=== PATIENT | male | born 1980 | race American Indian/Alaskan Native ===

== ENCOUNTER 2016-10-11 12:15 | Outpatient (CLI) | payer MEDICARE ==
--- NOTE | 2016-10-11 13:49 | XRay Report ---
LEFT WRIST, 4 VIEWS: HISTORY: Left wrist pain. FINDINGS: No comparison. There is mild nonspecific soft tissue swelling. On 2 of the 4 images, there is a questionable cortical defect involving the distal tip of the scaphoid bone. I cannot entirely exclude a nondisplaced fracture. There is no evidence for calcified callus. Please correlate for snuffbox tenderness. The remaining carpal bones and visualized metacarpals are intact. The distal radius and ulna are intact. No evidence for ligamentous injury or dislocation. No significant degenerative changes. IMPRESSION: Questionable nondisplaced fracture of the distal tip of the scaphoid bone. Please see above and correlate with the patient.
== END 2016-10-11 12:16 | disposition home or self-care (01) ==
LOC: XRAY 12:15
PROVIDERS: ATTEND Internal Medicine Hematology & Oncology
DX: S62.102A Fracture of unspecified carpal bone, left wrist, initial encounter for closed fracture (principal); M25.532 Pain in left wrist

== ENCOUNTER 2016-10-11 12:25 | Day surgery (SDC) | payer MEDICARE ==
[2016-10-11] MEDS ORDERED: NACL 0.9% 500 ML 500 ML IV SCH (13:00)
[2016-10-11 13:02] VITALS: BP 125/82
[2016-10-11 13:40] LABS: BUN/Creatinine Ratio 16.66; Blood Urea Nitrogen 10 mg/dL (9-20); Calcium 9.2 mg/dL (8.4-10.2); Carbon Dioxide 22 mmol/L (22-30); Chloride 102.4 mmol/L (98-107); Glucose 86 mg/dL (75-100); Potassium 3.6 mmol/L (3.6-5.0); Sodium 141 mmol/L (137-145)
[2016-10-11 13:45] LABS: Anion Gap 20 mmol/L
[2016-10-11] MEDS ORDERED: HEPARIN/NS 5000 UNIT/500ML(CATH LAB) 500 ML IR ONE (14:42)
[2016-10-11] MEDS ORDERED: SUBLIMAZE ONE (14:42)
[2016-10-11] MEDS ORDERED: VERSED ONE (14:42)
[2016-10-11] MEDS ORDERED: CEFAZOLIN IV ONE (14:43)
[2016-10-11] MEDS ORDERED: XYLOCAINE 1%/ EPI 1:100,000 INFILTRATI ONE (14:43)
[2016-10-11] MEDS ORDERED: [UNRECOGNIZED DRUG - OTHER] IV ONE (14:43)
[2016-10-11] MEDS ORDERED: BENADRYL ONE (14:43)
[2016-10-11 14:47] LABS: INR 1.21 (0.87-1.13)
--- NOTE | 2016-10-11 15:32 | XRay Report ---
AP chest x-ray. Findings: The heart and lungs reveal no acute findings or interval changes since October 02, 2016. Impression: No acute findings.
--- NOTE | 2016-10-11 15:35 | Event Note ---
Date: 10/11/16 The patient is a 36-year-old male with a history of sickle cell disease and HIV Zentz for a port placement. Patient has had multiple ports on both sides of his chest. His most recent port was removed in September. He still has surgical neida at the incision site. A tract extending from the distal incision site to the neck is palpable and a chest x-ray was ordered which demonstrates no retained catheter. I discussed the patient with his surgeon who recommended that the patient follow-up for surgical removal of the neida as soon as possible. He can then have a port placed at that time.
[2016-10-12 04:55] LABS: Mean Corpuscular HGB Conc 30 % (32-34); Mean Corpuscular Volume 72 fl (84-94); Platelet Count 220 K/mm3 (140-440); Red Cell Distribution Width 15.3 % (13.2-15.2); White Blood Count 3.1 K/mm3 (4.5-11.0)
[2016-10-12 05:01] LABS: Hematocrit 39.1 % (35.5-45.6); Hemoglobin 11.9 gm/dl (11.8-15.2); Mean Corpuscular Hemoglobin 22 pg (28-32)
[2016-10-12 06:01] LABS: Anisocytosis 1+; Basophils % (Manual) 0 % (0.0-1.8); Blastocytes % (Manual) 0 %
[2016-10-12 06:02] LABS: Burr Cells Few; Elliptocytes 1+; Hypochromasia 1+; Ovalocytes Few; Poikilocytosis 1+
[2016-10-12 06:03] LABS: Diff Status Complete
== END 2016-10-11 15:38 | disposition home or self-care (01) ==
LOC: OPU 12:25
PROVIDERS: ATTEND Internal Medicine Hematology & Oncology
DX: Z45.2 Encounter for adjustment and management of vascular access device (principal); Z53.8 Procedure and treatment not carried out for other reasons
CPT/HCPCS: 36415; 71010; 80048; 85007; 85025; 85610; 85730; J1200; J1644; J2930; J7040; J0690; J2250; J3010

== ENCOUNTER 2016-11-07 13:57 | Inpatient (IN) | payer MEDICARE ==
[2016-11-07 16:21] LABS: Anion Gap 17 mmol/L; BUN/Creatinine Ratio 21.66; Blood Urea Nitrogen 13 mg/dL (9-20); Calcium 8.9 mg/dL (8.4-10.2); Carbon Dioxide 23 mmol/L (22-30); Chloride 102.9 mmol/L (98-107); Glucose 92 mg/dL (75-100); Potassium 3.4 mmol/L (3.6-5.0); Sodium 139 mmol/L (137-145)
[2016-11-07 16:35] LABS: Mean Corpuscular HGB Conc 31 % (32-34); Mean Corpuscular Volume 71 fl (84-94); Platelet Count 176 K/mm3 (140-440); Red Blood Count 5.13 M/mm3 (3.65-5.03); Red Cell Distribution Width 16.1 % (13.2-15.2)
[2016-11-07 17:01] LABS: Hematocrit 36.4 % (35.5-45.6); Hemoglobin 11.1 gm/dl (11.8-15.2); Mean Corpuscular Hemoglobin 22 pg (28-32); White Blood Count 1.9 K/mm3 (4.5-11.0)
[2016-11-07] MEDS ORDERED: BENADRYL PO ONE (18:08)
[2016-11-07] MEDS ORDERED: ZOFRAN IV ONE (18:08)
[2016-11-07] MEDS ORDERED: DILAUDID IV ONE (18:08)
--- NOTE | 2016-11-07 18:09 | Emergency Department Report ---
ED General Adult HPI - General Chief complaint: Sickle Cell Crisis Stated complaint: SICKLE CELL Time Seen by Provider: 11/07/16 17:45 Source: patient, RN notes reviewed, old records reviewed Mode of arrival: Ambulatory Limitations: No Limitations - History of Present Illness Initial comments: Hematology/physician: Dr. Steward Past medical history: Sickle cell disease, pulmonary embolus, DVT, HIV. On Coumadin therapy. This is a 36-year-old male. He is previously unknown to me. He presents to the ER at right-sided chest wall pain, right shoulder pain, pain in the arms and back, subjectively feels like he is having a sickle cell crisis. trigger include cold weather, change of seasons and physical stress. He does not have shortness of breath, vomiting or diaphoresis. His symptoms are constant, they decrease with pain medication. He reports he is able to tolerate hydromorphone. Patient also reports feeling like he is off balance. He reports that it feels similar in the past when he had transient ischemic attack. He woke up with the symptoms. They're constant. Apparently, CD4 count was 226 in July, he's been HIV positive for 4 years. -: Gradual Location: chest, back, right, upper extremity Quality: aching Consistency: constant Improves with: medication, rest Worsens with: movement Associated Symptoms: chest pain, loss of appetite, weakness - Related Data Home Medications Medication Instructions Recorded Confirmed Last Taken Hydroxyurea [Hydrea] 500 mg PO BID 12/25/15 11/07/16 10/10/16 500mg Folic Acid 0.4 mg PO QDAY 09/16/16 11/07/16 10/10/16 0.4mg HYDROmorphone [Dilaudid] 4 mg PO Q6HR PRN 09/16/16 11/07/16 10/10/16 4mg Warfarin [Coumadin] 7.5 mg PO QDAY 11/07/16 11/07/16 Unknown Allergies Allergy/AdvReac Type Severity Reaction Status Date / Time morphine Allergy Anaphylaxis Verified 10/02/16 11:19 Iodinated Contrast Media - AdvReac Unknown Verified 10/02/16 11:19 IV Dye sulfamethoxazole AdvReac Unknown Verified 10/02/16 11:19 [From Bactrim] trimethoprim [From Bactrim] AdvReac Unknown Verified 10/02/16 11:19 PLASTIC TAPE Allergy Rash Uncoded 10/02/16 11:19 ED Review of Systems ROS: Stated complaint: SICKLE CELL Other details as noted in HPI Constitutional: denies: fever Eyes: denies: vision change ENT: denies: epistaxis Respiratory: denies: cough Cardiovascular: as per HPI Gastrointestinal: denies: vomiting Genitourinary: as per HPI Musculoskeletal: back pain, arthralgia Skin: denies: lesions Neurological: as per HPI, abnormal gait ED Past Medical Hx - Past Medical History Hx CVA: Yes (-2014) Hx Heart Attack/AMI: No Hx Congestive Heart Failure: No Hx Diabetes: No Hx Deep Vein Thrombosis: Yes (RIGHT ARM, RIGHT LEG, PE 2015) Hx Pulmonary Embolism: Yes (08/2016) Hx Liver Disease: No Hx Renal Disease: No Hx Sickle Cell Disease: Yes Hx Arthritis: No Hx Seizures: No Hx Kidney Stones: No Hx Asthma: No Hx COPD: No Hx Tuberculosis: No Hx Dementia: No Hx HIV: Yes (last CD4 count July 2016, POSITIVE X4 YEARS) - Surgical History Hx Cholecystectomy: Yes (2015) Hx Appendectomy: Yes (11/11) Additional Surgical History: I AND D ON LEG. PORT RIGHT CHEST. Spleenectomy - Social History Smoking Status: Current Every Day Smoker Substance Use Type: Alcohol - Medications Home Medications: Home Medications Medication Instructions Recorded Confirmed Last Taken Type Hydroxyurea [Hydrea] 500 mg PO BID 12/25/15 11/07/16 10/10/16 History 500mg Folic Acid 0.4 mg PO QDAY 09/16/16 11/07/16 10/10/16 History 0.4mg HYDROmorphone [Dilaudid] 4 mg PO Q6HR PRN 09/16/16 11/07/16 10/10/16 History 4mg Warfarin [Coumadin] 7.5 mg PO QDAY 11/07/16 11/07/16 Unknown History ED Physical Exam - General Limitations: No Limitations General appearance: alert, in no apparent distress - Head Head exam: Present: atraumatic, normocephalic - Eye Eye exam: Present: normal appearance, EOMI. Absent: nystagmus - ENT ENT exam: Present: normal exam, normal orophraynx, mucous membranes moist, normal external ear exam - Neck Neck exam: Present: normal inspection, full ROM. Absent: tenderness, meningismus - Respiratory Respiratory exam: Present: normal lung sounds bilaterally, other (there is an anterior thoracic wall port. There is no redness, pus, streaking or tenderness. ). Absent: respiratory distress, wheezes, rales, rhonchi, stridor, chest wall tenderness - Cardiovascular Cardiovascular Exam: Present: regular rate, normal rhythm, normal heart sounds. Absent: bradycardia, tachycardia, irregular rhythm, systolic murmur, diastolic murmur, rubs, gallop - GI/Abdominal GI/Abdominal exam: Present: soft, normal bowel sounds. Absent: distended, tenderness, guarding, rebound, rigid, pulsatile mass - Rectal Rectal exam: Present: deferred - Extremities Exam Extremities exam: Present: normal inspection, full ROM, normal capillary refill. Absent: tenderness, pedal edema, joint swelling, calf tenderness - Back Exam Back exam: Present: normal inspection, full ROM. Absent: tenderness, CVA tenderness (R), CVA tenderness (L), muscle spasm, paraspinal tenderness, vertebral tenderness - Neurological Exam Neurological exam: Present: alert, oriented X3, normal gait (normal gait. No past pointing. Negative pronator drift. Normal [id number].), other ( Extraocular movements intact. Tongue midline. No facial droop. Facial sensation intact to light touch in the V1, V2, V3 distribution bilaterally. 5 and 5 strength in 4 extremities.. Sensation is intact to light touch in 4 extremities.). Absent: motor sensory deficit - Psychiatric Psychiatric exam: Present: normal affect, normal mood - Skin Skin exam: Present: warm, dry, intact, normal color. Absent: rash ED Course Vital Signs 11/07/16 11/07/16 11/07/16 14:03 18:33 19:00 Temperature 98.9 F 98.2 F Pulse Rate 79 64 Respiratory 18 16 20 Rate Blood Pressure 148/85 Blood Pressure 116/65 [Left] O2 Sat by Pulse 100 100 99 Oximetry 11/07/16 19:05 Temperature 98.2 F Pulse Rate 73 Respiratory 16 Rate Blood Pressure Blood Pressure 131/87 [Left] O2 Sat by Pulse 100 Oximetry - Reevaluation(s) Reevaluation #1: 11/07/16 18:52 Differential diagnosis: Sickle cell crisis, subtherapeutic INR, medication noncompliance, transient ischemic attack, pneumonia, acute coronary syndrome, sickle cell crisis Assessment and plan: 36-year-old male with multiple complaints and sickle cell crisis. He reports that his shoulder and right chest wall pain are the same as on prior episodes of sickle cell crisis. Patient has a known history of pulmonary embolus and DVT, he has had recent episodes of subtherapeutic INR. A repeat INR is pending. A noncontrast CAT scan of the head demonstrated no acute disease. The patient has a GCS of 15, with an NIH score of 0, walks with a steady gait, has no past-pointing or cerebellar signs. Woke up with symptoms, and NIH score of 0, therefore not a TPA candidate. His INR is pending. A noncontrast CAT scan of the head demonstrated old ischemic changes. Patient will be admitted for sickle cell crisis and possible transient ischemic attack. I have discussed the case with his english tutor, , who is going to follow as a consult. I have discussed the case with Dr. Bruce, the hospital physician, who graciously accepts the patient to his service. Of note, the laboratory misplaced the patient's INR, and a redraw is pending. I will defer to the inpatient team to follow up on this. 11/07/16 18:55 11/08/16 02:02 ED Medical Decision Making - Lab Data Result diagrams: 11/07/16 15:50 11/07/16 15:50 Vital Signs 11/07/16 11/07/16 14:03 18:33 Temperature 98.9 F Pulse Rate 79 Respiratory 18 16 Rate Blood Pressure 148/85 O2 Sat by Pulse 100 100 Oximetry Lab Results 11/07/16 11/07/16 Range/Units 15:50 15:50 WBC 1.9 L* (4.5-11.0) K/mm3 RBC 5.13 H (3.65-5.03) M/mm3 Hgb 11.1 L (11.8-15.2) gm/dl Hct 36.4 (35.5-45.6) % MCV 71 L (84-94) fl MCH 22 L (28-32) pg MCHC 31 L (32-34) % RDW 16.1 H (13.2-15.2) % Plt Count 176 (140-440) K/mm3 Percent Retic 0.50 L (0.78-2.58) % Sodium 139 (137-145) mmol/L Potassium 3.4 L (3.6-5.0) mmol/L Chloride 102.9 (98-107) mmol/L Carbon Dioxide 23 (22-30) mmol/L Anion Gap 17 mmol/L BUN 13 (9-20) mg/dL Creatinine 0.6 L (0.8-1.5) mg/dL Estimated GFR > 60 ml/min BUN/Creatinine Ratio 21.66 % Glucose 92 (75-100) mg/dL Calcium 8.9 (8.4-10.2) mg/dL - EKG Data 11/07/16 19:06 Normal sinus, 62 bpm, normal axis, normal intervals, incomplete right bundle branch block, not consistent with STEMI, appears unchanged from prior EKG from 10/02/2016. - Radiology Data Radiology results: report reviewed, image reviewed interpreted by me: X-ray chest negative. Right-sided thoracic wall port is noted. Noncontrast CAT scan of the head is negative. Old right MCA infarct is noted. Prominent chronic small vessel ischemic changes are noted. Critical care attestation.: If time is entered above; I have spent that time in minutes in the direct care of this critically ill patient, excluding procedure time. ED Disposition Clinical Impression: Sickle cell pain crisis, Leukopenia, History of unsteady gait Disposition: OP ADMITTED IP TO THIS HOSP Is pt being admited?: Yes Condition: Stable
--- NOTE | 2016-11-07 18:47 | Cat Scan Report ---
FINAL REPORT EXAM: CT HEAD/BRAIN WO CON HISTORY: ataxia hx of tia TECHNIQUE: Standard unenhanced CT of the head at 5.0 millimeter axial increments. PRIORS: None. FINDINGS: The ventricular system is normal in size and configuration. There is no evidence for parenchymal volume loss. There is no evidence for mass lesion, mass effect, midline shift, acute intracranial hemorrhage, or acute ischemia/ infarction. No evidence for acute skull fracture is seen. Visualized paranasal sinuses are clear. No abnormality in the overlying scalp soft tissues is seen. IMPRESSION: Negative CT of the head. No acute intracranial process noted.
[2016-11-07] MEDS ORDERED: BABY ASPIRIN PO ONE (18:57)
[2016-11-07] MEDS ORDERED: D5/0.45NS 1,000 ML IV SCH (19:00)
[2016-11-07 19:05] LABS: Blastocytes % (Manual) 0 %; Hypochromasia 1+; Microcytosis 2+; Ovalocytes 1+; Poikilocytosis Few
[2016-11-07 19:06] LABS: Platelet Estimate Consistent w Auto
[2016-11-07 19:12] LABS: Diff Status Complete
[2016-11-07] MEDS ORDERED: K-DUR PO ONE ×2 (19:21→20:10)
--- NOTE | 2016-11-07 19:35 | History and Physical Report ---
History of Present Illness Date of examination: 11/07/16 Chief complaint: Back pain History of present illness: Patient is a 36-year-old man history of sickle cell disease, P E/DVT, TIA and HIV who comes emergency room with sickle cell pain back pains that started today. He has sharp pain located in the legs external lower back constant since of severe nonradiating without any aggravating or relieving factors. Patient denies any cough, severe headaches. Past History Past Medical History: other (as HPI) Past Surgical History: total hip replacement, Other (right chest wall port) Social history: smoking, full code. denies: alcohol abuse, prescription drug abuse, IV drug use Family history: other (sickle cell) Medications and Allergies Allergies Allergy/AdvReac Type Severity Reaction Status Date / Time morphine Allergy Anaphylaxis Verified 10/02/16 11:19 Iodinated Contrast Media - AdvReac Unknown Verified 10/02/16 11:19 IV Dye sulfamethoxazole AdvReac Unknown Verified 10/02/16 11:19 [From Bactrim] trimethoprim [From Bactrim] AdvReac Unknown Verified 10/02/16 11:19 PLASTIC TAPE Allergy Rash Uncoded 10/02/16 11:19 Home Medications Medication Instructions Recorded Confirmed Last Taken Type Hydroxyurea [Hydrea] 500 mg PO BID 12/25/15 11/07/16 10/10/16 History 500mg Folic Acid 0.4 mg PO QDAY 09/16/16 11/07/16 10/10/16 History 0.4mg HYDROmorphone [Dilaudid] 4 mg PO Q6HR PRN 09/16/16 11/07/16 10/10/16 History 4mg Warfarin [Coumadin] 7.5 mg PO QDAY 11/07/16 11/07/16 Unknown History Active Meds: Active Medications Dextrose/Sodium Chloride (D5/0.45ns) 1,000 mls @ 0 mls/hr IV NOW RONY PRN Reason: As Directed Last Admin: 11/07/16 18:28 Dose: 250 mls/hr Review of Systems All systems: negative (as HPI and all other ROS reviewed and negative.) Exam - Physical Exam Narrative exam: GEN: WDWN, NAD, AWAKE, ALERT, ORIENTATED 3 HEENT: NCAT, PERRL, EOMI, OP CLEAR NECK: SUPPLE, NO THYROMEGALY, NO JVD, NO LAD CVS: RRR, NORMAL S1S2 LUNGS/CHEST: CTA B, NORMAL CHEST EXPANSION B, GOOD AIR ENTRY B ABD: SOFT NTND, GBS, NO REBOUND OR GUARDING EXT/SKIN: NO SIGNIFICANT EDEMA OR RASH MSK: FROM X 4 EXTREMITIES NEURO: CN 2-12 GROSSLY INTACT, NO FOCAL DEFICITS PSY: CALM - Constitutional Vitals: Temp Pulse Resp BP Pulse Ox 98.2 F 73 16 131/87 100 11/07/16 19:05 11/07/16 19:05 11/07/16 19:05 11/07/16 19:05 11/07/16 19:05 Results - Labs CBC & Chem 7: 11/07/16 15:50 11/07/16 15:50 Labs: Abnormal lab results 11/07/16 11/07/16 Range/Units 15:50 15:50 WBC 1.9 L* (4.5-11.0) K/mm3 RBC 5.13 H (3.65-5.03) M/mm3 Hgb 11.1 L (11.8-15.2) gm/dl MCV 71 L (84-94) fl MCH 22 L (28-32) pg MCHC 31 L (32-34) % RDW 16.1 H (13.2-15.2) % Seg Neuts % (Manual) 39.0 L (40.0-70.0) % Lymphocytes % (Manual) 44.0 H (13.4-35.0) % Monocytes % (Manual) 11.0 H (0.0-7.3) % Seg Neutrophils # Man 0.7 L (1.8-7.7) K/mm3 Lymphocytes # (Manual) 0.8 L (1.2-5.4) K/mm3 Percent Retic 0.50 L (0.78-2.58) % Potassium 3.4 L (3.6-5.0) mmol/L Creatinine 0.6 L (0.8-1.5) mg/dL Assessment and Plan Patient is a 36-year-old man history of sickle cell disease, P E/DVT, TIA and HIV who comes emergency room with sickle cell pain back pains that started today. He has sharp pain located in the legs external lower back constant since of severe nonradiating without any aggravating or relieving factors. Patient denies any cough, severe headaches. 1. Sickle cell pain crisis: IV narcotics, IV fluids and consult hematology 2. Hypokalemia: Replace 3. Leukopenia, chronic 4. Anemia related to #1
[2016-11-07] MEDS ORDERED: ZOFRAN IV PRN (19:36)
[2016-11-07] MEDS ORDERED: TYLENOL PO PRN (19:36)
[2016-11-07] MEDS ORDERED: DILAUDID ONE (20:02)
[2016-11-07] MEDS ORDERED: BABY ASPIRIN ONE (20:13)
[2016-11-07 21:24] LABS: INR 1.03 (0.87-1.13); Partial Thromboplastin Time 21.7 Sec. (24.2-36.6)
[2016-11-07] MEDS: D5NS 0.2% 1,000 ML IV SCH (22:56)
[2016-11-07] MEDS: DILAUDID IV PRN (22:59)
[2016-11-07] MEDS: BENADRYL IV PRN (22:59)
--- NOTE | 2016-11-07 23:37 | Consultation ---
History of Present Illness - Reason for Consult Consult date: 11/07/16 Anemia, SCD, Leukopenia. Requesting physician: ABDON GRADY - History of Present Illness Thank you for this consult, patient seen/examined, labs reviewed, case d/w patient in the ER where he was seen. I have also spoken to the ER DoC in the ER. Patient apparently, presented to the ER with CC of diffuse CP/Joint pain. He also was said to have experienced some TIA like sxs, but not really convencing to me on exam.His labs showed very low WBC, probably due to his HIV meds. He sees DR Bhatia.Will rec to probably hold off on his HIV meds, and also get ID consult.If he dose not improve, will give him some growth factor. Past History Past Medical History: HIV/AIDS, other (as HPI) Past Surgical History: total hip replacement, Other (right chest wall port) Social history: , full code. denies: alcohol abuse, prescription drug abuse, IV drug use Family history: no significant family history, other (sickle cell) Medications and Allergies Allergies Allergy/AdvReac Type Severity Reaction Status Date / Time morphine Allergy Anaphylaxis Verified 10/02/16 11:19 Iodinated Contrast Media - AdvReac Unknown Verified 10/02/16 11:19 IV Dye sulfamethoxazole AdvReac Unknown Verified 10/02/16 11:19 [From Bactrim] trimethoprim [From Bactrim] AdvReac Unknown Verified 10/02/16 11:19 PLASTIC TAPE Allergy Rash Uncoded 10/02/16 11:19 Home Medications Medication Instructions Recorded Confirmed Last Taken Type Hydroxyurea [Hydrea] 500 mg PO BID 12/25/15 11/07/16 10/10/16 History 500mg Folic Acid 0.4 mg PO QDAY 09/16/16 11/07/16 10/10/16 History 0.4mg HYDROmorphone [Dilaudid] 4 mg PO Q6HR PRN 09/16/16 11/07/16 10/10/16 History 4mg Warfarin [Coumadin] 7.5 mg PO QDAY 11/07/16 11/07/16 Unknown History Active Meds: Active Medications Acetaminophen (Tylenol) 650 mg PO Q6H PRN PRN Reason: Non Cardiac Pain or Temp>100.5 Diphenhydramine HCl (Benadryl) 25 mg IV Q6H PRN PRN Reason: Itching Last Admin: 11/07/16 22:59 Dose: 25 mg Hydromorphone HCl (Dilaudid) 2 mg IV Q3H PRN PRN Reason: Pain , Severe (7-10) Last Admin: 11/07/16 22:59 Dose: 2 mg Dextrose/Sodium Chloride (D5ns 0.2%) 1,000 mls @ 100 mls/hr IV DIRECT RONY Last Admin: 11/07/16 22:56 Dose: 100 mls/hr Ondansetron HCl (Zofran) 4 mg IV Q4H PRN PRN Reason: Nausea And Vomiting Pantoprazole Sodium (Protonix) 40 mg PO QDAY RONY Review of Systems Constitutional: chronic pain Cardiovascular: chest pain Musculoskeletal: low back pain Neurological: tingling Exam - Constitutional Vitals: Temp Pulse Resp BP Pulse Ox 98.2 F 66 18 123/76 99 11/07/16 22:00 11/07/16 22:00 11/07/16 22:00 11/07/16 22:00 11/07/16 22:00 General appearance: Present: mild distress, well-nourished - EENT Eyes: Present: PERRL ENT: hearing intact, clear oral mucosa - Neck Neck: Present: supple, normal ROM - Respiratory Respiratory effort: normal Respiratory: bilateral: CTA - Cardiovascular Heart Sounds: Present: S1 & S2. Absent: rub, click - Extremities Extremities: pulses symmetrical, No edema Peripheral Pulses: within normal limits - Abdominal General gastrointestinal: Present: soft, non-tender, non-distended, normal bowel sounds Male genitourinary: Present: deferred - Rectal Rectal Exam: deferred - Integumentary Integumentary: Present: clear, warm, dry - Musculoskeletal Musculoskeletal: gait normal, strength equal bilaterally - Psychiatric Psychiatric: appropriate mood/affect, intact judgment & insight - Neurologic Neurologic: CNII-XII intact, moves all extremities Results - Labs CBC & Chem 7: 11/07/16 15:50 11/07/16 15:50 Labs: Abnormal lab results 11/07/16 Range/Units 20:45 APTT 21.7 L (24.2-36.6) Sec. Assessment and Plan - Patient Problems (1) Leukopenia Current Visit: Yes Status: Acute Qualifiers: Leukopenia type: L Neutropenia type: N Plan to address problem: This is probably due to his meds ,including his hydrea. will hold his meds. (2) Sickle cell pain crisis Current Visit: Yes Status: Acute Plan to address problem: pain control. (3) Anemia Current Visit: No Status: Acute Qualifiers: Anemia type: A Iron deficiency anemia type: I Vitamin B12 deficiency anemia type: V Folate deficiency anemia type: F Bone marrow failure anemia type: B Hemolytic anemia type: H Other causes of anemia: O Plan to address problem: Stable so far. (4) Hx of pulmonary embolus Current Visit: No Status: Acute Plan to address problem: Monitor coags.
[2016-11-08] MEDS: DILAUDID IV PRN ×5 (02:03→21:29)
[2016-11-08 02:22] LABS: Hematocrit 32.1 % (35.5-45.6); Hemoglobin 10.1 gm/dl (11.8-15.2); Mean Corpuscular HGB Conc 31 % (32-34); Platelet Count 173 K/mm3 (140-440); Red Blood Count 4.69 M/mm3 (3.65-5.03); Red Cell Distribution Width 15.9 % (13.2-15.2); Reticulocyte % 0.57 % (0.78-2.58)
[2016-11-08 02:31] LABS: Mean Corpuscular Hemoglobin 22 pg (28-32); Mean Corpuscular Volume 68 fl (84-94)
[2016-11-08 02:34] LABS: BUN/Creatinine Ratio 18.33; Blood Urea Nitrogen 11 mg/dL (9-20); Calcium 8.5 mg/dL (8.4-10.2); Carbon Dioxide 26 mmol/L (22-30); Chloride 98.9 mmol/L (98-107); Glucose 123 mg/dL (75-100); Potassium 3.2 mmol/L (3.6-5.0); Sodium 137 mmol/L (137-145)
[2016-11-08 02:35] LABS: Eosinophils % (Auto) 1.4 % (0.0-4.3); White Blood Count 1.9 K/mm3 (4.5-11.0)
[2016-11-08 02:54] LABS: Anion Gap 15 mmol/L
[2016-11-08 03:33] LABS: Anisocytosis 2+; Basophils % (Manual) 0 % (0.0-1.8); Blastocytes % (Manual) 0 %; Elliptocytes 1+; Eosinophils % (Manual) 0 % (0.0-4.3); Hypochromasia 1+; Microcytosis 2+; Ovalocytes 1+; Target Cells 1+
[2016-11-08 03:34] LABS: Diff Status Complete; Helmet Cells Few
[2016-11-08] MEDS: BENADRYL IV PRN ×4 (05:17→21:30)
--- NOTE | 2016-11-08 08:34 | Admit Criteria Form ---
Admission Criteria Documentation: SICKLE CELL DISEASE Clinical Indications for Admission to Inpatient Care (Place 'X' for any and all applicable criteria): Admission is indicated for ANY ONE of the following(1)(2)(3)(4)(5): [X]I. Inpatient admission required rather than observation care because of ANY ONE of the following: [ ]a) Altered mental status [ ]b) High fever or infection requiring inpatient admission as indicated by ANY ONE of the following: [ ]A. Appropriate outpatient observation care antimicrobial treatment unavailable, not effective, or not appropriate for infection [ ]B. Documented bacteremia [ ]C. Temp >104.9F (40.5C) (oral) [ ]D. Temp >103.1F (oral) or <96.8F(rectal) that does not respond to all emergency treatment measures [ ]c) Supplemental O2 or respiratory therapy for over 24 h that are performable only in acute inpatient setting [X]d) Continuous parenteral narcoticsother major pain intervention for >24 h performable only in acute inpatient setting. [ ]e) Exchange transfusion [X]f) Other condition, treatment or monitoring requiring inpatient admission [ ]II. Acute chest syndrome indicated by ALL of the following (10): [ ]a) New alveolar infiltrate involving at least one lung segment [ ]b) Associated pulmonary symptoms or findings as indicated by ANY ONE of the following: [ ]i) Chest pain [ ]ii) Hypoxemia [ ]iii) Tachypnea/dyspnea [ ]iv) Wheezing [ ]v) Cough [ ]vi) Sputum production [ ]III. Significant hypoxemia or acidosis (more severe than baseline) [ ]IV. Emergent surgery needed (eg, acute cholecystitis) [ ]V. -related complication(11) [ ]. Splenic or hepatic sequestration(12) [ ]VII. Aplastic crisis [ ]VIII. Priapism or other vascular complication(13) [ ]IX. Traumatic hyphema [A](14) [ ]X. Underlying condition requiring hospitalization (eg, osteomyelitis) [ ]XI. Signs or symptoms of central nervous system injury indicated by ANY ONE of the following: [ ]a) Stroke(9) [ ]b) Seizure [ ]c) Other significant central nervous system symptom or event [ ]XII. Acute renal failure Extended stay beyond goal length of stay may be needed for: [ ]a) Inadequate pain control [ ]b) Acute chest syndrome [ ]c) Sequestration or aplastic crisis (12) [ ]d) Pneumonia and asthma exacerbation [ ]e) Neurologic or vascular complications (25) [ ]f) Infection (eg, osteomyelitis) that requires ongoing treatment) The original [facility] [employer] content created by [facility] has been revised. The portions of the content which have been revised are identified through the use of italic text or in bold, and [facility] has neither reviewed nor approved the modified material. All other unmodified content is copyright [facility]. Please see references footnoted in the original [facility] [employer] edition 2016 Admission Criteria Met: Yes
--- NOTE | 2016-11-08 08:49 | XRay Report ---
CHEST 2 VIEWS INDICATION: Chest pain, sickle cell crisis. COMPARISON: 10/11/2016 FINDINGS: PA and lateral chest radiographs, 3 images, demonstrate normal cardiomediastinal silhouette. Clear lungs without pleural effusions or CHF. New right sided chest port tip near the cavoatrial junction. Interval right upper chest skin neida removal. Cholecystectomy clips. Slight lower thoracic levocurvature. CONCLUSION: No significant acute chest process with few incidental findings, including interval right-sided chest port placement, as described. Thank you for the opportunity to participate in this patient's care.
[2016-11-08] MEDS: K-DUR PO SCH ×2 (08:54→19:36)
[2016-11-08] MEDS: PROTONIX PO SCH (09:03)
[2016-11-08 10:48] LABS: Bilirubin,Urine NEG (Negative); Blood,Urine NEG (Negative); Ketones,Urine NEG (Negative); Leukocyte Esterase,Urine NEG (Negative); Mucus,Urine 3+ /HPF; Nitrite,Urine NEG (Negative); Protein,Urine <15 mg/dL mg/dL (Negative)
--- NOTE | 2016-11-08 12:36 | Progress Note ---
Assessment and Plan Assessment and plan: Sickle cell vaso-occlusive crisis. Continue Dilaudid iv Q3hr. benadryl iv prn. iv fluids History of pulmonary embolism and deep vein thrombosis. Resume Coumadin. INR saubtherapeutic HIV infection. Full code status. History Interval history: Still having gen body pains,, leg pain, back pain Hospitalist Physical - Constitutional Vitals: Temp Pulse Resp BP Pulse Ox 98.4 F 72 16 129/84 100 11/08/16 08:17 11/08/16 08:17 11/08/16 08:17 11/08/16 08:17 11/08/16 08:17 General appearance: Present: mild distress (pain), well-nourished - EENT Eyes: Present: PERRL ENT: hearing intact, clear oral mucosa - Neck Neck: Present: supple, normal ROM - Respiratory Respiratory effort: normal Respiratory: bilateral: CTA, negative: diminished, rales, rhonchi, wheezing - Cardiovascular Rhythm: regular Heart Sounds: Present: S1 & S2 (S1 and S2 reg, no murmurs) - Extremities Extremities: no ischemia, No edema, normal temperature, normal color - Abdominal General gastrointestinal: soft, non-tender, non-distended, normal bowel sounds - Integumentary Integumentary: Present: clear, warm, dry - Psychiatric Psychiatric: appropriate mood/affect, intact judgment & insight - Neurologic Neurologic: moves all extremities, other (AAO x 3) Results - Labs CBC & Chem 7: 11/09/16 09:25 11/09/16 07:35 Labs: Laboratory Last Values WBC 1.9 K/mm3 (4.5-11.0) L* 11/08/16 02:00 RBC 4.69 M/mm3 (3.65-5.03) 11/08/16 02:00 Hgb 10.1 gm/dl (11.8-15.2) L 11/08/16 02:00 Hct 32.1 % (35.5-45.6) L 11/08/16 02:00 MCV 68 fl (84-94) L D 11/08/16 02:00 MCH 22 pg (28-32) L 11/08/16 02:00 MCHC 31 % (32-34) L 11/08/16 02:00 RDW 15.9 % (13.2-15.2) H 11/08/16 02:00 Plt Count 173 K/mm3 (140-440) 11/08/16 02:00 [place] % (Auto) 13.1 % (0.0-7.3) H 11/08/16 02:00 Eos % (Auto) 1.4 % (0.0-4.3) 11/08/16 02:00 [place] # 0.3 K/mm3 (0.0-0.8) 11/08/16 02:00 Eos # 0.0 K/mm3 (0.0-0.4) 11/08/16 02:00 Baso # 0.0 K/mm3 (0.0-0.1) 11/08/16 02:00 Add Manual Diff Complete 11/08/16 02:00 Total Counted 100 11/08/16 02:00 Seg Neutrophils % 37.0 % (40.0-70.0) L 11/08/16 02:00 Seg Neuts % (Manual) 38.0 % (40.0-70.0) L 11/08/16 02:00 Band Neutrophils % 2.0 % 11/08/16 02:00 Lymphocytes % (Manual) 42.0 % (13.4-35.0) H 11/08/16 02:00 Reactive Lymphs % (Man) 8.0 % 11/08/16 02:00 Monocytes % (Manual) 10.0 % (0.0-7.3) H 11/08/16 02:00 Eosinophils % (Manual) 0 % (0.0-4.3) 11/08/16 02:00 Basophils % (Manual) 0 % (0.0-1.8) 11/08/16 02:00 Metamyelocytes % 0 % 11/08/16 02:00 Myelocytes % 0 % 11/08/16 02:00 Promyelocytes % 0 % 11/08/16 02:00 Blast Cells % 0 % 11/08/16 02:00 Nucleated RBC % Not Reportable 11/08/16 02:00 Seg Neutrophils # 0.7 K/mm3 (1.8-7.7) L 11/08/16 02:00 Seg Neutrophils # Man 0.7 K/mm3 (1.8-7.7) L 11/08/16 02:00 Band Neutrophils # 0.0 K/mm3 11/08/16 02:00 Lymphocytes # (Manual) 0.8 K/mm3 (1.2-5.4) L 11/08/16 02:00 Abs React Lymphs (Man) 0.2 K/mm3 11/08/16 02:00 Monocytes # (Manual) 0.2 K/mm3 (0.0-0.8) 11/08/16 02:00 Eosinophils # (Manual) 0.0 K/mm3 (0.0-0.4) 11/08/16 02:00 Basophils # (Manual) 0.0 K/mm3 (0.0-0.1) 11/08/16 02:00 Metamyelocytes # 0.0 K/mm3 11/08/16 02:00 Myelocytes # 0.0 K/mm3 11/08/16 02:00 Promyelocytes # 0.0 K/mm3 11/08/16 02:00 Blast Cells # 0.0 K/mm3 11/08/16 02:00 WBC Morphology Not Reportable 11/08/16 02:00 Hypersegmented Neuts Not Reportable 11/08/16 02:00 Hyposegmented Neuts Not Reportable 11/08/16 02:00 Hypogranular Neuts Not Reportable 11/08/16 02:00 Smudge Cells Not Reportable 11/08/16 02:00 Toxic Granulation Not Reportable 11/08/16 02:00 Toxic Vacuolation Not Reportable 11/08/16 02:00 Dohle Bodies Not Reportable 11/08/16 02:00 Pelger-Huet Anomaly Not Reportable 11/08/16 02:00 Raheem Rods Not Reportable 11/08/16 02:00 Platelet Estimate Appears normal 11/08/16 02:00 Clumped Platelets Not Reportable 11/08/16 02:00 Plt Clumps, EDTA Not Reportable 11/08/16 02:00 Large Platelets Not Reportable 11/08/16 02:00 Giant Platelets Not Reportable 11/08/16 02:00 Platelet Satelliting Not Reportable 11/08/16 02:00 Plt Morphology Comment Not Reportable 11/08/16 02:00 RBC Morphology Not Reportable 11/08/16 02:00 Dimorphic RBCs Not Reportable 11/08/16 02:00 Polychromasia Not Reportable 11/08/16 02:00 Hypochromasia 1+ 11/08/16 02:00 Poikilocytosis Not Reportable 11/08/16 02:00 Anisocytosis 2+ 11/08/16 02:00 Microcytosis 2+ 11/08/16 02:00 Macrocytosis Not Reportable 11/08/16 02:00 Spherocytes Not Reportable 11/08/16 02:00 Pappenheimer Bodies Not Reportable 11/08/16 02:00 Sickle Cells Not Reportable 11/08/16 02:00 Target Cells 1+ 11/08/16 02:00 Tear Drop Cells Not Reportable 11/08/16 02:00 Ovalocytes 1+ 11/08/16 02:00 Helmet Cells Few 11/08/16 02:00 [place] Bodies Not Reportable 11/08/16 02:00 [place] Rings Not Reportable 11/08/16 02:00 [place] Cells Not Reportable 11/08/16 02:00 Bite Cells Not Reportable 11/08/16 02:00 Crenated Cell Not Reportable 11/08/16 02:00 Elliptocytes 1+ 11/08/16 02:00 Acanthocytes (Spur) Not Reportable 11/08/16 02:00 Rouleaux Not Reportable 11/08/16 02:00 Hemoglobin C Crystals Not Reportable 11/08/16 02:00 Schistocytes Not Reportable 11/08/16 02:00 Malaria parasites Not Reportable 11/08/16 02:00 Percent Retic 0.57 % (0.78-2.58) L 11/08/16 02:00 [place]ando Bodies Not Reportable 11/08/16 02:00 Hem Pathologist Commnt No 11/08/16 02:00 PT 13.4 Sec. (12.2-14.9) 11/07/16 20:45 INR 1.03 (0.87-1.13) 11/07/16 20:45 APTT 21.7 Sec. (24.2-36.6) L 11/07/16 20:45 Sodium 137 mmol/L (137-145) 11/08/16 02:00 Potassium 3.2 mmol/L (3.6-5.0) L 11/08/16 02:00 Chloride 98.9 mmol/L (98-107) 11/08/16 02:00 Carbon Dioxide 26 mmol/L (22-30) 11/08/16 02:00 Anion Gap 15 mmol/L 11/08/16 02:00 BUN 11 mg/dL (9-20) 11/08/16 02:00 Creatinine 0.6 mg/dL (0.8-1.5) L 11/08/16 02:00 Estimated GFR > 60 ml/min 11/08/16 02:00 BUN/Creatinine Ratio 18.33 % 11/08/16 02:00 Glucose 123 mg/dL (75-100) H 11/08/16 02:00 Calcium 8.5 mg/dL (8.4-10.2) 11/08/16 02:00 Urine Color Yellow (Yellow) 11/07/16 Unknown Urine Turbidity Clear (Clear) 11/07/16 Unknown Urine pH 6.0 (5.0-7.0) 11/07/16 Unknown Ur Specific [place] 1.024 (1.003-1.030) 11/07/16 Unknown Urine Protein <15 mg/dl mg/dL (Negative) 11/07/16 Unknown Urine Glucose (UA) 50 mg/dL (Negative) 11/07/16 Unknown Urine Ketones Neg mg/dL (Negative) 11/07/16 Unknown Urine Blood Neg (Negative) 11/07/16 Unknown Urine Nitrite Neg (Negative) 11/07/16 Unknown Urine Bilirubin Neg (Negative) 11/07/16 Unknown Urine Urobilinogen 2.0 mg/dL (<2.0) 11/07/16 Unknown Ur Leukocyte Esterase Neg (Negative) 11/07/16 Unknown Urine WBC (Auto) 1.0 /HPF (0.0-6.0) 11/07/16 Unknown Urine RBC (Auto) 4.0 /HPF (0.0-6.0) 11/07/16 Unknown Urine Mucus 3+ /HPF 11/07/16 Unknown
[2016-11-08] MEDS ORDERED: K-DUR PO ONE (21:13)
--- NOTE | 2016-11-08 21:20 | Consultation ---
History of Present Illness - Reason for Consult Consult date: 11/08/16 - History of Present Illness Patient seen/examined, labs /meds reviewed, and adjustments made., case d/w patient. patient c/o have not been able to take his pain meds, due to skin itching.Cultures still pending results.WBC still low at 1.9. will still await, and intervene if any drop in the in the WBC.or symptomatic. Past History Past Medical History: HIV/AIDS, other (as HPI) Past Surgical History: total hip replacement, Other (right chest wall port) Social history: , full code. denies: alcohol abuse, prescription drug abuse, IV drug use Family history: no significant family history, other (sickle cell) Medications and Allergies Allergies Allergy/AdvReac Type Severity Reaction Status Date / Time morphine Allergy Anaphylaxis Verified 10/02/16 11:19 Iodinated Contrast Media - AdvReac Unknown Verified 10/02/16 11:19 IV Dye sulfamethoxazole AdvReac Unknown Verified 10/02/16 11:19 [From Bactrim] trimethoprim [From Bactrim] AdvReac Unknown Verified 10/02/16 11:19 PLASTIC TAPE Allergy Rash Uncoded 10/02/16 11:19 Home Medications Medication Instructions Recorded Confirmed Last Taken Type Hydroxyurea [Hydrea] 500 mg PO BID 12/25/15 11/07/16 10/10/16 History 500mg Folic Acid 0.4 mg PO QDAY 09/16/16 11/07/16 10/10/16 History 0.4mg HYDROmorphone [Dilaudid] 4 mg PO Q6HR PRN 09/16/16 11/07/16 10/10/16 History 4mg Warfarin [Coumadin] 7.5 mg PO QDAY 11/07/16 11/07/16 Unknown History Active Meds: Active Medications Acetaminophen (Tylenol) 650 mg PO Q6H PRN PRN Reason: Non Cardiac Pain or Temp>100.5 Diphenhydramine HCl (Benadryl) 12.5 mg IV Q3H PRN PRN Reason: Itching Hydromorphone HCl (Dilaudid) 2 mg IV Q3H PRN PRN Reason: Pain , Severe (7-10) Last Admin: 11/08/16 15:15 Dose: 2 mg Dextrose/Sodium Chloride (D5ns 0.2%) 1,000 mls @ 100 mls/hr IV DIRECT [facility] Last Admin: 11/07/16 22:56 Dose: 100 mls/hr Ondansetron HCl (Zofran) 4 mg IV Q4H PRN PRN Reason: Nausea And Vomiting Pantoprazole Sodium (Protonix) [address] [facility] Last Admin: 11/08/16 09:03 Dose: 40 mg Potassium Chloride (K-Dur) 40 meq PO ONCE ONE Stop: 11/08/16 21:14 Review of Systems Constitutional: chronic pain Musculoskeletal: low back pain Exam - Constitutional Vitals: Temp Pulse Resp BP Pulse Ox 98.3 F 94 H 20 125/84 100 11/08/16 16:25 11/08/16 16:25 11/08/16 16:25 11/08/16 16:25 11/08/16 16:25 General appearance: Present: mild distress, well-nourished - EENT Eyes: Present: PERRL ENT: hearing intact, clear oral mucosa - Neck Neck: Present: supple, normal ROM - Respiratory Respiratory effort: normal Respiratory: bilateral: CTA - Cardiovascular Heart Sounds: Present: S1 & S2. Absent: rub, click - Extremities Extremities: pulses symmetrical, No edema Peripheral Pulses: within normal limits - Abdominal General gastrointestinal: Present: soft, non-tender, non-distended, normal bowel sounds Male genitourinary: Present: deferred - Rectal Rectal Exam: deferred - Integumentary Integumentary: Present: clear, warm, dry - Musculoskeletal Musculoskeletal: gait normal, strength equal bilaterally - Psychiatric Psychiatric: appropriate mood/affect, intact judgment & insight - Neurologic Neurologic: CNII-XII intact, moves all extremities Results - Labs CBC & Chem 7: 11/08/16 02:00 11/08/16 02:00 Labs: Abnormal lab results 11/07/16 11/08/16 11/08/16 Range/Units 20:45 02:00 02:00 WBC 1.9 L* (4.5-11.0) K/mm3 Hgb 10.1 L (11.8-15.2) gm/dl Hct 32.1 L (35.5-45.6) % MCV 68 L D (84-94) fl MCH 22 L (28-32) pg MCHC 31 L (32-34) % RDW 15.9 H (13.2-15.2) % [place] % (Auto) 13.1 H (0.0-7.3) % Seg Neutrophils % 37.0 L (40.0-70.0) % Seg Neuts % (Manual) 38.0 L (40.0-70.0) % Lymphocytes % (Manual) 42.0 H (13.4-35.0) % Monocytes % (Manual) 10.0 H (0.0-7.3) % Seg Neutrophils # 0.7 L (1.8-7.7) K/mm3 Seg Neutrophils # Man 0.7 L (1.8-7.7) K/mm3 Lymphocytes # (Manual) 0.8 L (1.2-5.4) K/mm3 Percent Retic 0.57 L (0.78-2.58) % APTT 21.7 L (24.2-36.6) Sec. Potassium 3.2 L (3.6-5.0) mmol/L Creatinine 0.6 L (0.8-1.5) mg/dL Glucose 123 H (75-100) mg/dL Assessment and Plan - Patient Problems (1) Leukopenia Current Visit: Yes Status: Acute Qualifiers: Leukopenia type: L Neutropenia type: N Plan to address problem: This is probably due to his meds ,including his hydrea. will hold his meds. SEE notes above. (2) Sickle cell pain crisis Current Visit: Yes Status: Acute Plan to address problem: pain control. (3) Anemia Current Visit: No Status: Acute Qualifiers: Anemia type: A Iron deficiency anemia type: I Vitamin B12 deficiency anemia type: V Folate deficiency anemia type: F Bone marrow failure anemia type: B Hemolytic anemia type: H Other causes of anemia: O Plan to address problem: Stable so far. (4) Hx of pulmonary embolus Current Visit: No Status: Acute Plan to address problem: Monitor coags. (5) Hypokalemia Current Visit: Yes Status: Acute Plan to address problem: Replace potassium.
[2016-11-09] MEDS: BENADRYL IV PRN ×8 (00:53→23:21)
[2016-11-09] MEDS: DILAUDID IV PRN ×8 (00:53→23:21)
[2016-11-09] MEDS: D5NS 0.2% 1,000 ML IV SCH ×2 (03:01→18:47)
[2016-11-09 08:47] LABS: Anion Gap 14 mmol/L; Blood Urea Nitrogen 6 mg/dL (9-20); Calcium 8.6 mg/dL (8.4-10.2); Carbon Dioxide 27 mmol/L (22-30); Chloride 101.8 mmol/L (98-107); Glucose 112 mg/dL (75-100); Sodium 139 mmol/L (137-145)
[2016-11-09 08:48] LABS: INR 1.05 (0.87-1.13)
[2016-11-09 09:44] LABS: Basophils % (Auto) 0.7 % (0.0-1.8); Eosinophils % (Auto) 3.4 % (0.0-4.3); Hematocrit 33.7 % (35.5-45.6); Hemoglobin 10.5 gm/dl (11.8-15.2); Mean Corpuscular HGB Conc 31 % (32-34); Platelet Count 194 K/mm3 (140-440); Red Blood Count 4.87 M/mm3 (3.65-5.03); Red Cell Distribution Width 15.9 % (13.2-15.2); Reticulocyte % 0.56 % (0.78-2.58); White Blood Count 2.4 K/mm3 (4.5-11.0)
[2016-11-09 09:49] LABS: Mean Corpuscular Hemoglobin 22 pg (28-32); Mean Corpuscular Volume 69 fl (84-94)
[2016-11-09] MEDS ORDERED: HYDREA PO SCH (10:00)
[2016-11-09] MEDS ORDERED: NON-FORMULARY (Folic Acid [Folic Acid] 0.4 MG) PO SCH (10:00)
[2016-11-09] MEDS ORDERED: LOVENOX SUB-Q SCH (10:00)
[2016-11-09] MEDS: FOLVITE PO SCH (10:03)
[2016-11-09] MEDS: PROTONIX PO SCH (10:05)
[2016-11-09] MEDS: LOVENOX SUB-Q SCH ×2 (10:05→22:42)
--- NOTE | 2016-11-09 16:01 | Progress Note ---
Assessment and Plan Assessment and plan: Sickle cell vaso-occlusive crisis. Continue Dilaudid iv Q3hr. benadryl iv prn. iv fluids. 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 I discussed case with him. Patient's pain is improved. Possible discharge home tomorrow History of pulmonary embolism and deep vein thrombosis. Resumed Coumadin. Lovenox until INR therapeutic. HIV infection. Full code status. History Interval history: Less of generalized body pain, no fever. Hospitalist Physical - Constitutional Vitals: Temp Pulse Resp BP Pulse Ox 98.5 F 94 H 18 138/85 99 11/09/16 08:00 11/09/16 08:00 11/09/16 08:00 11/09/16 08:00 11/09/16 08:00 General appearance: Present: no acute distress, well-nourished - EENT Eyes: Present: PERRL ENT: hearing intact, clear oral mucosa - Neck Neck: Present: supple, normal ROM - Respiratory Respiratory effort: normal Respiratory: bilateral: CTA, negative: diminished, rales, rhonchi, wheezing - Cardiovascular Rhythm: regular Heart Sounds: Present: S1 & S2 (S1 and S2 regular) - Extremities Extremities: no ischemia, No edema, normal temperature, normal color - Abdominal General gastrointestinal: soft, non-tender, non-distended, normal bowel sounds - Integumentary Integumentary: Present: clear, warm, dry - Psychiatric Psychiatric: appropriate mood/affect, intact judgment & insight - Neurologic Neurologic: moves all extremities, other (AAO x 3) Results - Labs CBC & Chem 7: 11/09/16 09:25 11/09/16 07:35 Labs: Laboratory Last Values WBC 2.4 K/mm3 (4.5-11.0) L 11/09/16 09:25 RBC 4.87 M/mm3 (3.65-5.03) 11/09/16 09:25 Hgb 10.5 gm/dl (11.8-15.2) L 11/09/16 09:25 Hct 33.7 % (35.5-45.6) L 11/09/16 09:25 MCV 69 fl (84-94) L 11/09/16 09:25 MCH 22 pg (28-32) L 11/09/16 09:25 MCHC 31 % (32-34) L 11/09/16 09:25 RDW 15.9 % (13.2-15.2) H 11/09/16 09:25 Plt Count 194 K/mm3 (140-440) 11/09/16 09:25 Lymph % (Auto) 43.2 % (13.4-35.0) H 11/09/16 09:25 [place] % (Auto) 12.0 % (0.0-7.3) H 11/09/16 09:25 Eos % (Auto) 3.4 % (0.0-4.3) 11/09/16 09:25 Baso % (Auto) 0.7 % (0.0-1.8) 11/09/16 09:25 Lymph # 1.0 K/mm3 (1.2-5.4) L 11/09/16 09:25 [place] # 0.3 K/mm3 (0.0-0.8) 11/09/16 09:25 Eos # 0.1 K/mm3 (0.0-0.4) 11/09/16 09:25 Baso # 0.0 K/mm3 (0.0-0.1) 11/09/16 09:25 Add Manual Diff Complete 11/08/16 02:00 Total Counted 100 11/08/16 02:00 Seg Neutrophils % 40.7 % (40.0-70.0) 11/09/16 09:25 Seg Neuts % (Manual) 38.0 % (40.0-70.0) L 11/08/16 02:00 Band Neutrophils % 2.0 % 11/08/16 02:00 Lymphocytes % (Manual) 42.0 % (13.4-35.0) H 11/08/16 02:00 Reactive Lymphs % (Man) 8.0 % 11/08/16 02:00 Monocytes % (Manual) 10.0 % (0.0-7.3) H 11/08/16 02:00 Eosinophils % (Manual) 0 % (0.0-4.3) 11/08/16 02:00 Basophils % (Manual) 0 % (0.0-1.8) 11/08/16 02:00 Metamyelocytes % 0 % 11/08/16 02:00 Myelocytes % 0 % 11/08/16 02:00 Promyelocytes % 0 % 11/08/16 02:00 Blast Cells % 0 % 11/08/16 02:00 Nucleated RBC % Not Reportable 11/08/16 02:00 Seg Neutrophils # 1.0 K/mm3 (1.8-7.7) L 11/09/16 09:25 Seg Neutrophils # Man 0.7 K/mm3 (1.8-7.7) L 11/08/16 02:00 Band Neutrophils # 0.0 K/mm3 11/08/16 02:00 Lymphocytes # (Manual) 0.8 K/mm3 (1.2-5.4) L 11/08/16 02:00 Abs React Lymphs (Man) 0.2 K/mm3 11/08/16 02:00 Monocytes # (Manual) 0.2 K/mm3 (0.0-0.8) 11/08/16 02:00 Eosinophils # (Manual) 0.0 K/mm3 (0.0-0.4) 11/08/16 02:00 Basophils # (Manual) 0.0 K/mm3 (0.0-0.1) 11/08/16 02:00 Metamyelocytes # 0.0 K/mm3 11/08/16 02:00 Myelocytes # 0.0 K/mm3 11/08/16 02:00 Promyelocytes # 0.0 K/mm3 11/08/16 02:00 Blast Cells # 0.0 K/mm3 11/08/16 02:00 WBC Morphology Not Reportable 11/08/16 02:00 Hypersegmented Neuts Not Reportable 11/08/16 02:00 Hyposegmented Neuts Not Reportable 11/08/16 02:00 Hypogranular Neuts Not Reportable 11/08/16 02:00 Smudge Cells Not Reportable 11/08/16 02:00 Toxic Granulation Not Reportable 11/08/16 02:00 Toxic Vacuolation Not Reportable 11/08/16 02:00 Dohle Bodies Not Reportable 11/08/16 02:00 Pelger-Huet Anomaly Not Reportable 11/08/16 02:00 Raheem Rods Not Reportable 11/08/16 02:00 Platelet Estimate Appears normal 11/08/16 02:00 Clumped Platelets Not Reportable 11/08/16 02:00 Plt Clumps, EDTA Not Reportable 11/08/16 02:00 Large Platelets Not Reportable 11/08/16 02:00 Giant Platelets Not Reportable 11/08/16 02:00 Platelet Satelliting Not Reportable 11/08/16 02:00 Plt Morphology Comment Not Reportable 11/08/16 02:00 RBC Morphology Not Reportable 11/08/16 02:00 Dimorphic RBCs Not Reportable 11/08/16 02:00 Polychromasia Not Reportable 11/08/16 02:00 Hypochromasia 1+ 11/08/16 02:00 Poikilocytosis Not Reportable 11/08/16 02:00 Anisocytosis 2+ 11/08/16 02:00 Microcytosis 2+ 11/08/16 02:00 Macrocytosis Not Reportable 11/08/16 02:00 Spherocytes Not Reportable 11/08/16 02:00 Pappenheimer Bodies Not Reportable 11/08/16 02:00 Sickle Cells Not Reportable 11/08/16 02:00 Target Cells 1+ 11/08/16 02:00 Tear Drop Cells Not Reportable 11/08/16 02:00 Ovalocytes 1+ 11/08/16 02:00 Helmet Cells Few 11/08/16 02:00 [place] Bodies Not Reportable 11/08/16 02:00 [place] Rings Not Reportable 11/08/16 02:00 [place] Cells Not Reportable 11/08/16 02:00 Bite Cells Not Reportable 11/08/16 02:00 Crenated Cell Not Reportable 11/08/16 02:00 Elliptocytes 1+ 11/08/16 02:00 Acanthocytes (Spur) Not Reportable 11/08/16 02:00 Rouleaux Not Reportable 11/08/16 02:00 Hemoglobin C Crystals Not Reportable 11/08/16 02:00 Schistocytes Not Reportable 11/08/16 02:00 Malaria parasites Not Reportable 11/08/16 02:00 Percent Retic 0.56 % (0.78-2.58) L 11/09/16 09:25 [place] Bodies Not Reportable 11/08/16 02:00 Hem Pathologist Commnt No 11/08/16 02:00 PT 13.6 Sec. (12.2-14.9) 11/09/16 07:35 INR 1.05 (0.87-1.13) 11/09/16 07:35 APTT 21.7 Sec. (24.2-36.6) L 11/07/16 20:45 Sodium 139 mmol/L (137-145) 11/09/16 07:35 Potassium 4.0 mmol/L (3.6-5.0) D 11/09/16 07:35 Chloride 101.8 mmol/L (98-107) 11/09/16 07:35 Carbon Dioxide 27 mmol/L (22-30) 11/09/16 07:35 Anion Gap 14 mmol/L 11/09/16 07:35 BUN 6 mg/dL (9-20) L 11/09/16 07:35 Creatinine 0.8 mg/dL (0.8-1.5) 11/09/16 07:35 Estimated GFR > 60 ml/min 11/09/16 07:35 BUN/Creatinine Ratio 7.50 % 11/09/16 07:35 Glucose 112 mg/dL (75-100) H 11/09/16 07:35 Calcium 8.6 mg/dL (8.4-10.2) 11/09/16 07:35 Urine Color Yellow (Yellow) 11/07/16 Unknown Urine Turbidity Clear (Clear) 11/07/16 Unknown Urine pH 6.0 (5.0-7.0) 11/07/16 Unknown Ur Specific [place] 1.024 (1.003-1.030) 11/07/16 Unknown Urine Protein <15 mg/dl mg/dL (Negative) 11/07/16 Unknown Urine Glucose (UA) 50 mg/dL (Negative) 11/07/16 Unknown Urine Ketones Neg mg/dL (Negative) 11/07/16 Unknown Urine Blood Neg (Negative) 11/07/16 Unknown Urine Nitrite Neg (Negative) 11/07/16 Unknown Urine Bilirubin Neg (Negative) 11/07/16 Unknown Urine Urobilinogen 2.0 mg/dL (<2.0) 11/07/16 Unknown Ur Leukocyte Esterase Neg (Negative) 11/07/16 Unknown Urine WBC (Auto) 1.0 /HPF (0.0-6.0) 11/07/16 Unknown Urine RBC (Auto) 4.0 /HPF (0.0-6.0) 11/07/16 Unknown Urine Mucus 3+ /HPF 11/07/16 Unknown
[2016-11-09] MEDS ORDERED: COUMADIN PO SCH (17:00)
--- NOTE | 2016-11-09 18:20 | Consultation ---
History of Present Illness - Reason for Consult Consult date: 11/09/16 - History of Present Illness Patient seen/examined, labs reviewed, case d/w him. WBC is coming up on its own , and will continue to hold hydrea, and his HIV meds. Past History Past Medical History: HIV/AIDS, other (as HPI) Past Surgical History: total hip replacement, Other (right chest wall port) Social history: , full code. denies: alcohol abuse, prescription drug abuse, IV drug use Family history: no significant family history, other (sickle cell) Medications and Allergies Allergies Allergy/AdvReac Type Severity Reaction Status Date / Time morphine Allergy Anaphylaxis Verified 10/02/16 11:19 Iodinated Contrast Media - AdvReac Unknown Verified 10/02/16 11:19 IV Dye sulfamethoxazole AdvReac Unknown Verified 10/02/16 11:19 [From Bactrim] trimethoprim [From Bactrim] AdvReac Unknown Verified 10/02/16 11:19 PLASTIC TAPE Allergy Rash Uncoded 10/02/16 11:19 Home Medications Medication Instructions Recorded Confirmed Last Taken Type Hydroxyurea [Hydrea] 500 mg PO BID 12/25/15 11/07/16 10/10/16 History 500mg Folic Acid 0.4 mg PO QDAY 09/16/16 11/07/16 10/10/16 History 0.4mg HYDROmorphone [Dilaudid] 4 mg PO Q6HR PRN 09/16/16 11/07/16 10/10/16 History 4mg Warfarin [Coumadin] 7.5 mg PO QDAY 11/07/16 11/07/16 Unknown History Active Meds: Active Medications Acetaminophen (Tylenol) 650 mg PO Q6H PRN PRN Reason: Non Cardiac Pain or Temp>100.5 Diphenhydramine HCl (Benadryl) 12.5 mg IV Q3H PRN PRN Reason: Itching Last Admin: 11/09/16 17:35 Dose: 12.5 mg Enoxaparin Sodium (Lovenox) 80 mg SUB-Q Q12HR [facility] Last Admin: 11/09/16 10:05 Dose: 80 mg Folic Acid (Folvite) 0.5 mg PO DAILY [facility] Last Admin: 11/09/16 10:03 Dose: 0.5 mg Hydromorphone HCl (Dilaudid) 2 mg IV Q3H PRN PRN Reason: Pain , Severe (7-10) Last Admin: 11/09/16 17:35 Dose: 2 mg Dextrose/Sodium Chloride (D5ns 0.2%) 1,000 mls @ 100 mls/hr IV DIRECT [facility] Last Admin: 11/09/16 03:01 Dose: 100 mls/hr Ondansetron HCl (Zofran) 4 mg IV Q4H PRN PRN Reason: Nausea And Vomiting Pantoprazole Sodium (Protonix) 40 mg PO QDAY [facility] Last Admin: 11/09/16 10:05 Dose: 40 mg Warfarin Sodium (Coumadin) 10 mg PO DAILY@1700 [facility] PRN Reason: Protocol Last Admin: 11/09/16 17:34 Dose: 10 mg Warfarin Sodium (Coumadin Pharmacy To Dose) 1 each PO PKCONSULT [facility] PRN Reason: Protocol Review of Systems Constitutional: chronic pain Ears, nose, mouth and throat: nasal congestion Musculoskeletal: low back pain Exam - Constitutional Vitals: Temp Pulse Resp BP Pulse Ox 98.2 F 72 18 135/81 99 11/09/16 16:00 11/09/16 16:00 11/09/16 16:00 11/09/16 16:00 11/09/16 08:00 General appearance: Present: mild distress, well-nourished - EENT Eyes: Present: PERRL ENT: hearing intact, clear oral mucosa - Neck Neck: Present: supple, normal ROM - Respiratory Respiratory effort: normal Respiratory: bilateral: CTA - Cardiovascular Heart Sounds: Present: S1 & S2. Absent: rub, click - Extremities Extremities: pulses symmetrical, No edema Peripheral Pulses: within normal limits - Abdominal General gastrointestinal: Present: soft, non-tender, non-distended, normal bowel sounds Male genitourinary: Present: deferred - Rectal Rectal Exam: deferred - Integumentary Integumentary: Present: clear, warm, dry - Musculoskeletal Musculoskeletal: gait normal, strength equal bilaterally - Psychiatric Psychiatric: appropriate mood/affect, intact judgment & insight - Neurologic Neurologic: CNII-XII intact, moves all extremities Results - Labs CBC & Chem 7: 11/09/16 09:25 11/09/16 07:35 Labs: Abnormal lab results 11/09/16 11/09/16 Range/Units 07:35 09:25 WBC 2.4 L (4.5-11.0) K/mm3 Hgb 10.5 L (11.8-15.2) gm/dl Hct 33.7 L (35.5-45.6) % MCV 69 L (84-94) fl MCH 22 L (28-32) pg MCHC 31 L (32-34) % RDW 15.9 H (13.2-15.2) % Lymph % (Auto) 43.2 H (13.4-35.0) % [place] % (Auto) 12.0 H (0.0-7.3) % Lymph # 1.0 L (1.2-5.4) K/mm3 Seg Neutrophils # 1.0 L (1.8-7.7) K/mm3 Percent Retic 0.56 L (0.78-2.58) % BUN 6 L (9-20) mg/dL Glucose 112 H (75-100) mg/dL Assessment and Plan - Patient Problems (1) Leukopenia Current Visit: Yes Status: Acute Qualifiers: Leukopenia type: L Neutropenia type: N Plan to address problem: This is probably due to his meds ,including his hydrea. will hold his meds. SEE notes above. Improving. (2) Sickle cell pain crisis Current Visit: Yes Status: Acute Plan to address problem: pain control. Continue same (3) Anemia Current Visit: No Status: Acute Qualifiers: Anemia type: A Iron deficiency anemia type: I Vitamin B12 deficiency anemia type: V Folate deficiency anemia type: F Bone marrow failure anemia type: B Hemolytic anemia type: H Other causes of anemia: O Plan to address problem: Stable so far. (4) Hx of pulmonary embolus Current Visit: No Status: Acute Plan to address problem: Monitor coags. Resume anticoags if not already. (5) Hypokalemia Current Visit: Yes Status: Acute Plan to address problem: Replace potassium. corrected.
[2016-11-10 02:59] LABS: Anion Gap 15 mmol/L; BUN/Creatinine Ratio 6.25; Blood Urea Nitrogen 5 mg/dL (9-20); Calcium 8.6 mg/dL (8.4-10.2); Carbon Dioxide 27 mmol/L (22-30); Chloride 97.9 mmol/L (98-107); Glucose 104 mg/dL (75-100); Potassium 3.5 mmol/L (3.6-5.0); Sodium 136 mmol/L (137-145)
[2016-11-10] MEDS: BENADRYL IV PRN ×3 (05:39→12:19)
[2016-11-10] MEDS: D5NS 0.2% 1,000 ML IV SCH (05:39)
[2016-11-10] MEDS: DILAUDID IV PRN ×3 (05:40→12:18)
[2016-11-10 06:04] LABS: INR 1.08 (0.87-1.13)
[2016-11-10] MEDS: FOLVITE PO SCH (09:04)
[2016-11-10] MEDS: PROTONIX PO SCH (09:04)
[2016-11-10] MEDS: LOVENOX SUB-Q SCH (09:05)
[2016-11-10 10:21] VITALS: BP 145/99
--- NOTE | 2016-11-10 10:33 | Discharge Summary ---
Providers - Providers Date of Admission: 11/07/16 19:19 Date of discharge: 11/10/16 Attending physician: LYUDMILA DANIELSON 11/07/16 19:21 Consult to Physician [CONS] Routine Consulting Provider: ÁNGEL CHINCHILLA Reason For Exam: ss crisis Place consult to:: Jessica GROVER Notified:: DR. JOSE Primary care physician: ÁNGEL CHINCHILLA Hospitalization Condition: Good Hospital course: Patient is 36 yo with sickle cell disease, HIV infection, history of DVT/ pulmonary embolism. He presented with generalized body pain, low back pain, leg pains. He was diagnosed with sickle cell vaso-occlusive crisis. He wasstarted on Iv fluids, Dilaudid iv prn and admitted as per sickle cell admit protocol. Dr. Chinchilla , his account director was consulted and evaluated him. His pain subsided over next few days and he was discharged home on 11/10/16. Total time spent on discharge, 32 mins. Disposition: DISCHARGED TO HOME OR SELFCARE - Discharge Diagnoses (1) Sickle cell pain crisis Status: Acute (2) Hx of pulmonary embolus Status: Chronic (3) HIV (human immunodeficiency virus infection) Status: Chronic Comment: cont present meds Core Measure Documentation - Palliative Care Palliative Care/ Comfort Measures: Not Applicable - Core Measures Any of the following diagnoses?: history only Exam - Constitutional Vitals: Temp Pulse Resp BP Pulse Ox 98.7 F 86 15 145/99 100 11/10/16 08:10 11/10/16 08:10 11/10/16 08:10 11/10/16 08:10 11/10/16 08:10 General appearance: Present: no acute distress - Neck Neck: Present: supple - Respiratory Respiratory: bilateral: CTA - Cardiovascular Rhythm: regular Heart Sounds: Present: S1 & S2 - Extremities Extremities: No edema - Abdominal General gastrointestinal: Present: soft, normal bowel sounds - Neurologic Neurologic: other (AAO x 3) Plan Activity: no restrictions Diet: regular Additional Instructions: 1.Follow up with Dr. Chinchilla in 3-5 days. 2.Check INR in 1 week to be followed by Dr. Chinchilla. Follow up with: ÁNGEL CHINCHILLA, DO [Primary Care Provider] - 3-5 Days Forms: Warfarin Discharge Instruction Prescriptions: Warfarin [Coumadin] 10 mg PO DAILY@1700 #30 tablet
[2016-11-10] MEDS ORDERED: TRIPLE ANTIBIOTIC TP ONE (14:00)
[2016-11-10] MEDS ORDERED: FLUSH HEPARIN IV ONE (14:52)
--- NOTE | 2016-11-10 18:05 | Consultation ---
History of Present Illness - Reason for Consult Consult date: 11/10/16 - History of Present Illness patient was seen earlier , with late entry. I had discussed with the primary, and d/c was in progress. His labs had improved, and will see him in the office for further care. Past History Past Medical History: HIV/AIDS, other (as HPI) Past Surgical History: total hip replacement, Other (right chest wall port) Social history: , full code. denies: alcohol abuse, prescription drug abuse, IV drug use Family history: no significant family history, other (sickle cell) Medications and Allergies Allergies Allergy/AdvReac Type Severity Reaction Status Date / Time morphine Allergy Anaphylaxis Verified 10/02/16 11:19 Iodinated Contrast Media - AdvReac Unknown Verified 10/02/16 11:19 IV Dye sulfamethoxazole AdvReac Unknown Verified 10/02/16 11:19 [From Bactrim] trimethoprim [From Bactrim] AdvReac Unknown Verified 10/02/16 11:19 PLASTIC TAPE Allergy Rash Uncoded 10/02/16 11:19 Home Medications Medication Instructions Recorded Confirmed Last Taken Type Folic Acid 0.4 mg PO QDAY 09/16/16 11/07/16 10/10/16 History 0.4mg HYDROmorphone [Dilaudid] 4 mg PO Q6HR PRN 09/16/16 11/07/16 10/10/16 History 4mg Enoxaparin [Lovenox] 80 mg SUB-Q Q12HR #10 syringe 11/10/16 Unknown Rx Warfarin [Coumadin] 10 mg PO DAILY@1700 #30 tablet 11/10/16 Unknown Rx Exam - Constitutional Vitals: Temp Pulse Resp BP Pulse Ox 98.7 F 86 15 145/99 100 11/10/16 08:10 11/10/16 08:10 11/10/16 08:10 11/10/16 08:10 11/10/16 08:10 General appearance: Present: no acute distress, well-nourished - EENT Eyes: Present: PERRL ENT: hearing intact, clear oral mucosa - Neck Neck: Present: supple, normal ROM - Respiratory Respiratory effort: normal Respiratory: bilateral: CTA - Cardiovascular Heart Sounds: Present: S1 & S2. Absent: rub, click - Extremities Extremities: pulses symmetrical, No edema Peripheral Pulses: within normal limits - Abdominal General gastrointestinal: Present: soft, non-tender, non-distended, normal bowel sounds Male genitourinary: Present: deferred - Rectal Rectal Exam: deferred - Integumentary Integumentary: Present: clear, warm, dry - Musculoskeletal Musculoskeletal: gait normal, strength equal bilaterally - Psychiatric Psychiatric: appropriate mood/affect, intact judgment & insight - Neurologic Neurologic: CNII-XII intact, moves all extremities Results - Labs CBC & Chem 7: 11/09/16 09:25 11/10/16 02:00 Labs: Abnormal lab results 11/10/16 Range/Units 02:00 Sodium 136 L (137-145) mmol/L Potassium 3.5 L (3.6-5.0) mmol/L Chloride 97.9 L (98-107) mmol/L BUN 5 L (9-20) mg/dL Glucose 104 H (75-100) mg/dL Assessment and Plan - Patient Problems (1) Leukopenia Status: Acute Qualifiers: Leukopenia type: L Neutropenia type: N Plan to address problem: This is probably due to his meds ,including his hydrea. will hold his meds. SEE notes above. Improving. (2) Sickle cell pain crisis Status: Acute Plan to address problem: pain control. Continue same d/c was in progress. (3) Anemia Status: Acute Qualifiers: Anemia type: A Iron deficiency anemia type: I Vitamin B12 deficiency anemia type: V Folate deficiency anemia type: F Bone marrow failure anemia type: B Hemolytic anemia type: H Other causes of anemia: O (4) Hx of pulmonary embolus Status: Chronic (5) Hypokalemia Status: Acute
== END 2016-11-10 14:47 | disposition home or self-care (01) | DRG 811 ==
LOC: ED 13:57 → 3A 19:19
PROVIDERS: ADMIT Internal Medicine; ATTEND Internal Medicine
DX: D57.00 Hb-SS disease with crisis, unspecified (principal); B20 Human immunodeficiency virus [HIV] disease; D50.9 Iron deficiency anemia, unspecified; E87.6 Hypokalemia; Z96.649 Presence of unspecified artificial hip joint; D72.819 Decreased white blood cell count, unspecified; Z86.711 Personal history of pulmonary embolism; Z86.718 Personal history of other venous thrombosis and embolism; Z88.6 Allergy status to analgesic agent; Z88.8 Allergy status to other drugs, medicaments and biological substances; Z91.041 Radiographic dye allergy status; Z91.048 Other nonmedicinal substance allergy status; Z86.73 Personal history of transient ischemic attack (TIA), and cerebral infarction without residual deficits
CPT/HCPCS: 36415; 70450; 71020; 80048; 81001; 85007; 85025; 85045; 85610; 85730; 87040; 87086; 93005; 93010; 96374; 96375; A6250; J1170; J1200; J1642; J1650; J2405

== ENCOUNTER 2016-11-18 08:10 | Inpatient (IN) | payer MEDICARE ==
[2016-11-18 09:44] LABS: Bilirubin,Urine NEG (Negative); Blood,Urine NEG (Negative); Ketones,Urine TR mg/dL (Negative); Leukocyte Esterase,Urine NEG (Negative); Mucus,Urine 3+ /HPF; Nitrite,Urine NEG (Negative)
--- NOTE | 2016-11-18 09:55 | XRay Report ---
PORTABLE CHEST INDICATION: Hypertension. COMPARISON: 11/07/2016 FINDINGS: Portable, frontal chest radiograph again demonstrates normal cardiomediastinal silhouette with slightly prominent left pulmonary artery contour/possible pulmonary arterial hypertension. No pleural effusions or CHF. Stable right chest port tip near the cavoatrial junction. CONCLUSION: No acute chest process, as described. Please correlate. Thank you for the opportunity to participate in this patient's care.
[2016-11-18] MEDS ORDERED: NACL 0.9% 1000 ML 1,000 ML IV ONE ×2 (10:17→10:18)
[2016-11-18] MEDS ORDERED: TORADOL IV ONE (10:18)
[2016-11-18] MEDS ORDERED: BENADRYL IV ONE (10:18)
[2016-11-18] MEDS ORDERED: DILAUDID IV ONE (10:18)
[2016-11-18] MEDS ORDERED: ZOFRAN IV ONE (10:18)
[2016-11-18 10:21] LABS: Basophils % (Auto) 0.4 % (0.0-1.8); Eosinophils % (Auto) 1.5 % (0.0-4.3); Hematocrit 37.4 % (35.5-45.6); Hemoglobin 11.6 gm/dl (11.8-15.2); Mean Corpuscular HGB Conc 31 % (32-34); Platelet Count 169 K/mm3 (140-440); Red Blood Count 5.43 M/mm3 (3.65-5.03); Red Cell Distribution Width 16.1 % (13.2-15.2); White Blood Count 4.6 K/mm3 (4.5-11.0)
[2016-11-18 10:30] LABS: INR 1.19 (0.87-1.13)
[2016-11-18 10:31] LABS: Partial Thromboplastin Time 36.4 Sec. (24.2-36.6)
[2016-11-18 10:35] LABS: Mean Corpuscular Hemoglobin 21 pg (28-32); Mean Corpuscular Volume 69 fl (84-94)
[2016-11-18 10:48] LABS: Anion Gap 21 mmol/L; BUN/Creatinine Ratio 13.75; Blood Urea Nitrogen 11 mg/dL (9-20); Calcium 8.6 mg/dL (8.4-10.2); Carbon Dioxide 22 mmol/L (22-30); Chloride 100.9 mmol/L (98-107); Glucose 93 mg/dL (75-100); Potassium 3.3 mmol/L (3.6-5.0); Sodium 141 mmol/L (137-145)
[2016-11-18 10:51] LABS: Alanine Aminotransferase 23 units/L (7-56); Albumin 4.2 g/dL (3.9-5); Alkaline Phosphatase 53 units/L (35-129); Bilirubin,Direct < 0.2 mg/dL (0-0.2); Bilirubin,Total 0.6 mg/dL (0.1-1.2); Lipase 16 units/L (13-60); Total Protein 8.5 g/dL (6.3-8.2)
--- NOTE | 2016-11-18 10:57 | Emergency Department Report ---
ED Fever HPI - General Chief Complaint: Fever Stated Complaint: SICKLE CELL PAIN Time Seen by Provider: 11/18/16 10:10 Source: patient Exam Limitations: no limitations - History of Present Illness Initial Comments: 36-year-old male with a past medical history of sickle cell, history of DVT/PE on Coumadin, and HIV presents to the hospital with complaints of fever, nausea vomiting, and body aches for the past 4 days. Patient states he has been able to eat or drink anything due to continued vomiting. He complains of pain to his abdomen, legs, and back. Pain is rated 7/10 intensity. Worse with palpation. No alleviating factors. Patient took Tylenol prior to arrival this morning. Patient compliant with his HIV medication. Previous cholecystectomy, splenectomy, and appendectomy. Patient states he did receive his flu shot this year. Last CD4 count July 2016 was 226 as per medical record patient states he has not had a more recent CD4 count. ID: Dr. 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 PORT RIGHT CHEST. Spleenectomy - Social History Smoking Status: Former Smoker Substance Use Type: Prescribed - Medications Home Medications: Home Medications Medication Instructions Recorded Confirmed Last Taken Type Folic Acid 0.4 mg PO QDAY 09/16/16 11/18/16 11/16/16 08:00 History HYDROmorphone [Dilaudid] 4 mg PO Q6HR PRN 09/16/16 11/18/16 11/15/16 21:00 History Warfarin [Coumadin] 10 mg PO DAILY@1700 #30 tablet 11/10/16 11/18/16 11/16/16 17 :00 Rx Elviteg/Celia/Emtric/Tenofo Ala 1 each PO QDAY 11/18/16 11/18/16 11/16/16 08:00 History [Genvoya Tablet] Hydroxyurea [Hydrea] 500 mg PO BID 11/18/16 11/18/16 11/16/16 18:00 History ED Physical Exam - General Limitations: No Limitations - Other Other exam information: General: No limitations, patient is alert in no acute distress Head exam: Atraumatic, normocephalic Eyes exam: Normal appearance, pupils equal reactive to light, extraocular movements intact ENT: Positive thrush Neck exam: Normal inspection, full range of motion, no meningismus nontender Respiratory exam: Clear to auscultation bilateral, no wheezes, rales, crackles Cardiovascular: Normal rate and rhythm, normal heart sounds Abdomen: Soft, nondistended, epigastric and left lower quadrant tenderness, with normal bowel sounds, no rebound, or guarding Extremity: Full range of motion normal inspection no deformity Back: Normal Inspection, full range of motion Neurologic: Alert, oriented x3, cranial nerves intact, no motor or sensory deficit Psychiatric: normal affect, normal mood Skin: Warm, dry, intact ED Course Vital Signs 11/18/16 11/18/16 11/18/16 08:18 09:40 09:50 Temperature 100.4 F H Pulse Rate 110 H 102 H 98 H Respiratory 17 11 L 18 Rate Blood Pressure 132/84 108/74 O2 Sat by Pulse 100 100 100 Oximetry 11/18/16 11/18/16 11/18/16 10:00 10:09 10:30 Temperature Pulse Rate 98 H 100 H 96 H Respiratory 14 20 Rate Blood Pressure 105/72 105/72 O2 Sat by Pulse 99 Oximetry 11/18/16 11:02 Temperature Pulse Rate 97 H Respiratory 18 Rate Blood Pressure 115/72 O2 Sat by Pulse 100 Oximetry ED Medical Decision Making - Lab Data Result diagrams: 11/18/16 08:29 11/18/16 08:29 Lab Results 11/18/16 11/18/16 11/18/16 Range/Units 08:29 08:29 08:29 WBC 4.6 (4.5-11.0) K/mm3 RBC 5.43 H (3.65-5.03) M/mm3 Hgb 11.6 L (11.8-15.2) gm/dl Hct 37.4 (35.5-45.6) % MCV 69 L (84-94) fl MCH 21 L (28-32) pg MCHC 31 L (32-34) % RDW 16.1 H (13.2-15.2) % Plt Count 169 (140-440) K/mm3 Lymph % (Auto) 12.4 L (13.4-35.0) % [place] % (Auto) 9.0 H (0.0-7.3) % Eos % (Auto) 1.5 (0.0-4.3) % Baso % (Auto) 0.4 (0.0-1.8) % Lymph # 0.6 L (1.2-5.4) K/mm3 [place] # 0.4 (0.0-0.8) K/mm3 Eos # 0.1 (0.0-0.4) K/mm3 Baso # 0.0 (0.0-0.1) K/mm3 Seg Neutrophils % 76.7 H (40.0-70.0) % Seg Neutrophils # 3.5 (1.8-7.7) K/mm3 PT 15.0 H (12.2-14.9) Sec. INR 1.19 H (0.87-1.13) APTT 36.4 (24.2-36.6) Sec. Sodium 141 (137-145) mmol/L Potassium 3.3 L (3.6-5.0) mmol/L Chloride 100.9 (98-107) mmol/L Carbon Dioxide 22 (22-30) mmol/L Anion Gap 21 mmol/L BUN 11 (9-20) mg/dL Creatinine 0.8 (0.8-1.5) mg/dL Estimated GFR > 60 ml/min BUN/Creatinine Ratio 13.75 % Glucose 93 (75-100) mg/dL Lactic Acid (0.7-2.0) mmol/L Calcium 8.6 (8.4-10.2) mg/dL Magnesium (1.7-2.3) mg/dL Total Bilirubin (0.1-1.2) mg/dL Direct Bilirubin (0-0.2) mg/dL AST (5-40) units/L ALT (7-56) units/L Alkaline Phosphatase (35-129) units/L Troponin T < 0.010 (0.00-0.029) ng/mL NT-Pro-B Natriuret Pep (0-450) pg/mL Total Protein (6.3-8.2) g/dL Albumin (3.9-5) g/dL Albumin/Globulin Ratio % Lipase (13-60) units/L Urine Color (Yellow) Urine Turbidity (Clear) Urine pH (5.0-7.0) Ur Specific [place] (1.003-1.030) Urine Protein (Negative) mg/dL Urine Glucose (UA) (Negative) mg/dL Urine Ketones (Negative) mg/dL Urine Blood (Negative) Urine Nitrite (Negative) Urine Bilirubin (Negative) Urine Urobilinogen (<2.0) mg/dL Ur Leukocyte Esterase (Negative) Urine WBC (Auto) (0.0-6.0) /HPF Urine RBC (Auto) (0.0-6.0) /HPF U Epithel Cells (Auto) (0-13.0) /HPF Urine Mucus /HPF 11/18/16 11/18/16 11/18/16 Range/Units 08:30 10:15 Unknown WBC (4.5-11.0) K/mm3 RBC (3.65-5.03) M/mm3 Hgb (11.8-15.2) gm/dl Hct (35.5-45.6) % MCV (84-94) fl MCH (28-32) pg MCHC (32-34) % RDW (13.2-15.2) % Plt Count (140-440) K/mm3 Lymph % (Auto) (13.4-35.0) % [place] % (Auto) (0.0-7.3) % Eos % (Auto) (0.0-4.3) % Baso % (Auto) (0.0-1.8) % Lymph # (1.2-5.4) K/mm3 [place] # (0.0-0.8) K/mm3 Eos # (0.0-0.4) K/mm3 Baso # (0.0-0.1) K/mm3 Seg Neutrophils % (40.0-70.0) % Seg Neutrophils # (1.8-7.7) K/mm3 PT (12.2-14.9) Sec. INR (0.87-1.13) APTT (24.2-36.6) Sec. Sodium (137-145) mmol/L Potassium (3.6-5.0) mmol/L Chloride (98-107) mmol/L Carbon Dioxide (22-30) mmol/L Anion Gap mmol/L BUN (9-20) mg/dL Creatinine (0.8-1.5) mg/dL Estimated GFR ml/min BUN/Creatinine Ratio % Glucose (75-100) mg/dL Lactic Acid 0.9 (0.7-2.0) mmol/L Calcium (8.4-10.2) mg/dL Magnesium 2.0 (1.7-2.3) mg/dL Total Bilirubin 0.6 (0.1-1.2) mg/dL Direct Bilirubin < 0.2 (0-0.2) mg/dL AST 25 (5-40) units/L ALT 23 (7-56) units/L Alkaline Phosphatase 53 (35-129) units/L Troponin T (0.00-0.029) ng/mL NT-Pro-B Natriuret Pep 30.32 (0-450) pg/mL Total Protein 8.5 H (6.3-8.2) g/dL Albumin 4.2 (3.9-5) g/dL Albumin/Globulin Ratio 1.0 % Lipase 16 (13-60) units/L Urine Color [place] (Yellow) Urine Turbidity Clear (Clear) Urine pH 5.0 (5.0-7.0) Ur Specific [place] 1.039 H (1.003-1.030) Urine Protein 100 mg/dl (Negative) mg/dL Urine Glucose (UA) Neg (Negative) mg/dL Urine Ketones Tr (Negative) mg/dL Urine Blood Neg (Negative) Urine Nitrite Neg (Negative) Urine Bilirubin Neg (Negative) Urine Urobilinogen 4.0 (<2.0) mg/dL Ur Leukocyte Esterase Neg (Negative) Urine WBC (Auto) 4.0 (0.0-6.0) /HPF Urine RBC (Auto) 9.0 (0.0-6.0) /HPF U Epithel Cells (Auto) 1.0 (0-13.0) /HPF Urine Mucus 3+ /HPF influenza neg - Radiology Data Radiology results: report reviewed cxr: naf Ct abd pelvis noncontrast: Possibility of gastroenteritis cannot be excluded. No appendicitis or diverticulitis. - Medical Decision Making Source of infection identified at this time. Symptoms could be due to viral syndrome, patient does have a port. Blood cultures also pending. Patient has a history of previous line infection. Vancomycin ordered empirically - Differential Diagnosis diverticulitis, gastritis, sepsis, sickle cell cri, pancreatitis, gastritis Critical Care Time: No Critical care attestation.: If time is entered above; I have spent that time in minutes in the direct care of this critically ill patient, excluding procedure time. ED Disposition Clinical Impression: Subtherapeutic international normalized ratio (INR), Hx of pulmonary embolus, HIV (human immunodeficiency virus infection), Fever, Sickle cell pain crisis, Vomiting, Hypokalemia, Thrush Disposition: OP ADMITTED IP TO THIS HOSP Is pt being admited?: Yes Condition: Stable Time of Disposition: 12:21 (Dr Urban/hospitalist)
--- NOTE | 2016-11-18 11:32 | Cat Scan Report ---
CT scan of abdomen and pelvis without IV contrast: History: Fever, nausea vomiting and abdominal pain. Findings: Normal liver spleen pancreas. Patient status post cholecystectomy. Normal adrenals. No definite calculi the kidney parenchyma. Partially decompressed bladder. No free intraperitoneal fluid or air. No evidence of adenopathy. Grossly normal abdominal aorta. No bowel distention. Moderate amount of fluid in small bowel and fluid levels in colon and rectum. No wall thickening. No evidence of a spindle cell diverticulitis. Impression: Possibility of gastroenteritis/diarrhea cannot be excluded. No evidence of appendicitis or diverticulitis.
[2016-11-18] MEDS ORDERED: K-DUR PO ONE ×2 (12:14→17:55)
[2016-11-18] MEDS ORDERED: VANCOMYCIN/NS 1 GM/250 ML 1 GM/250 ML BAG IV ONE (12:19)
[2016-11-18 12:34] LABS: Reticulocyte % 0.91 % (0.78-2.58)
--- NOTE | 2016-11-18 12:36 | Admit Criteria Form ---
Admission Criteria Documentation: SICKLE CELL DISEASE Clinical Indications for Admission to Inpatient Care (Place 'X' for any and all applicable criteria): Admission is indicated for ANY ONE of the following(1)(2)(3)(4)(5): [X ]I. Inpatient admission required rather than observation care because of ANY ONE of the following: [ ]a) Altered mental status [ ]b) High fever or infection requiring inpatient admission as indicated by ANY ONE of the following: [ ]A. Appropriate outpatient observation care antimicrobial treatment unavailable, not effective, or not appropriate for infection [ ]B. Documented bacteremia [ ]C. Temp >104.9F (40.5C) (oral) [ ]D. Temp >103.1F (oral) or <96.8F(rectal) that does not respond to all emergency treatment measures [ ]c) Supplemental O2 or respiratory therapy for over 24 h that are performable only in acute inpatient setting [ ]d) Continuous parenteral narcoticsother major pain intervention for >24 h performable only in acute inpatient setting. [ ]e) Exchange transfusion [X ]f) Other condition, treatment or monitoring requiring inpatient admission [ ]II. Acute chest syndrome indicated by ALL of the following (10): [ ]a) New alveolar infiltrate involving at least one lung segment [ ]b) Associated pulmonary symptoms or findings as indicated by ANY ONE of the following: [ ]i) Chest pain [ ]ii) Hypoxemia [ ]iii) Tachypnea/dyspnea [ ]iv) Wheezing [ ]v) Cough [ ]vi) Sputum production [ ]III. Significant hypoxemia or acidosis (more severe than baseline) [ ]IV. Emergent surgery needed (eg, acute cholecystitis) [ ]V. -related complication(11) [ ]. Splenic or hepatic sequestration(12) [ ]VII. Aplastic crisis [ ]VIII. Priapism or other vascular complication(13) [ ]IX. Traumatic hyphema [A](14) [ ]X. Underlying condition requiring hospitalization (eg, osteomyelitis) [ ]XI. Signs or symptoms of central nervous system injury indicated by ANY ONE of the following: [ ]a) Stroke(9) [ ]b) Seizure [ ]c) Other significant central nervous system symptom or event [ ]XII. Acute renal failure Extended stay beyond goal length of stay may be needed for: [ ]a) Inadequate pain control [ ]b) Acute chest syndrome [ ]c) Sequestration or aplastic crisis (12) [ ]d) Pneumonia and asthma exacerbation [ ]e) Neurologic or vascular complications (25) [ ]f) Infection (eg, osteomyelitis) that requires ongoing treatment) The original [facility] [employer] content created by [facility] has been revised. The portions of the content which have been revised are identified through the use of italic text or in bold, and [facility] has neither reviewed nor approved the modified material. All other unmodified content is copyright [facility]. Please see references footnoted in the original [facility] edition 2016 Admission Criteria Met: Yes
--- NOTE | 2016-11-18 18:20 | Event Note ---
Date: 11/18/16 See H/p in reports Sickle cell crisis
[2016-11-18] MEDS: BENADRYL IV PRN (18:24)
[2016-11-18] MEDS: D5NS 1,000 ML IV SCH (18:24)
[2016-11-18] MEDS: DILAUDID IV PRN (18:25)
[2016-11-18] MEDS: ZOFRAN IV PRN (18:25)
[2016-11-18] MEDS: ZOSYN/NS 4.5GM/100ML 4.5 GM/100 ML VIAL IV SCH (21:37)
[2016-11-19] MEDS: DILAUDID IV PRN ×4 (01:10→21:25)
[2016-11-19] MEDS: BENADRYL IV PRN ×4 (01:10→21:26)
[2016-11-19] MEDS: D5NS 1,000 ML IV SCH ×2 (04:56→16:06)
[2016-11-19] MEDS: ZOSYN/NS 4.5GM/100ML 4.5 GM/100 ML VIAL IV SCH ×2 (06:34→16:07)
--- NOTE | 2016-11-19 09:03 | Progress Note ---
Assessment and Plan Assessment and plan: Sickle cell vaso occlusive crisis. He is on IV fluids, Dilaudid IV when necessary History of pulmonary embolism and DVT. His INR is subtherapeutic. Coumadin resumed. Add Lovenox 1 mg/kg subcutaneous twice a day Fever. Urinalysis is normal. Obtain urine cultures. Blood cultures drawn. No obvious source of infection. This may be a reaction to sickle cell crisis. HIV infection. Continue HAART Full code status. History Interval history: Generalized body pain, Fever Hospitalist Physical - Physical exam Narrative exam: Gen. appearance: not in acute distress, HEENT: Normocephalic atraumatic, Neck: supple , no JVD Lungs: clear to auscultation, bilaterally . no rales, no wheezes, port right upper chest wall Heart: S1-S2 regular, no murmurs, rubs or gallop Abdomen:soft, non-tender, non-distended, normal bowel sounds Ext: No edema, no clubbing or cyanosis,tender ext Neuro : Awake alert oriented 3, no focal neurologic signs Psychiatry: normal mood Skin: no rashes - Constitutional Vitals: Temp Pulse Resp BP Pulse Ox 99.0 F 80 20 113/54 99 11/19/16 00:00 11/19/16 00:00 11/19/16 00:00 11/19/16 00:00 11/19/16 00:00 Results - Labs CBC & Chem 7: 11/18/16 08:29 11/18/16 08:29 Labs: Laboratory Last Values WBC 4.6 K/mm3 (4.5-11.0) 11/18/16 08:29 RBC 5.43 M/mm3 (3.65-5.03) H 11/18/16 08:29 Hgb 11.6 gm/dl (11.8-15.2) L 11/18/16 08:29 Hct 37.4 % (35.5-45.6) 11/18/16 08:29 MCV 69 fl (84-94) L 11/18/16 08:29 MCH 21 pg (28-32) L 11/18/16 08:29 MCHC 31 % (32-34) L 11/18/16 08:29 RDW 16.1 % (13.2-15.2) H 11/18/16 08:29 Plt Count 169 K/mm3 (140-440) 11/18/16 08:29 Lymph % (Auto) 12.4 % (13.4-35.0) L 11/18/16 08:29 [place] % (Auto) 9.0 % (0.0-7.3) H 11/18/16 08:29 Eos % (Auto) 1.5 % (0.0-4.3) 11/18/16 08:29 Baso % (Auto) 0.4 % (0.0-1.8) 11/18/16 08:29 Lymph # 0.6 K/mm3 (1.2-5.4) L 11/18/16 08:29 [place] # 0.4 K/mm3 (0.0-0.8) 11/18/16 08:29 Eos # 0.1 K/mm3 (0.0-0.4) 11/18/16 08:29 Baso # 0.0 K/mm3 (0.0-0.1) 11/18/16 08:29 Seg Neutrophils % 76.7 % (40.0-70.0) H 11/18/16 08:29 Seg Neutrophils # 3.5 K/mm3 (1.8-7.7) 11/18/16 08:29 Percent Retic 0.91 % (0.78-2.58) 11/18/16 08:29 PT 15.0 Sec. (12.2-14.9) H 11/18/16 08:29 INR 1.19 (0.87-1.13) H 11/18/16 08:29 APTT 36.4 Sec. (24.2-36.6) 11/18/16 08:29 Sodium 141 mmol/L (137-145) 11/18/16 08:29 Potassium 3.3 mmol/L (3.6-5.0) L 11/18/16 08:29 Chloride 100.9 mmol/L (98-107) 11/18/16 08:29 Carbon Dioxide 22 mmol/L (22-30) 11/18/16 08:29 Anion Gap 21 mmol/L 11/18/16 08:29 BUN 11 mg/dL (9-20) 11/18/16 08:29 Creatinine 0.8 mg/dL (0.8-1.5) 11/18/16 08:29 Estimated GFR > 60 ml/min 11/18/16 08:29 BUN/Creatinine Ratio 13.75 % 11/18/16 08:29 Glucose 93 mg/dL (75-100) 11/18/16 08:29 Lactic Acid 0.9 mmol/L (0.7-2.0) 11/18/16 10:15 Calcium 8.6 mg/dL (8.4-10.2) 11/18/16 08:29 Magnesium 2.0 mg/dL (1.7-2.3) 11/18/16 08:30 Total Bilirubin 0.6 mg/dL (0.1-1.2) 11/18/16 08:30 Direct Bilirubin < 0.2 mg/dL (0-0.2) 11/18/16 08:30 AST 25 units/L (5-40) 11/18/16 08:30 ALT 23 units/L (7-56) 11/18/16 08:30 Alkaline Phosphatase 53 units/L (35-129) 11/18/16 08:30 Troponin T < 0.010 ng/mL (0.00-0.029) 11/18/16 08:29 NT-Pro-B Natriuret Pep 30.32 pg/mL (0-450) 11/18/16 08:30 Total Protein 8.5 g/dL (6.3-8.2) H 11/18/16 08:30 Albumin 4.2 g/dL (3.9-5) 11/18/16 08:30 Albumin/Globulin Ratio 1.0 % 11/18/16 08:30 Lipase 16 units/L (13-60) 11/18/16 08:30 Urine Color [place] (Yellow) 11/18/16 Unknown Urine Turbidity Clear (Clear) 11/18/16 Unknown Urine pH 5.0 (5.0-7.0) 11/18/16 Unknown Ur Specific [place] 1.039 (1.003-1.030) H 11/18/16 Unknown Urine Protein 100 mg/dl mg/dL (Negative) 11/18/16 Unknown Urine Glucose (UA) Neg mg/dL (Negative) 11/18/16 Unknown Urine Ketones Tr mg/dL (Negative) 11/18/16 Unknown Urine Blood Neg (Negative) 11/18/16 Unknown Urine Nitrite Neg (Negative) 11/18/16 Unknown Urine Bilirubin Neg (Negative) 11/18/16 Unknown Urine Urobilinogen 4.0 mg/dL (<2.0) 11/18/16 Unknown Ur Leukocyte Esterase Neg (Negative) 11/18/16 Unknown Urine WBC (Auto) 4.0 /HPF (0.0-6.0) 11/18/16 Unknown Urine RBC (Auto) 9.0 /HPF (0.0-6.0) 11/18/16 Unknown U Epithel Cells (Auto) 1.0 /HPF (0-13.0) 11/18/16 Unknown Urine Mucus 3+ /HPF 11/18/16 Unknown
[2016-11-19] MEDS ORDERED: [UNRECOGNIZED DRUG - OTHER] PO SCH (10:00)
[2016-11-19] MEDS ORDERED: NON-FORMULARY (Folic Acid [Folic Acid] 0.4 MG) PO SCH (10:00)
[2016-11-19] MEDS: COUMADIN PO SCH (16:07)
[2016-11-19] MEDS ORDERED: LOVENOX SUB-Q SCH (19:00)
[2016-11-19] MEDS: LOVENOX SUB-Q SCH (22:00)
--- NOTE | 2016-11-20 01:42 | History and Physical Report ---
CHIEF COMPLAINT: 1. Severe pain all over. 2. Fever. HISTORY OF PRESENT ILLNESS: A 36-year-old male with history of sickle cell anemia and sickle cell crisis in the past, comes in for severe pain all over. Also fever and vomiting. Body aches for 4 days. The patient has not been able to eat or drink due to recurrent vomiting. Pain in his chest and both hips and back with 7/10 in intensity, worse with palpation. No alleviating factors. The patient took Tylenol prior to arrival this morning. The patient also has HIV and has had previous cholecystectomy, splenectomy, and appendectomy. PAST MEDICAL HISTORY: Significant for HIV, sickle cell crisis, sickle cell disease, DVT and pulmonary embolism in the past. DVT of the right arm and right leg and PE in 2016. SOCIAL HISTORY: Former smoker. Does not smoke anymore. PAST SURGICAL HISTORY: Cholecystectomy, appendectomy, I and D on the leg and port on the right chest, splenectomy in the past. FAMILY HISTORY: Significant for hypertension. CURRENT MEDICATIONS: Coumadin 10 mg p.o. daily, Dilaudid 4 mg p.o. q.6h., folic acid 0.4 daily, Genvoya tablet 1 tablet daily, hydroxyurea 500 mg twice a day. REVIEW OF SYSTEMS: CONSTITUTIONAL: Fever present. No chills. HEENT: No sore throat. No postnasal drip. CARDIOVASCULAR AND RESPIRATORY: No shortness of breath. No cough. Chest pain present. No diaphoresis. GASTROINTESTINAL: Nausea, vomiting present. GENITOURINARY SYSTEM: No dysuria, no flank pain. MUSCULOSKELETAL: Joint pains and muscle pains present all over, especially lower back, both hips, and thighs. SKIN: No rashes. A 14-point review of systems done, otherwise negative. PHYSICAL EXAMINATION: GENERAL: Young male, cooperative during examination. VITAL SIGNS: Temperature 100.4, pulse is 110, respiratory rate is 17, blood pressure is 132/84, sats are 100%. HEENT: Unremarkable. Pupils equal and reactive. NECK: Supple. No lymphadenopathy, no thyromegaly. LUNGS: Clear to auscultation and percussion. Good air entry. CARDIOVASCULAR: S1, S2 heard. No gallop, no murmur, no rub. Apical impulse in left fifth intercostal space and midclavicular line. ABDOMEN: Soft and benign. No hepatosplenomegaly. No guarding, no rigidity. Hernial orifice are normal. EXTREMITIES: Good pedal pulses. No pedal edema. CENTRAL NERVOUS SYSTEM: Alert and oriented x 4, nonfocal exam. LABORATORY DATA: Significant for potassium of 3.3. Hemoglobin is 11.6 and hematocrit is 37.4. Retic count is slightly high. Lactic acid is normal. Retic count is 0.91. Urine specific gravity is 1.039. BUN and creatinine is 11 and 0.8. ASSESSMENT AND PLAN: 1. Sickle cell crisis. IV Dilaudid, and IV fluids. Continue hydroxyurea. 2. Fever, source of infection not clear. The patient started on Zosyn 4.5 q. 8. The patient had a chest x-ray shows no acute chest process. Empiric Zosyn. Abdominal CAT scan also, possibility of gastroenteritis. 3. Deep venous thrombosis prophylaxis. The patient already on Coumadin. Protime is 1.19. 4. Hypokalemia, supplemented. In summary, the patient has fever for which broad spectrum antibiotics started. Even though no source identified except for acute gastroenteritis. Sickle cell crisis. IV fluids and IV Dilaudid. HIV status, continue his antiretrovirals. JOB# [id number] VSJustin/TONIA APONTE
[2016-11-20] MEDS: ZOSYN/NS 4.5GM/100ML 4.5 GM/100 ML VIAL IV SCH ×3 (01:51→14:03)
[2016-11-20] MEDS: DILAUDID IV PRN ×5 (03:06→22:35)
[2016-11-20] MEDS: BENADRYL IV PRN ×4 (03:07→18:55)
[2016-11-20] MEDS: ZOFRAN IV PRN ×3 (03:07→18:55)
[2016-11-20 08:59] LABS: INR 1.2 (0.87-1.13)
[2016-11-20 09:00] LABS: Anion Gap 14 mmol/L; BUN/Creatinine Ratio 2.85; Blood Urea Nitrogen 2 mg/dL (9-20); Calcium 7.2 mg/dL (8.4-10.2); Carbon Dioxide 24 mmol/L (22-30); Chloride 108.4 mmol/L (98-107); Glucose 413 mg/dL (75-100); Potassium 3.1 mmol/L (3.6-5.0); Sodium 143 mmol/L (137-145)
[2016-11-20] MEDS: LOVENOX SUB-Q SCH ×2 (09:51→22:37)
[2016-11-20] MEDS: FOLVITE PO SCH (09:51)
[2016-11-20] MEDS: D5NS 1,000 ML IV SCH ×2 (09:51→18:56)
--- NOTE | 2016-11-20 10:50 | Progress Note ---
Assessment and Plan Assessment and plan: Sickle cell vaso occlusive crisis.Continue D5/NS at 100ml/hr. Cont , Dilaudid 2mg iv Q3hr when necessary History of pulmonary embolism and DVT. His INR is subtherapeutic. Coumadin resumed. Add Lovenox 1 mg/kg subcutaneous twice a day Fever. may be secondary to bacteremia. Bacteremia. Blood Cultures growing gram-positive cocci in clusters. Start Vancomycin HIV infection. Continue HAART Full code status. History Interval history: Generalized body pain, no more Fever, no shortness of breath Hospitalist Physical - Physical exam Narrative exam: Gen. appearance: not in acute distress, HEENT: Normocephalic atraumatic, Neck: supple , no JVD Lungs: clear to auscultation, bilaterally . no rales, no wheezes, port right upper chest wall Heart: S1-S2 regular, no murmurs, rubs or gallop Abdomen:soft, non-tender, non-distended, normal bowel sounds Ext: No edema, no clubbing or cyanosis,tender ext Neuro : Awake alert oriented 3, no focal neurologic signs Psychiatry: normal mood Skin: no rashes - Constitutional Vitals: Temp Pulse Resp BP Pulse Ox 99.0 F 75 20 107/63 98 11/19/16 23:13 11/19/16 23:13 11/20/16 07:48 11/19/16 23:13 11/19/16 23:13 Results - Labs CBC & Chem 7: 11/18/16 08:29 11/20/16 08:35 Labs: Laboratory Last Values WBC 4.6 K/mm3 (4.5-11.0) 11/18/16 08:29 RBC 5.43 M/mm3 (3.65-5.03) H 11/18/16 08:29 Hgb 11.6 gm/dl (11.8-15.2) L 11/18/16 08:29 Hct 37.4 % (35.5-45.6) 11/18/16 08:29 MCV 69 fl (84-94) L 11/18/16 08:29 MCH 21 pg (28-32) L 11/18/16 08:29 MCHC 31 % (32-34) L 11/18/16 08:29 RDW 16.1 % (13.2-15.2) H 11/18/16 08:29 Plt Count 169 K/mm3 (140-440) 11/18/16 08:29 Lymph % (Auto) 12.4 % (13.4-35.0) L 11/18/16 08:29 [place] % (Auto) 9.0 % (0.0-7.3) H 11/18/16 08:29 Eos % (Auto) 1.5 % (0.0-4.3) 11/18/16 08:29 Baso % (Auto) 0.4 % (0.0-1.8) 11/18/16 08:29 Lymph # 0.6 K/mm3 (1.2-5.4) L 11/18/16 08:29 [place] # 0.4 K/mm3 (0.0-0.8) 11/18/16 08:29 Eos # 0.1 K/mm3 (0.0-0.4) 11/18/16 08:29 Baso # 0.0 K/mm3 (0.0-0.1) 11/18/16 08:29 Seg Neutrophils % 76.7 % (40.0-70.0) H 11/18/16 08:29 Seg Neutrophils # 3.5 K/mm3 (1.8-7.7) 11/18/16 08:29 Percent Retic 0.91 % (0.78-2.58) 11/18/16 08:29 PT 15.1 Sec. (12.2-14.9) H 11/20/16 08:35 INR 1.20 (0.87-1.13) H 11/20/16 08:35 APTT 36.4 Sec. (24.2-36.6) 11/18/16 08:29 Sodium 143 mmol/L (137-145) 11/20/16 08:35 Potassium 3.1 mmol/L (3.6-5.0) L 11/20/16 08:35 Chloride 108.4 mmol/L (98-107) H 11/20/16 08:35 Carbon Dioxide 24 mmol/L (22-30) 11/20/16 08:35 Anion Gap 14 mmol/L 11/20/16 08:35 BUN 2 mg/dL (9-20) L 11/20/16 08:35 Creatinine 0.7 mg/dL (0.8-1.5) L 11/20/16 08:35 Estimated GFR > 60 ml/min 11/20/16 08:35 BUN/Creatinine Ratio 2.85 % 11/20/16 08:35 Glucose 413 mg/dL (75-100) H 11/20/16 08:35 Lactic Acid 0.9 mmol/L (0.7-2.0) 11/18/16 10:15 Calcium 7.2 mg/dL (8.4-10.2) L D 11/20/16 08:35 Magnesium 2.0 mg/dL (1.7-2.3) 11/18/16 08:30 Total Bilirubin 0.6 mg/dL (0.1-1.2) 11/18/16 08:30 Direct Bilirubin < 0.2 mg/dL (0-0.2) 11/18/16 08:30 AST 25 units/L (5-40) 11/18/16 08:30 ALT 23 units/L (7-56) 11/18/16 08:30 Alkaline Phosphatase 53 units/L (35-129) 11/18/16 08:30 Troponin T < 0.010 ng/mL (0.00-0.029) 11/18/16 08:29 NT-Pro-B Natriuret Pep 30.32 pg/mL (0-450) 11/18/16 08:30 Total Protein 8.5 g/dL (6.3-8.2) H 11/18/16 08:30 Albumin 4.2 g/dL (3.9-5) 11/18/16 08:30 Albumin/Globulin Ratio 1.0 % 11/18/16 08:30 Lipase 16 units/L (13-60) 11/18/16 08:30 Urine Color [place] (Yellow) 11/18/16 Unknown Urine Turbidity Clear (Clear) 11/18/16 Unknown Urine pH 5.0 (5.0-7.0) 11/18/16 Unknown Ur Specific [place] 1.039 (1.003-1.030) H 11/18/16 Unknown Urine Protein 100 mg/dl mg/dL (Negative) 11/18/16 Unknown Urine Glucose (UA) Neg mg/dL (Negative) 11/18/16 Unknown Urine Ketones Tr mg/dL (Negative) 11/18/16 Unknown Urine Blood Neg (Negative) 11/18/16 Unknown Urine Nitrite Neg (Negative) 11/18/16 Unknown Urine Bilirubin Neg (Negative) 11/18/16 Unknown Urine Urobilinogen 4.0 mg/dL (<2.0) 11/18/16 Unknown Ur Leukocyte Esterase Neg (Negative) 11/18/16 Unknown Urine WBC (Auto) 4.0 /HPF (0.0-6.0) 11/18/16 Unknown Urine RBC (Auto) 9.0 /HPF (0.0-6.0) 11/18/16 Unknown U Epithel Cells (Auto) 1.0 /HPF (0-13.0) 11/18/16 Unknown Urine Mucus 3+ /HPF 11/18/16 Unknown
--- NOTE | 2016-11-20 15:56 | Progress Note ---
Hospitalist Physical - Constitutional Vitals: Temp Pulse Resp BP Pulse Ox 98.2 F 76 20 142/78 100 11/20/16 08:00 11/20/16 08:00 11/20/16 08:00 11/20/16 08:00 11/20/16 08:00 Results - Labs CBC & Chem 7: 11/18/16 08:29 11/20/16 08:35 Labs: Laboratory Last Values WBC 4.6 K/mm3 (4.5-11.0) 11/18/16 08:29 RBC 5.43 M/mm3 (3.65-5.03) H 11/18/16 08:29 Hgb 11.6 gm/dl (11.8-15.2) L 11/18/16 08:29 Hct 37.4 % (35.5-45.6) 11/18/16 08:29 MCV 69 fl (84-94) L 11/18/16 08:29 MCH 21 pg (28-32) L 11/18/16 08:29 MCHC 31 % (32-34) L 11/18/16 08:29 RDW 16.1 % (13.2-15.2) H 11/18/16 08:29 Plt Count 169 K/mm3 (140-440) 11/18/16 08:29 Lymph % (Auto) 12.4 % (13.4-35.0) L 11/18/16 08:29 [place] % (Auto) 9.0 % (0.0-7.3) H 11/18/16 08:29 Eos % (Auto) 1.5 % (0.0-4.3) 11/18/16 08:29 Baso % (Auto) 0.4 % (0.0-1.8) 11/18/16 08:29 Lymph # 0.6 K/mm3 (1.2-5.4) L 11/18/16 08:29 [place] # 0.4 K/mm3 (0.0-0.8) 11/18/16 08:29 Eos # 0.1 K/mm3 (0.0-0.4) 11/18/16 08:29 Baso # 0.0 K/mm3 (0.0-0.1) 11/18/16 08:29 Seg Neutrophils % 76.7 % (40.0-70.0) H 11/18/16 08:29 Seg Neutrophils # 3.5 K/mm3 (1.8-7.7) 11/18/16 08:29 Percent Retic 0.91 % (0.78-2.58) 11/18/16 08:29 PT 15.1 Sec. (12.2-14.9) H 11/20/16 08:35 INR 1.20 (0.87-1.13) H 11/20/16 08:35 APTT 36.4 Sec. (24.2-36.6) 11/18/16 08:29 Sodium 143 mmol/L (137-145) 11/20/16 08:35 Potassium 3.1 mmol/L (3.6-5.0) L 11/20/16 08:35 Chloride 108.4 mmol/L (98-107) H 11/20/16 08:35 Carbon Dioxide 24 mmol/L (22-30) 11/20/16 08:35 Anion Gap 14 mmol/L 11/20/16 08:35 BUN 2 mg/dL (9-20) L 11/20/16 08:35 Creatinine 0.7 mg/dL (0.8-1.5) L 11/20/16 08:35 Estimated GFR > 60 ml/min 11/20/16 08:35 BUN/Creatinine Ratio 2.85 % 11/20/16 08:35 Glucose 413 mg/dL (75-100) H 11/20/16 08:35 Lactic Acid 0.9 mmol/L (0.7-2.0) 11/18/16 10:15 Calcium 7.2 mg/dL (8.4-10.2) L D 11/20/16 08:35 Magnesium 2.0 mg/dL (1.7-2.3) 11/18/16 08:30 Total Bilirubin 0.6 mg/dL (0.1-1.2) 11/18/16 08:30 Direct Bilirubin < 0.2 mg/dL (0-0.2) 11/18/16 08:30 AST 25 units/L (5-40) 11/18/16 08:30 ALT 23 units/L (7-56) 11/18/16 08:30 Alkaline Phosphatase 53 units/L (35-129) 11/18/16 08:30 Troponin T < 0.010 ng/mL (0.00-0.029) 11/18/16 08:29 NT-Pro-B Natriuret Pep 30.32 pg/mL (0-450) 11/18/16 08:30 Total Protein 8.5 g/dL (6.3-8.2) H 11/18/16 08:30 Albumin 4.2 g/dL (3.9-5) 11/18/16 08:30 Albumin/Globulin Ratio 1.0 % 11/18/16 08:30 Lipase 16 units/L (13-60) 11/18/16 08:30 Urine Color [place] (Yellow) 11/18/16 Unknown Urine Turbidity Clear (Clear) 11/18/16 Unknown Urine pH 5.0 (5.0-7.0) 11/18/16 Unknown Ur Specific [place] 1.039 (1.003-1.030) H 11/18/16 Unknown Urine Protein 100 mg/dl mg/dL (Negative) 11/18/16 Unknown Urine Glucose (UA) Neg mg/dL (Negative) 11/18/16 Unknown Urine Ketones Tr mg/dL (Negative) 11/18/16 Unknown Urine Blood Neg (Negative) 11/18/16 Unknown Urine Nitrite Neg (Negative) 11/18/16 Unknown Urine Bilirubin Neg (Negative) 11/18/16 Unknown Urine Urobilinogen 4.0 mg/dL (<2.0) 11/18/16 Unknown Ur Leukocyte Esterase Neg (Negative) 11/18/16 Unknown Urine WBC (Auto) 4.0 /HPF (0.0-6.0) 11/18/16 Unknown Urine RBC (Auto) 9.0 /HPF (0.0-6.0) 11/18/16 Unknown U Epithel Cells (Auto) 1.0 /HPF (0-13.0) 11/18/16 Unknown Urine Mucus 3+ /HPF 11/18/16 Unknown
[2016-11-20] MEDS ORDERED: VANCOMYCIN PHARMACY TO DOSE IV SCH (17:00)
[2016-11-20] MEDS: COUMADIN PO SCH (17:09)
[2016-11-20] MEDS: K-DUR PO SCH ×2 (17:09→22:33)
--- NOTE | 2016-11-20 21:34 | Event Note ---
Date: 11/20/16 Patients records reviewed, including admission profile. labe /cultures reviewed also, Kindly asked to see this patient this patient, who was sent from the office to get out patient hydration, at [facility], where he spiked fever 101+, He was sent to the ER, evaluated , and admitted for sxs control. He is currently on IVF, IV ABX, and narcotics.CXR negative, ABD xry consistent with gastroenteritis, Nasl swabs for H-flu A/B both negative.I have d/w patient about all his findings. He souds quite nasal, due to sinus congestions.IMP_ SCD/ Crisis, Anemia, dehydration, HAs/sinus pain, Hypercoagulable., HIV/AIDS.REC- hydration, sxs management, nutrition, sinus xry, continue with ABX as you are doing.
[2016-11-20] MEDS ORDERED: BENADRYL IV ONE (22:00)
[2016-11-20] MEDS: VANCOMYCIN VIAL 1,250 MG in NACL 0.9% 250ML 250 ML IV SCH (22:37)
[2016-11-21] MEDS: BENADRYL IV PRN ×7 (01:54→22:09)
[2016-11-21] MEDS: ZOSYN/NS 4.5GM/100ML 4.5 GM/100 ML VIAL IV SCH ×4 (01:54→22:08)
[2016-11-21] MEDS: DILAUDID IV PRN ×7 (01:55→22:10)
[2016-11-21 07:38] LABS: Hematocrit 28.8 % (35.5-45.6); Hemoglobin 9.1 gm/dl (11.8-15.2); Mean Corpuscular HGB Conc 32 % (32-34); Platelet Count 206 K/mm3 (140-440); Red Blood Count 4.18 M/mm3 (3.65-5.03); Red Cell Distribution Width 16.4 % (13.2-15.2); White Blood Count 2.6 K/mm3 (4.5-11.0)
[2016-11-21] MEDS: VANCOMYCIN VIAL 1,250 MG in NACL 0.9% 250ML 250 ML IV SCH ×3 (07:41→17:58)
[2016-11-21 07:45] LABS: Anion Gap 15 mmol/L; Calcium 7.9 mg/dL (8.4-10.2); Carbon Dioxide 27 mmol/L (22-30); Chloride 103.8 mmol/L (98-107); Glucose 99 mg/dL (75-100); Potassium 3.3 mmol/L (3.6-5.0); Sodium 142 mmol/L (137-145)
[2016-11-21 07:47] LABS: INR 1.61 (0.87-1.13)
[2016-11-21 07:52] LABS: BUN/Creatinine Ratio 1.25; Blood Urea Nitrogen < 1 mg/dL (9-20)
[2016-11-21] MEDS: D5NS 1,000 ML IV SCH (08:40)
[2016-11-21 08:58] LABS: Mean Corpuscular Hemoglobin 22 pg (28-32); Mean Corpuscular Volume 69 fl (84-94)
--- NOTE | 2016-11-21 09:20 | XRay Report ---
Sinuses 3 views: History: Facial/sinus congestion. Findings: The frontal, maxillary, ethmoid and sphenoid sinuses are well pneumatized. Wall appears intact. No mucosal thickening or fluid level. Impression: Essentially negative sinuses.
[2016-11-21] MEDS: ZOFRAN IV PRN ×4 (09:38→22:10)
--- NOTE | 2016-11-21 09:44 | Progress Note ---
Assessment and Plan Assessment and plan: Sickle cell vaso-occlusive crisis. Continue D5/NS at 100ml/hr. Cont , Dilaudid 2mg iv Q3hr when necessary History of pulmonary embolism and DVT. His INR is subtherapeutic. On Coumadin and Lovenox bridge. Fever secondary to bacteremia. Bacteremia with MRSA. he is on Vancomycin. Will consult ID Physician. he has port at upper chest wall but no signs of redness or pain. HIV infection. Continue HAART Full code status. History Interval history: Generalized body pain, no more Fever He had a temperature of 100.4F on 3 days ago on 11/18/2016 no shortness of breath Hospitalist Physical - Physical exam Narrative exam: Gen. appearance: not in acute distress, HEENT: Normocephalic atraumatic, Neck: supple , no JVD Lungs: clear to auscultation, bilaterally . no rales, no wheezes, port right upper chest wall, no obvious signs of infection Heart: S1-S2 regular, no murmurs, rubs or gallop Abdomen:soft, non-tender, non-distended, normal bowel sounds Ext: No edema, no clubbing or cyanosis,tender ext Neuro : Awake alert oriented 3, no focal neurologic signs Psychiatry: normal mood Skin: no rashes - Constitutional Vitals: Temp Pulse Resp BP Pulse Ox 98.8 F 76 20 138/86 97 11/21/16 00:00 11/21/16 00:00 11/21/16 05:18 11/21/16 00:00 11/21/16 00:00 Results - Labs CBC & Chem 7: 11/21/16 07:23 11/21/16 07:23 Labs: Laboratory Last Values WBC 2.6 K/mm3 (4.5-11.0) L 11/21/16 07:23 RBC 4.18 M/mm3 (3.65-5.03) 11/21/16 07:23 Hgb 9.1 gm/dl (11.8-15.2) L 11/21/16 07:23 Hct 28.8 % (35.5-45.6) L D 11/21/16 07:23 MCV 69 fl (84-94) L 11/21/16 07:23 MCH 22 pg (28-32) L 11/21/16 07:23 MCHC 32 % (32-34) 11/21/16 07:23 RDW 16.4 % (13.2-15.2) H 11/21/16 07:23 Plt Count 206 K/mm3 (140-440) 11/21/16 07:23 Lymph % (Auto) 12.4 % (13.4-35.0) L 11/18/16 08:29 [place] % (Auto) 9.0 % (0.0-7.3) H 11/18/16 08:29 Eos % (Auto) 1.5 % (0.0-4.3) 11/18/16 08:29 Baso % (Auto) 0.4 % (0.0-1.8) 11/18/16 08:29 Lymph # 0.6 K/mm3 (1.2-5.4) L 11/18/16 08:29 [place] # 0.4 K/mm3 (0.0-0.8) 11/18/16 08:29 Eos # 0.1 K/mm3 (0.0-0.4) 11/18/16 08:29 Baso # 0.0 K/mm3 (0.0-0.1) 11/18/16 08:29 Seg Neutrophils % 76.7 % (40.0-70.0) H 11/18/16 08:29 Seg Neutrophils # 3.5 K/mm3 (1.8-7.7) 11/18/16 08:29 Percent Retic 0.91 % (0.78-2.58) 11/18/16 08:29 PT 19.1 Sec. (12.2-14.9) H 11/21/16 07:23 INR 1.61 (0.87-1.13) H 11/21/16 07:23 APTT 36.4 Sec. (24.2-36.6) 11/18/16 08:29 Sodium 142 mmol/L (137-145) 11/21/16 07:23 Potassium 3.3 mmol/L (3.6-5.0) L 11/21/16 07:23 Chloride 103.8 mmol/L (98-107) 11/21/16 07:23 Carbon Dioxide 27 mmol/L (22-30) 11/21/16 07:23 Anion Gap 15 mmol/L 11/21/16 07:23 BUN < 1 mg/dL (9-20) L 11/21/16 07:23 Creatinine 0.8 mg/dL (0.8-1.5) 11/21/16 07:23 Estimated GFR > 60 ml/min 11/21/16 07:23 BUN/Creatinine Ratio 1.25 % 11/21/16 07:23 Glucose 99 mg/dL (75-100) 11/21/16 07:23 Lactic Acid 0.9 mmol/L (0.7-2.0) 11/18/16 10:15 Calcium 7.9 mg/dL (8.4-10.2) L 11/21/16 07:23 Magnesium 2.0 mg/dL (1.7-2.3) 11/18/16 08:30 Total Bilirubin 0.6 mg/dL (0.1-1.2) 11/18/16 08:30 Direct Bilirubin < 0.2 mg/dL (0-0.2) 11/18/16 08:30 AST 25 units/L (5-40) 11/18/16 08:30 ALT 23 units/L (7-56) 11/18/16 08:30 Alkaline Phosphatase 53 units/L (35-129) 11/18/16 08:30 Troponin T < 0.010 ng/mL (0.00-0.029) 11/18/16 08:29 NT-Pro-B Natriuret Pep 30.32 pg/mL (0-450) 11/18/16 08:30 Total Protein 8.5 g/dL (6.3-8.2) H 11/18/16 08:30 Albumin 4.2 g/dL (3.9-5) 11/18/16 08:30 Albumin/Globulin Ratio 1.0 % 11/18/16 08:30 Lipase 16 units/L (13-60) 11/18/16 08:30 Urine Color [place] (Yellow) 11/18/16 Unknown Urine Turbidity Clear (Clear) 11/18/16 Unknown Urine pH 5.0 (5.0-7.0) 11/18/16 Unknown Ur Specific [place] 1.039 (1.003-1.030) H 11/18/16 Unknown Urine Protein 100 mg/dl mg/dL (Negative) 11/18/16 Unknown Urine Glucose (UA) Neg mg/dL (Negative) 11/18/16 Unknown Urine Ketones Tr mg/dL (Negative) 11/18/16 Unknown Urine Blood Neg (Negative) 11/18/16 Unknown Urine Nitrite Neg (Negative) 11/18/16 Unknown Urine Bilirubin Neg (Negative) 11/18/16 Unknown Urine Urobilinogen 4.0 mg/dL (<2.0) 11/18/16 Unknown Ur Leukocyte Esterase Neg (Negative) 11/18/16 Unknown Urine WBC (Auto) 4.0 /HPF (0.0-6.0) 11/18/16 Unknown Urine RBC (Auto) 9.0 /HPF (0.0-6.0) 11/18/16 Unknown U Epithel Cells (Auto) 1.0 /HPF (0-13.0) 11/18/16 Unknown Urine Mucus 3+ /HPF 11/18/16 Unknown
[2016-11-21] MEDS: K-DUR PO SCH ×3 (11:16→17:59)
[2016-11-21] MEDS: LOVENOX SUB-Q SCH ×2 (11:17→22:09)
[2016-11-21] MEDS: FOLVITE PO SCH (11:22)
[2016-11-21] MEDS: COUMADIN PO SCH (18:01)
--- NOTE | 2016-11-21 22:14 | Consultation ---
History of Present Illness - Reason for Consult Consult date: 11/21/16 - History of Present Illness Patient seen/examined, labs reviewed, case d/w patient. As per the primary, there is no longer ID group avaliable to manage his MRSA infection.He is already on appropiate IV ABX vanco. Medications and Allergies Allergies Allergy/AdvReac Type Severity Reaction Status Date / Time morphine Allergy Anaphylaxis Verified 11/18/16 08:15 Iodinated Contrast Media - AdvReac Unknown Verified 11/18/16 08:15 IV Dye sulfamethoxazole AdvReac Unknown Verified 11/18/16 08:15 [From Bactrim] trimethoprim [From Bactrim] AdvReac Unknown Verified 11/18/16 08:15 PLASTIC TAPE Allergy Rash Uncoded 11/18/16 08:15 Home Medications Medication Instructions Recorded Confirmed Last Taken Type Folic Acid 0.4 mg PO QDAY 09/16/16 11/18/16 11/16/16 08:00 History HYDROmorphone [Dilaudid] 4 mg PO Q6HR PRN 09/16/16 11/18/16 11/15/16 21:00 History Warfarin [Coumadin] 10 mg PO DAILY@1700 #30 tablet 11/10/16 11/18/16 11/16/16 17 :00 Rx Elviteg/Celia/Emtric/Tenofo Ala 1 each PO QDAY 11/18/16 11/18/16 11/16/16 08:00 History [Genvoya Tablet] Hydroxyurea [Hydrea] 500 mg PO BID 11/18/16 11/18/16 11/16/16 18:00 History Active Meds: Active Medications Diphenhydramine HCl (Benadryl) 12.5 mg IV Q3H PRN PRN Reason: Itching Last Admin: 11/21/16 18:00 Dose: 12.5 mg Enoxaparin Sodium (Lovenox) 70 mg SUB-Q Q12HR [facility] Last Admin: 11/21/16 11:17 Dose: 70 mg Folic Acid (Folvite) 0.5 mg PO QDAY [facility] Last Admin: 11/21/16 11:22 Dose: 0.5 mg Hydromorphone HCl (Dilaudid) 2 mg IV Q3H PRN PRN Reason: Pain , Severe (7-10) Last Admin: 11/21/16 17:59 Dose: 2 mg Dextrose/Sodium Chloride (D5ns) 1,000 mls @ 100 mls/hr IV DIRECT RONY Last Admin: 11/21/16 08:40 Dose: 100 mls/hr Piperacillin Sod/Tazobactam Sod (Zosyn/Ns 4.5gm/100ml) 4.5 gm in 100 mls @ 200 mls/hr IV Q8HR RONY PRN Reason: Protocol Last Admin: 11/21/16 14:57 Dose: 200 mls/hr Vancomycin HCl 1,250 mg/ (Sodium Chloride) 250 mls @ 125 mls/hr IV Q8H RONY Last Admin: 11/21/16 17:58 Dose: 125 mls/hr Miscellaneous Medication (Elviteg/Celia/Emtric/Tenofo Ala [Genvoya Tablet]) 1 each PO QDAY RONY Ondansetron HCl (Zofran) 4 mg IV Q3H PRN PRN Reason: Nausea And Vomiting Last Admin: 11/21/16 18:00 Dose: 4 mg Vancomycin HCl (Vancomycin Pharmacy To Dose) 1 each IV PKCONSULT RONY PRN Reason: Protocol Warfarin Sodium (Coumadin) 10 mg PO DAILY@1700 RONY PRN Reason: Protocol Last Admin: 11/21/16 18:01 Dose: 10 mg Review of Systems Constitutional: fatigue, chronic pain Musculoskeletal: low back pain Exam - Constitutional Vitals: Temp Pulse Resp BP Pulse Ox 99.5 F 73 18 131/80 99 11/21/16 08:00 11/21/16 08:00 11/21/16 08:00 11/21/16 08:00 11/21/16 08:00 General appearance: Present: mild distress, well-nourished - EENT Eyes: Present: PERRL ENT: hearing intact, clear oral mucosa - Neck Neck: Present: supple, normal ROM - Respiratory Respiratory effort: normal Respiratory: bilateral: CTA - Cardiovascular Heart Sounds: Present: S1 & S2. Absent: rub, click - Extremities Extremities: pulses symmetrical, No edema Peripheral Pulses: within normal limits - Abdominal General gastrointestinal: Present: soft, non-tender, non-distended, normal bowel sounds Male genitourinary: Present: deferred - Rectal Rectal Exam: deferred - Integumentary Integumentary: Present: clear, warm, dry - Musculoskeletal Musculoskeletal: gait normal, strength equal bilaterally - Psychiatric Psychiatric: appropriate mood/affect, intact judgment & insight - Neurologic Neurologic: CNII-XII intact, moves all extremities Results - Labs CBC & Chem 7: 11/21/16 07:23 11/21/16 07:23 Labs: Abnormal lab results 11/21/16 11/21/16 11/21/16 Range/Units 07:23 07:23 07:23 WBC 2.6 L (4.5-11.0) K/mm3 Hgb 9.1 L (11.8-15.2) gm/dl Hct 28.8 L D (35.5-45.6) % MCV 69 L (84-94) fl MCH 22 L (28-32) pg RDW 16.4 H (13.2-15.2) % PT 19.1 H (12.2-14.9) Sec. INR 1.61 H (0.87-1.13) Potassium 3.3 L (3.6-5.0) mmol/L BUN < 1 L (9-20) mg/dL Calcium 7.9 L (8.4-10.2) mg/dL Assessment and Plan - Patient Problems (1) Fever Current Visit: Yes Status: Acute Qualifiers: Fever type: F Encounter type: E Plan to address problem: continue with IV ABX (2) Sickle cell pain crisis Current Visit: Yes Status: Acute (3) Thrush Current Visit: Yes Status: Acute Plan to address problem: Will put on magic mouth wash. (4) HIV (human immunodeficiency virus infection) Current Visit: Yes Status: Chronic Plan to address problem: supportive (5) Hx of pulmonary embolus Current Visit: Yes Status: Chronic Plan to address problem: continue with anticoag.
[2016-11-22] MEDS: VANCOMYCIN VIAL 1,250 MG in NACL 0.9% 250ML 250 ML IV SCH ×3 (02:02→17:37)
[2016-11-22] MEDS: BENADRYL IV PRN ×6 (02:03→22:43)
[2016-11-22] MEDS: ZOFRAN IV PRN ×5 (02:03→18:29)
[2016-11-22] MEDS: DILAUDID IV PRN ×6 (02:04→22:39)
[2016-11-22] MEDS: D5NS 1,000 ML IV SCH ×2 (02:05→17:49)
[2016-11-22] MEDS: ZOSYN/NS 4.5GM/100ML 4.5 GM/100 ML VIAL IV SCH ×2 (05:02→13:25)
--- NOTE | 2016-11-22 08:42 | Progress Note ---
Assessment and Plan Assessment and plan: Sickle cell vaso-occlusive crisis. Continue D5/NS at 100ml/hr. Cont , Dilaudid 2mg iv Q3hr when necessary Sepsis with Methicillin sensitive staph aureus. Initially lab had reported MRSA , but they called back and now say that was in error. He has MSSA. History of pulmonary embolism and DVT. His INR is still subtherapeutic. ContinueOn Coumadin and Lovenox bridge. Fever secondary to sepsis. Bacteremia with MSSA. He has port at upper chest wall but no signs of redness or pain.ID consulted. HIV infection. Continue HAART Full code status. History Interval history: Generalized body pain, Fever no shortness of breath Hospitalist Physical - Physical exam Narrative exam: Gen. appearance: not in acute distress, HEENT: Normocephalic atraumatic, Neck: supple , no JVD Lungs: clear to auscultation, bilaterally . no rales, no wheezes, port right upper chest wall, no obvious signs of infection Heart: S1-S2 regular, no murmurs, rubs or gallop Abdomen:soft, non-tender, non-distended, normal bowel sounds Ext: No edema, no clubbing or cyanosis,tender ext Neuro : Awake alert oriented 3, no focal neurologic signs Psychiatry: normal mood Skin: no rashes - Constitutional Vitals: Temp Pulse Resp BP Pulse Ox 100.2 F H 78 18 133/76 96 11/22/16 00:00 11/22/16 00:00 11/22/16 05:00 11/22/16 00:00 11/22/16 00:00 General appearance: Present: mild distress, well-nourished Results - Labs CBC & Chem 7: 11/22/16 09:16 11/22/16 09:16 Labs: Laboratory Last Values WBC 2.6 K/mm3 (4.5-11.0) L 11/21/16 07:23 RBC 4.18 M/mm3 (3.65-5.03) 11/21/16 07:23 Hgb 9.1 gm/dl (11.8-15.2) L 11/21/16 07:23 Hct 28.8 % (35.5-45.6) L D 11/21/16 07:23 MCV 69 fl (84-94) L 11/21/16 07:23 MCH 22 pg (28-32) L 11/21/16 07:23 MCHC 32 % (32-34) 11/21/16 07:23 RDW 16.4 % (13.2-15.2) H 11/21/16 07:23 Plt Count 206 K/mm3 (140-440) 11/21/16 07:23 Lymph % (Auto) 12.4 % (13.4-35.0) L 11/18/16 08:29 [place] % (Auto) 9.0 % (0.0-7.3) H 11/18/16 08:29 Eos % (Auto) 1.5 % (0.0-4.3) 11/18/16 08:29 Baso % (Auto) 0.4 % (0.0-1.8) 11/18/16 08:29 Lymph # 0.6 K/mm3 (1.2-5.4) L 11/18/16 08:29 [place] # 0.4 K/mm3 (0.0-0.8) 11/18/16 08:29 Eos # 0.1 K/mm3 (0.0-0.4) 11/18/16 08:29 Baso # 0.0 K/mm3 (0.0-0.1) 11/18/16 08:29 Seg Neutrophils % 76.7 % (40.0-70.0) H 11/18/16 08:29 Seg Neutrophils # 3.5 K/mm3 (1.8-7.7) 11/18/16 08:29 Percent Retic 0.91 % (0.78-2.58) 11/18/16 08:29 PT 19.1 Sec. (12.2-14.9) H 11/21/16 07:23 INR 1.61 (0.87-1.13) H 11/21/16 07:23 APTT 36.4 Sec. (24.2-36.6) 11/18/16 08:29 Sodium 142 mmol/L (137-145) 11/21/16 07:23 Potassium 3.3 mmol/L (3.6-5.0) L 11/21/16 07:23 Chloride 103.8 mmol/L (98-107) 11/21/16 07:23 Carbon Dioxide 27 mmol/L (22-30) 11/21/16 07:23 Anion Gap 15 mmol/L 11/21/16 07:23 BUN < 1 mg/dL (9-20) L 11/21/16 07:23 Creatinine 0.8 mg/dL (0.8-1.5) 11/21/16 07:23 Estimated GFR > 60 ml/min 11/21/16 07:23 BUN/Creatinine Ratio 1.25 % 11/21/16 07:23 Glucose 99 mg/dL (75-100) 11/21/16 07:23 Lactic Acid 0.9 mmol/L (0.7-2.0) 11/18/16 10:15 Calcium 7.9 mg/dL (8.4-10.2) L 11/21/16 07:23 Magnesium 2.0 mg/dL (1.7-2.3) 11/18/16 08:30 Total Bilirubin 0.6 mg/dL (0.1-1.2) 11/18/16 08:30 Direct Bilirubin < 0.2 mg/dL (0-0.2) 11/18/16 08:30 AST 25 units/L (5-40) 11/18/16 08:30 ALT 23 units/L (7-56) 11/18/16 08:30 Alkaline Phosphatase 53 units/L (35-129) 11/18/16 08:30 Troponin T < 0.010 ng/mL (0.00-0.029) 11/18/16 08:29 NT-Pro-B Natriuret Pep 30.32 pg/mL (0-450) 11/18/16 08:30 Total Protein 8.5 g/dL (6.3-8.2) H 11/18/16 08:30 Albumin 4.2 g/dL (3.9-5) 11/18/16 08:30 Albumin/Globulin Ratio 1.0 % 11/18/16 08:30 Lipase 16 units/L (13-60) 11/18/16 08:30 Urine Color [place] (Yellow) 11/18/16 Unknown Urine Turbidity Clear (Clear) 11/18/16 Unknown Urine pH 5.0 (5.0-7.0) 11/18/16 Unknown Ur Specific [place] 1.039 (1.003-1.030) H 11/18/16 Unknown Urine Protein 100 mg/dl mg/dL (Negative) 11/18/16 Unknown Urine Glucose (UA) Neg mg/dL (Negative) 11/18/16 Unknown Urine Ketones Tr mg/dL (Negative) 11/18/16 Unknown Urine Blood Neg (Negative) 11/18/16 Unknown Urine Nitrite Neg (Negative) 11/18/16 Unknown Urine Bilirubin Neg (Negative) 11/18/16 Unknown Urine Urobilinogen 4.0 mg/dL (<2.0) 11/18/16 Unknown Ur Leukocyte Esterase Neg (Negative) 11/18/16 Unknown Urine WBC (Auto) 4.0 /HPF (0.0-6.0) 11/18/16 Unknown Urine RBC (Auto) 9.0 /HPF (0.0-6.0) 11/18/16 Unknown U Epithel Cells (Auto) 1.0 /HPF (0-13.0) 11/18/16 Unknown Urine Mucus 3+ /HPF 11/18/16 Unknown
[2016-11-22 09:33] LABS: Hematocrit 29.4 % (35.5-45.6); Hemoglobin 9.1 gm/dl (11.8-15.2); Mean Corpuscular HGB Conc 31 % (32-34); Platelet Count 211 K/mm3 (140-440); Red Blood Count 4.34 M/mm3 (3.65-5.03); White Blood Count 3.5 K/mm3 (4.5-11.0)
[2016-11-22 09:44] LABS: Mean Corpuscular Hemoglobin 21 pg (28-32); Mean Corpuscular Volume 68 fl (84-94)
[2016-11-22 09:52] LABS: INR 2.76 (0.87-1.13)
[2016-11-22 09:55] LABS: Anion Gap 17 mmol/L; BUN/Creatinine Ratio 1.33; Blood Urea Nitrogen 2 mg/dL (9-20); Calcium 7.7 mg/dL (8.4-10.2); Carbon Dioxide 27 mmol/L (22-30); Chloride 101.5 mmol/L (98-107); Glucose 92 mg/dL (75-100); Potassium 3.4 mmol/L (3.6-5.0); Sodium 142 mmol/L (137-145)
--- NOTE | 2016-11-22 09:57 | Query-Infection ---
Dear Date:__11/22/2016 Reinforcing Bar Setter/CDS:__Edin Nagy Phone#: Exercise your independent professional judgment when responding to this query. Questions asked do not imply a particular answer is desired or expected. We greatly appreciate your clarification on this issue. Clinical Documentation States: The patient was admitted due to Diverticulitis, Sickle Cell Crisis. "Fever secondary to bacteremia"; "Bacteremia with MRSA. he is on Vancomycin" ( Dr. Sumner in [place] on 11/21/2016). Temp 100.4 WBC 2.6 Glucose 413 Blood Culture Methicillin Resist S. Aureus Vanco IV Clinical findings show: (please check applicable parameters) Infection, known /suspected, with some of the following indicators; Specify the infection: 3 General parameters [+ ] Fever (core temp >38.30C or 100.40F) [ ] Hypothermia (core temp <36C) [ ] Heart rate >90 bpm [ ] Tachypnea: >20 bpm or pCO2 < 32 mmHg [ ] Altered mental status [ ] Significant edema / +ve fluid balance (>20 ml/kg 24 h) [+ ] Hyperglycemia (Bl. glucose >110 mg/dl) w/o diabetes Inflammatory parameters [ ] Leukocytosis (white blood cell count >12,000/l) [+ ] Leukopenia (white blood cell count <4,000/l) [+ ] Bandemia (immature WBC > 10%) [+ ] Leucocyte Left Shift [ ] Plasma procalcitonin>2 SD above the normal value Hemodynamic and tissue perfusion parameters [ ] Arterial hypotension(SBP <90 mmHg, MAP <70 mmHg,or a SBP drop >40 mmHg in adults) [ ] Hyperlactatemia (>3 mmol/l) [ ] Anion Gap (> 11mEG/l) [ ] Decreased capillary refill or mottling Organ dysfunction parameters [ ] Arterial hypoxemia (PaO2/FIO2 <300) [ ] Creatinine increase =0.5 mg/dl [ ] Acute oliguria (urine output <0.5 ml | kg |h or 45 mM/l for at least 2 hrs) [ ] Coagulation abnormalities (INR >1.5 or activated partial thromboplastin time >60 s) [ ] Ileus (absent lars wel sounds) [ ] Thrombocytopenia (platelet count <100,000/l) [ ] Hyperbilirubinemia (plasma total bilirubin >4 mg/dl) According to the clinical indications above, can Bacteremia be further specified? If so, please indicate below and in your Progress Notes and/ or Discharge Summary. Indicate if the condition was present on admission. PHYSICIAN RESPONSE: [ ] Sepsis [ ] Severe Sepsis [ ] Septic Shock [ ] Septicemia [ ] Sepsis now resolved [ ] SIRS due to non-infectious cause with organ dysfunction [ ] SIRS due to non-infectious cause without organ dysfunction [ ] Other: [ ] Comment/Explanation: Present on Admission: [ ] Yes (Y) [ ] Clinically undeterminable (W) [ ] No ( N) [ ] Ruled Out Please also document response in your Progress Notes and/or Discharge Summary and indicate if the condition was present on admission Notes: SIRS/ SIRS WITH ORGAN DYSFUNCTION Systemic inflammatory response syndrome (SIRS) generally refers to the systemic response to trauma/wylie or other insult such as Acute Myocardial Infarction, Acute Pancreatitis, and Major Surgery with symptoms including fever, tachycardia , tachypnea, and leukocytosis (1). BACTEREMIA Presence of viable bacteria in the circulating blood (2). This term is reserved for patients that do not manifest above SIRS response. SEPTICEMIA Generally refers to a systemic disease associated with the presence of pathological microorganisms or toxins in the blood, which can include bacteria, viruses, fungi or other organisms (1). SEPSIS Generally refers to SIRS due infection (1). SEVERE SEPSIS Generally refers to sepsis associated with acute organ dysfunction (1). SEPTIC SHOCK Generally refers to circulatory failure associated with severe sepsis (2), and defined as hypotension or hypoperfusion despite adequate fluid resuscitation (1 hour) (3). REFERENCES: 1. [employer]/Society of Critical Care Medicine Consensus Conference. Definitions for sepsis and organ failure and guidelines for the use of innovative therapies in sepsis. Critical Care Med 1992;20:864 - 74. 2. Bob wang MM, Ronaldo MP, Amol BESSY, Cruz E, Luc D, Kian D, Amador J, Dyan FANG , Salty HENRY, Kirill G; International Sepsis Definitions Conference. 2001 SCCM/ESICM/ACCP/ATS/SIS International Sepsis Definitions Conference. Intensive Care Med. 2002;29(4):530-8. Epub 2002Dec 28. Review. PubMed PMID:[id number] 3. ICD-9-CM Official Guidelines for Coding and Reporting 4. Medscape Drugs, Diseases and Procedures references 5. [employer] Textbook of Internal Medicine. 18th Edition MTDD
[2016-11-22] MEDS: FOLVITE PO SCH (10:57)
[2016-11-22] MEDS: MAGIC MOUTHWASH PO SCH ×3 (10:57→22:48)
[2016-11-22] MEDS: LOVENOX SUB-Q SCH (10:58)
[2016-11-22] MEDS: K-DUR PO SCH ×3 (13:23→20:56)
--- NOTE | 2016-11-22 17:23 | Consultation ---
History of Present Illness - Reason for Consult Consult date: 11/22/16 BACTEREMIA Requesting physician: LYUDMILA DANIELSON - History of Present Illness Patient is 36 yo male with multiple medical problems who presented to the hospital with complaints of fever, weakness and generalized body pains. Patient thinks it is sickle cell crises, however, two periferal blood samples for culture came back positive for staphylococcus aureus. mssa. Patient currently on vancomycin and zosyn. He said he had a port replacement done about 3months ago when his old port was infected. Apart from weakness and generalized body pains, he denied any other symptoms. PMH - Sickle cell anemia HIV/AIDS. SOCIAL HX Denied alcohol abuse, illicit drup use andsays he stopped smoking long ago. Physical exam Chest - clear. No erythema or pain at port site. cvs - s1s2 abd - benign extremities - pulses b/l palpable. no edema. Diagnosis 1. Bacteremia secondary to mssa 2. Sickle cell anemia in crisis 3. HIV / AIDS Recommendation 1. Repeat blood culture x2 2. hiv viralload and cd4 count 3. d/c vancomycin and zosyn and start ceftriaxone. 4. Cardiology evaluation for echo r/o endocarditis. Medications and Allergies Allergies Allergy/AdvReac Type Severity Reaction Status Date / Time morphine Allergy Anaphylaxis Verified 11/18/16 08:15 Iodinated Contrast Media - AdvReac Unknown Verified 11/18/16 08:15 IV Dye sulfamethoxazole AdvReac Unknown Verified 11/18/16 08:15 [From Bactrim] trimethoprim [From Bactrim] AdvReac Unknown Verified 11/18/16 08:15 PLASTIC TAPE Allergy Rash Uncoded 11/18/16 08:15 Home Medications Medication Instructions Recorded Confirmed Last Taken Type Folic Acid 0.4 mg PO QDAY 09/16/16 11/18/16 11/16/16 08:00 History HYDROmorphone [Dilaudid] 4 mg PO Q6HR PRN 09/16/16 11/18/16 11/15/16 21:00 History Warfarin [Coumadin] 10 mg PO DAILY@1700 #30 tablet 11/10/16 11/18/16 11/16/16 17 :00 Rx Elviteg/Celia/Emtric/Tenofo Ala 1 each PO QDAY 11/18/16 11/18/16 11/16/16 08:00 History [Genvoya Tablet] Hydroxyurea [Hydrea] 500 mg PO BID 11/18/16 11/18/16 11/16/16 18:00 History Active Meds: Active Medications Diphenhydramine HCl (Benadryl) 12.5 mg IV Q3H PRN PRN Reason: Itching Last Admin: 11/22/16 13:26 Dose: 12.5 mg Enoxaparin Sodium (Lovenox) 70 mg SUB-Q Q12HR [facility] Last Admin: 11/22/16 10:58 Dose: 70 mg Folic Acid (Folvite) 0.5 mg PO QDAY [facility] Last Admin: 11/22/16 10:57 Dose: 0.5 mg Hydromorphone HCl (Dilaudid) 2 mg IV Q3H PRN PRN Reason: Pain , Severe (7-10) Last Admin: 11/22/16 13:24 Dose: 2 mg Dextrose/Sodium Chloride (D5ns) 1,000 mls @ 100 mls/hr IV DIRECT [facility] Last Admin: 11/22/16 02:05 Dose: 100 mls/hr Piperacillin Sod/Tazobactam Sod (Zosyn/Ns 4.5gm/100ml) 4.5 gm in 100 mls @ 200 mls/hr IV Q8HR [facility] PRN Reason: Protocol Last Admin: 11/22/16 13:25 Dose: 200 mls/hr Vancomycin HCl 1,250 mg/ (Sodium Chloride) 250 mls @ 125 mls/hr IV Q8H [facility] Last Admin: 11/22/16 10:57 Dose: 125 mls/hr Lidocaine HCl (Magic Mouthwash) 15 ml PO TID [facility] Last Admin: 11/22/16 13:27 Dose: 15 ml Miscellaneous Medication (Elviteg/Celia/Emtric/Tenofo Ala [Genvoya Tablet]) 1 each PO QDAY [facility] Ondansetron HCl (Zofran) 4 mg IV Q3H PRN PRN Reason: Nausea And Vomiting Last Admin: 11/22/16 13:26 Dose: 4 mg Potassium Chloride (K-Dur) 40 meq PO Q4H [facility] Stop: 11/22/16 20:31 Last Admin: 11/22/16 13:23 Dose: 40 meq Vancomycin HCl (Vancomycin Pharmacy To Dose) 1 each IV PKCONSULT [facility] PRN Reason: Protocol Warfarin Sodium (Coumadin) 5 mg PO DAILY@1700 [facility] Physical Examination - Constitutional Vitals: Vital Signs Temp Pulse Resp BP Pulse Ox 100.6 F H 79 20 135/87 96 11/22/16 07:00 11/22/16 07:00 11/22/16 07:00 11/22/16 07:00 11/22/16 07:00 Temperature -Last 24 Hours Temperature 100.6 F Temperature 100.2 F Results - Labs CBC & Chem 7: 11/22/16 09:16 11/22/16 09:16 Labs: Abnormal lab results 11/22/16 11/22/16 11/22/16 Range/Units 09:16 09:16 09:16 WBC 3.5 L (4.5-11.0) K/mm3 Hgb 9.1 L (11.8-15.2) gm/dl Hct 29.4 L (35.5-45.6) % MCV 68 L (84-94) fl MCH 21 L (28-32) pg MCHC 31 L (32-34) % RDW 16.0 H (13.2-15.2) % PT 29.3 H (12.2-14.9) Sec. INR 2.76 H (0.87-1.13) Potassium 3.4 L (3.6-5.0) mmol/L BUN 2 L (9-20) mg/dL Calcium 7.7 L (8.4-10.2) mg/dL
[2016-11-22] MEDS: COUMADIN PO SCH (17:40)
[2016-11-22] MEDS: ROCEPHIN/NS 1 GM/50 ML 1 GM/50 ML BAG IV SCH (20:54)
--- NOTE | 2016-11-22 21:12 | Consultation ---
History of Present Illness - Reason for Consult Consult date: 11/22/16 - History of Present Illness Patient seen/examined this am, resting in bed. I did discussed MRSA , and need for JAMAAL if he was still having cp, but he states cp has resolved. No other new issues at this time. Medications and Allergies Allergies Allergy/AdvReac Type Severity Reaction Status Date / Time morphine Allergy Anaphylaxis Verified 11/18/16 08:15 Iodinated Contrast Media - AdvReac Unknown Verified 11/18/16 08:15 IV Dye sulfamethoxazole AdvReac Unknown Verified 11/18/16 08:15 [From Bactrim] trimethoprim [From Bactrim] AdvReac Unknown Verified 11/18/16 08:15 PLASTIC TAPE Allergy Rash Uncoded 11/18/16 08:15 Home Medications Medication Instructions Recorded Confirmed Last Taken Type Folic Acid 0.4 mg PO QDAY 09/16/16 11/18/16 11/16/16 08:00 History HYDROmorphone [Dilaudid] 4 mg PO Q6HR PRN 09/16/16 11/18/16 11/15/16 21:00 History Warfarin [Coumadin] 10 mg PO DAILY@1700 #30 tablet 11/10/16 11/18/16 11/16/16 17 :00 Rx Elviteg/Celia/Emtric/Tenofo Ala 1 each PO QDAY 11/18/16 11/18/16 11/16/16 08:00 History [Genvoya Tablet] Hydroxyurea [Hydrea] 500 mg PO BID 11/18/16 11/18/16 11/16/16 18:00 History Active Meds: Active Medications Diphenhydramine HCl (Benadryl) 12.5 mg IV Q3H PRN PRN Reason: Itching Last Admin: 11/22/16 18:29 Dose: 12.5 mg Enoxaparin Sodium (Lovenox) 70 mg SUB-Q Q12HR [facility] Last Admin: 11/22/16 10:58 Dose: 70 mg Folic Acid (Folvite) 0.5 mg PO QDAY [facility] Last Admin: 11/22/16 10:57 Dose: 0.5 mg Hydromorphone HCl (Dilaudid) 2 mg IV Q3H PRN PRN Reason: Pain , Severe (7-10) Last Admin: 11/22/16 18:28 Dose: 2 mg Dextrose/Sodium Chloride (D5ns) 1,000 mls @ 100 mls/hr IV DIRECT [facility] Last Admin: 11/22/16 17:49 Dose: 100 mls/hr Ceftriaxone Sodium (Rocephin/Ns 1 Gm/50 Ml) 1 gm in 50 mls @ 100 mls/hr IV Q24H [facility] PRN Reason: Protocol Last Admin: 11/22/16 20:54 Dose: 100 mls/hr Lidocaine HCl (Magic Mouthwash) 15 ml PO TID [facility] Last Admin: 11/22/16 13:27 Dose: 15 ml Miscellaneous Medication (Elviteg/Celia/Emtric/Tenofo Ala [Genvoya Tablet]) 1 each PO QDAY [facility] Ondansetron HCl (Zofran) 4 mg IV Q3H PRN PRN Reason: Nausea And Vomiting Last Admin: 11/22/16 18:29 Dose: 4 mg Vancomycin HCl (Vancomycin Pharmacy To Dose) 1 each IV PKCONSULT [facility] PRN Reason: Protocol Warfarin Sodium (Coumadin) 5 mg PO DAILY@1700 [facility] Last Admin: 11/22/16 17:40 Dose: 5 mg Review of Systems Constitutional: fatigue, chronic pain Exam - Constitutional Vitals: Temp Pulse Resp BP Pulse Ox 99.3 F 74 20 143/87 97 11/22/16 16:00 11/22/16 16:00 11/22/16 16:00 11/22/16 16:00 11/22/16 16:00 General appearance: Present: mild distress, well-nourished - EENT Eyes: Present: PERRL ENT: hearing intact, clear oral mucosa - Neck Neck: Present: supple, normal ROM - Respiratory Respiratory effort: normal Respiratory: bilateral: CTA - Cardiovascular Heart Sounds: Present: S1 & S2. Absent: rub, click - Extremities Extremities: pulses symmetrical, No edema Peripheral Pulses: within normal limits - Abdominal General gastrointestinal: Present: soft, non-tender, non-distended, normal bowel sounds Male genitourinary: Present: deferred - Rectal Rectal Exam: deferred - Integumentary Integumentary: Present: clear, warm, dry - Musculoskeletal Musculoskeletal: gait normal, strength equal bilaterally - Psychiatric Psychiatric: appropriate mood/affect, intact judgment & insight - Neurologic Neurologic: CNII-XII intact, moves all extremities Results - Labs CBC & Chem 7: 11/22/16 09:16 11/22/16 09:16 Labs: Abnormal lab results 11/22/16 11/22/16 11/22/16 Range/Units 09:16 09:16 09:16 WBC 3.5 L (4.5-11.0) K/mm3 Hgb 9.1 L (11.8-15.2) gm/dl Hct 29.4 L (35.5-45.6) % MCV 68 L (84-94) fl MCH 21 L (28-32) pg MCHC 31 L (32-34) % RDW 16.0 H (13.2-15.2) % PT 29.3 H (12.2-14.9) Sec. INR 2.76 H (0.87-1.13) Potassium 3.4 L (3.6-5.0) mmol/L BUN 2 L (9-20) mg/dL Calcium 7.7 L (8.4-10.2) mg/dL Assessment and Plan - Patient Problems (1) Fever Current Visit: Yes Status: Acute Qualifiers: Fever type: F Encounter type: E Plan to address problem: continue with IV ABX Follow new ID group. (2) Sickle cell pain crisis Current Visit: Yes Status: Acute (3) Thrush Current Visit: Yes Status: Acute Plan to address problem: Will put on magic mouth wash. already done. (4) HIV (human immunodeficiency virus infection) Current Visit: Yes Status: Chronic Plan to address problem: supportive (5) Hx of pulmonary embolus Current Visit: Yes Status: Chronic Plan to address problem: continue with anticoag.
[2016-11-23] MEDS ORDERED: VITAMIN K (ADULT ONLY) SUB-Q ONE (01:31)
[2016-11-23] MEDS: DILAUDID IV PRN ×5 (02:00→21:56)
[2016-11-23] MEDS: BENADRYL IV PRN ×5 (02:01→21:55)
[2016-11-23 02:53] LABS: INR 2.58 (0.87-1.13)
--- NOTE | 2016-11-23 09:14 | Progress Note ---
Assessment and Plan Assessment and plan: Sickle cell disease vaso-occlusive crisis. * Continue IV fluid at 100ml/hr. Cont , * Dilaudid 2mg iv Q3hr when necessary Sepsis with Methicillin sensitive staph aureus. * ID following * repeat blood cx report pending * ordered 2d echo History of pulmonary embolism and DVT. * His INR is therapeutic. * Continue On Coumadin and d/c Lovenox bridge. Fever secondary to sepsis. * as needed tylenol Bacteremia with MSSA. * He has port at upper chest wall but no signs of redness or pain. * will follow ID recommendation. ROSARIO * cont iv flui Hypernatremia * Change IV fluid to D5 half normal saline * Monitor BMP HIV infection. Continue HAART Full code status. History Interval history: Patient seen and examined. Medical records and medication list reviewed. No acute event overnight noted by the RN. Patient denies any fever but complains of nausea Discussed plan of care at bedside with patient. Hospitalist Physical - Physical exam Narrative exam: GENERAL: well-developed and well-nourished male lying on bed appeared to be in no discomfort. HEENT: Normocephalic. Atraumatic. No conjunctival congestion or icterus. Patient has moist mucous membranes. NECK: Supple. Trachea midline. CHEST/LUNGS: Clear to auscultated bilaterally, breathing nonlabored. No wheezes crackles or rhonchi. HEART/CARDIOVASCULAR: Regular in rate and rhythm. S1 and S2 positive. ABDOMEN: Abdomen is soft, nontender. Patient has normal bowel sounds. SKIN: There is no rash. Warm and dry. NEURO: No focal motor deficit. Follows command. MUSCULOSKELETAL: No joint effusion or tenderness. EXTRIMITY: No edema, no cyanosis or clubbing. PSYCH: Cooperative. - Constitutional Vitals: Temp Pulse Resp BP Pulse Ox 99.0 F 76 20 138/78 93 11/23/16 07:25 11/23/16 07:25 11/23/16 07:25 11/23/16 07:25 11/23/16 07:25 General appearance: Present: mild distress, well-nourished Results - Labs CBC & Chem 7: 11/23/16 12:20 11/23/16 12:20 Labs: Laboratory Last Values WBC 3.5 K/mm3 (4.5-11.0) L 11/22/16 09:16 RBC 4.34 M/mm3 (3.65-5.03) 11/22/16 09:16 Hgb 9.1 gm/dl (11.8-15.2) L 11/22/16 09:16 Hct 29.4 % (35.5-45.6) L 11/22/16 09:16 MCV 68 fl (84-94) L 11/22/16 09:16 MCH 21 pg (28-32) L 11/22/16 09:16 MCHC 31 % (32-34) L 11/22/16 09:16 RDW 16.0 % (13.2-15.2) H 11/22/16 09:16 Plt Count 211 K/mm3 (140-440) 11/22/16 09:16 Lymph % (Auto) 12.4 % (13.4-35.0) L 11/18/16 08:29 [place] % (Auto) 9.0 % (0.0-7.3) H 11/18/16 08:29 Eos % (Auto) 1.5 % (0.0-4.3) 11/18/16 08:29 Baso % (Auto) 0.4 % (0.0-1.8) 11/18/16 08:29 Lymph # 0.6 K/mm3 (1.2-5.4) L 11/18/16 08:29 [place] # 0.4 K/mm3 (0.0-0.8) 11/18/16 08:29 Eos # 0.1 K/mm3 (0.0-0.4) 11/18/16 08:29 Baso # 0.0 K/mm3 (0.0-0.1) 11/18/16 08:29 Seg Neutrophils % 76.7 % (40.0-70.0) H 11/18/16 08:29 Seg Neutrophils # 3.5 K/mm3 (1.8-7.7) 11/18/16 08:29 Percent Retic 0.91 % (0.78-2.58) 11/18/16 08:29 PT 27.8 Sec. (12.2-14.9) H 11/23/16 02:10 INR 2.58 (0.87-1.13) H 11/23/16 02:10 APTT 36.4 Sec. (24.2-36.6) 11/18/16 08:29 Sodium 142 mmol/L (137-145) 11/22/16 09:16 Potassium 3.4 mmol/L (3.6-5.0) L 11/22/16 09:16 Chloride 101.5 mmol/L (98-107) 11/22/16 09:16 Carbon Dioxide 27 mmol/L (22-30) 11/22/16 09:16 Anion Gap 17 mmol/L 11/22/16 09:16 BUN 2 mg/dL (9-20) L 11/22/16 09:16 Creatinine 1.5 mg/dL (0.8-1.5) D 11/22/16 09:16 Estimated GFR > 60 ml/min 11/22/16 09:16 BUN/Creatinine Ratio 1.33 % 11/22/16 09:16 Glucose 92 mg/dL (75-100) 11/22/16 09:16 Lactic Acid 0.9 mmol/L (0.7-2.0) 11/18/16 10:15 Calcium 7.7 mg/dL (8.4-10.2) L 11/22/16 09:16 Magnesium 2.0 mg/dL (1.7-2.3) 11/18/16 08:30 Total Bilirubin 0.6 mg/dL (0.1-1.2) 11/18/16 08:30 Direct Bilirubin < 0.2 mg/dL (0-0.2) 11/18/16 08:30 AST 25 units/L (5-40) 11/18/16 08:30 ALT 23 units/L (7-56) 11/18/16 08:30 Alkaline Phosphatase 53 units/L (35-129) 11/18/16 08:30 Troponin T < 0.010 ng/mL (0.00-0.029) 11/18/16 08:29 NT-Pro-B Natriuret Pep 30.32 pg/mL (0-450) 11/18/16 08:30 Total Protein 8.5 g/dL (6.3-8.2) H 11/18/16 08:30 Albumin 4.2 g/dL (3.9-5) 11/18/16 08:30 Albumin/Globulin Ratio 1.0 % 11/18/16 08:30 Lipase 16 units/L (13-60) 11/18/16 08:30 Urine Color Benita (Yellow) 11/18/16 Unknown Urine Turbidity Clear (Clear) 11/18/16 Unknown Urine pH 5.0 (5.0-7.0) 11/18/16 Unknown Ur Specific [place] 1.039 (1.003-1.030) H 11/18/16 Unknown Urine Protein 100 mg/dl mg/dL (Negative) 11/18/16 Unknown Urine Glucose (UA) Neg mg/dL (Negative) 11/18/16 Unknown Urine Ketones Tr mg/dL (Negative) 11/18/16 Unknown Urine Blood Neg (Negative) 11/18/16 Unknown Urine Nitrite Neg (Negative) 11/18/16 Unknown Urine Bilirubin Neg (Negative) 11/18/16 Unknown Urine Urobilinogen 4.0 mg/dL (<2.0) 11/18/16 Unknown Ur Leukocyte Esterase Neg (Negative) 11/18/16 Unknown Urine WBC (Auto) 4.0 /HPF (0.0-6.0) 11/18/16 Unknown Urine RBC (Auto) 9.0 /HPF (0.0-6.0) 11/18/16 Unknown U Epithel Cells (Auto) 1.0 /HPF (0-13.0) 11/18/16 Unknown Urine Mucus 3+ /HPF 11/18/16 Unknown Vancomycin Trough 14.4 ug/mL (5.0-20.0) 11/22/16 09:16
[2016-11-23] MEDS: LOVENOX SUB-Q SCH (12:16)
[2016-11-23 13:02] LABS: Hematocrit 29.4 % (35.5-45.6); Hemoglobin 9.1 gm/dl (11.8-15.2); Mean Corpuscular HGB Conc 31 % (32-34); Mean Corpuscular Hemoglobin 21 pg (28-32); Mean Corpuscular Volume 68 fl (84-94); Red Blood Count 4.33 M/mm3 (3.65-5.03); Red Cell Distribution Width 16.4 % (13.2-15.2); White Blood Count 3.2 K/mm3 (4.5-11.0)
[2016-11-23 13:03] LABS: Basophils % (Auto) 0.7 % (0.0-1.8); Eosinophils % (Auto) 3.8 % (0.0-4.3); Platelet Count 232 K/mm3 (140-440)
[2016-11-23] MEDS: MAGIC MOUTHWASH PO SCH ×3 (13:17→21:56)
[2016-11-23 13:18] LABS: BUN/Creatinine Ratio 2.1; Calcium 7.8 mg/dL (8.4-10.2); Chloride 107.3 mmol/L (98-107); Potassium 3.9 mmol/L (3.6-5.0)
[2016-11-23] MEDS: FOLVITE PO SCH (13:18)
[2016-11-23] MEDS: D5/0.45NS 1,000 ML IV SCH (17:12)
[2016-11-23] MEDS: COUMADIN PO SCH (17:13)
[2016-11-23] MEDS: ZOFRAN IV PRN ×2 (17:19→21:55)
--- NOTE | 2016-11-23 19:49 | Progress Note ---
Subjective Date of service: 11/23/16 Principal diagnosis: bacteremia Interval history: Patient feels better. Denied fever or chills VS. Tmax 100.5 Chest - good air entry cvs - s1s2 assessment 1. bacteremia sec to mssa 2. sca 3. hiv/aids rec repeat blood culture x2 cbc/bmp in am continue iv abx Objective - Constitutional Vitals: Vital Signs Temp Pulse Resp BP Pulse Ox 100.5 F H 68 18 136/74 93 11/23/16 17:15 11/23/16 17:15 11/23/16 17:15 11/23/16 17:15 11/23/16 07:25 Temperature -Last 24 Hours Temperature 100.5 F Temperature 99.0 F Temperature 101.6 F - Labs CBC & Chem 7: 11/23/16 12:20 11/23/16 12:20 Labs: Abnormal lab results 11/23/16 11/23/16 11/23/16 Range/Units 02:10 12:20 12:20 WBC 3.2 L (4.5-11.0) K/mm3 Hgb 9.1 L (11.8-15.2) gm/dl Hct 29.4 L (35.5-45.6) % MCV 68 L (84-94) fl MCH 21 L (28-32) pg MCHC 31 L (32-34) % RDW 16.4 H (13.2-15.2) % Lymph % (Auto) 35.7 H (13.4-35.0) % [place] % (Auto) 14.3 H (0.0-7.3) % Lymph # 1.1 L (1.2-5.4) K/mm3 Seg Neutrophils # 1.4 L (1.8-7.7) K/mm3 PT 27.8 H (12.2-14.9) Sec. INR 2.58 H (0.87-1.13) Sodium 147 H (137-145) mmol/L Chloride 107.3 H (98-107) mmol/L BUN 4 L (9-20) mg/dL Creatinine 1.9 H (0.8-1.5) mg/dL Glucose 110 H (75-100) mg/dL Calcium 7.8 L (8.4-10.2) mg/dL
[2016-11-23] MEDS: ROCEPHIN/NS 1 GM/50 ML 1 GM/50 ML BAG IV SCH (21:54)
[2016-11-23] MEDS: HYDREA PO SCH (21:55)
--- NOTE | 2016-11-23 21:58 | Consultation ---
History of Present Illness - Reason for Consult Consult date: 11/23/16 - History of Present Illness Patient seen/examined, labs reviewed, case d/w patient. C/o had nose bleed all morning, I have d/w the nurse, and LMWH d/c. Repeated BC, negative for MRSA.. Medications and Allergies Allergies Allergy/AdvReac Type Severity Reaction Status Date / Time morphine Allergy Anaphylaxis Verified 11/18/16 08:15 Iodinated Contrast Media - AdvReac Unknown Verified 11/18/16 08:15 IV Dye sulfamethoxazole AdvReac Unknown Verified 11/18/16 08:15 [From Bactrim] trimethoprim [From Bactrim] AdvReac Unknown Verified 11/18/16 08:15 PLASTIC TAPE Allergy Rash Uncoded 11/18/16 08:15 Home Medications Medication Instructions Recorded Confirmed Last Taken Type Folic Acid 0.4 mg PO QDAY 09/16/16 11/18/16 11/16/16 08:00 History HYDROmorphone [Dilaudid] 4 mg PO Q6HR PRN 09/16/16 11/18/16 11/15/16 21:00 History Warfarin [Coumadin] 10 mg PO DAILY@1700 #30 tablet 11/10/16 11/18/16 11/16/16 17 :00 Rx Elviteg/Celia/Emtric/Tenofo Ala 1 each PO QDAY 11/18/16 11/18/16 11/16/16 08:00 History [Genvoya Tablet] Hydroxyurea [Hydrea] 500 mg PO BID 11/18/16 11/18/16 11/16/16 18:00 History Active Meds: Active Medications Diphenhydramine HCl (Benadryl) 12.5 mg IV Q3H PRN PRN Reason: Itching Last Admin: 11/23/16 17:19 Dose: 12.5 mg Folic Acid (Folvite) 0.5 mg PO QDAY [facility]ON[facility] Last Admin: 11/23/16 13:18 Dose: 0.5 mg Hydromorphone HCl (Dilaudid) 2 mg IV Q3H PRN PRN Reason: Pain , Severe (7-10) Last Admin: 11/23/16 17:19 Dose: 2 mg Hydroxyurea (Hydrea) 500 mg PO BID RONY Ceftriaxone Sodium (Rocephin/Ns 1 Gm/50 Ml) 1 gm in 50 mls @ 100 mls/hr IV Q24H [facility] PRN Reason: Protocol Last Admin: 11/22/16 20:54 Dose: 100 mls/hr Dextrose/Sodium Chloride (D5/0.45ns) 1,000 mls @ 100 mls/hr IV DIRECT [facility] Last Admin: 11/23/16 17:12 Dose: 100 mls/hr Lidocaine HCl (Magic Mouthwash) 15 ml PO TID [facility] Last Admin: 11/23/16 15:00 Dose: 15 ml Miscellaneous Medication (Elviteg/Celia/Emtric/Tenofo Ala [Genvoya Tablet]) 1 each PO QDAY [facility] Ondansetron HCl (Zofran) 4 mg IV Q3H PRN PRN Reason: Nausea And Vomiting Last Admin: 11/23/16 17:19 Dose: 4 mg Warfarin Sodium (Coumadin) 5 mg PO DAILY@1700 [facility] Last Admin: 11/23/16 17:13 Dose: 5 mg Review of Systems Constitutional: fatigue, chronic pain Musculoskeletal: low back pain Exam - Constitutional Vitals: Temp Pulse Resp BP Pulse Ox 100.5 F H 68 20 136/74 93 11/23/16 17:15 11/23/16 17:15 11/23/16 17:49 11/23/16 17:15 11/23/16 07:25 General appearance: Present: mild distress, well-nourished - EENT Eyes: Present: PERRL ENT: hearing intact, clear oral mucosa - Neck Neck: Present: supple, normal ROM - Respiratory Respiratory effort: normal Respiratory: bilateral: CTA - Cardiovascular Heart Sounds: Present: S1 & S2. Absent: rub, click - Extremities Extremities: pulses symmetrical, No edema Peripheral Pulses: within normal limits - Abdominal General gastrointestinal: Present: soft, non-tender, non-distended, normal bowel sounds Male genitourinary: Present: deferred - Rectal Rectal Exam: deferred - Integumentary Integumentary: Present: clear, warm, dry - Musculoskeletal Musculoskeletal: gait normal, strength equal bilaterally - Psychiatric Psychiatric: appropriate mood/affect, intact judgment & insight - Neurologic Neurologic: CNII-XII intact, moves all extremities Results - Labs CBC & Chem 7: 11/23/16 12:20 11/23/16 12:20 Labs: Abnormal lab results 11/23/16 11/23/16 11/23/16 Range/Units 02:10 12:20 12:20 WBC 3.2 L (4.5-11.0) K/mm3 Hgb 9.1 L (11.8-15.2) gm/dl Hct 29.4 L (35.5-45.6) % MCV 68 L (84-94) fl MCH 21 L (28-32) pg MCHC 31 L (32-34) % RDW 16.4 H (13.2-15.2) % Lymph % (Auto) 35.7 H (13.4-35.0) % [place] % (Auto) 14.3 H (0.0-7.3) % Lymph # 1.1 L (1.2-5.4) K/mm3 Seg Neutrophils # 1.4 L (1.8-7.7) K/mm3 PT 27.8 H (12.2-14.9) Sec. INR 2.58 H (0.87-1.13) Sodium 147 H (137-145) mmol/L Chloride 107.3 H (98-107) mmol/L BUN 4 L (9-20) mg/dL Creatinine 1.9 H (0.8-1.5) mg/dL Glucose 110 H (75-100) mg/dL Calcium 7.8 L (8.4-10.2) mg/dL Assessment and Plan - Patient Problems (1) Fever Current Visit: Yes Status: Acute Qualifiers: Fever type: F Encounter type: E Plan to address problem: continue with IV ABX Follow new ID group. (2) Sickle cell pain crisis Current Visit: Yes Status: Acute (3) Thrush Current Visit: Yes Status: Acute Plan to address problem: Will put on magic mouth wash. already done. (4) HIV (human immunodeficiency virus infection) Current Visit: Yes Status: Chronic Plan to address problem: supportive (5) Hx of pulmonary embolus Current Visit: Yes Status: Chronic Plan to address problem: continue with anticoag. as above ,except LMWH.
[2016-11-24] MEDS: DILAUDID IV PRN ×3 (03:35→21:20)
[2016-11-24] MEDS: BENADRYL IV PRN ×3 (03:36→21:20)
[2016-11-24] MEDS: D5/0.45NS 1,000 ML IV SCH ×2 (03:55→16:29)
[2016-11-24 05:52] LABS: INR 1.22 (0.87-1.13)
[2016-11-24] MEDS: FOLVITE PO SCH (09:12)
[2016-11-24] MEDS: HYDREA PO SCH ×2 (09:12→21:15)
[2016-11-24] MEDS: MAGIC MOUTHWASH PO SCH ×3 (09:13→21:16)
--- NOTE | 2016-11-24 12:04 | Progress Note ---
Assessment and Plan Assessment and plan: Sickle cell disease vaso-occlusive crisis. * Continue IV fluid at 100ml/hr. Cont , * Dilaudid 2mg iv Q3hr when necessary Sepsis with Methicillin sensitive staph aureus. 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 * His INR is subtherapeutic. * Continue On Coumadin and Lovenox bridge. Fever secondary to sepsis. * as needed tylenol Bacteremia with MSSA. * He has port at upper chest wall but no signs of redness or pain. * will follow ID recommendation. ROSARIO * cont iv fluid * repeat BMP Hypernatremia * Change IV fluid to D5 half normal saline * Monitor BMP HIV infection. Continue HAART Full code status. History Interval history: Patient seen and examined. Medical records and medication list reviewed. No acute event overnight noted by the RN. Patient denies any fever, nausea improved Discussed plan of care at bedside with patient. Hospitalist Physical - Physical exam Narrative exam: GENERAL: well-developed and well-nourished male lying on bed appeared to be in no discomfort. HEENT: Normocephalic. Atraumatic. No conjunctival congestion or icterus. Patient has moist mucous membranes. NECK: Supple. Trachea midline. CHEST/LUNGS: Clear to auscultated bilaterally, breathing nonlabored. No wheezes crackles or rhonchi. HEART/CARDIOVASCULAR: Regular in rate and rhythm. S1 and S2 positive. ABDOMEN: Abdomen is soft, nontender. Patient has normal bowel sounds. SKIN: There is no rash. Warm and dry. NEURO: No focal motor deficit. Follows command. MUSCULOSKELETAL: No joint effusion or tenderness. EXTRIMITY: No edema, no cyanosis or clubbing. PSYCH: Cooperative. - Constitutional Vitals: Temp Pulse Resp BP Pulse Ox 98.7 F 70 18 145/88 97 11/24/16 08:00 11/24/16 08:00 11/24/16 08:00 11/24/16 08:00 11/24/16 08:00 General appearance: Present: mild distress, well-nourished Results - Labs CBC & Chem 7: 11/23/16 12:20 11/23/16 12:20 Labs: Laboratory Last Values WBC 3.2 K/mm3 (4.5-11.0) L 11/23/16 12:20 RBC 4.33 M/mm3 (3.65-5.03) 11/23/16 12:20 Hgb 9.1 gm/dl (11.8-15.2) L 11/23/16 12:20 Hct 29.4 % (35.5-45.6) L 11/23/16 12:20 MCV 68 fl (84-94) L 11/23/16 12:20 MCH 21 pg (28-32) L 11/23/16 12:20 MCHC 31 % (32-34) L 11/23/16 12:20 RDW 16.4 % (13.2-15.2) H 11/23/16 12:20 Plt Count 232 K/mm3 (140-440) 11/23/16 12:20 Lymph % (Auto) 35.7 % (13.4-35.0) H 11/23/16 12:20 [place] % (Auto) 14.3 % (0.0-7.3) H 11/23/16 12:20 Eos % (Auto) 3.8 % (0.0-4.3) 11/23/16 12:20 Baso % (Auto) 0.7 % (0.0-1.8) 11/23/16 12:20 Lymph # 1.1 K/mm3 (1.2-5.4) L 11/23/16 12:20 [place] # 0.5 K/mm3 (0.0-0.8) 11/23/16 12:20 Eos # 0.1 K/mm3 (0.0-0.4) 11/23/16 12:20 Baso # 0.0 K/mm3 (0.0-0.1) 11/23/16 12:20 Seg Neutrophils % 45.5 % (40.0-70.0) 11/23/16 12:20 Seg Neutrophils # 1.4 K/mm3 (1.8-7.7) L 11/23/16 12:20 Percent Retic 0.91 % (0.78-2.58) 11/18/16 08:29 PT 15.3 Sec. (12.2-14.9) H 11/24/16 05:20 INR 1.22 (0.87-1.13) H 11/24/16 05:20 APTT 36.4 Sec. (24.2-36.6) 11/18/16 08:29 Sodium 147 mmol/L (137-145) H 11/23/16 12:20 Potassium 3.9 mmol/L (3.6-5.0) 11/23/16 12:20 Chloride 107.3 mmol/L (98-107) H 11/23/16 12:20 Carbon Dioxide 28 mmol/L (22-30) 11/23/16 12:20 Anion Gap 16 mmol/L 11/23/16 12:20 BUN 4 mg/dL (9-20) L 11/23/16 12:20 Creatinine 1.9 mg/dL (0.8-1.5) H 11/23/16 12:20 Estimated GFR 49 ml/min 11/23/16 12:20 BUN/Creatinine Ratio 2.10 % 11/23/16 12:20 Glucose 110 mg/dL (75-100) H 11/23/16 12:20 Lactic Acid 1.0 mmol/L (0.7-2.0) 11/23/16 12:20 Calcium 7.8 mg/dL (8.4-10.2) L 11/23/16 12:20 Magnesium 2.0 mg/dL (1.7-2.3) 11/18/16 08:30 Total Bilirubin 0.6 mg/dL (0.1-1.2) 11/18/16 08:30 Direct Bilirubin < 0.2 mg/dL (0-0.2) 11/18/16 08:30 AST 25 units/L (5-40) 11/18/16 08:30 ALT 23 units/L (7-56) 11/18/16 08:30 Alkaline Phosphatase 53 units/L (35-129) 11/18/16 08:30 Troponin T < 0.010 ng/mL (0.00-0.029) 11/18/16 08:29 NT-Pro-B Natriuret Pep 30.32 pg/mL (0-450) 11/18/16 08:30 Total Protein 8.5 g/dL (6.3-8.2) H 11/18/16 08:30 Albumin 4.2 g/dL (3.9-5) 11/18/16 08:30 Albumin/Globulin Ratio 1.0 % 11/18/16 08:30 Lipase 16 units/L (13-60) 11/18/16 08:30 Urine Color [place] (Yellow) 11/18/16 Unknown Urine Turbidity Clear (Clear) 11/18/16 Unknown Urine pH 5.0 (5.0-7.0) 11/18/16 Unknown Ur Specific [place] 1.039 (1.003-1.030) H 11/18/16 Unknown Urine Protein 100 mg/dl mg/dL (Negative) 11/18/16 Unknown Urine Glucose (UA) Neg mg/dL (Negative) 11/18/16 Unknown Urine Ketones Tr mg/dL (Negative) 11/18/16 Unknown Urine Blood Neg (Negative) 11/18/16 Unknown Urine Nitrite Neg (Negative) 11/18/16 Unknown Urine Bilirubin Neg (Negative) 11/18/16 Unknown Urine Urobilinogen 4.0 mg/dL (<2.0) 11/18/16 Unknown Ur Leukocyte Esterase Neg (Negative) 11/18/16 Unknown Urine WBC (Auto) 4.0 /HPF (0.0-6.0) 11/18/16 Unknown Urine RBC (Auto) 9.0 /HPF (0.0-6.0) 11/18/16 Unknown U Epithel Cells (Auto) 1.0 /HPF (0-13.0) 11/18/16 Unknown Urine Mucus 3+ /HPF 11/18/16 Unknown Vancomycin Trough 14.4 ug/mL (5.0-20.0) 11/22/16 09:16
--- NOTE | 2016-11-24 18:07 | Progress Note ---
Subjective Date of service: 11/24/16 Principal diagnosis: bacteremia Interval history: Patient feels better. Denied fever or chills VS. Tmax 100.5 Chest - good air entry cvs - s1s2 assessment 1. bacteremia sec to mssa 2. sca 3. hiv/aids rec Awaits echo report continue iv abx Objective - Constitutional Vitals: Vital Signs Temp Pulse Resp BP Pulse Ox 98.7 F 70 18 145/88 97 11/24/16 08:00 11/24/16 08:00 11/24/16 08:00 11/24/16 08:00 11/24/16 08:00 Temperature -Last 24 Hours Temperature 98.7 F Temperature 100.0 F - Labs CBC & Chem 7: 11/23/16 12:20 11/23/16 12:20 Labs: Abnormal lab results 11/24/16 Range/Units 05:20 PT 15.3 H (12.2-14.9) Sec. INR 1.22 H (0.87-1.13)
[2016-11-24] MEDS: COUMADIN PO SCH (18:16)
[2016-11-24] MEDS: ROCEPHIN/NS 1 GM/50 ML 1 GM/50 ML BAG IV SCH (21:15)
--- NOTE | 2016-11-24 22:02 | Consultation ---
History of Present Illness - Reason for Consult Consult date: 11/24/16 Medications and Allergies Allergies Allergy/AdvReac Type Severity Reaction Status Date / Time morphine Allergy Anaphylaxis Verified 11/18/16 08:15 Iodinated Contrast Media - AdvReac Unknown Verified 11/18/16 08:15 IV Dye sulfamethoxazole AdvReac Unknown Verified 11/18/16 08:15 [From Bactrim] trimethoprim [From Bactrim] AdvReac Unknown Verified 11/18/16 08:15 PLASTIC TAPE Allergy Rash Uncoded 11/18/16 08:15 Home Medications Medication Instructions Recorded Confirmed Last Taken Type Folic Acid 0.4 mg PO QDAY 09/16/16 11/18/16 11/16/16 08:00 History HYDROmorphone [Dilaudid] 4 mg PO Q6HR PRN 09/16/16 11/18/16 11/15/16 21:00 History Warfarin [Coumadin] 10 mg PO DAILY@1700 #30 tablet 11/10/16 11/18/16 11/16/16 17 :00 Rx Elviteg/Celia/Emtric/Tenofo Ala 1 each PO QDAY 11/18/16 11/18/16 11/16/16 08:00 History [Genvoya Tablet] Hydroxyurea [Hydrea] 500 mg PO BID 11/18/16 11/18/16 11/16/16 18:00 History Active Meds: Active Medications Diphenhydramine HCl (Benadryl) 12.5 mg IV Q3H PRN PRN Reason: Itching Last Admin: 11/24/16 21:20 Dose: 12.5 mg Folic Acid (Folvite) 0.5 mg PO QDAY [facility] Last Admin: 11/24/16 09:12 Dose: 0.5 mg Hydromorphone HCl (Dilaudid) 2 mg IV Q3H PRN PRN Reason: Pain , Severe (7-10) Last Admin: 11/24/16 21:20 Dose: 2 mg Hydroxyurea (Hydrea) 500 mg PO BID [facility] Last Admin: 11/24/16 21:15 Dose: 500 mg Ceftriaxone Sodium (Rocephin/Ns 1 Gm/50 Ml) 1 gm in 50 mls @ 100 mls/hr IV Q24H [facility] PRN Reason: Protocol Last Admin: 11/24/16 21:15 Dose: 100 mls/hr Dextrose/Sodium Chloride (D5/0.45ns) 1,000 mls @ 100 mls/hr IV DIRECT [facility] Last Admin: 11/24/16 16:29 Dose: 100 mls/hr Lidocaine HCl (Magic Mouthwash) 15 ml PO TID [facility] Last Admin: 11/24/16 21:16 Dose: 15 ml Miscellaneous Medication (Elviteg/Celia/Emtric/Tenofo Ala [Genvoya Tablet]) 1 each PO QDAY [facility] Ondansetron HCl (Zofran) 4 mg IV Q3H PRN PRN Reason: Nausea And Vomiting Last Admin: 11/23/16 21:55 Dose: 4 mg Warfarin Sodium (Coumadin) 10 mg PO DAILY@1700 [facility] Last Admin: 11/24/16 18:16 Dose: 10 mg Review of Systems Constitutional: chronic pain Musculoskeletal: low back pain Exam - Constitutional Vitals: Temp Pulse Resp BP Pulse Ox 98.5 F 63 20 136/84 98 11/24/16 17:00 11/24/16 17:00 11/24/16 21:26 11/24/16 17:00 11/24/16 17:00 General appearance: Present: mild distress, well-nourished - EENT Eyes: Present: PERRL ENT: hearing intact, clear oral mucosa - Neck Neck: Present: supple, normal ROM - Respiratory Respiratory effort: normal Respiratory: bilateral: CTA - Cardiovascular Heart Sounds: Present: S1 & S2. Absent: rub, click - Extremities Extremities: pulses symmetrical, No edema Peripheral Pulses: within normal limits - Abdominal General gastrointestinal: Present: soft, non-tender, non-distended, normal bowel sounds Male genitourinary: Present: deferred - Rectal Rectal Exam: deferred - Integumentary Integumentary: Present: clear, warm, dry - Musculoskeletal Musculoskeletal: gait normal, strength equal bilaterally - Psychiatric Psychiatric: appropriate mood/affect, intact judgment & insight - Neurologic Neurologic: CNII-XII intact, moves all extremities Results - Labs CBC & Chem 7: 11/23/16 12:20 11/23/16 12:20 Labs: Abnormal lab results 11/22/16 11/24/16 Range/Units 18:33 05:20 Abs Lymphs (Manual) 829 L (850-3900) cells/uL PT 15.3 H (12.2-14.9) Sec. INR 1.22 H (0.87-1.13) Lymph Enumerat CD4/CD8 0.28 L (0.86-5.00) Absolute CD3 Count 643 L (840-3060) cells/uL % CD4 Cells 17 L (30-61) % Absolute CD4 Count 141 L (490-1740) cells/uL % CD8 Cells 60 H (12-42) % Absolute CD19 Count 48 L (110-660) cells/uL Assessment and Plan - Patient Problems (1) Fever Current Visit: Yes Status: Acute Qualifiers: Fever type: F Encounter type: E Plan to address problem: continue with IV ABX Follow new ID group. defervesed. (2) Sickle cell pain crisis Current Visit: Yes Status: Acute (3) Thrush Current Visit: Yes Status: Acute Plan to address problem: Will put on magic mouth wash. already done. (4) HIV (human immunodeficiency virus infection) Current Visit: Yes Status: Chronic Plan to address problem: supportive (5) Hx of pulmonary embolus Current Visit: Yes Status: Chronic Plan to address problem: continue with anticoag. as above ,except LMWH.
[2016-11-25] MEDS: DILAUDID IV PRN ×4 (04:57→21:04)
[2016-11-25] MEDS: D5/0.45NS 1,000 ML IV SCH ×2 (04:58→15:24)
[2016-11-25 07:05] LABS: Basophils % (Auto) 0.4 % (0.0-1.8); Eosinophils % (Auto) 4.9 % (0.0-4.3); Hematocrit 30.8 % (35.5-45.6); Hemoglobin 9.5 gm/dl (11.8-15.2); Mean Corpuscular HGB Conc 31 % (32-34); Platelet Count 279 K/mm3 (140-440); Red Cell Distribution Width 16.6 % (13.2-15.2); White Blood Count 2.8 K/mm3 (4.5-11.0)
[2016-11-25 07:11] LABS: Mean Corpuscular Hemoglobin 21 pg (28-32); Mean Corpuscular Volume 68 fl (84-94)
[2016-11-25 07:20] LABS: INR 1.09 (0.87-1.13)
[2016-11-25 07:24] LABS: Anion Gap 14 mmol/L; BUN/Creatinine Ratio 4.66; Blood Urea Nitrogen 7 mg/dL (9-20); Calcium 8.1 mg/dL (8.4-10.2); Carbon Dioxide 29 mmol/L (22-30); Chloride 104.1 mmol/L (98-107); Glucose 102 mg/dL (75-100); Potassium 3.2 mmol/L (3.6-5.0); Sodium 144 mmol/L (137-145)
[2016-11-25 08:07] LABS: HIV-1 RNA QN PCR 5.15 Log cps/mL (<1.30)
[2016-11-25] MEDS: MAGIC MOUTHWASH PO SCH ×3 (10:16→21:10)
[2016-11-25] MEDS: HYDREA PO SCH ×2 (10:17→21:04)
[2016-11-25] MEDS: FOLVITE PO SCH (10:17)
[2016-11-25] MEDS: BENADRYL IV PRN ×3 (10:18→21:09)
--- NOTE | 2016-11-25 14:48 | Progress Note ---
Assessment and Plan Assessment and plan: Sickle cell disease vaso-occlusive crisis. * Continue IV fluid, as needed pain med Sepsis with Methicillin sensitive staph aureus. 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 * His INR is subtherapeutic. * Continue On Coumadin and Lovenox bridge. Fever secondary to sepsis. * as needed tylenol Bacteremia with MSSA. * He has port at upper chest wall but no signs of redness or pain. * JAMAAL tomorrow ROSARIO * cont iv fluid * rmonitor with BMP Hypernatremia * Change IV fluid to D5 half normal saline * resolved HIV infection. Continue HAART hypokalemia, will replace Full code status. History Interval history: Patient seen and examined. Medical records and medication list reviewed. No acute event overnight noted by the RN. Patient denies any fever, nausea improved 2d echo showed possible foreign body vs myxoma in the rt atrium Discussed plan of care at bedside with patient. Hospitalist Physical - Physical exam Narrative exam: GENERAL: well-developed and well-nourished male AAM lying on bed appeared to be in no discomfort. HEENT: Normocephalic. Atraumatic. No conjunctival congestion or icterus. Patient has moist mucous membranes. NECK: Supple. Trachea midline. CHEST/LUNGS: Clear to auscultated bilaterally, breathing nonlabored. No wheezes crackles or rhonchi. HEART/CARDIOVASCULAR: Regular in rate and rhythm. S1 and S2 positive. ABDOMEN: Abdomen is soft, nontender. Patient has normal bowel sounds. SKIN: There is no rash. Warm and dry. NEURO: No focal motor deficit. Follows command. MUSCULOSKELETAL: No joint effusion or tenderness. EXTRIMITY: No edema, no cyanosis or clubbing. PSYCH: Cooperative. - Constitutional Vitals: Temp Pulse Resp BP Pulse Ox 98.8 F 63 18 133/83 98 11/25/16 08:00 11/25/16 08:00 11/25/16 08:00 11/25/16 08:00 11/25/16 08:00 General appearance: Present: mild distress, well-nourished Results - Labs CBC & Chem 7: 11/25/16 06:28 11/25/16 06:28 Labs: Laboratory Last Values WBC 2.8 K/mm3 (4.5-11.0) L 11/25/16 06:28 RBC 4.50 M/mm3 (3.65-5.03) 11/25/16 06:28 Hgb 9.5 gm/dl (11.8-15.2) L 11/25/16 06:28 Hct 30.8 % (35.5-45.6) L 11/25/16 06:28 MCV 68 fl (84-94) L 11/25/16 06:28 MCH 21 pg (28-32) L 11/25/16 06:28 MCHC 31 % (32-34) L 11/25/16 06:28 RDW 16.6 % (13.2-15.2) H 11/25/16 06:28 Plt Count 279 K/mm3 (140-440) 11/25/16 06:28 Lymph % (Auto) 29.8 % (13.4-35.0) 11/25/16 06:28 [place] % (Auto) 10.4 % (0.0-7.3) H 11/25/16 06:28 Eos % (Auto) 4.9 % (0.0-4.3) H 11/25/16 06:28 Baso % (Auto) 0.4 % (0.0-1.8) 11/25/16 06:28 Lymph # 0.8 K/mm3 (1.2-5.4) L 11/25/16 06:28 [place] # 0.3 K/mm3 (0.0-0.8) 11/25/16 06:28 Eos # 0.1 K/mm3 (0.0-0.4) 11/25/16 06:28 Baso # 0.0 K/mm3 (0.0-0.1) 11/25/16 06:28 Seg Neutrophils % 54.5 % (40.0-70.0) 11/25/16 06:28 Seg Neutrophils # 1.6 K/mm3 (1.8-7.7) L 11/25/16 06:28 Abs Lymphs (Manual) 829 cells/uL (850-3900) L 11/22/16 18:33 Percent Retic 0.91 % (0.78-2.58) 11/18/16 08:29 PT 14.0 Sec. (12.2-14.9) 11/25/16 06:28 INR 1.09 (0.87-1.13) 11/25/16 06:28 APTT 36.4 Sec. (24.2-36.6) 11/18/16 08:29 Sodium 144 mmol/L (137-145) 11/25/16 06:28 Potassium 3.2 mmol/L (3.6-5.0) L 11/25/16 06:28 Chloride 104.1 mmol/L (98-107) 11/25/16 06:28 Carbon Dioxide 29 mmol/L (22-30) 11/25/16 06:28 Anion Gap 14 mmol/L 11/25/16 06:28 BUN 7 mg/dL (9-20) L 11/25/16 06:28 Creatinine 1.5 mg/dL (0.8-1.5) 11/25/16 06:28 Estimated GFR > 60 ml/min 11/25/16 06:28 BUN/Creatinine Ratio 4.66 % 11/25/16 06:28 Glucose 102 mg/dL (75-100) H 11/25/16 06:28 Lactic Acid 1.0 mmol/L (0.7-2.0) 11/23/16 12:20 Calcium 8.1 mg/dL (8.4-10.2) L 11/25/16 06:28 Magnesium 2.0 mg/dL (1.7-2.3) 11/18/16 08:30 Total Bilirubin 0.6 mg/dL (0.1-1.2) 11/18/16 08:30 Direct Bilirubin < 0.2 mg/dL (0-0.2) 11/18/16 08:30 AST 25 units/L (5-40) 11/18/16 08:30 ALT 23 units/L (7-56) 11/18/16 08:30 Alkaline Phosphatase 53 units/L (35-129) 11/18/16 08:30 Troponin T < 0.010 ng/mL (0.00-0.029) 11/18/16 08:29 NT-Pro-B Natriuret Pep 30.32 pg/mL (0-450) 11/18/16 08:30 Total Protein 8.5 g/dL (6.3-8.2) H 11/18/16 08:30 Albumin 4.2 g/dL (3.9-5) 11/18/16 08:30 Albumin/Globulin Ratio 1.0 % 11/18/16 08:30 Lipase 16 units/L (13-60) 11/18/16 08:30 Urine Color [place] (Yellow) 11/18/16 Unknown Urine Turbidity Clear (Clear) 11/18/16 Unknown Urine pH 5.0 (5.0-7.0) 11/18/16 Unknown Ur Specific [place] 1.039 (1.003-1.030) H 11/18/16 Unknown Urine Protein 100 mg/dl mg/dL (Negative) 11/18/16 Unknown Urine Glucose (UA) Neg mg/dL (Negative) 11/18/16 Unknown Urine Ketones Tr mg/dL (Negative) 11/18/16 Unknown Urine Blood Neg (Negative) 11/18/16 Unknown Urine Nitrite Neg (Negative) 11/18/16 Unknown Urine Bilirubin Neg (Negative) 11/18/16 Unknown Urine Urobilinogen 4.0 mg/dL (<2.0) 11/18/16 Unknown Ur Leukocyte Esterase Neg (Negative) 11/18/16 Unknown Urine WBC (Auto) 4.0 /HPF (0.0-6.0) 11/18/16 Unknown Urine RBC (Auto) 9.0 /HPF (0.0-6.0) 11/18/16 Unknown U Epithel Cells (Auto) 1.0 /HPF (0-13.0) 11/18/16 Unknown Urine Mucus 3+ /HPF 11/18/16 Unknown Vancomycin Trough 14.4 ug/mL (5.0-20.0) 11/22/16 09:16 Lymph Enumerat CD4/CD8 0.28 (0.86-5.00) L 11/22/16 18:33 % CD3 Cells 78 % (57-85) 11/22/16 18:33 Absolute CD3 Count 643 cells/uL (840-3060) L 11/22/16 18:33 % CD4 Cells 17 % (30-61) L 11/22/16 18:33 Absolute CD4 Count 141 cells/uL (490-1740) L 11/22/16 18:33 % CD8 Cells 60 % (12-42) H 11/22/16 18:33 Absolute CD8 Count 494 cells/uL (180-1170) 11/22/16 18:33 % CD19 Cells 6 % (6-29) 11/22/16 18:33 Absolute CD19 Count 48 cells/uL (110-660) L 11/22/16 18:33 HIV-1 RNA PCR copies/ml 103530 copies/mL (<20) H 11/23/16 06:45 HIV-1 RNA (PCR) log 5.15 Log cps/mL (<1.30) H 11/23/16 06:45
[2016-11-25] MEDS ORDERED: LOVENOX SUB-Q SCH (15:00)
[2016-11-25] MEDS: COUMADIN PO SCH (18:43)
--- NOTE | 2016-11-25 18:49 | Progress Note ---
Subjective Principal diagnosis: bacteremia Interval history: No new complaints. Denied fever or chills VS. afebrile Chest - good air entry cvs - s1s2 assessment 1. bacteremia sec to mssa 2. sca 3. hiv/aids rec TTE showed foregn body continue iv abx Call cardiology for JAMAAL Objective - Constitutional Vitals: Vital Signs Temp Pulse Resp BP Pulse Ox 98.7 F 80 16 125/70 99 11/25/16 16:30 11/25/16 16:30 11/25/16 16:30 11/25/16 16:30 11/25/16 16:30 Temperature -Last 24 Hours Temperature 98.7 F Temperature 98.8 F Temperature 99.7 F - Labs CBC & Chem 7: 11/25/16 06:28 11/25/16 06:28 Labs: Abnormal lab results 11/22/16 11/23/16 11/25/16 Range/Units 18:33 06:45 06:28 WBC 2.8 L (4.5-11.0) K/mm3 Hgb 9.5 L (11.8-15.2) gm/dl Hct 30.8 L (35.5-45.6) % MCV 68 L (84-94) fl MCH 21 L (28-32) pg MCHC 31 L (32-34) % RDW 16.6 H (13.2-15.2) % [place] % (Auto) 10.4 H (0.0-7.3) % Eos % (Auto) 4.9 H (0.0-4.3) % Lymph # 0.8 L (1.2-5.4) K/mm3 Seg Neutrophils # 1.6 L (1.8-7.7) K/mm3 Abs Lymphs (Manual) 829 L (850-3900) cells/uL Potassium (3.6-5.0) mmol/L BUN (9-20) mg/dL Glucose (75-100) mg/dL Calcium (8.4-10.2) mg/dL Lymph Enumerat CD4/CD8 0.28 L (0.86-5.00) Absolute CD3 Count 643 L (840-3060) cells/uL % CD4 Cells 17 L (30-61) % Absolute CD4 Count 141 L (490-1740) cells/uL % CD8 Cells 60 H (12-42) % Absolute CD19 Count 48 L (110-660) cells/uL HIV-1 RNA PCR copies/ml 081966 H (<20) copies/mL HIV-1 RNA (PCR) log 5.15 H (<1.30) Log cps/mL 11/25/16 Range/Units 06:28 WBC (4.5-11.0) K/mm3 Hgb (11.8-15.2) gm/dl Hct (35.5-45.6) % MCV (84-94) fl MCH (28-32) pg MCHC (32-34) % RDW (13.2-15.2) % [place] % (Auto) (0.0-7.3) % Eos % (Auto) (0.0-4.3) % Lymph # (1.2-5.4) K/mm3 Seg Neutrophils # (1.8-7.7) K/mm3 Abs Lymphs (Manual) (850-3900) cells/uL Potassium 3.2 L (3.6-5.0) mmol/L BUN 7 L (9-20) mg/dL Glucose 102 H (75-100) mg/dL Calcium 8.1 L (8.4-10.2) mg/dL Lymph Enumerat CD4/CD8 (0.86-5.00) Absolute CD3 Count (840-3060) cells/uL % CD4 Cells (30-61) % Absolute CD4 Count (490-1740) cells/uL % CD8 Cells (12-42) % Absolute CD19 Count (110-660) cells/uL HIV-1 RNA PCR copies/ml (<20) copies/mL HIV-1 RNA (PCR) log (<1.30) Log cps/mL
[2016-11-25] MEDS: LOVENOX SUB-Q SCH (21:33)
--- NOTE | 2016-11-25 22:52 | Consultation ---
History of Present Illness - Reason for Consult Consult date: 11/25/16 - History of Present Illness Patient seen/examined, labs reviewed, case d/w patient. I have reviewed others notes. Unsure if JAMAAL showed vegitation. IV ABX continues. Medications and Allergies Allergies Allergy/AdvReac Type Severity Reaction Status Date / Time morphine Allergy Anaphylaxis Verified 11/18/16 08:15 Iodinated Contrast Media - AdvReac Unknown Verified 11/18/16 08:15 IV Dye sulfamethoxazole AdvReac Unknown Verified 11/18/16 08:15 [From Bactrim] trimethoprim [From Bactrim] AdvReac Unknown Verified 11/18/16 08:15 PLASTIC TAPE Allergy Rash Uncoded 11/18/16 08:15 Home Medications Medication Instructions Recorded Confirmed Last Taken Type Folic Acid 0.4 mg PO QDAY 09/16/16 11/18/16 11/16/16 08:00 History HYDROmorphone [Dilaudid] 4 mg PO Q6HR PRN 09/16/16 11/18/16 11/15/16 21:00 History Warfarin [Coumadin] 10 mg PO DAILY@1700 #30 tablet 11/10/16 11/18/16 11/16/16 17 :00 Rx Elviteg/Celia/Emtric/Tenofo Ala 1 each PO QDAY 11/18/16 11/18/16 11/16/16 08:00 History [Genvoya Tablet] Hydroxyurea [Hydrea] 500 mg PO BID 11/18/16 11/18/16 11/16/16 18:00 History Active Meds: Active Medications Diphenhydramine HCl (Benadryl) 12.5 mg IV Q3H PRN PRN Reason: Itching Last Admin: 11/25/16 21:09 Dose: 12.5 mg Enoxaparin Sodium (Lovenox) 70 mg 1 mg/kg (70 mg) SUB-Q Q12HR [facility] Last Admin: 11/25/16 21:33 Dose: Not Given Folic Acid (Folvite) 0.5 mg PO QDAY [facility] Last Admin: 11/25/16 10:17 Dose: 0.5 mg Hydromorphone HCl (Dilaudid) 2 mg IV Q3H PRN PRN Reason: Pain , Severe (7-10) Last Admin: 11/25/16 21:04 Dose: 2 mg Hydroxyurea (Hydrea) 500 mg PO BID [facility] Last Admin: 11/25/16 21:04 Dose: 500 mg Ceftriaxone Sodium (Rocephin/Ns 1 Gm/50 Ml) 1 gm in 50 mls @ 100 mls/hr IV Q24H [facility] PRN Reason: Protocol Last Admin: 11/24/16 21:15 Dose: 100 mls/hr Dextrose/Sodium Chloride (D5/0.45ns) 1,000 mls @ 100 mls/hr IV DIRECT [facility] Last Admin: 11/25/16 15:24 Dose: 450 mls/hr Lidocaine HCl (Magic Mouthwash) 15 ml PO TID [facility] Last Admin: 11/25/16 21:10 Dose: Not Given Miscellaneous Medication (Elviteg/Celia/Emtric/Tenofo Ala [Genvoya Tablet]) 1 each PO QDAY [facility] Ondansetron HCl (Zofran) 4 mg IV Q3H PRN PRN Reason: Nausea And Vomiting Last Admin: 11/23/16 21:55 Dose: 4 mg Potassium Chloride (K-Dur) 40 meq PO QDAY [facility] Warfarin Sodium (Coumadin) 10 mg PO DAILY@1700 [facility] Last Admin: 11/25/16 18:43 Dose: 10 mg Exam - Constitutional Vitals: Temp Pulse Resp BP Pulse Ox 99.5 F 75 18 137/81 99 11/25/16 20:00 11/25/16 20:00 11/25/16 20:00 11/25/16 20:00 11/25/16 20:00 General appearance: Present: mild distress, well-nourished - EENT Eyes: Present: PERRL ENT: hearing intact, clear oral mucosa - Neck Neck: Present: supple, normal ROM - Respiratory Respiratory effort: normal Respiratory: bilateral: CTA - Cardiovascular Heart Sounds: Present: S1 & S2. Absent: rub, click - Extremities Extremities: pulses symmetrical, No edema Peripheral Pulses: within normal limits - Abdominal General gastrointestinal: Present: soft, non-tender, non-distended, normal bowel sounds Male genitourinary: Present: deferred - Rectal Rectal Exam: deferred - Integumentary Integumentary: Present: clear, warm, dry - Musculoskeletal Musculoskeletal: gait normal, strength equal bilaterally - Psychiatric Psychiatric: appropriate mood/affect, intact judgment & insight - Neurologic Neurologic: CNII-XII intact, moves all extremities Results - Labs CBC & Chem 7: 11/25/16 06:28 11/25/16 06:28 Labs: Abnormal lab results 11/23/16 11/25/16 11/25/16 Range/Units 06:45 06:28 06:28 WBC 2.8 L (4.5-11.0) K/mm3 Hgb 9.5 L (11.8-15.2) gm/dl Hct 30.8 L (35.5-45.6) % MCV 68 L (84-94) fl MCH 21 L (28-32) pg MCHC 31 L (32-34) % RDW 16.6 H (13.2-15.2) % [place] % (Auto) 10.4 H (0.0-7.3) % Eos % (Auto) 4.9 H (0.0-4.3) % Lymph # 0.8 L (1.2-5.4) K/mm3 Seg Neutrophils # 1.6 L (1.8-7.7) K/mm3 Potassium 3.2 L (3.6-5.0) mmol/L BUN 7 L (9-20) mg/dL Glucose 102 H (75-100) mg/dL Calcium 8.1 L (8.4-10.2) mg/dL HIV-1 RNA PCR copies/ml 319782 H (<20) copies/mL HIV-1 RNA (PCR) log 5.15 H (<1.30) Log cps/mL Assessment and Plan - Patient Problems (1) Fever Current Visit: Yes Status: Acute Qualifiers: Fever type: F Encounter type: E Plan to address problem: continue with IV ABX Follow new ID group. resolving. (2) Sickle cell pain crisis Current Visit: Yes Status: Acute (3) Thrush Current Visit: Yes Status: Acute Plan to address problem: Will put on magic mouth wash. already done. (4) HIV (human immunodeficiency virus infection) Current Visit: Yes Status: Chronic Plan to address problem: supportive (5) Hx of pulmonary embolus Current Visit: Yes Status: Chronic Plan to address problem: continue with anticoag. as above ,except LMWH.
[2016-11-26] MEDS: ROCEPHIN/NS 1 GM/50 ML 1 GM/50 ML BAG IV SCH ×2 (03:16→20:04)
[2016-11-26] MEDS: D5/0.45NS 1,000 ML IV SCH ×2 (03:17→16:58)
[2016-11-26] MEDS: BENADRYL IV PRN ×4 (03:22→19:12)
[2016-11-26] MEDS: DILAUDID IV PRN ×4 (03:22→19:13)
[2016-11-26 06:40] LABS: INR 1.2 (0.87-1.13)
[2016-11-26 06:50] LABS: Anion Gap 18 mmol/L; BUN/Creatinine Ratio 3.12; Blood Urea Nitrogen 5 mg/dL (9-20); Calcium 8.2 mg/dL (8.4-10.2); Carbon Dioxide 25 mmol/L (22-30); Chloride 107.3 mmol/L (98-107); Glucose 100 mg/dL (75-100); Potassium 3.3 mmol/L (3.6-5.0); Sodium 147 mmol/L (137-145)
[2016-11-26] MEDS ORDERED: SUBLIMAZE IV NR (07:30)
[2016-11-26] MEDS ORDERED: HURRICAINE ONE 20% TOPICAL SPRAY MM NR (07:30)
[2016-11-26] MEDS ORDERED: VERSED IV NR (07:30)
--- NOTE | 2016-11-26 08:23 | Progress Note ---
Assessment and Plan Assessment: Sickle cell disease vaso-occlusive crisis. Sepsis with Methicillin sensitive staph aureus. JAMAAL cancelled due to patient history of difficulty swallowing History of pulmonary embolism and DVT. Fever secondary to sepsis. ROSARIO Hypernatremia HIV infection Hypokalemia Recommendations: JAMAAL cancelled due to difficulty swallowing Obtain barium swallow If abnormal, please get a GI consult prior to rescheduling patient for JAMAAL Re-schedule next week with anesthesia staff Patient is very difficult to sedate with fentanyl and versed only. He will require deep sedation with propofol given history of chronic intake of narcotics and other pain killers Subjective Date of service: 11/26/16 Principal diagnosis: bacteremia Interval history: JAMAAL was cancelled due to patient history of difficulty swallowing Objective Vital Signs Temp Pulse Pulse Resp BP Pulse Ox 11/25/16 20:00 99.5 F 75 18 137/81 99 11/25/16 16:30 98.7 F 80 16 125/70 99 - Physical Examination General: Appears Well, No Apparent Distress Neck: Positive: neck supple Cardiac: Positive: Reg Rate and Rhythm, Tachycardia Lungs: Positive: Normal Exam Abdomen: Positive: Soft - Labs and Meds Coagulation 11/26/16 Range/Units 06:03 PT 15.1 H (12.2-14.9) Sec. INR 1.20 H (0.87-1.13) Comprehensive Metabolic Panel 11/26/16 Range/Units 06:03 Sodium 147 H (137-145) mmol/L Potassium 3.3 L (3.6-5.0) mmol/L Chloride 107.3 H (98-107) mmol/L Carbon Dioxide 25 (22-30) mmol/L BUN 5 L (9-20) mg/dL Creatinine 1.6 H (0.8-1.5) mg/dL Glucose 100 (75-100) mg/dL Calcium 8.2 L (8.4-10.2) mg/dL
--- NOTE | 2016-11-26 10:17 | Fluoroscopy Report ---
Barium swallow: History: Dysphagia. Findings: Transit of barium through the cervical and thoracic esophagus appears normal. No extrinsic or intrinsic filling defects or reflux. No hiatal hernia. Impression: Essentially negative barium swallow study.
[2016-11-26] MEDS: FOLVITE PO SCH (10:35)
[2016-11-26] MEDS: K-DUR PO SCH (10:35)
[2016-11-26] MEDS: HYDREA PO SCH ×2 (10:36→23:14)
[2016-11-26] MEDS: LOVENOX SUB-Q SCH ×2 (10:37→23:14)
[2016-11-26] MEDS: MAGIC MOUTHWASH PO SCH ×3 (13:44→20:05)
--- NOTE | 2016-11-26 15:14 | Progress Note ---
Assessment and Plan Assessment and plan: Sickle cell disease vaso-occlusive crisis. * Continue IV fluid, as needed pain med Sepsis with Methicillin sensitive staph aureus. 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 * His INR is subtherapeutic. * Continue On Coumadin and Lovenox bridge. Fever secondary to sepsis. * as needed tylenol Bacteremia with MSSA. * He has port at upper chest wall but no signs of redness or pain. * JAMAAL pending ROSARIO * cont iv fluid Hypernatremia * cont D5 / NS HIV infection. Continue HAART hypokalemia, will replace Full code status. History Interval history: Patient seen and examined. Medical records and medication list reviewed. No acute event overnight noted by the RN. Patient denies any fever, nausea improved 2d echo showed possible foreign body vs myxoma in the rt atrium JAMAAL could not be done as he could not be sedated with regular protocol and was unable to pass down the device Discussed plan of care at bedside with patient. Hospitalist Physical - Physical exam Narrative exam: GENERAL: well-developed and well-nourished male AAM lying on bed appeared to be in no discomfort. HEENT: Normocephalic. Atraumatic. No conjunctival congestion or icterus. Patient has moist mucous membranes. NECK: Supple. Trachea midline. CHEST/LUNGS: Clear to auscultated bilaterally, breathing nonlabored. No wheezes crackles or rhonchi. HEART/CARDIOVASCULAR: Regular in rate and rhythm. S1 and S2 positive. ABDOMEN: Abdomen is soft, nontender. Patient has normal bowel sounds. SKIN: There is no rash. Warm and dry. NEURO: No focal motor deficit. Follows command. MUSCULOSKELETAL: No joint effusion or tenderness. EXTRIMITY: No edema, no cyanosis or clubbing. PSYCH: Cooperative. - Constitutional Vitals: Temp Pulse Resp BP Pulse Ox 99.5 F 62 18 144/85 98 11/26/16 12:37 11/26/16 12:37 11/26/16 12:37 11/26/16 12:37 11/26/16 12:37 General appearance: Present: mild distress, well-nourished Results - Labs CBC & Chem 7: 11/25/16 06:28 11/26/16 06:03 Labs: Laboratory Last Values WBC 2.8 K/mm3 (4.5-11.0) L 11/25/16 06:28 RBC 4.50 M/mm3 (3.65-5.03) 11/25/16 06:28 Hgb 9.5 gm/dl (11.8-15.2) L 11/25/16 06:28 Hct 30.8 % (35.5-45.6) L 11/25/16 06:28 MCV 68 fl (84-94) L 11/25/16 06:28 MCH 21 pg (28-32) L 11/25/16 06:28 MCHC 31 % (32-34) L 11/25/16 06:28 RDW 16.6 % (13.2-15.2) H 11/25/16 06:28 Plt Count 279 K/mm3 (140-440) 11/25/16 06:28 Lymph % (Auto) 29.8 % (13.4-35.0) 11/25/16 06:28 [place] % (Auto) 10.4 % (0.0-7.3) H 11/25/16 06:28 Eos % (Auto) 4.9 % (0.0-4.3) H 11/25/16 06:28 Baso % (Auto) 0.4 % (0.0-1.8) 11/25/16 06:28 Lymph # 0.8 K/mm3 (1.2-5.4) L 11/25/16 06:28 [place] # 0.3 K/mm3 (0.0-0.8) 11/25/16 06:28 Eos # 0.1 K/mm3 (0.0-0.4) 11/25/16 06:28 Baso # 0.0 K/mm3 (0.0-0.1) 11/25/16 06:28 Seg Neutrophils % 54.5 % (40.0-70.0) 11/25/16 06:28 Seg Neutrophils # 1.6 K/mm3 (1.8-7.7) L 11/25/16 06:28 Abs Lymphs (Manual) 829 cells/uL (850-3900) L 11/22/16 18:33 Percent Retic 0.91 % (0.78-2.58) 11/18/16 08:29 PT 15.1 Sec. (12.2-14.9) H 11/26/16 06:03 INR 1.20 (0.87-1.13) H 11/26/16 06:03 APTT 36.4 Sec. (24.2-36.6) 11/18/16 08:29 Sodium 147 mmol/L (137-145) H 11/26/16 06:03 Potassium 3.3 mmol/L (3.6-5.0) L 11/26/16 06:03 Chloride 107.3 mmol/L (98-107) H 11/26/16 06:03 Carbon Dioxide 25 mmol/L (22-30) 11/26/16 06:03 Anion Gap 18 mmol/L 11/26/16 06:03 BUN 5 mg/dL (9-20) L 11/26/16 06:03 Creatinine 1.6 mg/dL (0.8-1.5) H 11/26/16 06:03 Estimated GFR > 60 ml/min 11/26/16 06:03 BUN/Creatinine Ratio 3.12 % 11/26/16 06:03 Glucose 100 mg/dL (75-100) 11/26/16 06:03 Lactic Acid 1.0 mmol/L (0.7-2.0) 11/23/16 12:20 Calcium 8.2 mg/dL (8.4-10.2) L 11/26/16 06:03 Magnesium 2.0 mg/dL (1.7-2.3) 11/18/16 08:30 Total Bilirubin 0.6 mg/dL (0.1-1.2) 11/18/16 08:30 Direct Bilirubin < 0.2 mg/dL (0-0.2) 11/18/16 08:30 AST 25 units/L (5-40) 11/18/16 08:30 ALT 23 units/L (7-56) 11/18/16 08:30 Alkaline Phosphatase 53 units/L (35-129) 11/18/16 08:30 Troponin T < 0.010 ng/mL (0.00-0.029) 11/18/16 08:29 NT-Pro-B Natriuret Pep 30.32 pg/mL (0-450) 11/18/16 08:30 Total Protein 8.5 g/dL (6.3-8.2) H 11/18/16 08:30 Albumin 4.2 g/dL (3.9-5) 11/18/16 08:30 Albumin/Globulin Ratio 1.0 % 11/18/16 08:30 Lipase 16 units/L (13-60) 11/18/16 08:30 Urine Color Benita (Yellow) 11/18/16 Unknown Urine Turbidity Clear (Clear) 11/18/16 Unknown Urine pH 5.0 (5.0-7.0) 11/18/16 Unknown Ur Specific [place] 1.039 (1.003-1.030) H 11/18/16 Unknown Urine Protein 100 mg/dl mg/dL (Negative) 11/18/16 Unknown Urine Glucose (UA) Neg mg/dL (Negative) 11/18/16 Unknown Urine Ketones Tr mg/dL (Negative) 11/18/16 Unknown Urine Blood Neg (Negative) 11/18/16 Unknown Urine Nitrite Neg (Negative) 11/18/16 Unknown Urine Bilirubin Neg (Negative) 11/18/16 Unknown Urine Urobilinogen 4.0 mg/dL (<2.0) 11/18/16 Unknown Ur Leukocyte Esterase Neg (Negative) 11/18/16 Unknown Urine WBC (Auto) 4.0 /HPF (0.0-6.0) 11/18/16 Unknown Urine RBC (Auto) 9.0 /HPF (0.0-6.0) 11/18/16 Unknown U Epithel Cells (Auto) 1.0 /HPF (0-13.0) 11/18/16 Unknown Urine Mucus 3+ /HPF 11/18/16 Unknown Vancomycin Trough 14.4 ug/mL (5.0-20.0) 11/22/16 09:16 Lymph Enumerat CD4/CD8 0.28 (0.86-5.00) L 11/22/16 18:33 % CD3 Cells 78 % (57-85) 11/22/16 18:33 Absolute CD3 Count 643 cells/uL (840-3060) L 11/22/16 18:33 % CD4 Cells 17 % (30-61) L 11/22/16 18:33 Absolute CD4 Count 141 cells/uL (490-1740) L 11/22/16 18:33 % CD8 Cells 60 % (12-42) H 11/22/16 18:33 Absolute CD8 Count 494 cells/uL (180-1170) 11/22/16 18:33 % CD19 Cells 6 % (6-29) 11/22/16 18:33 Absolute CD19 Count 48 cells/uL (110-660) L 11/22/16 18:33 HIV-1 RNA PCR copies/ml 157845 copies/mL (<20) H 11/23/16 06:45 HIV-1 RNA (PCR) log 5.15 Log cps/mL (<1.30) H 11/23/16 06:45
[2016-11-26] MEDS: COUMADIN PO SCH (16:58)
--- NOTE | 2016-11-26 20:31 | Progress Note ---
Subjective Principal diagnosis: bacteremia Interval history: No new complaints. VS. afebrile Chest - good air entry cvs - s1s2 assessment 1. bacteremia sec to mssa 2. sca 3. hiv/aids rec TTE showed foregn body continue iv abx Awaits JAMAAL Objective - Constitutional Vitals: Vital Signs Temp Pulse Resp BP Pulse Ox 99.1 F 67 18 161/88 90 11/26/16 16:49 11/26/16 16:49 11/26/16 16:49 11/26/16 16:49 11/26/16 16:49 Temperature -Last 24 Hours Temperature 99.1 F Temperature 99.5 F Temperature 99.2 F Temperature 99.2 F Temperature 99.2 F Temperature 99.2 F Temperature 99.2 F Temperature 99.0 F Temperature 99.2 F - Labs CBC & Chem 7: 11/25/16 06:28 11/26/16 06:03 Labs: Abnormal lab results 11/26/16 11/26/16 Range/Units 06:03 06:03 PT 15.1 H (12.2-14.9) Sec. INR 1.20 H (0.87-1.13) Sodium 147 H (137-145) mmol/L Potassium 3.3 L (3.6-5.0) mmol/L Chloride 107.3 H (98-107) mmol/L BUN 5 L (9-20) mg/dL Creatinine 1.6 H (0.8-1.5) mg/dL Calcium 8.2 L (8.4-10.2) mg/dL
[2016-11-26] MEDS ORDERED: DIFLUCAN PO SCH (22:00)
[2016-11-26] MEDS: DIFLUCAN PO SCH (23:13)
[2016-11-27] MEDS: BENADRYL IV PRN ×5 (02:57→21:43)
[2016-11-27] MEDS: DILAUDID IV PRN ×5 (02:58→21:44)
[2016-11-27 07:31] LABS: INR 1.59 (0.87-1.13)
[2016-11-27] MEDS: MAGIC MOUTHWASH PO SCH ×3 (09:00→21:14)
[2016-11-27] MEDS: D5/0.45NS 1,000 ML IV SCH ×3 (09:00→21:16)
[2016-11-27] MEDS: ZOFRAN IV PRN ×4 (09:08→21:43)
[2016-11-27] MEDS: LOVENOX SUB-Q SCH ×2 (11:50→21:40)
[2016-11-27] MEDS: FOLVITE PO SCH (11:50)
[2016-11-27] MEDS: DIFLUCAN PO SCH (11:51)
[2016-11-27] MEDS: HYDREA PO SCH ×2 (11:51→21:41)
--- NOTE | 2016-11-27 12:50 | Progress Note ---
Assessment and Plan Assessment and plan: Sickle cell disease vaso-occlusive crisis. * Continue IV fluid, as needed pain med Sepsis with Methicillin sensitive staph aureus. 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 * His INR is subtherapeutic. * Continue On Coumadin and Lovenox bridge. Fever secondary to sepsis. * as needed tylenol Bacteremia with MSSA. * He has port at upper chest wall but no signs of redness or pain. * JAMAAL pending ROSARIO * cont iv fluid Hypernatremia * cont D5 1/ NS HIV infection. Continue HAART hypokalemia, cont to replace as needed Seborrhotic dermatitis * Placed on ketoconazole cream Full code status. History Interval history: Patient seen and examined. Medical records and medication list reviewed. No acute event overnight noted by the RN. Patient denies any fever, nausea improved 2d echo showed possible foreign body vs myxoma in the rt atrium JAMAAL could not be done as he could not be sedated with regular protocol and was unable to pass down the device Patient complains of itchy dry scaly skin around his nasal folds and forehead Discussed plan of care at bedside with patient. Hospitalist Physical - Physical exam Narrative exam: GENERAL: well-developed and well-nourished male AAM lying on bed appeared to be in no discomfort. HEENT: Normocephalic. Atraumatic. No conjunctival congestion or icterus. Patient has moist mucous membranes. Dry scaly skin around the nasal folds and on the forehead NECK: Supple. Trachea midline. CHEST/LUNGS: Clear to auscultated bilaterally, breathing nonlabored. No wheezes crackles or rhonchi. HEART/CARDIOVASCULAR: Regular in rate and rhythm. S1 and S2 positive. ABDOMEN: Abdomen is soft, nontender. Patient has normal bowel sounds. SKIN: There is no rash. Warm and dry. NEURO: No focal motor deficit. Follows command. MUSCULOSKELETAL: No joint effusion or tenderness. EXTRIMITY: No edema, no cyanosis or clubbing. PSYCH: Cooperative. - Constitutional Vitals: Temp Pulse Resp BP Pulse Ox 99.3 F 73 15 153/97 99 11/27/16 07:25 11/27/16 07:25 11/27/16 07:25 11/27/16 07:25 11/27/16 07:25 General appearance: Present: mild distress, well-nourished Results - Labs CBC & Chem 7: 11/25/16 06:28 11/26/16 06:03 Labs: Laboratory Last Values WBC 2.8 K/mm3 (4.5-11.0) L 11/25/16 06:28 RBC 4.50 M/mm3 (3.65-5.03) 11/25/16 06:28 Hgb 9.5 gm/dl (11.8-15.2) L 11/25/16 06:28 Hct 30.8 % (35.5-45.6) L 11/25/16 06:28 MCV 68 fl (84-94) L 11/25/16 06:28 MCH 21 pg (28-32) L 11/25/16 06:28 MCHC 31 % (32-34) L 11/25/16 06:28 RDW 16.6 % (13.2-15.2) H 11/25/16 06:28 Plt Count 279 K/mm3 (140-440) 11/25/16 06:28 Lymph % (Auto) 29.8 % (13.4-35.0) 11/25/16 06:28 [place] % (Auto) 10.4 % (0.0-7.3) H 11/25/16 06:28 Eos % (Auto) 4.9 % (0.0-4.3) H 11/25/16 06:28 Baso % (Auto) 0.4 % (0.0-1.8) 11/25/16 06:28 Lymph # 0.8 K/mm3 (1.2-5.4) L 11/25/16 06:28 [place] # 0.3 K/mm3 (0.0-0.8) 11/25/16 06:28 Eos # 0.1 K/mm3 (0.0-0.4) 11/25/16 06:28 Baso # 0.0 K/mm3 (0.0-0.1) 11/25/16 06:28 Seg Neutrophils % 54.5 % (40.0-70.0) 11/25/16 06:28 Seg Neutrophils # 1.6 K/mm3 (1.8-7.7) L 11/25/16 06:28 Abs Lymphs (Manual) 829 cells/uL (850-3900) L 11/22/16 18:33 Percent Retic 0.91 % (0.78-2.58) 11/18/16 08:29 PT 18.9 Sec. (12.2-14.9) H 11/27/16 06:26 INR 1.59 (0.87-1.13) H 11/27/16 06:26 APTT 36.4 Sec. (24.2-36.6) 11/18/16 08:29 Sodium 147 mmol/L (137-145) H 11/26/16 06:03 Potassium 3.3 mmol/L (3.6-5.0) L 11/26/16 06:03 Chloride 107.3 mmol/L (98-107) H 11/26/16 06:03 Carbon Dioxide 25 mmol/L (22-30) 11/26/16 06:03 Anion Gap 18 mmol/L 11/26/16 06:03 BUN 5 mg/dL (9-20) L 11/26/16 06:03 Creatinine 1.6 mg/dL (0.8-1.5) H 11/26/16 06:03 Estimated GFR > 60 ml/min 11/26/16 06:03 BUN/Creatinine Ratio 3.12 % 11/26/16 06:03 Glucose 100 mg/dL (75-100) 11/26/16 06:03 Lactic Acid 1.0 mmol/L (0.7-2.0) 11/23/16 12:20 Calcium 8.2 mg/dL (8.4-10.2) L 11/26/16 06:03 Magnesium 2.0 mg/dL (1.7-2.3) 11/18/16 08:30 Total Bilirubin 0.6 mg/dL (0.1-1.2) 11/18/16 08:30 Direct Bilirubin < 0.2 mg/dL (0-0.2) 11/18/16 08:30 AST 25 units/L (5-40) 11/18/16 08:30 ALT 23 units/L (7-56) 11/18/16 08:30 Alkaline Phosphatase 53 units/L (35-129) 11/18/16 08:30 Troponin T < 0.010 ng/mL (0.00-0.029) 11/18/16 08:29 NT-Pro-B Natriuret Pep 30.32 pg/mL (0-450) 11/18/16 08:30 Total Protein 8.5 g/dL (6.3-8.2) H 11/18/16 08:30 Albumin 4.2 g/dL (3.9-5) 11/18/16 08:30 Albumin/Globulin Ratio 1.0 % 11/18/16 08:30 Lipase 16 units/L (13-60) 11/18/16 08:30 Urine Color [place] (Yellow) 11/18/16 Unknown Urine Turbidity Clear (Clear) 11/18/16 Unknown Urine pH 5.0 (5.0-7.0) 11/18/16 Unknown Ur Specific [place] 1.039 (1.003-1.030) H 11/18/16 Unknown Urine Protein 100 mg/dl mg/dL (Negative) 11/18/16 Unknown Urine Glucose (UA) Neg mg/dL (Negative) 11/18/16 Unknown Urine Ketones Tr mg/dL (Negative) 11/18/16 Unknown Urine Blood Neg (Negative) 11/18/16 Unknown Urine Nitrite Neg (Negative) 11/18/16 Unknown Urine Bilirubin Neg (Negative) 11/18/16 Unknown Urine Urobilinogen 4.0 mg/dL (<2.0) 11/18/16 Unknown Ur Leukocyte Esterase Neg (Negative) 11/18/16 Unknown Urine WBC (Auto) 4.0 /HPF (0.0-6.0) 11/18/16 Unknown Urine RBC (Auto) 9.0 /HPF (0.0-6.0) 11/18/16 Unknown U Epithel Cells (Auto) 1.0 /HPF (0-13.0) 11/18/16 Unknown Urine Mucus 3+ /HPF 11/18/16 Unknown Vancomycin Trough 14.4 ug/mL (5.0-20.0) 11/22/16 09:16 Lymph Enumerat CD4/CD8 0.28 (0.86-5.00) L 11/22/16 18:33 % CD3 Cells 78 % (57-85) 11/22/16 18:33 Absolute CD3 Count 643 cells/uL (840-3060) L 11/22/16 18:33 % CD4 Cells 17 % (30-61) L 11/22/16 18:33 Absolute CD4 Count 141 cells/uL (490-1740) L 11/22/16 18:33 % CD8 Cells 60 % (12-42) H 11/22/16 18:33 Absolute CD8 Count 494 cells/uL (180-1170) 11/22/16 18:33 % CD19 Cells 6 % (6-29) 11/22/16 18:33 Absolute CD19 Count 48 cells/uL (110-660) L 11/22/16 18:33 HIV-1 RNA PCR copies/ml [id number] copies/mL (<20) H 11/23/16 06:45 HIV-1 RNA (PCR) log 5.15 Log cps/mL (<1.30) H 11/23/16 06:45
[2016-11-27] MEDS ORDERED: CATHFLO IV ONE (13:19)
[2016-11-27] MEDS ORDERED: WATER FOR INJ (PF) 10 ML ONE (15:09)
[2016-11-27] MEDS: COUMADIN PO SCH (17:34)
[2016-11-27] MEDS: K-DUR PO SCH (17:49)
[2016-11-27] MEDS: NIZORAL TP SCH ×2 (17:56→21:45)
--- NOTE | 2016-11-27 18:45 | Event Note ---
Date: 11/26/16 Patient seen in the am hrs, labs reviewed, case d/w patient. Repeat of JAMAAL postponed until tuesday, oral/nose bleed stopped.
--- NOTE | 2016-11-27 18:51 | Consultation ---
History of Present Illness - Reason for Consult Consult date: 11/27/16 - History of Present Illness Patient seen today, resting in bed, labs reviewed, case d/w patient. His JAMAAL is now scheduled for tuesday.He is complaining of easy fatigue. Medications and Allergies Allergies Allergy/AdvReac Type Severity Reaction Status Date / Time morphine Allergy Anaphylaxis Verified 11/18/16 08:15 Iodinated Contrast Media - AdvReac Unknown Verified 11/18/16 08:15 IV Dye sulfamethoxazole AdvReac Unknown Verified 11/18/16 08:15 [From Bactrim] trimethoprim [From Bactrim] AdvReac Unknown Verified 11/18/16 08:15 PLASTIC TAPE Allergy Rash Uncoded 11/18/16 08:15 Home Medications Medication Instructions Recorded Confirmed Last Taken Type Folic Acid 0.4 mg PO QDAY 09/16/16 11/18/16 11/16/16 08:00 History HYDROmorphone [Dilaudid] 4 mg PO Q6HR PRN 09/16/16 11/18/16 11/15/16 21:00 History Warfarin [Coumadin] 10 mg PO DAILY@1700 #30 tablet 11/10/16 11/18/16 11/16/16 17 :00 Rx Elviteg/Celia/Emtric/Tenofo Ala 1 each PO QDAY 11/18/16 11/18/16 11/16/16 08:00 History [Genvoya Tablet] Hydroxyurea [Hydrea] 500 mg PO BID 11/18/16 11/18/16 11/16/16 18:00 History Active Meds: Active Medications Diphenhydramine HCl (Benadryl) 12.5 mg IV Q3H PRN PRN Reason: Itching Last Admin: 11/27/16 17:48 Dose: 12.5 mg Enoxaparin Sodium (Lovenox) 70 mg 1 mg/kg (70 mg) SUB-Q Q12HR [facility] Last Admin: 11/27/16 11:50 Dose: 70 mg Fluconazole (Diflucan) 100 mg PO QDAY [facility] Last Admin: 11/27/16 11:51 Dose: 100 mg Folic Acid (Folvite) 0.5 mg PO QDAY [facility] Last Admin: 11/27/16 11:50 Dose: 0.5 mg Hydromorphone HCl (Dilaudid) 2 mg IV Q3H PRN PRN Reason: Pain , Severe (7-10) Last Admin: 11/27/16 17:48 Dose: 2 mg Hydroxyurea (Hydrea) 500 mg PO BID [facility] Last Admin: 11/27/16 11:51 Dose: 500 mg Ceftriaxone Sodium (Rocephin/Ns 1 Gm/50 Ml) 1 gm in 50 mls @ 100 mls/hr IV Q24H RONY PRN Reason: Protocol Last Admin: 11/26/16 20:04 Dose: 100 mls/hr Dextrose/Sodium Chloride (D5/0.45ns) 1,000 mls @ 125 mls/hr IV DIRECT [facility] Ketoconazole (Nizoral) 1 applic TP BID [facility] Last Admin: 11/27/16 17:56 Dose: 1 applic Lidocaine HCl (Magic Mouthwash) 15 ml PO TID [facility] Last Admin: 11/27/16 14:08 Dose: 15 ml Miscellaneous Medication (Elviteg/Celia/Emtric/Tenofo Ala [Genvoya Tablet]) 1 each PO QDAY [facility] Ondansetron HCl (Zofran) 4 mg IV Q3H PRN PRN Reason: Nausea And Vomiting Last Admin: 11/27/16 17:48 Dose: 4 mg Potassium Chloride (K-Dur) 40 meq PO QDAY [facility] Last Admin: 11/27/16 17:49 Dose: 40 meq Warfarin Sodium (Coumadin) 10 mg PO DAILY@1700 [facility] Last Admin: 11/27/16 17:34 Dose: 10 mg Review of Systems Constitutional: chronic pain Musculoskeletal: low back pain Exam - Constitutional Vitals: Temp Pulse Resp BP Pulse Ox 99.6 F 67 18 151/90 99 11/27/16 15:42 11/27/16 15:42 11/27/16 15:42 11/27/16 15:42 11/27/16 07:25 General appearance: Present: no acute distress, well-nourished - EENT Eyes: Present: PERRL ENT: hearing intact, clear oral mucosa - Neck Neck: Present: supple, normal ROM - Respiratory Respiratory effort: normal Respiratory: bilateral: CTA - Cardiovascular Heart Sounds: Present: S1 & S2. Absent: rub, click - Extremities Extremities: pulses symmetrical, No edema Peripheral Pulses: within normal limits - Abdominal General gastrointestinal: Present: soft, non-tender, non-distended, normal bowel sounds Male genitourinary: Present: deferred - Rectal Rectal Exam: deferred - Integumentary Integumentary: Present: clear, warm, dry - Musculoskeletal Musculoskeletal: gait normal, strength equal bilaterally - Psychiatric Psychiatric: appropriate mood/affect, intact judgment & insight - Neurologic Neurologic: CNII-XII intact, moves all extremities Results - Labs CBC & Chem 7: 11/25/16 06:28 11/26/16 06:03 Labs: Abnormal lab results 11/27/16 Range/Units 06:26 PT 18.9 H (12.2-14.9) Sec. INR 1.59 H (0.87-1.13) Assessment and Plan - Patient Problems (1) Fever Current Visit: Yes Status: Acute Qualifiers: Fever type: F Encounter type: E Plan to address problem: continue with IV ABX Follow new ID group. resolving. resolved. (2) Sickle cell pain crisis Current Visit: Yes Status: Acute (3) Thrush Current Visit: Yes Status: Acute Plan to address problem: Will put on magic mouth wash. already done. (4) HIV (human immunodeficiency virus infection) Current Visit: Yes Status: Chronic Plan to address problem: supportive (5) Hx of pulmonary embolus Current Visit: Yes Status: Chronic Plan to address problem: continue with anticoag. as above ,except LMWH.
--- NOTE | 2016-11-27 18:53 | Progress Note ---
Subjective Principal diagnosis: bacteremia Interval history: No new complaints. VS. afebrile Chest - good air entry cvs - s1s2 assessment 1. bacteremia sec to mssa 2. sca 3. hiv/aids rec TTE showed foregn body continue iv abx Awaits JAMAAL Objective - Constitutional Vitals: Vital Signs Temp Pulse Resp BP Pulse Ox 99.6 F 67 18 151/90 99 11/27/16 15:42 11/27/16 15:42 11/27/16 15:42 11/27/16 15:42 11/27/16 07:25 Temperature -Last 24 Hours Temperature 99.6 F Temperature 99.3 F Temperature 76 F - Labs CBC & Chem 7: 11/25/16 06:28 11/26/16 06:03 Labs: Abnormal lab results 11/27/16 Range/Units 06:26 PT 18.9 H (12.2-14.9) Sec. INR 1.59 H (0.87-1.13)
[2016-11-27] MEDS: ROCEPHIN/NS 1 GM/50 ML 1 GM/50 ML BAG IV SCH (21:14)
[2016-11-27 21:37] LABS: Hematocrit 26.9 % (35.5-45.6); Hemoglobin 8.5 gm/dl (11.8-15.2); Mean Corpuscular HGB Conc 32 % (32-34); Platelet Count 304 K/mm3 (140-440); Red Blood Count 3.94 M/mm3 (3.65-5.03); Red Cell Distribution Width 16.7 % (13.2-15.2)
[2016-11-27 21:38] LABS: Mean Corpuscular Hemoglobin 22 pg (28-32); Mean Corpuscular Volume 68 fl (84-94); White Blood Count 2.3 K/mm3 (4.5-11.0)
[2016-11-27 21:54] LABS: Anion Gap 15 mmol/L; Blood Urea Nitrogen 4 mg/dL (9-20); Carbon Dioxide 26 mmol/L (22-30); Chloride 100.7 mmol/L (98-107); Glucose 105 mg/dL (75-100); Potassium 3.1 mmol/L (3.6-5.0); Sodium 139 mmol/L (137-145)
[2016-11-27 22:56] LABS: Basophils % (Manual) 0 % (0.0-1.8); Blastocytes % (Manual) 0 %; Eosinophils % (Manual) 0 % (0.0-4.3)
[2016-11-27 22:57] LABS: Anisocytosis 2+; Hypochromasia 2+; Microcytosis 2+; Ovalocytes 2+
[2016-11-27 22:58] LABS: Diff Status Complete; Platelet Estimate Consistent w Auto; Poikilocytosis Few
[2016-11-28] MEDS: BENADRYL IV PRN ×4 (04:24→20:59)
[2016-11-28] MEDS: ZOFRAN IV PRN ×3 (04:26→14:59)
[2016-11-28] MEDS: DILAUDID IV PRN ×4 (04:26→20:57)
[2016-11-28] MEDS: D5/0.45NS 1,000 ML IV SCH ×2 (04:48→14:57)
[2016-11-28 08:06] LABS: INR 2.09 (0.87-1.13)
[2016-11-28] MEDS: MAGIC MOUTHWASH PO SCH ×3 (08:42→20:54)
--- NOTE | 2016-11-28 08:54 | Progress Note ---
Assessment and Plan Assessment and plan: Sickle cell disease vaso-occlusive crisis. * Continue IV fluid, as needed pain med Sepsis with Methicillin sensitive staph aureus. 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 * His INR is therapeutic. * hold Coumadin and Lovenox bridge as he is planned ti have EGD tomorrow. Fever secondary to sepsis. * as needed tylenol Bacteremia with MSSA. * He has port at upper chest wall but no signs of redness or pain. * JAMAAL pending ROSARIO * cont iv fluid Hypernatremia * cont D5 1/ NS HIV infection. Continue HAART hypokalemia, cont to replace as needed Seborrhotic dermatitis * Placed on ketoconazole cream Full code status. History Interval history: Patient seen and examined. Medical records and medication list reviewed. No acute event overnight noted by the RN. Patient denies any fever, nausea improved 2d echo showed possible foreign body vs myxoma in the rt atrium JAMAAL could not be done as he could not be sedated with regular protocol and was unable to pass down the device Discussed plan of care at bedside with patient. Hospitalist Physical - Physical exam Narrative exam: GENERAL: well-developed and well-nourished male AAM lying on bed appeared to be in no discomfort. HEENT: Normocephalic. Atraumatic. No conjunctival congestion or icterus. Patient has moist mucous membranes. Dry scaly skin around the nasal folds and on the forehead NECK: Supple. Trachea midline. CHEST/LUNGS: Clear to auscultated bilaterally, breathing nonlabored. No wheezes crackles or rhonchi. HEART/CARDIOVASCULAR: Regular in rate and rhythm. S1 and S2 positive. ABDOMEN: Abdomen is soft, nontender. Patient has normal bowel sounds. SKIN: There is no rash. Warm and dry. NEURO: No focal motor deficit. Follows command. MUSCULOSKELETAL: No joint effusion or tenderness. EXTRIMITY: No edema, no cyanosis or clubbing. PSYCH: Cooperative. - Constitutional Vitals: Temp Pulse Resp BP Pulse Ox 97.6 F 64 16 141/80 96 11/28/16 00:25 11/28/16 00:25 11/28/16 04:26 11/28/16 00:25 11/28/16 00:25 General appearance: Present: no acute distress, well-nourished Results - Labs CBC & Chem 7: 11/28/16 20:40 11/28/16 20:40 Labs: Laboratory Last Values WBC 2.3 K/mm3 (4.5-11.0) L 11/27/16 19:00 RBC 3.94 M/mm3 (3.65-5.03) 11/27/16 19:00 Hgb 8.5 gm/dl (11.8-15.2) L 11/27/16 19:00 Hct 26.9 % (35.5-45.6) L 11/27/16 19:00 MCV 68 fl (84-94) L 11/27/16 19:00 MCH 22 pg (28-32) L 11/27/16 19:00 MCHC 32 % (32-34) 11/27/16 19:00 RDW 16.7 % (13.2-15.2) H 11/27/16 19:00 Plt Count 304 K/mm3 (140-440) 11/27/16 19:00 Lymph % (Auto) 29.8 % (13.4-35.0) 11/25/16 06:28 [place]borne % (Auto) 10.4 % (0.0-7.3) H 11/25/16 06:28 Eos % (Auto) 4.9 % (0.0-4.3) H 11/25/16 06:28 Baso % (Auto) 0.4 % (0.0-1.8) 11/25/16 06:28 Lymph # 0.8 K/mm3 (1.2-5.4) L 11/25/16 06:28 Osborne # 0.3 K/mm3 (0.0-0.8) 11/25/16 06:28 Eos # 0.1 K/mm3 (0.0-0.4) 11/25/16 06:28 Baso # 0.0 K/mm3 (0.0-0.1) 11/25/16 06:28 Add Manual Diff Complete 11/27/16 19:00 Total Counted 100 11/27/16 19:00 Seg Neutrophils % 54.5 % (40.0-70.0) 11/25/16 06:28 Seg Neuts % (Manual) 53.0 % (40.0-70.0) 11/27/16 19:00 Band Neutrophils % 6.0 % 11/27/16 19:00 Lymphocytes % (Manual) 24.0 % (13.4-35.0) 11/27/16 19:00 Reactive Lymphs % (Man) 0 % 11/27/16 19:00 Monocytes % (Manual) 17.0 % (0.0-7.3) H 11/27/16 19:00 Eosinophils % (Manual) 0 % (0.0-4.3) 11/27/16 19:00 Basophils % (Manual) 0 % (0.0-1.8) 11/27/16 19:00 Metamyelocytes % 0 % 11/27/16 19:00 Myelocytes % 0 % 11/27/16 19:00 Promyelocytes % 0 % 11/27/16 19:00 Blast Cells % 0 % 11/27/16 19:00 Nucleated RBC % Not Reportable 11/27/16 19:00 Seg Neutrophils # 1.6 K/mm3 (1.8-7.7) L 11/25/16 06:28 Seg Neutrophils # Man 1.2 K/mm3 (1.8-7.7) L 11/27/16 19:00 Band Neutrophils # 0.1 K/mm3 11/27/16 19:00 Abs Lymphs (Manual) 829 cells/uL (850-3900) L 11/22/16 18:33 Lymphocytes # (Manual) 0.6 K/mm3 (1.2-5.4) L 11/27/16 19:00 Abs React Lymphs (Man) 0.0 K/mm3 11/27/16 19:00 Monocytes # (Manual) 0.4 K/mm3 (0.0-0.8) 11/27/16 19:00 Eosinophils # (Manual) 0.0 K/mm3 (0.0-0.4) 11/27/16 19:00 Basophils # (Manual) 0.0 K/mm3 (0.0-0.1) 11/27/16 19:00 Metamyelocytes # 0.0 K/mm3 11/27/16 19:00 Myelocytes # 0.0 K/mm3 11/27/16 19:00 Promyelocytes # 0.0 K/mm3 11/27/16 19:00 Blast Cells # 0.0 K/mm3 11/27/16 19:00 WBC Morphology Not Reportable 11/27/16 19:00 Hypersegmented Neuts Not Reportable 11/27/16 19:00 Hyposegmented Neuts Not Reportable 11/27/16 19:00 Hypogranular Neuts Not Reportable 11/27/16 19:00 Smudge Cells Not Reportable 11/27/16 19:00 Toxic Granulation Not Reportable 11/27/16 19:00 Toxic Vacuolation Not Reportable 11/27/16 19:00 Dohle Bodies Not Reportable 11/27/16 19:00 Pelger-Huet Anomaly Not Reportable 11/27/16 19:00 Raheem Rods Not Reportable 11/27/16 19:00 Platelet Estimate Consistent w auto 11/27/16 19:00 Clumped Platelets Not Reportable 11/27/16 19:00 Plt Clumps, EDTA Not Reportable 11/27/16 19:00 Large Platelets Not Reportable 11/27/16 19:00 Giant Platelets Not Reportable 11/27/16 19:00 Platelet Satelliting Not Reportable 11/27/16 19:00 Plt Morphology Comment Not Reportable 11/27/16 19:00 RBC Morphology Not Reportable 11/27/16 19:00 Dimorphic RBCs Not Reportable 11/27/16 19:00 Polychromasia Not Reportable 11/27/16 19:00 Hypochromasia 2+ 11/27/16 19:00 Poikilocytosis Few 11/27/16 19:00 Anisocytosis 2+ 11/27/16 19:00 Microcytosis 2+ 11/27/16 19:00 Macrocytosis Not Reportable 11/27/16 19:00 Spherocytes Not Reportable 11/27/16 19:00 Pappenheimer Bodies Not Reportable 11/27/16 19:00 Sickle Cells Not Reportable 11/27/16 19:00 Target Cells Not Reportable 11/27/16 19:00 Tear Drop Cells Not Reportable 11/27/16 19:00 Ovalocytes 2+ 11/27/16 19:00 Helmet Cells Not Reportable 11/27/16 19:00 [place] Bodies Not Reportable 11/27/16 19:00 [place] Rings Not Reportable 11/27/16 19:00 [place] Cells Not Reportable 11/27/16 19:00 Bite Cells Not Reportable 11/27/16 19:00 Crenated Cell Not Reportable 11/27/16 19:00 Elliptocytes Not Reportable 11/27/16 19:00 Acanthocytes (Spur) Not Reportable 11/27/16 19:00 Rouleaux Not Reportable 11/27/16 19:00 Hemoglobin C Crystals Not Reportable 11/27/16 19:00 Schistocytes Not Reportable 11/27/16 19:00 Malaria parasites Not Reportable 11/27/16 19:00 Percent Retic 0.91 % (0.78-2.58) 11/18/16 08:29 [place] Bodies Not Reportable 11/27/16 19:00 Hem Pathologist Commnt No 11/27/16 19:00 PT 23.5 Sec. (12.2-14.9) H 11/28/16 07:10 INR 2.09 (0.87-1.13) H 11/28/16 07:10 APTT 36.4 Sec. (24.2-36.6) 11/18/16 08:29 Sodium 139 mmol/L (137-145) D 11/27/16 19:00 Potassium 3.1 mmol/L (3.6-5.0) L 11/27/16 19:00 Chloride 100.7 mmol/L (98-107) 11/27/16 19:00 Carbon Dioxide 26 mmol/L (22-30) 11/27/16 19:00 Anion Gap 15 mmol/L 11/27/16 19:00 BUN 4 mg/dL (9-20) L 11/27/16 19:00 Creatinine 1.6 mg/dL (0.8-1.5) H 11/27/16 19:00 Estimated GFR > 60 ml/min 11/27/16 19:00 BUN/Creatinine Ratio 2.50 % 11/27/16 19:00 Glucose 105 mg/dL (75-100) H 11/27/16 19:00 Lactic Acid 1.0 mmol/L (0.7-2.0) 11/23/16 12:20 Calcium 8.0 mg/dL (8.4-10.2) L 11/27/16 19:00 Magnesium 2.0 mg/dL (1.7-2.3) 11/18/16 08:30 Total Bilirubin 0.6 mg/dL (0.1-1.2) 11/18/16 08:30 Direct Bilirubin < 0.2 mg/dL (0-0.2) 11/18/16 08:30 AST 25 units/L (5-40) 11/18/16 08:30 ALT 23 units/L (7-56) 11/18/16 08:30 Alkaline Phosphatase 53 units/L (35-129) 11/18/16 08:30 Troponin T < 0.010 ng/mL (0.00-0.029) 11/18/16 08:29 NT-Pro-B Natriuret Pep 30.32 pg/mL (0-450) 11/18/16 08:30 Total Protein 8.5 g/dL (6.3-8.2) H 11/18/16 08:30 Albumin 4.2 g/dL (3.9-5) 11/18/16 08:30 Albumin/Globulin Ratio 1.0 % 11/18/16 08:30 Lipase 16 units/L (13-60) 11/18/16 08:30 Urine Color Benita (Yellow) 11/18/16 Unknown Urine Turbidity Clear (Clear) 11/18/16 Unknown Urine pH 5.0 (5.0-7.0) 11/18/16 Unknown Ur Specific [place] 1.039 (1.003-1.030) H 11/18/16 Unknown Urine Protein 100 mg/dl mg/dL (Negative) 11/18/16 Unknown Urine Glucose (UA) Neg mg/dL (Negative) 11/18/16 Unknown Urine Ketones Tr mg/dL (Negative) 11/18/16 Unknown Urine Blood Neg (Negative) 11/18/16 Unknown Urine Nitrite Neg (Negative) 11/18/16 Unknown Urine Bilirubin Neg (Negative) 11/18/16 Unknown Urine Urobilinogen 4.0 mg/dL (<2.0) 11/18/16 Unknown Ur Leukocyte Esterase Neg (Negative) 11/18/16 Unknown Urine WBC (Auto) 4.0 /HPF (0.0-6.0) 11/18/16 Unknown Urine RBC (Auto) 9.0 /HPF (0.0-6.0) 11/18/16 Unknown U Epithel Cells (Auto) 1.0 /HPF (0-13.0) 11/18/16 Unknown Urine Mucus 3+ /HPF 11/18/16 Unknown Vancomycin Trough 14.4 ug/mL (5.0-20.0) 11/22/16 09:16 Lymph Enumerat CD4/CD8 0.28 (0.86-5.00) L 11/22/16 18:33 % CD3 Cells 78 % (57-85) 11/22/16 18:33 Absolute CD3 Count 643 cells/uL (840-3060) L 11/22/16 18:33 % CD4 Cells 17 % (30-61) L 11/22/16 18:33 Absolute CD4 Count 141 cells/uL (490-1740) L 11/22/16 18:33 % CD8 Cells 60 % (12-42) H 11/22/16 18:33 Absolute CD8 Count 494 cells/uL (180-1170) 11/22/16 18:33 % CD19 Cells 6 % (6-29) 11/22/16 18:33 Absolute CD19 Count 48 cells/uL (110-660) L 11/22/16 18:33 HIV-1 RNA PCR copies/ml 118380 copies/mL (<20) H 11/23/16 06:45 HIV-1 RNA (PCR) log 5.15 Log cps/mL (<1.30) H 11/23/16 06:45
[2016-11-28 09:08] LABS: BUN/Creatinine Ratio 2.35; Calcium 8.3 mg/dL (8.4-10.2); Chloride 98.2 mmol/L (98-107); Potassium 3.1 mmol/L (3.6-5.0)
[2016-11-28] MEDS: DIFLUCAN PO SCH (10:15)
[2016-11-28] MEDS: LOVENOX SUB-Q SCH ×2 (10:15→22:32)
[2016-11-28] MEDS: HYDREA PO SCH ×2 (10:16→22:31)
[2016-11-28] MEDS: FOLVITE PO SCH (10:17)
[2016-11-28] MEDS: NIZORAL TP SCH ×2 (10:18→22:52)
--- NOTE | 2016-11-28 11:33 | Progress Note ---
Assessment and Plan Assessment: Sickle cell disease vaso-occlusive crisis. Sepsis with Methicillin sensitive staph aureus. JAMAAL previously could not be done due to difficulty with sedation and difficulty swallowing Normal barium swallow History of pulmonary embolism and DVT. Fever secondary to sepsis. ROSARIO HIV infection Hypokalemia Recommendations: Will reschedule JAMAAL for tomorrow with anesthesia Subjective Date of service: 11/28/16 Principal diagnosis: bacteremia Interval history: No cardiac complaints. JAMAAL extensively discussed with patient. Objective Vital Signs Temp Pulse Resp Resp BP Pulse Ox 11/28/16 04:26 16 11/28/16 00:25 97.6 F 64 20 141/80 96 11/27/16 22:00 16 11/27/16 21:44 16 11/27/16 20:41 18 11/27/16 15:42 99.6 F 67 18 151/90 - Physical Examination General: Appears Well, No Apparent Distress Neck: Positive: neck supple Cardiac: Positive: Reg Rate and Rhythm Lungs: Positive: clear to auscultation Abdomen: Positive: Soft, Active Bowel Sounds Extremities: Absent: edema - Labs and Meds Coagulation 11/28/16 Range/Units 07:10 PT 23.5 H (12.2-14.9) Sec. INR 2.09 H (0.87-1.13) CBC 11/27/16 Range/Units 19:00 WBC 2.3 L (4.5-11.0) K/mm3 RBC 3.94 (3.65-5.03) M/mm3 Hgb 8.5 L (11.8-15.2) gm/dl Hct 26.9 L (35.5-45.6) % Plt Count 304 (140-440) K/mm3 Comprehensive Metabolic Panel 11/27/16 11/28/16 Range/Units 19:00 07:10 Sodium 139 D 138 (137-145) mmol/L Potassium 3.1 L 3.1 L (3.6-5.0) mmol/L Chloride 100.7 98.2 (98-107) mmol/L Carbon Dioxide 26 27 (22-30) mmol/L BUN 4 L 4 L (9-20) mg/dL Creatinine 1.6 H 1.7 H (0.8-1.5) mg/dL Glucose 105 H 100 (75-100) mg/dL Calcium 8.0 L 8.3 L (8.4-10.2) mg/dL
[2016-11-28] MEDS ORDERED: COUMADIN PO SCH (17:00)
[2016-11-28] MEDS ORDERED: PHENERGAN PO PRN (17:11)
[2016-11-28] MEDS: K-DUR PO SCH (17:13)
--- NOTE | 2016-11-28 18:03 | Progress Note ---
Subjective Date of service: 11/28/16 Principal diagnosis: bacteremia Interval history: No new complaints except dryness of his skin VS. afebrile Chest - good air entry cvs - s1s2 assessment 1. bacteremia sec to mssa 2. sca 3. hiv/aids rec TTE showed foreign body continue iv abx Awaits JAMAAL Eucerin cream after bathing Objective - Constitutional Vitals: Vital Signs Temp Pulse Resp BP Pulse Ox 97.6 F 64 16 141/80 96 11/28/16 00:25 11/28/16 00:25 11/28/16 04:26 11/28/16 00:25 11/28/16 00:25 Temperature -Last 24 Hours Temperature 97.6 F - Labs CBC & Chem 7: 11/27/16 19:00 11/28/16 07:10 Labs: Abnormal lab results 11/27/16 11/27/16 11/28/16 Range/Units 19:00 19:00 07:10 WBC 2.3 L (4.5-11.0) K/mm3 Hgb 8.5 L (11.8-15.2) gm/dl Hct 26.9 L (35.5-45.6) % MCV 68 L (84-94) fl MCH 22 L (28-32) pg RDW 16.7 H (13.2-15.2) % Monocytes % (Manual) 17.0 H (0.0-7.3) % Seg Neutrophils # Man 1.2 L (1.8-7.7) K/mm3 Lymphocytes # (Manual) 0.6 L (1.2-5.4) K/mm3 PT 23.5 H (12.2-14.9) Sec. INR 2.09 H (0.87-1.13) Potassium 3.1 L (3.6-5.0) mmol/L BUN 4 L (9-20) mg/dL Creatinine 1.6 H (0.8-1.5) mg/dL Glucose 105 H (75-100) mg/dL Calcium 8.0 L (8.4-10.2) mg/dL 11/28/16 Range/Units 07:10 WBC (4.5-11.0) K/mm3 Hgb (11.8-15.2) gm/dl Hct (35.5-45.6) % MCV (84-94) fl MCH (28-32) pg RDW (13.2-15.2) % Monocytes % (Manual) (0.0-7.3) % Seg Neutrophils # Man (1.8-7.7) K/mm3 Lymphocytes # (Manual) (1.2-5.4) K/mm3 PT (12.2-14.9) Sec. INR (0.87-1.13) Potassium 3.1 L (3.6-5.0) mmol/L BUN 4 L (9-20) mg/dL Creatinine 1.7 H (0.8-1.5) mg/dL Glucose (75-100) mg/dL Calcium 8.3 L (8.4-10.2) mg/dL
[2016-11-28] MEDS: ROCEPHIN/NS 1 GM/50 ML 1 GM/50 ML BAG IV SCH (20:56)
--- NOTE | 2016-11-28 21:26 | Consultation ---
History of Present Illness - Reason for Consult Consult date: 11/28/16 - History of Present Illness Patient seen/labs reviewed, case d/w patient. He states still feels nausea. zofran stopped.I have ordered phenegan oral/suppository..He is scheduled for reattempt JAMAAL tomorrow. Medications and Allergies Allergies Allergy/AdvReac Type Severity Reaction Status Date / Time morphine Allergy Anaphylaxis Verified 11/18/16 08:15 Iodinated Contrast Media - AdvReac Unknown Verified 11/18/16 08:15 IV Dye sulfamethoxazole AdvReac Unknown Verified 11/18/16 08:15 [From Bactrim] trimethoprim [From Bactrim] AdvReac Unknown Verified 11/18/16 08:15 PLASTIC TAPE Allergy Rash Uncoded 11/18/16 08:15 Home Medications Medication Instructions Recorded Confirmed Last Taken Type Folic Acid 0.4 mg PO QDAY 09/16/16 11/18/16 11/16/16 08:00 History HYDROmorphone [Dilaudid] 4 mg PO Q6HR PRN 09/16/16 11/18/16 11/15/16 21:00 History Warfarin [Coumadin] 10 mg PO DAILY@1700 #30 tablet 11/10/16 11/18/16 11/16/16 17 :00 Rx Elviteg/Celia/Emtric/Tenofo Ala 1 each PO QDAY 11/18/16 11/18/16 11/16/16 08:00 History [Genvoya Tablet] Hydroxyurea [Hydrea] 500 mg PO BID 11/18/16 11/18/16 11/16/16 18:00 History Active Meds: Active Medications Diphenhydramine HCl (Benadryl) 12.5 mg IV Q3H PRN PRN Reason: Itching Last Admin: 11/28/16 20:59 Dose: 12.5 mg Enoxaparin Sodium (Lovenox) 70 mg 1 mg/kg (70 mg) SUB-Q Q12HR [facility] Last Admin: 11/28/16 10:15 Dose: 70 mg Fluconazole (Diflucan) 100 mg PO QDAY [facility] Last Admin: 11/28/16 10:15 Dose: 100 mg Folic Acid (Folvite) 0.5 mg PO QDAY [facility] Last Admin: 11/28/16 10:17 Dose: 0.5 mg Hydromorphone HCl (Dilaudid) 2 mg IV Q3H PRN PRN Reason: Pain , Severe (7-10) Last Admin: 11/28/16 20:57 Dose: 2 mg Hydroxyurea (Hydrea) 500 mg PO BID [facility] Last Admin: 11/28/16 10:16 Dose: 500 mg Ceftriaxone Sodium (Rocephin/Ns 1 Gm/50 Ml) 1 gm in 50 mls @ 100 mls/hr IV Q24H RONY PRN Reason: Protocol Last Admin: 11/28/16 20:56 Dose: 100 mls/hr Dextrose/Sodium Chloride (D5/0.45ns) 1,000 mls @ 75 mls/hr IV DIRECT [facility] Last Admin: 11/28/16 14:57 Dose: 75 mls/hr Ketoconazole (Nizoral) 1 applic TP BID [facility] Last Admin: 11/28/16 10:18 Dose: 1 applic Lidocaine HCl (Magic Mouthwash) 15 ml PO TID [facility] Last Admin: 11/28/16 20:54 Dose: 15 ml Miscellaneous Medication (Elviteg/Celia/Emtric/Tenofo Ala [Genvoya Tablet]) 1 each PO QDAY [facility] Potassium Chloride (K-Dur) 40 meq PO QDAY [facility] Last Admin: 11/28/16 17:13 Dose: 40 meq Promethazine HCl (Phenergan) 25 mg PO Q4H PRN PRN Reason: Nausea And Vomiting Warfarin Sodium (Coumadin) 8 mg PO DAILY@1700 [facility] Review of Systems Constitutional: weakness, chronic pain Musculoskeletal: low back pain Exam - Constitutional Vitals: Temp Pulse Resp BP Pulse Ox 97.3 F L 61 18 158/93 97 11/28/16 16:50 11/28/16 16:50 11/28/16 20:57 11/28/16 16:50 11/28/16 16:50 General appearance: Present: mild distress, well-nourished - EENT Eyes: Present: PERRL ENT: hearing intact, clear oral mucosa - Neck Neck: Present: supple, normal ROM - Respiratory Respiratory effort: normal Respiratory: bilateral: CTA - Cardiovascular Heart Sounds: Present: S1 & S2. Absent: rub, click - Extremities Extremities: pulses symmetrical, No edema Peripheral Pulses: within normal limits - Abdominal General gastrointestinal: Present: soft, non-tender, non-distended, normal bowel sounds Male genitourinary: Present: deferred - Rectal Rectal Exam: deferred - Integumentary Integumentary: Present: clear, warm, dry - Musculoskeletal Musculoskeletal: gait normal, strength equal bilaterally - Psychiatric Psychiatric: appropriate mood/affect, intact judgment & insight - Neurologic Neurologic: CNII-XII intact, moves all extremities Results - Labs CBC & Chem 7: 11/27/16 19:00 11/28/16 07:10 Labs: Abnormal lab results 11/27/16 11/27/16 11/28/16 Range/Units 19:00 19:00 07:10 WBC 2.3 L (4.5-11.0) K/mm3 Hgb 8.5 L (11.8-15.2) gm/dl Hct 26.9 L (35.5-45.6) % MCV 68 L (84-94) fl MCH 22 L (28-32) pg RDW 16.7 H (13.2-15.2) % Monocytes % (Manual) 17.0 H (0.0-7.3) % Seg Neutrophils # Man 1.2 L (1.8-7.7) K/mm3 Lymphocytes # (Manual) 0.6 L (1.2-5.4) K/mm3 PT 23.5 H (12.2-14.9) Sec. INR 2.09 H (0.87-1.13) Potassium 3.1 L (3.6-5.0) mmol/L BUN 4 L (9-20) mg/dL Creatinine 1.6 H (0.8-1.5) mg/dL Glucose 105 H (75-100) mg/dL Calcium 8.0 L (8.4-10.2) mg/dL 11/28/16 Range/Units 07:10 WBC (4.5-11.0) K/mm3 Hgb (11.8-15.2) gm/dl Hct (35.5-45.6) % MCV (84-94) fl MCH (28-32) pg RDW (13.2-15.2) % Monocytes % (Manual) (0.0-7.3) % Seg Neutrophils # Man (1.8-7.7) K/mm3 Lymphocytes # (Manual) (1.2-5.4) K/mm3 PT (12.2-14.9) Sec. INR (0.87-1.13) Potassium 3.1 L (3.6-5.0) mmol/L BUN 4 L (9-20) mg/dL Creatinine 1.7 H (0.8-1.5) mg/dL Glucose (75-100) mg/dL Calcium 8.3 L (8.4-10.2) mg/dL Assessment and Plan - Patient Problems (1) Fever Current Visit: Yes Status: Acute Qualifiers: Fever type: F Encounter type: E Plan to address problem: resolved. (2) Sickle cell pain crisis Current Visit: Yes Status: Acute Plan to address problem: pain control (3) Thrush Current Visit: Yes Status: Acute Plan to address problem: Will put on magic mouth wash. already done. (4) HIV (human immunodeficiency virus infection) Current Visit: Yes Status: Chronic Plan to address problem: supportive Follow ID. (5) Hx of pulmonary embolus Current Visit: Yes Status: Chronic Plan to address problem: continue with anticoag. as above ,except LMWH.
[2016-11-28 21:45] LABS: Hematocrit 28.5 % (35.5-45.6); Hemoglobin 8.8 gm/dl (11.8-15.2); Mean Corpuscular HGB Conc 31 % (32-34); Platelet Count 353 K/mm3 (140-440); Red Blood Count 4.23 M/mm3 (3.65-5.03); Red Cell Distribution Width 16.5 % (13.2-15.2)
[2016-11-28 21:48] LABS: Anion Gap 17 mmol/L; BUN/Creatinine Ratio 3.75; Blood Urea Nitrogen 6 mg/dL (9-20); Calcium 8.4 mg/dL (8.4-10.2); Carbon Dioxide 26 mmol/L (22-30); Chloride 100.7 mmol/L (98-107); Glucose 112 mg/dL (75-100); Mean Corpuscular Hemoglobin 21 pg (28-32); Mean Corpuscular Volume 67 fl (84-94); Sodium 141 mmol/L (137-145); White Blood Count 2.3 K/mm3 (4.5-11.0)
[2016-11-28 22:36] LABS: Basophils % (Manual) 0 % (0.0-1.8); Blastocytes % (Manual) 0 %
[2016-11-28 22:37] LABS: Anisocytosis 1+; Microcytosis 2+
[2016-11-28 22:38] LABS: Diff Status Complete; Elliptocytes 1+; Platelet Estimate Consistent w Auto
[2016-11-29] MEDS: BENADRYL IV PRN ×6 (02:26→22:10)
[2016-11-29] MEDS: DILAUDID IV PRN ×6 (02:27→22:09)
[2016-11-29] MEDS: D5/0.45NS 1,000 ML IV SCH ×2 (05:23→18:20)
[2016-11-29 06:07] LABS: INR 2.38 (0.87-1.13)
[2016-11-29] MEDS: MAGIC MOUTHWASH PO SCH ×3 (08:00→22:12)
[2016-11-29] MEDS: K-DUR PO SCH (10:00)
--- NOTE | 2016-11-29 12:15 | Progress Note ---
Assessment and Plan Sickle cell disease vaso-occlusive crisis. Sepsis with Methicillin sensitive staph aureus. JAMAAL previously could not be done due to difficulty with sedation and difficulty swallowing Normal barium swallow History of pulmonary embolism and DVT. Fever secondary to sepsis. ROSARIO HIV infection Hypokalemia Recommendations: Will reschedule JAMAAL for Tuesday with anesthesia. Subjective Date of service: 11/29/16 Principal diagnosis: bacteremia Interval history: JAMAAL cancelled for today due to anesthesia scheduling. Objective Vital Signs Temp Pulse Pulse Resp BP Pulse Ox 11/29/16 07:10 98.6 F 67 20 142/92 11/29/16 05:30 16 11/29/16 02:27 18 11/28/16 23:00 99.9 F H 59 L 18 181/97 98 11/28/16 22:00 18 11/28/16 20:57 18 11/28/16 16:50 97.3 F L 61 15 158/93 97 - Physical Examination General: No Apparent Distress Cardiac: Positive: Reg Rate and Rhythm Neuro: Positive: Grossly Intact Extremities: Absent: edema - Labs and Meds Coagulation 11/29/16 Range/Units 05:28 PT 26.1 H (12.2-14.9) Sec. INR 2.38 H (0.87-1.13) CBC 11/28/16 Range/Units 20:40 WBC 2.3 L (4.5-11.0) K/mm3 RBC 4.23 (3.65-5.03) M/mm3 Hgb 8.8 L (11.8-15.2) gm/dl Hct 28.5 L (35.5-45.6) % Plt Count 353 (140-440) K/mm3 Comprehensive Metabolic Panel 11/28/16 Range/Units 20:40 Sodium 141 (137-145) mmol/L Potassium 3.0 L (3.6-5.0) mmol/L Chloride 100.7 (98-107) mmol/L Carbon Dioxide 26 (22-30) mmol/L BUN 6 L (9-20) mg/dL Creatinine 1.6 H (0.8-1.5) mg/dL Glucose 112 H (75-100) mg/dL Calcium 8.4 (8.4-10.2) mg/dL
[2016-11-29] MEDS: DIFLUCAN PO SCH (13:23)
[2016-11-29] MEDS: FOLVITE PO SCH (13:23)
[2016-11-29] MEDS: HYDREA PO SCH (13:23)
[2016-11-29] MEDS: NIZORAL TP SCH ×2 (13:27→22:11)
[2016-11-29] MEDS: LOVENOX SUB-Q SCH ×2 (13:27→22:12)
--- NOTE | 2016-11-29 16:42 | Progress Note ---
Assessment and Plan Assessment and plan: Sickle cell disease vaso-occlusive crisis. * Continue IV fluid, as needed pain med * Resolved Sepsis with Methicillin sensitive staph aureus. 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 * His INR is therapeutic. * cont Coumadin, hold tomorrow dose Fever secondary to sepsis. * as needed tylenol Bacteremia with MSSA. * He has port at upper chest wall but no signs of redness or pain. * JAMAAL pending ROSARIO, likley ATN * cont iv fluid, obtain for possible CKD Hypernatremia * cont D5 1/ NS, follow BMP HIV infection. Continue HAART hypokalemia, cont to replace as needed Seborrhotic dermatitis * Placed on ketoconazole cream Full code status. History Interval history: Patient seen and examined. Medical records and medication list reviewed. No acute event overnight noted by the RN. Patient denies any fever, nausea improved 2d echo showed possible foreign body vs myxoma in the right atrium JAMAAL could not be done as he could not be sedated with regular protocol and was unable to pass down the device JAMAAL was scheduled today but got cancelled for anesthesia scheduling Discussed plan of care at bedside with patient. Hospitalist Physical - Physical exam Narrative exam: GENERAL: well-developed and well-nourished male AAM lying on bed appeared to be in no discomfort. HEENT: Normocephalic. Atraumatic. No conjunctival congestion or icterus. Patient has moist mucous membranes. Dry scaly skin around the nasal folds and on the forehead NECK: Supple. Trachea midline. CHEST/LUNGS: Clear to auscultated bilaterally, breathing nonlabored. No wheezes crackles or rhonchi. HEART/CARDIOVASCULAR: Regular in rate and rhythm. S1 and S2 positive. ABDOMEN: Abdomen is soft, nontender. Patient has normal bowel sounds. SKIN: There is no rash. Warm and dry. NEURO: No focal motor deficit. Follows command. MUSCULOSKELETAL: No joint effusion or tenderness. EXTRIMITY: No edema, no cyanosis or clubbing. PSYCH: Cooperative. - Constitutional Vitals: Temp Pulse Resp BP Pulse Ox 98.6 F 67 20 142/92 98 11/29/16 07:10 11/29/16 07:10 11/29/16 07:10 11/29/16 07:10 11/28/16 23:00 General appearance: Present: no acute distress, well-nourished Results - Labs CBC & Chem 7: 11/28/16 20:40 11/28/16 20:40 Labs: Laboratory Last Values WBC 2.3 K/mm3 (4.5-11.0) L 11/28/16 20:40 RBC 4.23 M/mm3 (3.65-5.03) 11/28/16 20:40 Hgb 8.8 gm/dl (11.8-15.2) L 11/28/16 20:40 Hct 28.5 % (35.5-45.6) L 11/28/16 20:40 MCV 67 fl (84-94) L 11/28/16 20:40 MCH 21 pg (28-32) L 11/28/16 20:40 MCHC 31 % (32-34) L 11/28/16 20:40 RDW 16.5 % (13.2-15.2) H 11/28/16 20:40 Plt Count 353 K/mm3 (140-440) 11/28/16 20:40 Lymph % (Auto) 29.8 % (13.4-35.0) 11/25/16 06:28 [place] % (Auto) 10.4 % (0.0-7.3) H 11/25/16 06:28 Eos % (Auto) 4.9 % (0.0-4.3) H 11/25/16 06:28 Baso % (Auto) 0.4 % (0.0-1.8) 11/25/16 06:28 Lymph # 0.8 K/mm3 (1.2-5.4) L 11/25/16 06:28 [place] # 0.3 K/mm3 (0.0-0.8) 11/25/16 06:28 Eos # 0.1 K/mm3 (0.0-0.4) 11/25/16 06:28 Baso # 0.0 K/mm3 (0.0-0.1) 11/25/16 06:28 Add Manual Diff Complete 11/28/16 20:40 Total Counted 100 11/28/16 20:40 Seg Neutrophils % 54.5 % (40.0-70.0) 11/25/16 06:28 Seg Neuts % (Manual) 50.0 % (40.0-70.0) 11/28/16 20:40 Band Neutrophils % 11.0 % 11/28/16 20:40 Lymphocytes % (Manual) 27.0 % (13.4-35.0) 11/28/16 20:40 Reactive Lymphs % (Man) 1.0 % 11/28/16 20:40 Monocytes % (Manual) 9.0 % (0.0-7.3) H 11/28/16 20:40 Eosinophils % (Manual) 2.0 % (0.0-4.3) 11/28/16 20:40 Basophils % (Manual) 0 % (0.0-1.8) 11/28/16 20:40 Metamyelocytes % 0 % 11/28/16 20:40 Myelocytes % 0 % 11/28/16 20:40 Promyelocytes % 0 % 11/28/16 20:40 Blast Cells % 0 % 11/28/16 20:40 Nucleated RBC % Not Reportable 11/28/16 20:40 Seg Neutrophils # 1.6 K/mm3 (1.8-7.7) L 11/25/16 06:28 Seg Neutrophils # Man 1.2 K/mm3 (1.8-7.7) L 11/28/16 20:40 Band Neutrophils # 0.3 K/mm3 11/28/16 20:40 Abs Lymphs (Manual) 829 cells/uL (850-3900) L 11/22/16 18:33 Lymphocytes # (Manual) 0.6 K/mm3 (1.2-5.4) L 11/28/16 20:40 Abs React Lymphs (Man) 0.0 K/mm3 11/28/16 20:40 Monocytes # (Manual) 0.2 K/mm3 (0.0-0.8) 11/28/16 20:40 Eosinophils # (Manual) 0.0 K/mm3 (0.0-0.4) 11/28/16 20:40 Basophils # (Manual) 0.0 K/mm3 (0.0-0.1) 11/28/16 20:40 Metamyelocytes # 0.0 K/mm3 11/28/16 20:40 Myelocytes # 0.0 K/mm3 11/28/16 20:40 Promyelocytes # 0.0 K/mm3 11/28/16 20:40 Blast Cells # 0.0 K/mm3 11/28/16 20:40 WBC Morphology Not Reportable 11/28/16 20:40 Hypersegmented Neuts Not Reportable 11/28/16 20:40 Hyposegmented Neuts Not Reportable 11/28/16 20:40 Hypogranular Neuts Not Reportable 11/28/16 20:40 Smudge Cells Not Reportable 11/28/16 20:40 Toxic Granulation Not Reportable 11/28/16 20:40 Toxic Vacuolation Not Reportable 11/28/16 20:40 Dohle Bodies Not Reportable 11/28/16 20:40 Pelger-Huet Anomaly Not Reportable 11/28/16 20:40 Raheem Rods Not Reportable 11/28/16 20:40 Platelet Estimate Consistent w auto 11/28/16 20:40 Clumped Platelets Not Reportable 11/28/16 20:40 Plt Clumps, EDTA Not Reportable 11/28/16 20:40 Large Platelets Not Reportable 11/28/16 20:40 Giant Platelets Not Reportable 11/28/16 20:40 Platelet Satelliting Not Reportable 11/28/16 20:40 Plt Morphology Comment Not Reportable 11/28/16 20:40 RBC Morphology Not Reportable 11/28/16 20:40 Dimorphic RBCs Not Reportable 11/28/16 20:40 Polychromasia Not Reportable 11/28/16 20:40 Hypochromasia Not Reportable 11/28/16 20:40 Poikilocytosis Not Reportable 11/28/16 20:40 Anisocytosis 1+ 11/28/16 20:40 Microcytosis 2+ 11/28/16 20:40 Macrocytosis Not Reportable 11/28/16 20:40 Spherocytes Not Reportable 11/28/16 20:40 Pappenheimer Bodies Not Reportable 11/28/16 20:40 Sickle Cells Not Reportable 11/28/16 20:40 Target Cells Not Reportable 11/28/16 20:40 Tear Drop Cells Not Reportable 11/28/16 20:40 Ovalocytes Not Reportable 11/28/16 20:40 Helmet Cells Not Reportable 11/28/16 20:40 [place] Bodies Not Reportable 11/28/16 20:40 [place] Rings Not Reportable 11/28/16 20:40 [place] Cells Not Reportable 11/28/16 20:40 Bite Cells Not Reportable 11/28/16 20:40 Crenated Cell Not Reportable 11/28/16 20:40 Elliptocytes 1+ 11/28/16 20:40 Acanthocytes (Spur) Not Reportable 11/28/16 20:40 Rouleaux Not Reportable 11/28/16 20:40 Hemoglobin C Crystals Not Reportable 11/28/16 20:40 Schistocytes Not Reportable 11/28/16 20:40 Malaria parasites Not Reportable 11/28/16 20:40 Percent Retic 0.91 % (0.78-2.58) 11/18/16 08:29 [place] Bodies Not Reportable 11/28/16 20:40 Hem Pathologist Commnt No 11/28/16 20:40 PT 26.1 Sec. (12.2-14.9) H 11/29/16 05:28 INR 2.38 (0.87-1.13) H 11/29/16 05:28 APTT 36.4 Sec. (24.2-36.6) 11/18/16 08:29 Sodium 141 mmol/L (137-145) 11/28/16 20:40 Potassium 3.0 mmol/L (3.6-5.0) L 11/28/16 20:40 Chloride 100.7 mmol/L (98-107) 11/28/16 20:40 Carbon Dioxide 26 mmol/L (22-30) 11/28/16 20:40 Anion Gap 17 mmol/L 11/28/16 20:40 BUN 6 mg/dL (9-20) L 11/28/16 20:40 Creatinine 1.6 mg/dL (0.8-1.5) H 11/28/16 20:40 Estimated GFR > 60 ml/min 11/28/16 20:40 BUN/Creatinine Ratio 3.75 % 11/28/16 20:40 Glucose 112 mg/dL (75-100) H 11/28/16 20:40 Lactic Acid 1.0 mmol/L (0.7-2.0) 11/23/16 12:20 Calcium 8.4 mg/dL (8.4-10.2) 11/28/16 20:40 Magnesium 2.0 mg/dL (1.7-2.3) 11/18/16 08:30 Total Bilirubin 0.6 mg/dL (0.1-1.2) 11/18/16 08:30 Direct Bilirubin < 0.2 mg/dL (0-0.2) 11/18/16 08:30 AST 25 units/L (5-40) 11/18/16 08:30 ALT 23 units/L (7-56) 11/18/16 08:30 Alkaline Phosphatase 53 units/L (35-129) 11/18/16 08:30 Troponin T < 0.010 ng/mL (0.00-0.029) 11/18/16 08:29 NT-Pro-B Natriuret Pep 30.32 pg/mL (0-450) 11/18/16 08:30 Total Protein 8.5 g/dL (6.3-8.2) H 11/18/16 08:30 Albumin 4.2 g/dL (3.9-5) 11/18/16 08:30 Albumin/Globulin Ratio 1.0 % 11/18/16 08:30 Lipase 16 units/L (13-60) 11/18/16 08:30 Urine Color [place] (Yellow) 11/18/16 Unknown Urine Turbidity Clear (Clear) 11/18/16 Unknown Urine pH 5.0 (5.0-7.0) 11/18/16 Unknown Ur Specific [place] 1.039 (1.003-1.030) H 11/18/16 Unknown Urine Protein 100 mg/dl mg/dL (Negative) 11/18/16 Unknown Urine Glucose (UA) Neg mg/dL (Negative) 11/18/16 Unknown Urine Ketones Tr mg/dL (Negative) 11/18/16 Unknown Urine Blood Neg (Negative) 11/18/16 Unknown Urine Nitrite Neg (Negative) 11/18/16 Unknown Urine Bilirubin Neg (Negative) 11/18/16 Unknown Urine Urobilinogen 4.0 mg/dL (<2.0) 11/18/16 Unknown Ur Leukocyte Esterase Neg (Negative) 11/18/16 Unknown Urine WBC (Auto) 4.0 /HPF (0.0-6.0) 11/18/16 Unknown Urine RBC (Auto) 9.0 /HPF (0.0-6.0) 11/18/16 Unknown U Epithel Cells (Auto) 1.0 /HPF (0-13.0) 11/18/16 Unknown Urine Mucus 3+ /HPF 11/18/16 Unknown Vancomycin Trough 14.4 ug/mL (5.0-20.0) 11/22/16 09:16 Lymph Enumerat CD4/CD8 0.28 (0.86-5.00) L 11/22/16 18:33 % CD3 Cells 78 % (57-85) 11/22/16 18:33 Absolute CD3 Count 643 cells/uL (840-3060) L 11/22/16 18:33 % CD4 Cells 17 % (30-61) L 11/22/16 18:33 Absolute CD4 Count 141 cells/uL (490-1740) L 11/22/16 18:33 % CD8 Cells 60 % (12-42) H 11/22/16 18:33 Absolute CD8 Count 494 cells/uL (180-1170) 11/22/16 18:33 % CD19 Cells 6 % (6-29) 11/22/16 18:33 Absolute CD19 Count 48 cells/uL (110-660) L 11/22/16 18:33 HIV-1 RNA PCR copies/ml [id number] copies/mL (<20) H 11/23/16 06:45 HIV-1 RNA (PCR) log 5.15 Log cps/mL (<1.30) H 11/23/16 06:45
--- NOTE | 2016-11-29 18:12 | Progress Note ---
Subjective Date of service: 11/29/16 Principal diagnosis: bacteremia Interval history: No new complaints. VS. afebrile Chest - good air entry cvs - s1s2 assessment 1. bacteremia sec to mssa 2. sca 3. hiv/aids rec TTE showed foreign body continue iv abx Awaits JAMAAL report. Objective - Constitutional Vitals: Vital Signs Temp Pulse Resp BP Pulse Ox 98.6 F 67 18 131/83 98 11/29/16 16:00 11/29/16 16:00 11/29/16 16:00 11/29/16 16:00 11/28/16 23:00 Temperature -Last 24 Hours Temperature 98.6 F Temperature 98.6 F Temperature 99.9 F - Labs CBC & Chem 7: 11/28/16 20:40 11/28/16 20:40 Labs: Abnormal lab results 11/28/16 11/28/16 11/29/16 Range/Units 20:40 20:40 05:28 WBC 2.3 L (4.5-11.0) K/mm3 Hgb 8.8 L (11.8-15.2) gm/dl Hct 28.5 L (35.5-45.6) % MCV 67 L (84-94) fl MCH 21 L (28-32) pg MCHC 31 L (32-34) % RDW 16.5 H (13.2-15.2) % Monocytes % (Manual) 9.0 H (0.0-7.3) % Seg Neutrophils # Man 1.2 L (1.8-7.7) K/mm3 Lymphocytes # (Manual) 0.6 L (1.2-5.4) K/mm3 PT 26.1 H (12.2-14.9) Sec. INR 2.38 H (0.87-1.13) Potassium 3.0 L (3.6-5.0) mmol/L BUN 6 L (9-20) mg/dL Creatinine 1.6 H (0.8-1.5) mg/dL Glucose 112 H (75-100) mg/dL
--- NOTE | 2016-11-29 20:37 | Consultation ---
History of Present Illness - Reason for Consult Consult date: 11/29/16 - History of Present Illness Patient seen today, resting in bed, VSS, alert. Medications and Allergies Allergies Allergy/AdvReac Type Severity Reaction Status Date / Time morphine Allergy Anaphylaxis Verified 11/18/16 08:15 Iodinated Contrast Media - AdvReac Unknown Verified 11/18/16 08:15 IV Dye sulfamethoxazole AdvReac Unknown Verified 11/18/16 08:15 [From Bactrim] trimethoprim [From Bactrim] AdvReac Unknown Verified 11/18/16 08:15 PLASTIC TAPE Allergy Rash Uncoded 11/18/16 08:15 Home Medications Medication Instructions Recorded Confirmed Last Taken Type Folic Acid 0.4 mg PO QDAY 09/16/16 11/18/16 11/16/16 08:00 History HYDROmorphone [Dilaudid] 4 mg PO Q6HR PRN 09/16/16 11/18/16 11/15/16 21:00 History Warfarin [Coumadin] 10 mg PO DAILY@1700 #30 tablet 11/10/16 11/18/16 11/16/16 17 :00 Rx Elviteg/Celia/Emtric/Tenofo Ala 1 each PO QDAY 11/18/16 11/18/16 11/16/16 08:00 History [Genvoya Tablet] Hydroxyurea [Hydrea] 500 mg PO BID 11/18/16 11/18/16 11/16/16 18:00 History Active Meds: Active Medications Diphenhydramine HCl (Benadryl) 12.5 mg IV Q3H PRN PRN Reason: Itching Last Admin: 11/29/16 18:17 Dose: 12.5 mg Enoxaparin Sodium (Lovenox) 70 mg 1 mg/kg (70 mg) SUB-Q Q12HR [facility] Last Admin: 11/29/16 13:27 Dose: Not Given Fluconazole (Diflucan) 100 mg PO QDAY [facility] Last Admin: 11/29/16 13:23 Dose: 100 mg Folic Acid (Folvite) 0.5 mg PO QDAY [facility] Last Admin: 11/29/16 13:23 Dose: 0.5 mg Hydromorphone HCl (Dilaudid) 2 mg IV Q3H PRN PRN Reason: Pain , Severe (7-10) Last Admin: 11/29/16 18:20 Dose: 2 mg Hydroxyurea (Hydrea) 500 mg PO BID [facility] Last Admin: 11/29/16 13:23 Dose: 500 mg Ceftriaxone Sodium (Rocephin/Ns 1 Gm/50 Ml) 1 gm in 50 mls @ 100 mls/hr IV Q24H RONY PRN Reason: Protocol Last Admin: 11/28/16 20:56 Dose: 100 mls/hr Dextrose/Sodium Chloride (D5/0.45ns) 1,000 mls @ 75 mls/hr IV DIRECT [facility] Last Admin: 11/29/16 18:20 Dose: 75 mls/hr Ketoconazole (Nizoral) 1 applic TP BID [facility] Last Admin: 11/29/16 13:27 Dose: 1 applic Lidocaine HCl (Magic Mouthwash) 15 ml PO TID [facility] Last Admin: 11/29/16 14:22 Dose: 15 ml Miscellaneous Medication (Elviteg/Celia/Emtric/Tenofo Ala [Genvoya Tablet]) 1 each PO QDAY [facility] Potassium Chloride (K-Dur) 40 meq PO QDAY [facility] Last Admin: 11/29/16 10:00 Dose: Not Given Promethazine HCl (Phenergan) 25 mg PO Q4H PRN PRN Reason: Nausea And Vomiting Review of Systems Constitutional: chronic pain Exam - Constitutional Vitals: Temp Pulse Resp BP Pulse Ox 98.6 F 67 18 131/83 98 11/29/16 16:00 11/29/16 16:00 11/29/16 16:00 11/29/16 16:00 11/28/16 23:00 General appearance: Present: mild distress, well-nourished - EENT Eyes: Present: PERRL ENT: hearing intact, clear oral mucosa - Neck Neck: Present: supple, normal ROM - Respiratory Respiratory effort: normal Respiratory: bilateral: CTA - Cardiovascular Heart Sounds: Present: S1 & S2. Absent: rub, click - Extremities Extremities: pulses symmetrical, No edema Peripheral Pulses: within normal limits - Abdominal General gastrointestinal: Present: soft, non-tender, non-distended, normal bowel sounds Male genitourinary: Present: deferred - Rectal Rectal Exam: deferred - Integumentary Integumentary: Present: clear, warm, dry - Musculoskeletal Musculoskeletal: gait normal, strength equal bilaterally - Psychiatric Psychiatric: appropriate mood/affect, intact judgment & insight - Neurologic Neurologic: CNII-XII intact, moves all extremities Results - Labs CBC & Chem 7: 11/28/16 20:40 11/28/16 20:40 Labs: Abnormal lab results 11/28/16 11/28/16 11/29/16 Range/Units 20:40 20:40 05:28 WBC 2.3 L (4.5-11.0) K/mm3 Hgb 8.8 L (11.8-15.2) gm/dl Hct 28.5 L (35.5-45.6) % MCV 67 L (84-94) fl MCH 21 L (28-32) pg MCHC 31 L (32-34) % RDW 16.5 H (13.2-15.2) % Monocytes % (Manual) 9.0 H (0.0-7.3) % Seg Neutrophils # Man 1.2 L (1.8-7.7) K/mm3 Lymphocytes # (Manual) 0.6 L (1.2-5.4) K/mm3 PT 26.1 H (12.2-14.9) Sec. INR 2.38 H (0.87-1.13) Potassium 3.0 L (3.6-5.0) mmol/L BUN 6 L (9-20) mg/dL Creatinine 1.6 H (0.8-1.5) mg/dL Glucose 112 H (75-100) mg/dL Assessment and Plan - Patient Problems (1) Fever Current Visit: Yes Status: Acute Qualifiers: Fever type: F Encounter type: E Plan to address problem: resolved. (2) Sickle cell pain crisis Current Visit: Yes Status: Acute Plan to address problem: pain control (3) Thrush Current Visit: Yes Status: Acute Plan to address problem: Will put on magic mouth wash. already done. better, (4) HIV (human immunodeficiency virus infection) Current Visit: Yes Status: Chronic Plan to address problem: supportive Follow ID. (5) Hx of pulmonary embolus Current Visit: Yes Status: Chronic Plan to address problem: continue with anticoag. as above ,except LMWH. INR therapeutic.
[2016-11-29 20:46] LABS: Hematocrit 28.5 % (35.5-45.6); Hemoglobin 8.8 gm/dl (11.8-15.2); Mean Corpuscular HGB Conc 31 % (32-34); Platelet Count 366 K/mm3 (140-440); Red Cell Distribution Width 16.3 % (13.2-15.2)
[2016-11-29 20:49] LABS: Mean Corpuscular Hemoglobin 21 pg (28-32); Mean Corpuscular Volume 68 fl (84-94); White Blood Count 1.8 K/mm3 (4.5-11.0)
[2016-11-29 20:54] LABS: Anion Gap 17 mmol/L; Blood Urea Nitrogen 6 mg/dL (9-20); Calcium 8.1 mg/dL (8.4-10.2); Carbon Dioxide 27 mmol/L (22-30); Chloride 97.7 mmol/L (98-107); Glucose 116 mg/dL (75-100); Potassium 3.1 mmol/L (3.6-5.0); Sodium 139 mmol/L (137-145)
[2016-11-29 21:24] LABS: Basophils % (Manual) 0 % (0.0-1.8); Blastocytes % (Manual) 0 %
[2016-11-29 21:26] LABS: Anisocytosis 1+; Diff Status Complete; Elliptocytes 1+; Hypochromasia 1+; Microcytosis 2+; Platelet Estimate Consistent w Auto; Target Cells Few
[2016-11-29] MEDS: ROCEPHIN/NS 1 GM/50 ML 1 GM/50 ML BAG IV SCH (22:04)
[2016-11-30] MEDS: BENADRYL IV PRN ×7 (01:54→22:17)
[2016-11-30] MEDS: DILAUDID IV PRN ×7 (01:54→22:17)
[2016-11-30] MEDS: D5/0.45NS 1,000 ML IV SCH ×2 (06:23→18:19)
[2016-11-30 06:32] LABS: INR 2.31 (0.87-1.13)
--- NOTE | 2016-11-30 08:26 | Ultrasound Report ---
ULTRASOUND RENAL BILATERAL HISTORY: Chronic renal disease. TECHNIQUE: transabdominal ultrasound with color Doppler interrogation. FINDINGS: The right kidney measures 12.5 x 6.8 x 7.0cm. Right renal cortex: 2.3cm. The left kidney measures 12.5 x 7.5 x 6.4cm. Left renal cortex: 2.0cm. Both kidneys are normal size, contour and position but there is increased cortical echotexture bilaterally. No evidence for cystic disease, mass, renal stones, hydronephrosis or perinephric fluid. The bladder is empty. IMPRESSION: Normal sized but echogenic kidneys suggesting medical renal disease or acute renal failure.
[2016-11-30] MEDS: K-DUR PO SCH (09:13)
[2016-11-30] MEDS: MAGIC MOUTHWASH PO SCH ×3 (09:14→22:20)
[2016-11-30] MEDS: NIZORAL TP SCH ×2 (09:14→22:21)
[2016-11-30] MEDS: DIFLUCAN PO SCH (09:14)
[2016-11-30] MEDS: FOLVITE PO SCH (09:15)
--- NOTE | 2016-11-30 10:39 | Progress Note ---
Assessment and Plan Sickle cell disease vaso-occlusive crisis. Sepsis with Methicillin sensitive staph aureus. JAMAAL previously could not be done due to difficulty with sedation and difficulty swallowing Normal barium swallow History of pulmonary embolism and DVT. Fever secondary to sepsis. ROSARIO HIV infection Hypokalemia Recommendations: For planned JAMAAL for Tuesday with anesthesia. Subjective Date of service: 11/30/16 Principal diagnosis: bacteremia Interval history: Awaits JAMAAL Objective Vital Signs Temp Pulse Pulse Resp BP Pulse Ox 11/30/16 07:33 98.8 F 71 20 127/66 11/30/16 00:59 99.3 F 66 18 130/33 97 11/29/16 16:00 98.6 F 67 18 131/83 - Physical Examination General: No Apparent Distress Neck: Positive: neck supple Cardiac: Positive: Reg Rate and Rhythm Lungs: Positive: Decreased Breath Sounds Neuro: Positive: Grossly Intact Extremities: Absent: edema - Labs and Meds Coagulation 11/30/16 Range/Units 05:35 PT 25.5 H (12.2-14.9) Sec. INR 2.31 H (0.87-1.13) CBC 11/29/16 Range/Units 20:15 WBC 1.8 L* (4.5-11.0) K/mm3 RBC 4.20 (3.65-5.03) M/mm3 Hgb 8.8 L (11.8-15.2) gm/dl Hct 28.5 L (35.5-45.6) % Plt Count 366 (140-440) K/mm3 Lymph # Associate Professor Of Archaeology [place] # Associate Professor Of Archaeology Eos # Associate Professor Of Archaeology Baso # Associate Professor Of Archaeology Comprehensive Metabolic Panel 11/29/16 Range/Units 20:15 Sodium 139 (137-145) mmol/L Potassium 3.1 L (3.6-5.0) mmol/L Chloride 97.7 L (98-107) mmol/L Carbon Dioxide 27 (22-30) mmol/L BUN 6 L (9-20) mg/dL Creatinine 1.5 (0.8-1.5) mg/dL Glucose 116 H (75-100) mg/dL Calcium 8.1 L (8.4-10.2) mg/dL
--- NOTE | 2016-11-30 12:07 | Progress Note ---
Assessment and Plan Assessment and plan: Sickle cell disease vaso-occlusive crisis. Continue IV fluid, as needed pain med Resolved Sepsis with Methicillin sensitive staph aureus. ID following, cont iv abx ceftriaxone repeat blood cx report negative 2d echo showed rt atrial myxoma vs foreign body consulted cardiology for JAMAAL but unable to complete barrium swallow was normal wait for JAMAAL to be complete on Tuesday History of pulmonary embolism and DVT. His INR is therapeutic. cont Coumadin, hold tomorrow dose Fever secondary to sepsis. as needed tylenol Bacteremia with MSSA. He has port at upper chest wall but no signs of redness or pain. JAMAAL pending ROSARIO, felipe ATN cont iv fluid, obtain ultrasound kidneys for possible CKD-Renal ultrasound bilaterally 11/29/2016 shows normal size kidneys but echogenic kidneys suggesting medical renal disease or acute renal failure. Hypernatremia cont D5 1/4 NS, follow BMP HIV infection. Continue HAART His INR is therapeutic hypokalemia, cont to replace as needed Seborrhotic dermatitis Placed on ketoconazole cream Full code status. JAMAAL tomorrow stop lovenox because INR is therapeutic. Order a.m. labs follow-up on potassium History Interval history: Patient seen and examined. Follow up on sepsis. Overnight uneventful. No cp, sob , n/v or severe headaches. Imaging, old records, testing, labs, nursing notes reviewed. Hospitalist Physical - Constitutional Vitals: Temp Pulse Resp BP Pulse Ox 98.8 F 71 20 127/66 97 11/30/16 07:33 11/30/16 07:33 11/30/16 07:33 11/30/16 07:33 11/30/16 00:59 General appearance: Present: no acute distress, well-nourished - EENT Eyes: Present: PERRL, EOM intact ENT: hearing intact, no oropharyngeal erythema, no edentulous - Neck Neck: Present: supple, normal ROM - Respiratory Respiratory effort: normal Respiratory: bilateral: CTA - Cardiovascular Rhythm: regular Heart Sounds: Present: S1 & S2 - Extremities Extremities: no ischemia, pulses intact Peripheral Pulses: within normal limits - Abdominal General gastrointestinal: soft, non-tender, non-distended, normal bowel sounds - Integumentary Integumentary: Present: dry (skin face) - Psychiatric Psychiatric: appropriate mood/affect - Neurologic Neurologic: CNII-XII intact, no focal deficits Results - Labs CBC & Chem 7: 02/27/17 20:15 11/29/16 20:15 Labs: Laboratory Last Values WBC 1.8 K/mm3 (4.5-11.0) L* 11/29/16 20:15 RBC 4.20 M/mm3 (3.65-5.03) 11/29/16 20:15 Hgb 8.8 gm/dl (11.8-15.2) L 11/29/16 20:15 Hct 28.5 % (35.5-45.6) L 11/29/16 20:15 MCV 68 fl (84-94) L 11/29/16 20:15 MCH 21 pg (28-32) L 11/29/16 20:15 MCHC 31 % (32-34) L 11/29/16 20:15 RDW 16.3 % (13.2-15.2) H 11/29/16 20:15 Plt Count 366 K/mm3 (140-440) 11/29/16 20:15 Lymph % (Auto) Loader Unloader 11/29/16 20:15 [place] % (Auto) Loader Unloader 11/29/16 20:15 Eos % (Auto) Loader Unloader 11/29/16 20:15 Baso % (Auto) Loader Unloader 11/29/16 20:15 Lymph # Loader Unloader 11/29/16 20:15 [place] # Loader Unloader 11/29/16 20:15 Eos # Loader Unloader 11/29/16 20:15 Baso # Loader Unloader 11/29/16 20:15 Add Manual Diff Complete 11/29/16 20:15 Total Counted 100 11/29/16 20:15 Seg Neutrophils % Loader Unloader 11/29/16 20:15 Seg Neuts % (Manual) 37.0 % (40.0-70.0) L 11/29/16 20:15 Band Neutrophils % 7.0 % 11/29/16 20:15 Lymphocytes % (Manual) 42.0 % (13.4-35.0) H 11/29/16 20:15 Reactive Lymphs % (Man) 5.0 % 11/29/16 20:15 Monocytes % (Manual) 8.0 % (0.0-7.3) H 11/29/16 20:15 Eosinophils % (Manual) 1.0 % (0.0-4.3) 11/29/16 20:15 Basophils % (Manual) 0 % (0.0-1.8) 11/29/16 20:15 Metamyelocytes % 0 % 11/29/16 20:15 Myelocytes % 0 % 11/29/16 20:15 Promyelocytes % 0 % 11/29/16 20:15 Blast Cells % 0 % 11/29/16 20:15 Nucleated RBC % Not Reportable 11/29/16 20:15 Seg Neutrophils # Loader Unloader 11/29/16 20:15 Seg Neutrophils # Man 0.7 K/mm3 (1.8-7.7) L 11/29/16 20:15 Band Neutrophils # 0.1 K/mm3 11/29/16 20:15 Abs Lymphs (Manual) 829 cells/uL (850-3900) L 11/22/16 18:33 Lymphocytes # (Manual) 0.8 K/mm3 (1.2-5.4) L 11/29/16 20:15 Abs React Lymphs (Man) 0.1 K/mm3 11/29/16 20:15 Monocytes # (Manual) 0.1 K/mm3 (0.0-0.8) 11/29/16 20:15 Eosinophils # (Manual) 0.0 K/mm3 (0.0-0.4) 11/29/16 20:15 Basophils # (Manual) 0.0 K/mm3 (0.0-0.1) 11/29/16 20:15 Metamyelocytes # 0.0 K/mm3 11/29/16 20:15 Myelocytes # 0.0 K/mm3 11/29/16 20:15 Promyelocytes # 0.0 K/mm3 11/29/16 20:15 Blast Cells # 0.0 K/mm3 11/29/16 20:15 WBC Morphology Not Reportable 11/29/16 20:15 Hypersegmented Neuts Not Reportable 11/29/16 20:15 Hyposegmented Neuts Not Reportable 11/29/16 20:15 Hypogranular Neuts Not Reportable 11/29/16 20:15 Smudge Cells Not Reportable 11/29/16 20:15 Toxic Granulation Not Reportable 11/29/16 20:15 Toxic Vacuolation Not Reportable 11/29/16 20:15 Dohle Bodies Not Reportable 11/29/16 20:15 Pelger-Huet Anomaly Not Reportable 11/29/16 20:15 Raheem Rods Not Reportable 11/29/16 20:15 Platelet Estimate Consistent w auto 11/29/16 20:15 Clumped Platelets Not Reportable 11/29/16 20:15 Plt Clumps, EDTA Not Reportable 11/29/16 20:15 Large Platelets Not Reportable 11/29/16 20:15 Giant Platelets Not Reportable 11/29/16 20:15 Platelet Satelliting Not Reportable 11/29/16 20:15 Plt Morphology Comment Not Reportable 11/29/16 20:15 RBC Morphology Not Reportable 11/29/16 20:15 Dimorphic RBCs Not Reportable 11/29/16 20:15 Polychromasia Not Reportable 11/29/16 20:15 Hypochromasia 1+ 11/29/16 20:15 Poikilocytosis Not Reportable 11/29/16 20:15 Anisocytosis 1+ 11/29/16 20:15 Microcytosis 2+ 11/29/16 20:15 Macrocytosis Not Reportable 11/29/16 20:15 Spherocytes Not Reportable 11/29/16 20:15 Pappenheimer Bodies Not Reportable 11/29/16 20:15 Sickle Cells Not Reportable 11/29/16 20:15 Target Cells Few 11/29/16 20:15 Tear Drop Cells Not Reportable 11/29/16 20:15 Ovalocytes Not Reportable 11/29/16 20:15 Helmet Cells Not Reportable 11/29/16 20:15 [place] Bodies Not Reportable 11/29/16 20:15 [place] Rings Not Reportable 11/29/16 20:15 [place] Cells Not Reportable 11/29/16 20:15 Bite Cells Not Reportable 11/29/16 20:15 Crenated Cell Not Reportable 11/29/16 20:15 Elliptocytes 1+ 11/29/16 20:15 Acanthocytes (Spur) Not Reportable 11/29/16 20:15 Rouleaux Not Reportable 11/29/16 20:15 Hemoglobin C Crystals Not Reportable 11/29/16 20:15 Schistocytes Not Reportable 11/29/16 20:15 Malaria parasites Not Reportable 11/29/16 20:15 Percent Retic 0.91 % (0.78-2.58) 11/18/16 08:29 [place] Bodies Not Reportable 11/29/16 20:15 Hem Pathologist Commnt No 11/29/16 20:15 PT 25.5 Sec. (12.2-14.9) H 11/30/16 05:35 INR 2.31 (0.87-1.13) H 11/30/16 05:35 APTT 36.4 Sec. (24.2-36.6) 11/18/16 08:29 Sodium 139 mmol/L (137-145) 11/29/16 20:15 Potassium 3.1 mmol/L (3.6-5.0) L 11/29/16 20:15 Chloride 97.7 mmol/L (98-107) L 11/29/16 20:15 Carbon Dioxide 27 mmol/L (22-30) 11/29/16 20:15 Anion Gap 17 mmol/L 11/29/16 20:15 BUN 6 mg/dL (9-20) L 11/29/16 20:15 Creatinine 1.5 mg/dL (0.8-1.5) 11/29/16 20:15 Estimated GFR > 60 ml/min 11/29/16 20:15 BUN/Creatinine Ratio 4.00 % 11/29/16 20:15 Glucose 116 mg/dL (75-100) H 11/29/16 20:15 Lactic Acid 1.0 mmol/L (0.7-2.0) 11/23/16 12:20 Calcium 8.1 mg/dL (8.4-10.2) L 11/29/16 20:15 Magnesium 2.0 mg/dL (1.7-2.3) 11/18/16 08:30 Total Bilirubin 0.6 mg/dL (0.1-1.2) 11/18/16 08:30 Direct Bilirubin < 0.2 mg/dL (0-0.2) 11/18/16 08:30 AST 25 units/L (5-40) 11/18/16 08:30 ALT 23 units/L (7-56) 11/18/16 08:30 Alkaline Phosphatase 53 units/L (35-129) 11/18/16 08:30 Troponin T < 0.010 ng/mL (0.00-0.029) 11/18/16 08:29 NT-Pro-B Natriuret Pep 30.32 pg/mL (0-450) 11/18/16 08:30 Total Protein 8.5 g/dL (6.3-8.2) H 11/18/16 08:30 Albumin 4.2 g/dL (3.9-5) 11/18/16 08:30 Albumin/Globulin Ratio 1.0 % 11/18/16 08:30 Lipase 16 units/L (13-60) 11/18/16 08:30 Urine Color [place] (Yellow) 11/18/16 Unknown Urine Turbidity Clear (Clear) 11/18/16 Unknown Urine pH 5.0 (5.0-7.0) 11/18/16 Unknown Ur Specific [place] 1.039 (1.003-1.030) H 11/18/16 Unknown Urine Protein 100 mg/dl mg/dL (Negative) 11/18/16 Unknown Urine Glucose (UA) Neg mg/dL (Negative) 11/18/16 Unknown Urine Ketones Tr mg/dL (Negative) 11/18/16 Unknown Urine Blood Neg (Negative) 11/18/16 Unknown Urine Nitrite Neg (Negative) 11/18/16 Unknown Urine Bilirubin Neg (Negative) 11/18/16 Unknown Urine Urobilinogen 4.0 mg/dL (<2.0) 11/18/16 Unknown Ur Leukocyte Esterase Neg (Negative) 11/18/16 Unknown Urine WBC (Auto) 4.0 /HPF (0.0-6.0) 11/18/16 Unknown Urine RBC (Auto) 9.0 /HPF (0.0-6.0) 11/18/16 Unknown U Epithel Cells (Auto) 1.0 /HPF (0-13.0) 11/18/16 Unknown Urine Mucus 3+ /HPF 11/18/16 Unknown Vancomycin Trough 14.4 ug/mL (5.0-20.0) 11/22/16 09:16 Lymph Enumerat CD4/CD8 0.28 (0.86-5.00) L 11/22/16 18:33 % CD3 Cells 78 % (57-85) 11/22/16 18:33 Absolute CD3 Count 643 cells/uL (840-3060) L 11/22/16 18:33 % CD4 Cells 17 % (30-61) L 11/22/16 18:33 Absolute CD4 Count 141 cells/uL (490-1740) L 11/22/16 18:33 % CD8 Cells 60 % (12-42) H 11/22/16 18:33 Absolute CD8 Count 494 cells/uL (180-1170) 11/22/16 18:33 % CD19 Cells 6 % (6-29) 11/22/16 18:33 Absolute CD19 Count 48 cells/uL (110-660) L 11/22/16 18:33 HIV-1 RNA PCR copies/ml 273217 copies/mL (<20) H 11/23/16 06:45 HIV-1 RNA (PCR) log 5.15 Log cps/mL (<1.30) H 11/23/16 06:45
--- NOTE | 2016-11-30 19:03 | Progress Note ---
Subjective Principal diagnosis: bacteremia Interval history: No new complaints. VS. afebrile Chest - good air entry cvs - s1s2 assessment 1. bacteremia sec to mssa 2. sca 3. hiv/aids rec continue iv abx Awaits JAMAAL report. Objective - Constitutional Vitals: Vital Signs Temp Pulse Resp BP Pulse Ox 97 F L 69 16 133/87 97 11/30/16 16:00 11/30/16 16:00 11/30/16 16:00 11/30/16 18:52 11/30/16 00:59 Temperature -Last 24 Hours Temperature 97 F Temperature 98.8 F Temperature 99.3 F - Labs CBC & Chem 7: 11/29/16 20:15 11/29/16 20:15 Labs: Abnormal lab results 11/29/16 11/29/16 11/30/16 Range/Units 20:15 20:15 05:35 WBC 1.8 L* (4.5-11.0) K/mm3 Hgb 8.8 L (11.8-15.2) gm/dl Hct 28.5 L (35.5-45.6) % MCV 68 L (84-94) fl MCH 21 L (28-32) pg MCHC 31 L (32-34) % RDW 16.3 H (13.2-15.2) % Seg Neuts % (Manual) 37.0 L (40.0-70.0) % Lymphocytes % (Manual) 42.0 H (13.4-35.0) % Monocytes % (Manual) 8.0 H (0.0-7.3) % Seg Neutrophils # Man 0.7 L (1.8-7.7) K/mm3 Lymphocytes # (Manual) 0.8 L (1.2-5.4) K/mm3 PT 25.5 H (12.2-14.9) Sec. INR 2.31 H (0.87-1.13) Potassium 3.1 L (3.6-5.0) mmol/L Chloride 97.7 L (98-107) mmol/L BUN 6 L (9-20) mg/dL Glucose 116 H (75-100) mg/dL Calcium 8.1 L (8.4-10.2) mg/dL
--- NOTE | 2016-11-30 21:44 | Consultation ---
History of Present Illness - Reason for Consult Consult date: 11/30/16 - History of Present Illness Patient seen today, labs reviewed, case d/w patient. He is scheduled for JAMAAL tomorrow. Medications and Allergies Allergies Allergy/AdvReac Type Severity Reaction Status Date / Time morphine Allergy Anaphylaxis Verified 11/18/16 08:15 Iodinated Contrast Media - AdvReac Unknown Verified 11/18/16 08:15 IV Dye sulfamethoxazole AdvReac Unknown Verified 11/18/16 08:15 [From Bactrim] trimethoprim [From Bactrim] AdvReac Unknown Verified 11/18/16 08:15 PLASTIC TAPE Allergy Rash Uncoded 11/18/16 08:15 Home Medications Medication Instructions Recorded Confirmed Last Taken Type Folic Acid 0.4 mg PO QDAY 09/16/16 11/18/16 11/16/16 08:00 History HYDROmorphone [Dilaudid] 4 mg PO Q6HR PRN 09/16/16 11/18/16 11/15/16 21:00 History Warfarin [Coumadin] 10 mg PO DAILY@1700 #30 tablet 11/10/16 11/18/16 11/16/16 17 :00 Rx Elviteg/Celia/Emtric/Tenofo Ala 1 each PO QDAY 11/18/16 11/18/16 11/16/16 08:00 History [Genvoya Tablet] Hydroxyurea [Hydrea] 500 mg PO BID 11/18/16 11/18/16 11/16/16 18:00 History Active Meds: Active Medications Diphenhydramine HCl (Benadryl) 12.5 mg IV Q3H PRN PRN Reason: Itching Last Admin: 11/30/16 18:19 Dose: 12.5 mg Fluconazole (Diflucan) 100 mg PO QDAY RONY Last Admin: 11/30/16 09:14 Dose: 100 mg Folic Acid (Folvite) 0.5 mg PO QDAY [facility] Last Admin: 11/30/16 09:15 Dose: 0.5 mg Hydromorphone HCl (Dilaudid) 2 mg IV Q3H PRN PRN Reason: Pain , Severe (7-10) Last Admin: 11/30/16 18:20 Dose: 2 mg Ceftriaxone Sodium (Rocephin/Ns 1 Gm/50 Ml) 1 gm in 50 mls @ 100 mls/hr IV Q24H [facility] PRN Reason: Protocol Last Admin: 11/29/16 22:04 Dose: 100 mls/hr Dextrose/Sodium Chloride (D5/0.45ns) 1,000 mls @ 75 mls/hr IV DIRECT [facility] Last Admin: 11/30/16 18:19 Dose: 75 mls/hr Ketoconazole (Nizoral) 1 applic TP BID [facility] Last Admin: 11/30/16 09:14 Dose: 1 applic Lidocaine HCl (Magic Mouthwash) 15 ml PO TID [facility] Last Admin: 11/30/16 14:54 Dose: 15 ml Miscellaneous Medication (Elviteg/Celia/Emtric/Tenofo Ala [Genvoya Tablet]) 1 each PO QDAY [facility] Potassium Chloride (K-Dur) 40 meq PO QDAY [facility] Last Admin: 11/30/16 09:13 Dose: Not Given Promethazine HCl (Phenergan) 25 mg PO Q4H PRN PRN Reason: Nausea And Vomiting Warfarin Sodium (Coumadin) 7.5 mg PO DAILY@1700 [facility] Review of Systems Constitutional: chronic pain Exam - Constitutional Vitals: Temp Pulse Resp BP Pulse Ox 97 F L 69 16 133/87 97 11/30/16 16:00 11/30/16 16:00 11/30/16 16:00 11/30/16 18:52 11/30/16 00:59 General appearance: Present: mild distress - Abdominal Male genitourinary: Present: deferred - Rectal Rectal Exam: deferred Results - Labs CBC & Chem 7: 11/29/16 20:15 11/29/16 20:15 Labs: Abnormal lab results 11/30/16 Range/Units 05:35 PT 25.5 H (12.2-14.9) Sec. INR 2.31 H (0.87-1.13) Assessment and Plan - Patient Problems (1) Fever Current Visit: Yes Status: Acute Qualifiers: Fever type: F Encounter type: E Plan to address problem: resolved. (2) Sickle cell pain crisis Current Visit: Yes Status: Acute Plan to address problem: pain control (3) Thrush Current Visit: Yes Status: Acute Plan to address problem: Will put on magic mouth wash. already done. better, (4) HIV (human immunodeficiency virus infection) Current Visit: Yes Status: Chronic Plan to address problem: supportive Follow ID. (5) Hx of pulmonary embolus Current Visit: Yes Status: Chronic Plan to address problem: continue with anticoag. as above ,except LMWH. INR therapeutic. (6) Neutropenia associated with acquired immune deficiency syndrome (AIDS) Current Visit: Yes Status: Acute Plan to address problem: Will start on Growth factors.
[2016-11-30] MEDS: ROCEPHIN/NS 1 GM/50 ML 1 GM/50 ML BAG IV SCH (22:15)
[2016-12-01] MEDS ORDERED: HURRICAINE ONE 20% TOPICAL SPRAY MM NR (08:00)
[2016-12-01] MEDS ORDERED: DIPRIVAN 10 MG/ML IV ONE ×4 (08:09→08:45)
[2016-12-01] MEDS: MAGIC MOUTHWASH PO SCH ×2 (08:14→14:22)
[2016-12-01] MEDS ORDERED: DILAUDID ONE (08:45)
[2016-12-01] MEDS ORDERED: XYLOCAINE MPF 2% ONE (08:45)
--- NOTE | 2016-12-01 08:54 | Progress Note ---
Assessment and Plan Assessment: Sickle cell disease vaso-occlusive crisis. Sepsis with Methicillin sensitive staph aureus - resolved JAMAAL - no evidence of endocarditis History of pulmonary embolism and DVT. Fever secondary to sepsis. ROSARIO Hypernatremia HIV infection Hypokalemia Recommendations: No JAMAAL evidence of endocarditis Will sign off Subjective Date of service: 12/01/16 Principal diagnosis: bacteremia Interval history: Patient underwent a JAMAAL this morning without complications Objective Vital Signs Temp Pulse Pulse Pulse Pulse Resp Resp 12/01/16 08:23 109 H 12/01/16 08:10 105 H 20 12/01/16 08:05 97 H 20 12/01/16 07:53 79 12/01/16 06:31 12/01/16 05:00 72 16 12/01/16 00:15 98.8 F 69 20 11/30/16 22:17 20 11/30/16 18:52 11/30/16 16:00 97 F L 69 16 Resp Resp Resp BP BP BP BP 12/01/16 08:23 30 H 154/77 12/01/16 08:10 140/90 12/01/16 08:05 150/96 12/01/16 07:53 23 149/92 12/01/16 06:31 20 12/01/16 05:00 155/89 12/01/16 00:15 176/105 11/30/16 22:17 11/30/16 18:52 133/87 11/30/16 16:00 161/103 Pulse Ox Pulse Ox Pulse Ox Pulse Ox 12/01/16 08:23 100 12/01/16 08:10 99 12/01/16 08:05 99 12/01/16 07:53 97 12/01/16 06:31 12/01/16 05:00 12/01/16 00:15 99 11/30/16 22:17 11/30/16 18:52 11/30/16 16:00 - Physical Examination General: No Apparent Distress Neck: Positive: neck supple Cardiac: Positive: Reg Rate and Rhythm Lungs: Positive: Normal Exam Neuro: Positive: Grossly Intact Abdomen: Positive: Soft, Active Bowel Sounds Extremities: Absent: edema
--- NOTE | 2016-12-01 08:56 | Anesthesia Consultation ---
Anesthesia Consult and Med Hx - Airway Anesthetic Teeth Evaluation: Good ROM Head & Neck: Adequate Mental/Hyoid Distance: Adequate Mallampati Class: Class III Intubation Access Assessment: Probably Good - Pulmonary Exam CTA: Yes - Cardiac Exam Cardiac Exam: RRR - Pre-Operative Health Status ASA Pre-Surgery Classification: ASA3 Proposed Anesthetic Plan: MAC - Pulmonary Hx Smoking: Yes (current) Hx Asthma: No Hx Respiratory Symptoms: Yes (hemoptysis) COPD: No Hx Pneumonia: No Hx Sleep Apnea: No - Cardiovascular System Hx Heart Attack/AMI: No Hx Peripheral Vascular Disease: No (endocarditis) - Central Nervous System Hx Seizures: No CVA: Yes (2015) Hx Psychiatric Problems: Yes - Gastrointestinal Hx Ulcer: No - Endocrine Hx Renal Disease: No Hx End Stage Renal Disease: No Hx Cirrhosis: No Hx Liver Disease: No Hx Hypothyroidism: No Hx Hyperthyroidism: No - Hematic Hx Anemia: Yes (HIV) Hx Sickle Cell Disease: Yes (in crisis) - Other Systems Hx Alcohol Use: No Hx Substance Use: No Hx Cancer: Yes (HODGKIN'S LYMPHOMA AT AGE 14)
--- NOTE | 2016-12-01 08:57 | Anesthesia Day of Surgery ---
Anesthesia Day of Surgery - Day of Surgery Patient Examined: Yes Patient H&P Reviewed: Yes Patient is NPO: Yes
[2016-12-01] MEDS ORDERED: GRANIX SUB-Q SCH (10:00)
--- NOTE | 2016-12-01 10:39 | Progress Note ---
Assessment and Plan Assessment and plan: Sickle cell disease vaso-occlusive crisis. Continue IV fluid, as needed pain med Resolved Sepsis with Methicillin sensitive staph aureus. ID following, cont iv abx ceftriaxone repeat blood cx report negative 2d echo showed rt atrial myxoma vs foreign body consulted cardiology for JAMAAL but unable to complete barrium swallow was normal wait for JAMAAL to be complete on Tuesday History of pulmonary embolism and DVT. His INR is therapeutic. cont Coumadin, hold tomorrow dose Fever secondary to sepsis. as needed tylenol Bacteremia with MSSA. He has port at upper chest wall but no signs of redness or pain. JAMAAL pending ROSARIO, felipe ATN cont iv fluid, obtain ultrasound kidneys for possible CKD-Renal ultrasound bilaterally 11/29/2016 shows normal size kidneys but echogenic kidneys suggesting medical renal disease or acute renal failure. Hypernatremia cont D5 1/4 NS, follow BMP HIV infection. Continue HAART His INR is therapeutic hypokalemia, cont to replace as needed Seborrhotic dermatitis Placed on ketoconazole cream Full code status. JAMAAL tomorrow==no endocarditis stop lovenox because INR is therapeutic. Order a.m. labs follow-up on potassium d/c if cleared by ID, what abx and how long? History Interval history: Patient seen and examined. Follow up on sepsis. Overnight uneventful. No cp, sob , n/v or severe headaches. Imaging, old records, testing, labs, nursing notes reviewed. Hospitalist Physical - Physical exam Narrative exam: GEN: WDWN, NAD, AWAKE, ALERT, ORIENTATED x 3 CVS: RRR, NORMAL S1S2 LUNGS/CHEST: CTA B, NORMAL CHEST EXPANSION B, GOOD AIR ENTRY B ABD: SOFT NTND, GBS, NO REBOUND OR GUARDING EXT/SKIN: NO SIGNIFICANT EDEMA OR RASH MSK: FROM X 4 EXTREMITIES NEURO: CN 2-12 GROSSLY INTACT, NO new FOCAL DEFICITS PSY: CALM - Constitutional Vitals: Temp Pulse Resp BP Pulse Ox 99.0 F 78 16 121/74 97 12/01/16 09:25 12/01/16 09:25 12/01/16 09:25 12/01/16 09:25 12/01/16 09:25 Results - Labs CBC & Chem 7: 11/29/16 20:15 11/29/16 20:15 Labs: Laboratory Last Values WBC 1.8 K/mm3 (4.5-11.0) L* 11/29/16 20:15 RBC 4.20 M/mm3 (3.65-5.03) 11/29/16 20:15 Hgb 8.8 gm/dl (11.8-15.2) L 11/29/16 20:15 Hct 28.5 % (35.5-45.6) L 11/29/16 20:15 MCV 68 fl (84-94) L 11/29/16 20:15 MCH 21 pg (28-32) L 11/29/16 20:15 MCHC 31 % (32-34) L 11/29/16 20:15 RDW 16.3 % (13.2-15.2) H 11/29/16 20:15 Plt Count 366 K/mm3 (140-440) 11/29/16 20:15 Lymph % (Auto) Student Assistant 11/29/16 20:15 [place] % (Auto) Student Assistant 11/29/16 20:15 Eos % (Auto) Student Assistant 11/29/16 20:15 Baso % (Auto) Student Assistant 11/29/16 20:15 Lymph # Student Assistant 11/29/16 20:15 [place] # Student Assistant 11/29/16 20:15 Eos # Student Assistant 11/29/16 20:15 Baso # Student Assistant 11/29/16 20:15 Add Manual Diff Complete 11/29/16 20:15 Total Counted 100 11/29/16 20:15 Seg Neutrophils % Student Assistant 11/29/16 20:15 Seg Neuts % (Manual) 37.0 % (40.0-70.0) L 11/29/16 20:15 Band Neutrophils % 7.0 % 11/29/16 20:15 Lymphocytes % (Manual) 42.0 % (13.4-35.0) H 11/29/16 20:15 Reactive Lymphs % (Man) 5.0 % 11/29/16 20:15 Monocytes % (Manual) 8.0 % (0.0-7.3) H 11/29/16 20:15 Eosinophils % (Manual) 1.0 % (0.0-4.3) 11/29/16 20:15 Basophils % (Manual) 0 % (0.0-1.8) 11/29/16 20:15 Metamyelocytes % 0 % 11/29/16 20:15 Myelocytes % 0 % 02/27/17 20:15 Promyelocytes % 0 % 11/29/16 20:15 Blast Cells % 0 % 11/29/16 20:15 Nucleated RBC % Not Reportable 11/29/16 20:15 Seg Neutrophils # Student Assistant 11/29/16 20:15 Seg Neutrophils # Man 0.7 K/mm3 (1.8-7.7) L 11/29/16 20:15 Band Neutrophils # 0.1 K/mm3 11/29/16 20:15 Abs Lymphs (Manual) 829 cells/uL (850-3900) L 11/22/16 18:33 Lymphocytes # (Manual) 0.8 K/mm3 (1.2-5.4) L 11/29/16 20:15 Abs React Lymphs (Man) 0.1 K/mm3 11/29/16 20:15 Monocytes # (Manual) 0.1 K/mm3 (0.0-0.8) 11/29/16 20:15 Eosinophils # (Manual) 0.0 K/mm3 (0.0-0.4) 11/29/16 20:15 Basophils # (Manual) 0.0 K/mm3 (0.0-0.1) 11/29/16 20:15 Metamyelocytes # 0.0 K/mm3 11/29/16 20:15 Myelocytes # 0.0 K/mm3 11/29/16 20:15 Promyelocytes # 0.0 K/mm3 11/29/16 20:15 Blast Cells # 0.0 K/mm3 11/29/16 20:15 WBC Morphology Not Reportable 11/29/16 20:15 Hypersegmented Neuts Not Reportable 11/29/16 20:15 Hyposegmented Neuts Not Reportable 11/29/16 20:15 Hypogranular Neuts Not Reportable 11/29/16 20:15 Smudge Cells Not Reportable 11/29/16 20:15 Toxic Granulation Not Reportable 11/29/16 20:15 Toxic Vacuolation Not Reportable 11/29/16 20:15 Dohle Bodies Not Reportable 11/29/16 20:15 Pelger-Huet Anomaly Not Reportable 11/29/16 20:15 Raheem Rods Not Reportable 11/29/16 20:15 Platelet Estimate Consistent w auto 11/29/16 20:15 Clumped Platelets Not Reportable 11/29/16 20:15 Plt Clumps, EDTA Not Reportable 11/29/16 20:15 Large Platelets Not Reportable 11/29/16 20:15 Giant Platelets Not Reportable 11/29/16 20:15 Platelet Satelliting Not Reportable 11/29/16 20:15 Plt Morphology Comment Not Reportable 11/29/16 20:15 RBC Morphology Not Reportable 11/29/16 20:15 Dimorphic RBCs Not Reportable 11/29/16 20:15 Polychromasia Not Reportable 11/29/16 20:15 Hypochromasia 1+ 11/29/16 20:15 Poikilocytosis Not Reportable 11/29/16 20:15 Anisocytosis 1+ 11/29/16 20:15 Microcytosis 2+ 11/29/16 20:15 Macrocytosis Not Reportable 11/29/16 20:15 Spherocytes Not Reportable 11/29/16 20:15 Pappenheimer Bodies Not Reportable 11/29/16 20:15 Sickle Cells Not Reportable 11/29/16 20:15 Target Cells Few 11/29/16 20:15 Tear Drop Cells Not Reportable 11/29/16 20:15 Ovalocytes Not Reportable 11/29/16 20:15 Helmet Cells Not Reportable 11/29/16 20:15 [place] Bodies Not Reportable 11/29/16 20:15 [place] Rings Not Reportable 11/29/16 20:15 [place] Cells Not Reportable 11/29/16 20:15 Bite Cells Not Reportable 11/29/16 20:15 Crenated Cell Not Reportable 11/29/16 20:15 Elliptocytes 1+ 11/29/16 20:15 Acanthocytes (Spur) Not Reportable 11/29/16 20:15 Rouleaux Not Reportable 11/29/16 20:15 Hemoglobin C Crystals Not Reportable 11/29/16 20:15 Schistocytes Not Reportable 11/29/16 20:15 Malaria parasites Not Reportable 11/29/16 20:15 Percent Retic 0.91 % (0.78-2.58) 11/18/16 08:29 Brando Bodies Not Reportable 11/29/16 20:15 Hem Pathologist Commnt No 11/29/16 20:15 PT 25.5 Sec. (12.2-14.9) H 11/30/16 05:35 INR 2.31 (0.87-1.13) H 11/30/16 05:35 APTT 36.4 Sec. (24.2-36.6) 11/18/16 08:29 Sodium 139 mmol/L (137-145) 11/29/16 20:15 Potassium 3.1 mmol/L (3.6-5.0) L 11/29/16 20:15 Chloride 97.7 mmol/L (98-107) L 11/29/16 20:15 Carbon Dioxide 27 mmol/L (22-30) 11/29/16 20:15 Anion Gap 17 mmol/L 11/29/16 20:15 BUN 6 mg/dL (9-20) L 11/29/16 20:15 Creatinine 1.5 mg/dL (0.8-1.5) 11/29/16 20:15 Estimated GFR > 60 ml/min 11/29/16 20:15 BUN/Creatinine Ratio 4.00 % 11/29/16 20:15 Glucose 116 mg/dL (75-100) H 11/29/16 20:15 Lactic Acid 1.0 mmol/L (0.7-2.0) 11/23/16 12:20 Calcium 8.1 mg/dL (8.4-10.2) L 11/29/16 20:15 Magnesium 2.0 mg/dL (1.7-2.3) 11/18/16 08:30 Total Bilirubin 0.6 mg/dL (0.1-1.2) 11/18/16 08:30 Direct Bilirubin < 0.2 mg/dL (0-0.2) 11/18/16 08:30 AST 25 units/L (5-40) 11/18/16 08:30 ALT 23 units/L (7-56) 11/18/16 08:30 Alkaline Phosphatase 53 units/L (35-129) 11/18/16 08:30 Troponin T < 0.010 ng/mL (0.00-0.029) 11/18/16 08:29 NT-Pro-B Natriuret Pep 30.32 pg/mL (0-450) 11/18/16 08:30 Total Protein 8.5 g/dL (6.3-8.2) H 11/18/16 08:30 Albumin 4.2 g/dL (3.9-5) 11/18/16 08:30 Albumin/Globulin Ratio 1.0 % 11/18/16 08:30 Lipase 16 units/L (13-60) 11/18/16 08:30 Urine Color [place] (Yellow) 11/18/16 Unknown Urine Turbidity Clear (Clear) 11/18/16 Unknown Urine pH 5.0 (5.0-7.0) 11/18/16 Unknown Ur Specific [place] 1.039 (1.003-1.030) H 11/18/16 Unknown Urine Protein 100 mg/dl mg/dL (Negative) 11/18/16 Unknown Urine Glucose (UA) Neg mg/dL (Negative) 11/18/16 Unknown Urine Ketones Tr mg/dL (Negative) 11/18/16 Unknown Urine Blood Neg (Negative) 11/18/16 Unknown Urine Nitrite Neg (Negative) 11/18/16 Unknown Urine Bilirubin Neg (Negative) 11/18/16 Unknown Urine Urobilinogen 4.0 mg/dL (<2.0) 11/18/16 Unknown Ur Leukocyte Esterase Neg (Negative) 11/18/16 Unknown Urine WBC (Auto) 4.0 /HPF (0.0-6.0) 11/18/16 Unknown Urine RBC (Auto) 9.0 /HPF (0.0-6.0) 11/18/16 Unknown U Epithel Cells (Auto) 1.0 /HPF (0-13.0) 11/18/16 Unknown Urine Mucus 3+ /HPF 11/18/16 Unknown Vancomycin Trough 14.4 ug/mL (5.0-20.0) 11/22/16 09:16 Lymph Enumerat CD4/CD8 0.28 (0.86-5.00) L 11/22/16 18:33 % CD3 Cells 78 % (57-85) 11/22/16 18:33 Absolute CD3 Count 643 cells/uL (840-3060) L 11/22/16 18:33 % CD4 Cells 17 % (30-61) L 11/22/16 18:33 Absolute CD4 Count 141 cells/uL (490-1740) L 11/22/16 18:33 % CD8 Cells 60 % (12-42) H 11/22/16 18:33 Absolute CD8 Count 494 cells/uL (180-1170) 11/22/16 18:33 % CD19 Cells 6 % (6-29) 11/22/16 18:33 Absolute CD19 Count 48 cells/uL (110-660) L 11/22/16 18:33 HIV-1 RNA PCR copies/ml 800392 copies/mL (<20) H 11/23/16 06:45 HIV-1 RNA (PCR) log 5.15 Log cps/mL (<1.30) H 11/23/16 06:45
--- NOTE | 2016-12-01 10:53 | Discharge Summary ---
Providers - Providers Date of Admission: 11/18/16 12:22 Date of discharge: 12/01/16 Attending physician: ABDON GRADY 11/19/16 09:01 Consult to Physician [CONS] Routine Consulting Provider: ÁNGEL CHINCHILLA Reason For Exam: sickle cell crisis Place consult to:: Dr. Chinchilla Notified:: DR. MENDEZ Time called:: 13:30 Comment:: STEVEN 11/20/16 SPOKE Marti GROVER 11/22/16 07:58 Consult to Physician [CONS] Routine Consulting Provider: THONY SCHUSTER Reason For Exam: Bacteremia, has port Place consult to:: Dr. Nunez Notified:: office Phone number called:: [phone] Was contact made?: Yes Time called:: 09:40 Primary care physician: DIRECTOR MORTGAGE Hospitalization Condition: Stable Hospital course: Sickle cell disease vaso-occlusive crisis. Continue IV fluid, as needed pain med Resolved Sepsis with Methicillin sensitive staph aureus. ID following, cont iv abx ceftriaxone repeat blood cx report negative 2d echo showed rt atrial myxoma vs foreign body consulted cardiology for JAMAAL but unable to complete barrium swallow was normal wait for JAMAAL to be complete on Tuesday History of pulmonary embolism and DVT. His INR is therapeutic. cont Coumadin, hold tomorrow dose Fever secondary to sepsis. as needed tylenol Bacteremia with MSSA. He has port at upper chest wall but no signs of redness or pain. JAMAAL pending ROSARIO, felipe ATN cont iv fluid, obtain ultrasound kidneys for possible CKD-Renal ultrasound bilaterally 11/29/2016 shows normal size kidneys but echogenic kidneys suggesting medical renal disease or acute renal failure. Hypernatremia cont D5 1/4 NS, follow BMP HIV infection. Continue HAART His INR is therapeutic hypokalemia, cont to replace as needed Seborrhotic dermatitis Placed on ketoconazole cream Full code status. JAMAAL tomorrow==no endocarditis stop lovenox because INR is therapeutic. Order a.m. labs follow-up on potassium d/c if cleared by ID, what abx and how long? d/w martina Lr for levaquin x 10 days. Disposition: DISCHARGED TO HOME OR SELFCARE Time spent for discharge: 35 minutes Core Measure Documentation - Palliative Care Palliative Care/ Comfort Measures: Not Applicable - Core Measures Any of the following diagnoses?: none - VTE Discharge Requirements Deep Vein Thrombosis/Pulmonary Embolism Present on Admission: No Has pt received <5 days of overlap therapy or INR<2.0: No Anticoagulant overlap therapy prescribed at discharge: No Contraindication No Overlap Therapy order at DC: Not Indicated Exam - Physical Exam Narrative exam: GEN: WDWN, NAD, AWAKE, ALERT, ORIENTATED x 3 CVS: RRR, NORMAL S1S2 LUNGS/CHEST: CTA B, NORMAL CHEST EXPANSION B, GOOD AIR ENTRY B ABD: SOFT NTND, GBS, NO REBOUND OR GUARDING EXT/SKIN: NO SIGNIFICANT EDEMA OR RASH MSK: FROM X 4 EXTREMITIES NEURO: CN 2-12 GROSSLY INTACT, NO new FOCAL DEFICITS PSY: CALM - Constitutional Vitals: Temp Pulse Resp BP Pulse Ox 99.0 F 78 16 121/74 97 12/01/16 09:25 12/01/16 09:25 12/01/16 09:25 12/01/16 09:25 12/01/16 09:25 Plan Activity: advance as tolerated (no strenous activites until cleared by PCP. ) Diet: regular Follow up with: PRIMARY CARE, [Primary Care Provider] - 7 Days Forms: Warfarin Discharge Instruction Prescriptions: HYDROmorphone [Dilaudid] 2 mg PO Q6HR PRN #30 tablet PRN Reason: Pain Levofloxacin [Levaquin TAB] 500 mg PO QDAY #10 tablet Warfarin [Coumadin] 5 mg PO DAILY@1700 #30 tablet
[2016-12-01] MEDS: K-DUR PO SCH (12:23)
[2016-12-01] MEDS: DIFLUCAN PO SCH (12:23)
[2016-12-01] MEDS: FOLVITE PO SCH (12:23)
[2016-12-01] MEDS: NIZORAL TP SCH (12:24)
[2016-12-01] MEDS ORDERED: FLUSH HEPARIN IV ONE (14:20)
[2016-12-01 16:15] VITALS: BP 139/85
[2016-12-01] MEDS ORDERED: COUMADIN PO SCH ×2 (17:00)
--- NOTE | 2016-12-01 18:12 | Progress Note ---
Subjective Date of service: 12/01/16 Principal diagnosis: bacteremia Interval history: No complaints. VS. afebrile Chest - good air entry cvs - s1s2 LABS JAMAAL - neg. for vegetations assessment 1. bacteremia sec to mssa 2. sca 3. hiv/aids rec d/w pmd. D/c planning on oral levaquin 750mg daily for 10days. Objective - Constitutional Vitals: Vital Signs Temp Pulse Resp BP Pulse Ox 99.4 F 74 16 139/85 97 12/01/16 16:14 12/01/16 16:14 12/01/16 16:14 12/01/16 16:14 12/01/16 09:25 Temperature -Last 24 Hours Temperature 99.4 F Temperature 99.0 F Temperature 98.8 F - Labs CBC & Chem 7: 11/29/16 20:15 11/29/16 20:15
== END 2016-12-01 17:30 | disposition home or self-care (01) | DRG 974 ==
LOC: ED 08:10 → 3A 12:22
PROVIDERS: ADMIT Internal Medicine; ATTEND Internal Medicine
DX: B20 Human immunodeficiency virus [HIV] disease (principal); A41.01 Sepsis due to Methicillin susceptible Staphylococcus aureus; D57.00 Hb-SS disease with crisis, unspecified; N17.0 Acute kidney failure with tubular necrosis; E87.0 Hyperosmolality and hypernatremia; E87.6 Hypokalemia; N18.9 Chronic kidney disease, unspecified; B37.9 Candidiasis, unspecified; L21.9 Seborrheic dermatitis, unspecified; D70.3 Neutropenia due to infection; B95.62 Methicillin resistant Staphylococcus aureus infection as the cause of diseases classified elsewhere; Z79.01 Long term (current) use of anticoagulants; Z86.73 Personal history of transient ischemic attack (TIA), and cerebral infarction without residual deficits; Z86.711 Personal history of pulmonary embolism; Z87.891 Personal history of nicotine dependence; Z90.49 Acquired absence of other specified parts of digestive tract; Z90.81 Acquired absence of spleen; Z88.2 Allergy status to sulfonamides; Z88.8 Allergy status to other drugs, medicaments and biological substances; Z91.041 Radiographic dye allergy status; Z86.718 Personal history of other venous thrombosis and embolism; Z88.6 Allergy status to analgesic agent; Z91.048 Other nonmedicinal substance allergy status; Z82.49 Family history of ischemic heart disease and other diseases of the circulatory system
CPT/HCPCS: 36415; 70210; 71010; 74176; 74220; 76770; 80048; 80074; 80202; 81001; 82024; 82140; 83690; 83735; 83880; 84484; 85007; 85025; 85027; 85045; 85610; 85730; 86403; 87040; 87076; 87086; 87186; 87400; 87536; 93306; 93312; 93320; 93325; 96361; 96365; 96366; 96375; J0696; J1170; J1200; J1447; J1642; J1650; J1885; J2250; J2405; J2543; J2704; J2997; J3010; J3370; J3430; J7030; J7042; J7050

== ENCOUNTER 2016-12-17 13:03 | Emergency (ER) | payer MEDICARE ==
[2016-12-17 14:21] VITALS: BP 141/100
--- NOTE | 2016-12-17 14:58 | XRay Report ---
ROUTINE CHEST, TWO VIEWS: HISTORY: Short of breath. The trachea, heart, mediastinal contour, lung [place] and bony thorax are unremarkable. IMPRESSION: Unremarkable chest x-ray. No significant change since 11/18/16.
[2016-12-17] MEDS ORDERED: D5NS 0.2% 1,000 ML IV SCH (15:00)
[2016-12-17 15:09] LABS: Hematocrit 33.6 % (35.5-45.6); Hemoglobin 10.4 gm/dl (11.8-15.2); Mean Corpuscular HGB Conc 31 % (32-34); Platelet Count 242 K/mm3 (140-440); Red Blood Count 4.91 M/mm3 (3.65-5.03); Red Cell Distribution Width 18.4 % (13.2-15.2); Reticulocyte % 0.95 % (0.78-2.58)
[2016-12-17 15:16] LABS: Mean Corpuscular Hemoglobin 21 pg (28-32); Mean Corpuscular Volume 68 fl (84-94); White Blood Count 2.2 K/mm3 (4.5-11.0)
[2016-12-17 15:17] LABS: INR 1.4 (0.87-1.13)
[2016-12-17 15:18] LABS: Partial Thromboplastin Time 34.9 Sec. (24.2-36.6)
[2016-12-17 15:56] LABS: Basophils % (Manual) 0 % (0.0-1.8); Blastocytes % (Manual) 0 %
[2016-12-17 15:58] LABS: Anisocytosis 1+; Elliptocytes Few; Microcytosis 1+; Platelet Estimate Consistent w Auto; Target Cells Few
[2016-12-17 15:59] LABS: Diff Status Complete
--- NOTE | 2016-12-19 19:18 | ED Elopement Review ---
ED Pt Elopement review - Results review Lab results: Laboratory Tests 12/17/16 12/17/16 12/17/16 14:56 14:56 14:56 WBC 2.2 L RBC 4.91 Hgb 10.4 L Hct 33.6 L MCV 68 L MCH 21 L MCHC 31 L RDW 18.4 H Plt Count 242 Add Manual Diff Complete Total Counted 100 Seg Neuts % (Manual) 62.0 Band Neutrophils % 0 Lymphocytes % (Manual) 27.0 Reactive Lymphs % (Man) 0 Monocytes % (Manual) 10.0 H Eosinophils % (Manual) 1.0 Basophils % (Manual) 0 Metamyelocytes % 0 Myelocytes % 0 Promyelocytes % 0 Blast Cells % 0 Nucleated RBC % Not Reportable Seg Neutrophils # Man 1.4 L Band Neutrophils # 0.0 Lymphocytes # (Manual) 0.6 L Abs React Lymphs (Man) 0.0 Monocytes # (Manual) 0.2 Eosinophils # (Manual) 0.0 Basophils # (Manual) 0.0 Metamyelocytes # 0.0 Myelocytes # 0.0 Promyelocytes # 0.0 Blast Cells # 0.0 WBC Morphology Not Reportable Hypersegmented Neuts Not Reportable Hyposegmented Neuts Not Reportable Hypogranular Neuts Not Reportable Smudge Cells Not Reportable Toxic Granulation Not Reportable Toxic Vacuolation Not Reportable Dohle Bodies Not Reportable Pelger-Huet Anomaly Not Reportable Raheem Rods Not Reportable Platelet Estimate Consistent w auto Clumped Platelets Not Reportable Plt Clumps, EDTA Not Reportable Large Platelets Not Reportable Giant Platelets Not Reportable Platelet Satelliting Not Reportable Plt Morphology Comment Not Reportable RBC Morphology Not Reportable Dimorphic RBCs Not Reportable Polychromasia Not Reportable Hypochromasia Not Reportable Poikilocytosis Not Reportable Anisocytosis 1+ Microcytosis 1+ Macrocytosis Not Reportable Spherocytes Not Reportable Pappenheimer Bodies Not Reportable Sickle Cells Not Reportable Target Cells Few Tear Drop Cells Not Reportable Ovalocytes Not Reportable Helmet Cells Not Reportable [place] Bodies Not Reportable [place] Rings Not Reportable [place] Cells Not Reportable Bite Cells Not Reportable Crenated Cell Not Reportable Elliptocytes Few Acanthocytes (Spur) Not Reportable Rouleaux Not Reportable Hemoglobin C Crystals Not Reportable Schistocytes Not Reportable Malaria parasites Not Reportable Percent Retic 0.95 Brando Bodies Not Reportable Hem Pathologist Commnt No PT 17.1 H INR 1.40 H APTT 34.9 Troponin T < 0.010 - Call Back decision Pt Call Back Decision: No action required
== END 2016-12-17 22:10 | disposition left against medical advice (07) ==
LOC: ED 13:03
DX: R07.81 Pleurodynia (principal); M25.552 Pain in left hip; Z53.21 Procedure and treatment not carried out due to patient leaving prior to being seen by health care provider
CPT/HCPCS: 36415; 71020; 84484; 85007; 85025; 85045; 85610; 85730; 93005; 93010

== ENCOUNTER 2017-01-11 11:16 | Inpatient (IN) | payer MEDICARE ==
[2017-01-11] MEDS ORDERED: MORPHINE IV PRN (11:46)
[2017-01-11] MEDS ORDERED: MILK OF MAGNESIA PO PRN (11:46)
[2017-01-11] MEDS ORDERED: ZOFRAN IV PRN (11:46)
[2017-01-11] MEDS ORDERED: TYLENOL PO PRN (11:46)
[2017-01-11] MEDS ORDERED: DULCOLAX PR PRN (11:46)
[2017-01-11] MEDS ORDERED: DILAUDID PO PRN (11:49)
--- NOTE | 2017-01-11 11:54 | History and Physical Report ---
History of Present Illness Chief complaint: Im hurting History of present illness: 36 YO Male with SSD, HIV, DVT/PE was directly admitted at the request of Dr. Steward for SSD with Pain crisis. Pt states that he has been experiencing pain all over his body for the past several days without relief of symptoms. Pt denies fever, chills, CP, Palpitations, NVD, hemoptysis, difficulty breathing, syncope, BRBPR, recent ill contacts. Past History Past Medical History: anemia, HIV/AIDS Past Surgical History: appendectomy, cholecystectomy, Other (Port placement, splenectomy) Social history: single. denies: smoking, alcohol abuse Family history: other (SSD, HTN) Medications and Allergies Allergies Allergy/AdvReac Type Severity Reaction Status Date / Time morphine Allergy Anaphylaxis Verified 11/18/16 08:15 Iodinated Contrast Media - AdvReac Unknown Verified 11/18/16 08:15 IV Dye sulfamethoxazole AdvReac Unknown Verified 11/18/16 08:15 [From Bactrim] trimethoprim [From Bactrim] AdvReac Unknown Verified 11/18/16 08:15 PLASTIC TAPE Allergy Rash Uncoded 11/18/16 08:15 Home Medications Medication Instructions Recorded Confirmed Last Taken Type Elviteg/Celia/Emtric/Tenofo Ala 1 each PO QDAY 12/01/16 Unknown Rx [Genvoya Tablet] Folic Acid [Folvite] 0.5 mg PO QDAY tablet 12/01/16 Unknown Rx HYDROmorphone [Dilaudid] 2 mg PO Q6HR PRN #30 tablet 12/01/16 Unknown Rx Ketoconazole 2% [Nizoral] 1 applic TP BID tube 12/01/16 Unknown Rx Levofloxacin [Levaquin TAB] 500 mg PO QDAY #10 tablet 12/01/16 Unknown Rx Tbo-Filgrastim [Granix] 480 mcg SUB-Q DAILY syringe 12/01/16 Unknown Rx Warfarin [Coumadin] 5 mg PO DAILY@1700 #30 tablet 12/01/16 Unknown Rx Active Meds: Active Medications Acetaminophen (Tylenol) 650 mg PO Q4H PRN PRN Reason: Pain MILD(1-3)/Fever >100.5/HODGES Bisacodyl (Dulcolax) 10 mg MI QDAY PRN PRN Reason: Constipation unrelieved by MOM Folic Acid (Folvite) 0.5 mg PO QDAY RONY Hydromorphone HCl (Dilaudid) 2 mg PO Q6HR PRN PRN Reason: Pain Sodium Chloride (Nacl 0.9% 1000 Ml) 1,000 mls @ 150 mls/hr IV DIRECT RONY Sodium Chloride (Nacl 0.9% 1000 Ml) 2,000 mls @ 0 mls/hr IV ONCE ONE PRN Reason: As Directed Stop: 01/11/17 11:52 Magnesium Hydroxide (Milk Of Magnesia) 30 ml PO Q4H PRN PRN Reason: Constipation Miscellaneous Medication (Elviteg/Celia/Emtric/Tenofo Ala [Genvoya Tablet]) 1 each PO QDAY RONY Ondansetron HCl (Zofran) 4 mg IV Q8H PRN PRN Reason: N/V unrelieved by Reglan Tbo-Filgrastim (Granix) 480 mcg SUB-Q DAILY RONY Warfarin Sodium (Coumadin) 5 mg PO DAILY@1700 RONY PRN Reason: Protocol Review of Systems Constitutional: chronic pain Exam - Constitutional General appearance: Present: no acute distress, well-nourished - EENT Eyes: Present: PERRL ENT: hearing intact, clear oral mucosa - Neck Neck: Present: supple, normal ROM - Respiratory Respiratory effort: normal Respiratory: bilateral: CTA - Cardiovascular Heart Sounds: Present: S1 & S2. Absent: rub, click - Extremities Extremities: pulses symmetrical, No edema Peripheral Pulses: within normal limits - Abdominal General gastrointestinal: Present: soft, non-tender, non-distended, normal bowel sounds Male genitourinary: Present: normal - Integumentary Integumentary: Present: clear, warm, dry - Musculoskeletal Musculoskeletal: gait normal, strength equal bilaterally - Psychiatric Psychiatric: appropriate mood/affect, intact judgment & insight - Neurologic Neurologic: CNII-XII intact, moves all extremities Results - Labs CBC & Chem 7: 01/12/17 01:15 01/12/17 01:15 Assessment and Plan - Patient Problems (1) Sickle cell pain crisis Current Visit: No Status: Acute Plan to address problem: IVF, Pain control, retic count, Hematology team consulted, supportive care. (2) Sickle cell anemia Current Visit: Yes Status: Acute Qualifiers: Sickle-cell associated disorders: S Plan to address problem: supportive care, no transfusion at this time. Hematology consulted. (3) Hx of pulmonary embolus Current Visit: No Status: Chronic Plan to address problem: resume anticoagulation, (4) DVT prophylaxis Current Visit: Yes Status: Acute
[2017-01-11] MEDS ORDERED: NACL 0.9% 1000 ML 2,000 ML IV ONE (13:00)
[2017-01-11 13:12] LABS: Hematocrit 32.7 % (35.5-45.6); Hemoglobin 10.2 gm/dl (11.8-15.2); Mean Corpuscular HGB Conc 31 % (32-34); Platelet Count 247 K/mm3 (140-440); Red Blood Count 4.78 M/mm3 (3.65-5.03); Red Cell Distribution Width 18.4 % (13.2-15.2); Reticulocyte % 0.37 % (0.78-2.58); White Blood Count 2.4 K/mm3 (4.5-11.0)
[2017-01-11 13:15] LABS: Mean Corpuscular Hemoglobin 21 pg (28-32); Mean Corpuscular Volume 69 fl (84-94)
[2017-01-11 13:19] LABS: INR 2.58 (0.87-1.13)
--- NOTE | 2017-01-11 13:23 | Admit Criteria Form ---
Admission Criteria Documentation: SICKLE CELL DISEASE Clinical Indications for Admission to Inpatient Care (Place 'X' for any and all applicable criteria): Admission is indicated for ANY ONE of the following(1)(2)(3)(4)(5): [X ]I. Inpatient admission required rather than observation care because of ANY ONE of the following: [ ]a) Altered mental status [ ]b) High fever or infection requiring inpatient admission as indicated by ANY ONE of the following: [ ]A. Appropriate outpatient observation care antimicrobial treatment unavailable, not effective, or not appropriate for infection [ ]B. Documented bacteremia [ ]C. Temp >104.9F (40.5C) (oral) [ ]D. Temp >103.1F (oral) or <96.8F(rectal) that does not respond to all emergency treatment measures [ ]c) Supplemental O2 or respiratory therapy for over 24 h that are performable only in acute inpatient setting [X ]d) Continuous parenteral narcotics other major pain intervention for >24 h performable only in acute inpatient setting. [ ]e) Exchange transfusion [ ]f) Other condition, treatment or monitoring requiring inpatient admission [ ]II. Acute chest syndrome indicated by ALL of the following (10): [ ]a) New alveolar infiltrate involving at least one lung segment [ ]b) Associated pulmonary symptoms or findings as indicated by ANY ONE of the following: [ ]i) Chest pain [ ]ii) Hypoxemia [ ]iii) Tachypnea/dyspnea [ ]iv) Wheezing [ ]v) Cough [ ]vi) Sputum production [ ]III. Significant hypoxemia or acidosis (more severe than baseline) [ ]IV. Emergent surgery needed (eg, acute cholecystitis) [ ]V. -related complication(11) [ ]. Splenic or hepatic sequestration(12) [ ]VII. Aplastic crisis [ ]VIII. Priapism or other vascular complication(13) [ ]IX. Traumatic hyphema [A](14) [ ]X. Underlying condition requiring hospitalization (eg, osteomyelitis) [ ]XI. Signs or symptoms of central nervous system injury indicated by ANY ONE of the following: [ ]a) Stroke(9) [ ]b) Seizure [ ]c) Other significant central nervous system symptom or event [ ]XII. Acute renal failure Extended stay beyond goal length of stay may be needed for: [ ]a) Inadequate pain control [ ]b) Acute chest syndrome [ ]c) Sequestration or aplastic crisis (12) [ ]d) Pneumonia and asthma exacerbation [ ]e) Neurologic or vascular complications (25) [ ]f) Infection (eg, osteomyelitis) that requires ongoing treatment) The original [facility] [employer] content created by [facility] has been revised. The portions of the content which have been revised are identified through the use of italic text or in bold, and [facility] has neither reviewed nor approved the modified material. All other unmodified content is copyright [facility]. Please see references footnoted in the original [email or web address] edition 2016 Admission Criteria Met: Yes
[2017-01-11 13:30] LABS: Alanine Aminotransferase 18 units/L (7-56); Albumin 3.9 g/dL (3.9-5); Albumin/Globulin Ratio 0.8 %; Alkaline Phosphatase 58 units/L (35-129); Anion Gap 18 mmol/L; BUN/Creatinine Ratio 18.75; Bilirubin,Total 0.4 mg/dL (0.1-1.2); Blood Urea Nitrogen 15 mg/dL (9-20); Calcium 8.8 mg/dL (8.4-10.2); Carbon Dioxide 18 mmol/L (22-30); Chloride 102.8 mmol/L (98-107); Glucose 83 mg/dL (75-100); Potassium 4.3 mmol/L (3.6-5.0); Sodium 134 mmol/L (137-145); Total Protein 8.7 g/dL (6.3-8.2)
--- NOTE | 2017-01-11 14:09 | XRay Report ---
AP CHEST: HISTORY: Difficulty breathing AP view of the chest demonstrates a normal mediastinal and cardiac contour with clear lungs and normal bony and soft tissue structures. The right [id number] is unchanged since 12/17/16. IMPRESSION: Unremarkable AP chest.
[2017-01-11] MEDS: NACL 0.9% 1000 ML 1,000 ML IV SCH ×2 (14:10→19:46)
[2017-01-11] MEDS: DILAUDID IV PRN ×3 (14:16→22:27)
[2017-01-11] MEDS: BENADRYL IV PRN ×2 (14:21→22:27)
[2017-01-11 14:43] LABS: Blastocytes % (Manual) 0 %
[2017-01-11 14:44] LABS: Basophils % (Manual) 0 % (0.0-1.8); Eosinophils % (Manual) 0 % (0.0-4.3)
[2017-01-11 14:45] LABS: Anisocytosis 1+; Microcytosis 1+
[2017-01-11 14:46] LABS: Diff Status Complete; Poikilocytosis Few
[2017-01-11] MEDS ORDERED: COUMADIN PO SCH (17:00)
[2017-01-11] MEDS: COUMADIN PO SCH (18:04)
--- NOTE | 2017-01-11 23:54 | Consultation ---
History of Present Illness - Reason for Consult Consult date: 01/11/17 SCD/anemia. Requesting physician: LUIS GIVENS - History of Present Illness Patient seen /examined, record reviewed, case d/w patient.Admitted for sxs control. Thank you for the consult. Patient well known to me . Medications and Allergies Allergies Allergy/AdvReac Type Severity Reaction Status Date / Time morphine Allergy Anaphylaxis Verified 11/18/16 08:15 Iodinated Contrast Media - AdvReac Unknown Verified 11/18/16 08:15 IV Dye sulfamethoxazole AdvReac Unknown Verified 11/18/16 08:15 [From Bactrim] trimethoprim [From Bactrim] AdvReac Unknown Verified 11/18/16 08:15 PLASTIC TAPE Allergy Rash Uncoded 11/18/16 08:15 Home Medications Medication Instructions Recorded Confirmed Last Taken Type Elviteg/Celia/Emtric/Tenofo Ala 1 each PO QDAY 12/01/16 Unknown Rx [Genvoya Tablet] Folic Acid [Folvite] 0.5 mg PO QDAY tablet 12/01/16 Unknown Rx HYDROmorphone [Dilaudid] 2 mg PO Q6HR PRN #30 tablet 12/01/16 Unknown Rx Ketoconazole 2% [Nizoral] 1 applic TP BID tube 12/01/16 Unknown Rx Levofloxacin [Levaquin TAB] 500 mg PO QDAY #10 tablet 12/01/16 Unknown Rx Tbo-Filgrastim [Granix] 480 mcg SUB-Q DAILY syringe 12/01/16 Unknown Rx Warfarin [Coumadin] 5 mg PO DAILY@1700 #30 tablet 12/01/16 Unknown Rx Active Meds: Active Medications Acetaminophen (Tylenol) 650 mg PO Q4H PRN PRN Reason: Pain MILD(1-3)/Fever >100.5/HODGES Bisacodyl (Dulcolax) 10 mg [place] QDAY PRN PRN Reason: Constipation unrelieved by MOM Diphenhydramine HCl (Benadryl) 12.5 mg IV Q4H PRN PRN Reason: Itching Last Admin: 01/11/17 22:27 Dose: 12.5 mg Folic Acid (Folvite) 0.5 mg PO QDAY [facility] Hydromorphone HCl (Dilaudid) 2 mg IV Q4H PRN PRN Reason: Pain , Severe (7-10) Last Admin: 01/11/17 22:27 Dose: 2 mg Sodium Chloride (Nacl 0.9% 1000 Ml) 1,000 mls @ 150 mls/hr IV DIRECT [facility] Last Admin: 01/11/17 19:46 Dose: 150 mls/hr Magnesium Hydroxide (Milk Of Magnesia) 30 ml PO Q4H PRN PRN Reason: Constipation Miscellaneous Medication (Elviteg/Celia/Emtric/Tenofo Ala [Genvoya Tablet]) 1 each PO QDAY [facility] Ondansetron HCl (Zofran) 4 mg IV Q8H PRN PRN Reason: N/V unrelieved by Reglan Tbo-Filgrastim (Granix) 480 mcg SUB-Q DAILY [facility] Warfarin Sodium (Coumadin) 5 mg PO DAILY@1700 [facility] Last Admin: 01/11/17 18:04 Dose: 5 mg Warfarin Sodium (Coumadin Pharmacy To Dose) 1 each PO PKCONSULT [facility] Review of Systems Constitutional: fatigue, chronic pain Exam - Constitutional Vitals: Temp Pulse Resp BP Pulse Ox 98.7 F 65 16 132/74 97 01/11/17 20:00 01/11/17 22:00 01/11/17 22:00 01/11/17 20:00 01/11/17 20:00 General appearance: Present: mild distress, well-nourished - EENT Eyes: Present: PERRL ENT: hearing intact, clear oral mucosa - Neck Neck: Present: supple, normal ROM - Respiratory Respiratory effort: normal Respiratory: bilateral: CTA - Cardiovascular Heart Sounds: Present: S1 & S2. Absent: rub, click - Extremities Extremities: pulses symmetrical, No edema Peripheral Pulses: within normal limits - Abdominal General gastrointestinal: Present: soft, non-tender, non-distended, normal bowel sounds Male genitourinary: Present: deferred - Rectal Rectal Exam: deferred - Integumentary Integumentary: Present: clear, warm, dry - Musculoskeletal Musculoskeletal: gait normal, strength equal bilaterally - Psychiatric Psychiatric: appropriate mood/affect, intact judgment & insight - Neurologic Neurologic: CNII-XII intact, moves all extremities Results - Labs CBC & Chem 7: 01/11/17 12:46 01/11/17 12:46 Labs: Abnormal lab results 01/11/17 01/11/1717 Range/Units 12:46 12:46 12:46 WBC 2.4 L (4.5-11.0) K/mm3 Hgb 10.2 L (11.8-15.2) gm/dl Hct 32.7 L (35.5-45.6) % MCV 69 L (84-94) fl MCH 21 L (28-32) pg MCHC 31 L (32-34) % RDW 18.4 H (13.2-15.2) % Lymphocytes % (Manual) 45.0 H (13.4-35.0) % Monocytes % (Manual) 11.0 H (0.0-7.3) % Seg Neutrophils # Man 1.0 L (1.8-7.7) K/mm3 Lymphocytes # (Manual) 1.1 L (1.2-5.4) K/mm3 Percent Retic 0.37 L (0.78-2.58) % PT 27.8 H (12.2-14.9) Sec. INR 2.58 H (0.87-1.13) Sodium 134 L (137-145) mmol/L Carbon Dioxide 18 L (22-30) mmol/L Total Protein 8.7 H (6.3-8.2) g/dL Assessment and Plan - Patient Problems (1) Anemia Current Visit: No Status: Acute Qualifiers: Anemia type: A Iron deficiency anemia type: I Vitamin B12 deficiency anemia type: V Folate deficiency anemia type: F Bone marrow failure anemia type: B Hemolytic anemia type: H Other causes of anemia: O Plan to address problem: Monitor and adjust labs. (2) Leukopenia Current Visit: Yes Status: Acute Qualifiers: Leukopenia type: L Neutropenia type: N Plan to address problem: monitor labs. (3) Sickle cell anemia Current Visit: Yes Status: Acute Qualifiers: Sickle-cell associated disorders: S Plan to address problem: Pain control, hydration, labs.
[2017-01-12 01:39] LABS: Eosinophils % (Auto) 1.4 % (0.0-4.3); Hematocrit 29.8 % (35.5-45.6); Hemoglobin 9.5 gm/dl (11.8-15.2); Mean Corpuscular HGB Conc 32 % (32-34); Mean Corpuscular Hemoglobin 22 pg (28-32); Mean Corpuscular Volume 69 fl (84-94); Platelet Count 218 K/mm3 (140-440); Red Blood Count 4.36 M/mm3 (3.65-5.03); Red Cell Distribution Width 18.7 % (13.2-15.2); Reticulocyte % 0.35 % (0.78-2.58); White Blood Count 2.5 K/mm3 (4.5-11.0)
[2017-01-12 02:02] LABS: Anion Gap 17 mmol/L; BUN/Creatinine Ratio 17.14; Blood Urea Nitrogen 12 mg/dL (9-20); Carbon Dioxide 19 mmol/L (22-30); Chloride 103.6 mmol/L (98-107); Glucose 107 mg/dL (75-100); Potassium 3.6 mmol/L (3.6-5.0); Sodium 136 mmol/L (137-145)
[2017-01-12] MEDS: NACL 0.9% 1000 ML 1,000 ML IV SCH ×4 (02:34→22:03)
[2017-01-12] MEDS: BENADRYL IV PRN ×5 (02:37→20:22)
[2017-01-12] MEDS: DILAUDID IV PRN ×5 (02:37→20:21)
[2017-01-12 05:51] LABS: INR 2.69 (0.87-1.13)
[2017-01-12] MEDS: FOLVITE PO SCH (09:08)
[2017-01-12] MEDS ORDERED: [UNRECOGNIZED DRUG - OTHER] PO SCH (10:00)
[2017-01-12] MEDS: GRANIX SUB-Q SCH (12:21)
--- NOTE | 2017-01-12 13:40 | Progress Note ---
Assessment and Plan Assessment and plan: 36 YO Male with SSD, HIV, DVT/PE was directly admitted at the request of Dr. Steward for SSD with Pain crisis. Pt states that he has been experiencing pain all over his body for the past several days without relief of symptoms. Pt denies fever, chills, CP, Palpitations, NVD, hemoptysis, difficulty breathing, syncope, BRBPR, recent ill contacts. 1. Sickle cell with vaso-occlusive crisis Continue pain meds, continue supportive care and hydration Obtain infectious workup to rule out infectious etiology 2. History of pulmonary embolism Continue anticoagulation 3. 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 Plan transfuse to keep hemoglobin above 7 Hospitalist Physical - Constitutional Vitals: Temp Pulse Resp BP Pulse Ox 98.7 F 67 18 114/63 98 01/12/17 07:00 01/12/17 07:00 01/12/17 07:00 01/12/17 07:00 01/12/17 08:53 General appearance: Present: no acute distress, well-nourished Results - Labs CBC & Chem 7: 01/12/17 01:15 01/12/17 01:15 Labs: Laboratory Last Values WBC 2.5 K/mm3 (4.5-11.0) L 01/12/17 01:15 RBC 4.36 M/mm3 (3.65-5.03) 01/12/17 01:15 Hgb 9.5 gm/dl (11.8-15.2) L 01/12/17 01:15 Hct 29.8 % (35.5-45.6) L 01/12/17 01:15 MCV 69 fl (84-94) L 01/12/17 01:15 MCH 22 pg (28-32) L 01/12/17 01:15 MCHC 32 % (32-34) 01/12/17 01:15 RDW 18.7 % (13.2-15.2) H 01/12/17 01:15 Plt Count 218 K/mm3 (140-440) 01/12/17 01:15 Lymph % (Auto) 43.5 % (13.4-35.0) H 01/12/17 01:15 [place] % (Auto) 13.7 % (0.0-7.3) H 01/12/17 01:15 Eos % (Auto) 1.4 % (0.0-4.3) 01/12/17 01:15 Baso % (Auto) 1.0 % (0.0-1.8) 01/12/17 01:15 Lymph # 1.1 K/mm3 (1.2-5.4) L 01/12/17 01:15 [place] # 0.3 K/mm3 (0.0-0.8) 01/12/17 01:15 Eos # 0.0 K/mm3 (0.0-0.4) 01/12/17 01:15 Baso # 0.0 K/mm3 (0.0-0.1) 01/12/17 01:15 Add Manual Diff Complete 01/11/17 12:46 Total Counted 100 01/11/17 12:46 Seg Neutrophils % 40.4 % (40.0-70.0) 01/12/17 01:15 Seg Neuts % (Manual) 41.0 % (40.0-70.0) 01/11/17 12:46 Band Neutrophils % 1.0 % 01/11/17 12:46 Lymphocytes % (Manual) 45.0 % (13.4-35.0) H 01/11/17 12:46 Reactive Lymphs % (Man) 2.0 % 01/11/17 12:46 Monocytes % (Manual) 11.0 % (0.0-7.3) H 01/11/17 12:46 Eosinophils % (Manual) 0 % (0.0-4.3) 01/11/17 12:46 Basophils % (Manual) 0 % (0.0-1.8) 01/11/17 12:46 Metamyelocytes % 0 % 01/11/17 12:46 Myelocytes % 0 % 01/11/17 12:46 Promyelocytes % 0 % 01/11/17 12:46 Blast Cells % 0 % 01/11/17 12:46 Nucleated RBC % Not Reportable 01/11/17 12:46 Seg Neutrophils # 1.0 K/mm3 (1.8-7.7) L 01/12/17 01:15 Seg Neutrophils # Man 1.0 K/mm3 (1.8-7.7) L 01/11/17 12:46 Band Neutrophils # 0.0 K/mm3 01/11/17 12:46 Lymphocytes # (Manual) 1.1 K/mm3 (1.2-5.4) L 01/11/17 12:46 Abs React Lymphs (Man) 0.0 K/mm3 01/11/17 12:46 Monocytes # (Manual) 0.3 K/mm3 (0.0-0.8) 01/11/17 12:46 Eosinophils # (Manual) 0.0 K/mm3 (0.0-0.4) 01/11/17 12:46 Basophils # (Manual) 0.0 K/mm3 (0.0-0.1) 01/11/17 12:46 Metamyelocytes # 0.0 K/mm3 01/11/17 12:46 Myelocytes # 0.0 K/mm3 01/11/17 12:46 Promyelocytes # 0.0 K/mm3 01/11/17 12:46 Blast Cells # 0.0 K/mm3 01/11/17 12:46 WBC Morphology Not Reportable 01/11/17 12:46 Hypersegmented Neuts Not Reportable 01/11/17 12:46 Hyposegmented Neuts Not Reportable 01/11/17 12:46 Hypogranular Neuts Not Reportable 01/11/17 12:46 Smudge Cells Not Reportable 01/11/17 12:46 Toxic Granulation Not Reportable 01/11/17 12:46 Toxic Vacuolation Not Reportable 01/11/17 12:46 Dohle Bodies Not Reportable 01/11/17 12:46 Pelger-Huet Anomaly Not Reportable 01/11/17 12:46 Raheem Rods Not Reportable 01/11/17 12:46 Platelet Estimate Not Reportable 01/11/17 12:46 Clumped Platelets Not Reportable 01/11/17 12:46 Plt Clumps, EDTA Not Reportable 01/11/17 12:46 Large Platelets Not Reportable 01/11/17 12:46 Giant Platelets Not Reportable 01/11/17 12:46 Platelet Satelliting Not Reportable 01/11/17 12:46 Plt Morphology Comment Not Reportable 01/11/17 12:46 RBC Morphology Not Reportable 01/11/17 12:46 Dimorphic RBCs Not Reportable 01/11/17 12:46 Polychromasia Not Reportable 01/11/17 12:46 Hypochromasia Not Reportable 01/11/17 12:46 Poikilocytosis Few 01/11/17 12:46 Anisocytosis 1+ 01/11/17 12:46 Microcytosis 1+ 01/11/17 12:46 Macrocytosis Not Reportable 01/11/17 12:46 Spherocytes Not Reportable 01/11/17 12:46 Pappenheimer Bodies Not Reportable 01/11/17 12:46 Sickle Cells Not Reportable 01/11/17 12:46 Target Cells Not Reportable 01/11/17 12:46 Tear Drop Cells Not Reportable 01/11/17 12:46 Ovalocytes Not Reportable 01/11/17 12:46 Helmet Cells Not Reportable 01/11/17 12:46 [place] Bodies Not Reportable 01/11/17 12:46 [place] Rings Not Reportable 01/11/17 12:46 [place] Cells Not Reportable 01/11/17 12:46 Bite Cells Not Reportable 01/11/17 12:46 Crenated Cell Not Reportable 01/11/17 12:46 Elliptocytes Not Reportable 01/11/17 12:46 Acanthocytes (Spur) Not Reportable 01/11/17 12:46 Rouleaux Not Reportable 01/11/17 12:46 Hemoglobin C Crystals Not Reportable 01/11/17 12:46 Schistocytes Not Reportable 01/11/17 12:46 Malaria parasites Not Reportable 01/11/17 12:46 Percent Retic 0.35 % (0.78-2.58) L 01/12/17 01:15 [place] Bodies Not Reportable 01/11/17 12:46 Hem Pathologist Commnt No 01/11/17 12:46 PT 28.7 Sec. (12.2-14.9) H 01/12/17 04:58 INR 2.69 (0.87-1.13) H 01/12/17 04:58 Sodium 136 mmol/L (137-145) L 01/12/17 01:15 Potassium 3.6 mmol/L (3.6-5.0) 01/12/17 01:15 Chloride 103.6 mmol/L (98-107) 01/12/17 01:15 Carbon Dioxide 19 mmol/L (22-30) L 01/12/17 01:15 Anion Gap 17 mmol/L 01/12/17 01:15 BUN 12 mg/dL (9-20) 01/12/17 01:15 Creatinine 0.7 mg/dL (0.8-1.5) L 01/12/17 01:15 Estimated GFR > 60 ml/min 01/12/17 01:15 BUN/Creatinine Ratio 17.14 % 01/12/17 01:15 Glucose 107 mg/dL (75-100) H 01/12/17 01:15 Calcium 8.0 mg/dL (8.4-10.2) L 01/12/17 01:15 Total Bilirubin 0.4 mg/dL (0.1-1.2) 01/11/17 12:46 AST 18 units/L (5-40) 01/11/17 12:46 ALT 18 units/L (7-56) 01/11/17 12:46 Alkaline Phosphatase 58 units/L (35-129) 01/11/17 12:46 Total Protein 8.7 g/dL (6.3-8.2) H 01/11/17 12:46 Albumin 3.9 g/dL (3.9-5) 01/11/17 12:46 Albumin/Globulin Ratio 0.8 % 01/11/17 12:46
[2017-01-12] MEDS: COUMADIN PO SCH (17:00)
--- NOTE | 2017-01-12 17:38 | Consultation ---
History of Present Illness - Reason for Consult Consult date: 01/12/17 - History of Present Illness Patient seen/examined. labs reviewed, case d/w patient, no new issues. Wbc 2.4, will monitor, and intervene at the proper time. Past History Past Medical History: anemia, HIV/AIDS Past Surgical History: appendectomy, cholecystectomy, Other (Port placement, splenectomy) Social history: single. denies: smoking, alcohol abuse Family history: other (SSD, HTN) Medications and Allergies Allergies Allergy/AdvReac Type Severity Reaction Status Date / Time morphine Allergy Anaphylaxis Verified 11/18/16 08:15 Iodinated Contrast Media - AdvReac Unknown Verified 11/18/16 08:15 IV Dye sulfamethoxazole AdvReac Unknown Verified 11/18/16 08:15 [From Bactrim] trimethoprim [From Bactrim] AdvReac Unknown Verified 11/18/16 08:15 PLASTIC TAPE Allergy Rash Uncoded 11/18/16 08:15 Home Medications Medication Instructions Recorded Confirmed Last Taken Type Elviteg/Celia/Emtric/Tenofo Ala 1 each PO QDAY 12/01/16 Unknown Rx [Genvoya Tablet] Folic Acid [Folvite] 0.5 mg PO QDAY tablet 12/01/16 Unknown Rx HYDROmorphone [Dilaudid] 2 mg PO Q6HR PRN #30 tablet 12/01/16 Unknown Rx Ketoconazole 2% [Nizoral] 1 applic TP BID tube 12/01/16 Unknown Rx Levofloxacin [Levaquin TAB] 500 mg PO QDAY #10 tablet 12/01/16 Unknown Rx Tbo-Filgrastim [Granix] 480 mcg SUB-Q DAILY syringe 12/01/16 Unknown Rx Warfarin [Coumadin] 5 mg PO DAILY@1700 #30 tablet 12/01/16 Unknown Rx Active Meds: Active Medications Acetaminophen (Tylenol) 650 mg PO Q4H PRN PRN Reason: Pain MILD(1-3)/Fever >100.5/HODGES Bisacodyl (Dulcolax) 10 mg [place] QDAY PRN PRN Reason: Constipation unrelieved by MOM Diphenhydramine HCl (Benadryl) 12.5 mg IV Q4H PRN PRN Reason: Itching Last Admin: 01/12/17 15:32 Dose: 12.5 mg Folic Acid (Folvite) 0.5 mg PO QDAY [facility] Last Admin: 01/12/17 09:08 Dose: 0.5 mg Hydromorphone HCl (Dilaudid) 2 mg IV Q4H PRN PRN Reason: Pain , Severe (7-10) Last Admin: 01/12/17 15:32 Dose: 2 mg Sodium Chloride (Nacl 0.9% 1000 Ml) 1,000 mls @ 150 mls/hr IV DIRECT [facility] Last Admin: 01/12/17 15:31 Dose: 150 mls/hr Magnesium Hydroxide (Milk Of Magnesia) 30 ml PO Q4H PRN PRN Reason: Constipation Miscellaneous Medication (Elviteg/Celia/Emtric/Tenofo Ala [Genvoya Tablet]) 1 each PO QDAY [facility] Ondansetron HCl (Zofran) 4 mg IV Q8H PRN PRN Reason: N/V unrelieved by Reglan Tbo-Filgrastim (Granix) 480 mcg SUB-Q DAILY [facility] Last Admin: 01/12/17 12:21 Dose: 480 mcg Warfarin Sodium (Coumadin) 5 mg PO DAILY@1700 [facility] Last Admin: 01/12/17 17:00 Dose: 5 mg Warfarin Sodium (Coumadin Pharmacy To Dose) 1 each PO PKCONSULT [facility] Review of Systems Constitutional: chronic pain Musculoskeletal: low back pain Exam - Constitutional Vitals: Temp Pulse Resp BP Pulse Ox 97.7 F 77 18 131/93 100 01/12/17 16:25 01/12/17 16:25 01/12/17 16:25 01/12/17 16:25 01/12/17 16:25 General appearance: Present: mild distress, well-nourished - EENT Eyes: Present: PERRL ENT: hearing intact, clear oral mucosa - Neck Neck: Present: supple, normal ROM - Respiratory Respiratory effort: normal Respiratory: bilateral: CTA - Cardiovascular Heart Sounds: Present: S1 & S2. Absent: rub, click - Extremities Extremities: pulses symmetrical, No edema Peripheral Pulses: within normal limits - Abdominal General gastrointestinal: Present: soft, non-tender, non-distended, normal bowel sounds Male genitourinary: Present: deferred - Rectal Rectal Exam: deferred - Integumentary Integumentary: Present: clear, warm, dry - Musculoskeletal Musculoskeletal: gait normal, strength equal bilaterally - Psychiatric Psychiatric: appropriate mood/affect, intact judgment & insight - Neurologic Neurologic: CNII-XII intact, moves all extremities Results - Labs CBC & Chem 7: 01/12/17 01:15 01/12/17 01:15 Labs: Abnormal lab results 01/12/17 01/12/17 01/12/17 Range/Units 01:15 01:15 04:58 WBC 2.5 L (4.5-11.0) K/mm3 Hgb 9.5 L (11.8-15.2) gm/dl Hct 29.8 L (35.5-45.6) % MCV 69 L (84-94) fl MCH 22 L (28-32) pg RDW 18.7 H (13.2-15.2) % Lymph % (Auto) 43.5 H (13.4-35.0) % [place] % (Auto) 13.7 H (0.0-7.3) % Lymph # 1.1 L (1.2-5.4) K/mm3 Seg Neutrophils # 1.0 L (1.8-7.7) K/mm3 Percent Retic 0.35 L (0.78-2.58) % PT 28.7 H (12.2-14.9) Sec. INR 2.69 H (0.87-1.13) Sodium 136 L (137-145) mmol/L Carbon Dioxide 19 L (22-30) mmol/L Creatinine 0.7 L (0.8-1.5) mg/dL Glucose 107 H (75-100) mg/dL Calcium 8.0 L (8.4-10.2) mg/dL Assessment and Plan - Patient Problems (1) Anemia Current Visit: No Status: Acute Qualifiers: Anemia type: A Iron deficiency anemia type: I Vitamin B12 deficiency anemia type: V Folate deficiency anemia type: F Bone marrow failure anemia type: B Hemolytic anemia type: H Other causes of anemia: O Plan to address problem: Monitor and adjust labs. (2) Leukopenia Current Visit: Yes Status: Acute Qualifiers: Leukopenia type: L Neutropenia type: N Plan to address problem: monitor labs. (3) Sickle cell anemia Current Visit: Yes Status: Acute Qualifiers: Sickle-cell associated disorders: S Plan to address problem: Pain control, hydration, labs.
[2017-01-12 19:10] LABS: Bilirubin,Urine NEG (Negative); Blood,Urine NEG (Negative); Ketones,Urine NEG (Negative); Leukocyte Esterase,Urine NEG (Negative); Mucus,Urine FEW /HPF; Nitrite,Urine NEG (Negative); Protein,Urine <15 mg/dL mg/dL (Negative); RBC,Urine < 1.0 /HPF (0.0-6.0); Urobilinogen,Urine < 2.0 mg/dL (<2.0); WBC,Urine < 1.0 /HPF (0.0-6.0)
[2017-01-13] MEDS: DILAUDID IV PRN ×5 (00:27→17:00)
[2017-01-13] MEDS: BENADRYL IV PRN ×5 (00:28→16:59)
[2017-01-13 04:57] LABS: Basophils % (Auto) 0.2 % (0.0-1.8); Eosinophils % (Auto) 1.5 % (0.0-4.3); Mean Corpuscular HGB Conc 30 % (32-34); Mean Corpuscular Volume 71 fl (84-94); Platelet Count 221 K/mm3 (140-440); Red Blood Count 4.53 M/mm3 (3.65-5.03); Red Cell Distribution Width 18.5 % (13.2-15.2); Reticulocyte % 0.47 % (0.78-2.58); White Blood Count 15.9 K/mm3 (4.5-11.0)
[2017-01-13] MEDS: NACL 0.9% 1000 ML 1,000 ML IV SCH ×2 (05:08→13:04)
[2017-01-13 05:14] LABS: Hemoglobin 9.5 gm/dl (11.8-15.2); Mean Corpuscular Hemoglobin 21 pg (28-32)
[2017-01-13 05:15] LABS: Anion Gap 16 mmol/L; BUN/Creatinine Ratio 8.57; Blood Urea Nitrogen 6 mg/dL (9-20); Calcium 8.7 mg/dL (8.4-10.2); Carbon Dioxide 24 mmol/L (22-30); Glucose 88 mg/dL (75-100); Potassium 4.2 mmol/L (3.6-5.0); Sodium 140 mmol/L (137-145)
[2017-01-13 05:33] LABS: INR 3.59 (0.87-1.13)
[2017-01-13] MEDS: FOLVITE PO SCH (09:07)
[2017-01-13 09:15] VITALS: BP 130/76
--- NOTE | 2017-01-13 11:01 | Consultation ---
History of Present Illness - Reason for Consult Consult date: 01/13/17 - History of Present Illness Patient seen/examined, labs reviewed, case d/w patient.Disposition as per you. Past History Past Medical History: anemia, HIV/AIDS Past Surgical History: appendectomy, cholecystectomy, Other (Port placement, splenectomy) Social history: single. denies: smoking, alcohol abuse Family history: other (SSD, HTN) Medications and Allergies Allergies Allergy/AdvReac Type Severity Reaction Status Date / Time morphine Allergy Anaphylaxis Verified 11/18/16 08:15 Iodinated Contrast Media - AdvReac Unknown Verified 11/18/16 08:15 IV Dye sulfamethoxazole AdvReac Unknown Verified 11/18/16 08:15 [From Bactrim] trimethoprim [From Bactrim] AdvReac Unknown Verified 11/18/16 08:15 PLASTIC TAPE Allergy Rash Uncoded 11/18/16 08:15 Home Medications Medication Instructions Recorded Confirmed Last Taken Type Elviteg/Celia/Emtric/Tenofo Ala 1 each PO QDAY 12/01/16 Unknown Rx [Genvoya Tablet] Folic Acid [Folvite] 0.5 mg PO QDAY tablet 12/01/16 Unknown Rx HYDROmorphone [Dilaudid] 2 mg PO Q6HR PRN #30 tablet 12/01/16 Unknown Rx Ketoconazole 2% [Nizoral] 1 applic TP BID tube 12/01/16 Unknown Rx Levofloxacin [Levaquin TAB] 500 mg PO QDAY #10 tablet 12/01/16 Unknown Rx Tbo-Filgrastim [Granix] 480 mcg SUB-Q DAILY syringe 12/01/16 Unknown Rx Warfarin [Coumadin] 5 mg PO DAILY@1700 #30 tablet 12/01/16 Unknown Rx Active Meds: Active Medications Acetaminophen (Tylenol) 650 mg PO Q4H PRN PRN Reason: Pain MILD(1-3)/Fever >100.5/HODGES Bisacodyl (Dulcolax) 10 mg [place] QDAY PRN PRN Reason: Constipation unrelieved by MOM Diphenhydramine HCl (Benadryl) 12.5 mg IV Q4H PRN PRN Reason: Itching Last Admin: 01/13/17 09:07 Dose: 12.5 mg Folic Acid (Folvite) 0.5 mg PO QDAY [facility] Last Admin: 01/13/17 09:07 Dose: 0.5 mg Hydromorphone HCl (Dilaudid) 2 mg IV Q4H PRN PRN Reason: Pain , Severe (7-10) Last Admin: 01/13/17 09:07 Dose: 2 mg Sodium Chloride (Nacl 0.9% 1000 Ml) 1,000 mls @ 150 mls/hr IV DIRECT [facility] Last Admin: 01/13/17 05:08 Dose: 150 mls/hr Magnesium Hydroxide (Milk Of Magnesia) 30 ml PO Q4H PRN PRN Reason: Constipation Miscellaneous Medication (Elviteg/Celia/Emtric/Tenofo Ala [Genvoya Tablet]) 1 each PO QDAY [facility] Ondansetron HCl (Zofran) 4 mg IV Q8H PRN PRN Reason: N/V unrelieved by Reglan Tbo-Filgrastim (Granix) 480 mcg SUB-Q DAILY [facility] Last Admin: 01/12/17 12:21 Dose: 480 mcg Warfarin Sodium (Coumadin) 5 mg PO DAILY@1700 [facility] Last Admin: 01/12/17 17:00 Dose: 5 mg Warfarin Sodium (Coumadin Pharmacy To Dose) 1 each PO PKCONSULT [facility] Review of Systems Constitutional: chronic pain Musculoskeletal: low back pain Exam - Constitutional Vitals: Temp Pulse Resp BP Pulse Ox 99.0 F 76 16 130/76 99 01/13/17 09:13 01/13/17 09:13 01/13/17 09:13 01/13/17 09:13 01/13/17 09:26 General appearance: Present: mild distress, well-nourished - EENT Eyes: Present: PERRL ENT: hearing intact, clear oral mucosa - Neck Neck: Present: supple, normal ROM - Respiratory Respiratory effort: normal Respiratory: bilateral: CTA - Cardiovascular Heart Sounds: Present: S1 & S2. Absent: rub, click - Extremities Extremities: pulses symmetrical, No edema Peripheral Pulses: within normal limits - Abdominal General gastrointestinal: Present: soft, non-tender, non-distended, normal bowel sounds Male genitourinary: Present: deferred - Rectal Rectal Exam: deferred - Integumentary Integumentary: Present: clear, warm, dry - Musculoskeletal Musculoskeletal: gait normal, strength equal bilaterally - Psychiatric Psychiatric: appropriate mood/affect, intact judgment & insight - Neurologic Neurologic: CNII-XII intact, moves all extremities Results - Labs CBC & Chem 7: 01/13/17 04:30 01/13/17 04:30 Labs: Abnormal lab results 01/13/17 01/13/17 01/13/17 Range/Units 04:30 04:30 05:10 WBC 15.9 H (4.5-11.0) K/mm3 Hgb 9.5 L (11.8-15.2) gm/dl Hct 32.0 L (35.5-45.6) % MCV 71 L (84-94) fl MCH 21 L (28-32) pg MCHC 30 L (32-34) % RDW 18.5 H (13.2-15.2) % Lymph % (Auto) 7.0 L (13.4-35.0) % Lymph # 1.1 L (1.2-5.4) K/mm3 Seg Neutrophils % 86.6 H (40.0-70.0) % Seg Neutrophils # 13.8 H (1.8-7.7) K/mm3 Percent Retic 0.47 L (0.78-2.58) % PT 36.1 H (12.2-14.9) Sec. INR 3.59 H (0.87-1.13) BUN 6 L (9-20) mg/dL Creatinine 0.7 L (0.8-1.5) mg/dL Assessment and Plan - Patient Problems (1) Anemia Current Visit: No Status: Acute Qualifiers: Anemia type: A Iron deficiency anemia type: I Vitamin B12 deficiency anemia type: V Folate deficiency anemia type: F Bone marrow failure anemia type: B Hemolytic anemia type: H Other causes of anemia: O Plan to address problem: Monitor and adjust labs. (2) Leukopenia Current Visit: Yes Status: Acute Qualifiers: Leukopenia type: L Neutropenia type: N Plan to address problem: monitor labs. WBC now 15,000, will stop growth factor. (3) Sickle cell anemia Current Visit: Yes Status: Acute Qualifiers: Sickle-cell associated disorders: S Plan to address problem: Pain control, hydration, labs.
[2017-01-13] MEDS: GRANIX SUB-Q SCH (17:00)
--- NOTE | 2017-01-13 17:09 | Discharge Summary ---
Providers - Providers Date of Admission: 01/11/17 12:12 Attending physician: NAVEED GUZMAN MD Primary care physician: ÁNGEL CHINCHILLA Hospitalization Hospital course: 36 YO Male with SSD, HIV, DVT/PE was directly admitted at the request of Dr. Chinchilla for SSD with Pain crisis. Pt states that he has been experiencing pain all over his body for the past several days without relief of symptoms. Pt denies fever, chills, CP, Palpitations, NVD, hemoptysis, difficulty breathing, syncope, BRBPR, recent ill contacts. 1. Sickle cell with vaso-occlusive crisis Continue pain meds, continue supportive care and hydration Obtain infectious workup to rule out infectious etiology 2. History of pulmonary embolism Continue anticoagulation 3. 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 Plan transfuse to keep hemoglobin above 7 Disposition: DISCHARGED TO HOME OR SELFCARE Time spent for discharge: 35 minutes Core Measure Documentation - Palliative Care Palliative Care/ Comfort Measures: Not Applicable - Core Measures Any of the following diagnoses?: none Exam - Constitutional Vitals: Temp Pulse Resp BP Pulse Ox 99.0 F 76 16 130/76 99 01/13/17 09:13 01/13/17 09:13 01/13/17 17:00 01/13/17 09:13 01/13/17 09:26 General appearance: Present: no acute distress, well-nourished - EENT Eyes: Present: PERRL ENT: hearing intact, clear oral mucosa - Neck Neck: Present: supple, normal ROM - Respiratory Respiratory effort: normal Respiratory: bilateral: CTA - Cardiovascular Heart Sounds: Present: S1 & S2. Absent: rub, click - Extremities Extremities: pulses symmetrical, No edema Peripheral Pulses: within normal limits - Abdominal General gastrointestinal: Present: soft, non-tender, non-distended, normal bowel sounds Male genitourinary: Present: normal - Integumentary Integumentary: Present: clear, warm, dry - Musculoskeletal Musculoskeletal: gait normal, strength equal bilaterally - Psychiatric Psychiatric: appropriate mood/affect, intact judgment & insight - Neurologic Neurologic: CNII-XII intact, moves all extremities Plan Follow up with: ÁNGEL CHINCHILLA DO [Primary Care Provider] - 7 Days Forms: Warfarin Discharge Instruction Prescriptions: HYDROmorphone [Dilaudid] 2 mg PO Q6HR PRN #30 tablet PRN Reason: Pain
[2017-01-13] MEDS ORDERED: FLUSH HEPARIN IV ONE (17:13)
== END 2017-01-13 18:15 | disposition home or self-care (01) | DRG 811 ==
LOC: UNDOADMIN 11:16 → 3A 11:16
PROVIDERS: ADMIT Internal Medicine; ATTEND Internal Medicine
DX: D57.00 Hb-SS disease with crisis, unspecified (principal); B20 Human immunodeficiency virus [HIV] disease; D72.819 Decreased white blood cell count, unspecified; Z90.49 Acquired absence of other specified parts of digestive tract; Z88.8 Allergy status to other drugs, medicaments and biological substances; Z86.711 Personal history of pulmonary embolism; Z88.6 Allergy status to analgesic agent; Z88.2 Allergy status to sulfonamides; Z91.048 Other nonmedicinal substance allergy status; Z82.49 Family history of ischemic heart disease and other diseases of the circulatory system
CPT/HCPCS: 36415; 71010; 80048; 80053; 81001; 85007; 85025; 85045; 85610; 94760; J1170; J1200; J1447; J1642; J7030

== ENCOUNTER 2017-03-02 12:45 | Emergency (ER) | payer MEDICARE ==
[2017-03-02 13:08] VITALS: BP 122/90
[2017-03-02] MEDS ORDERED: D5NS 0.2% 1,000 ML IV SCH (14:00)
== END 2017-03-02 16:00 | disposition left against medical advice (07) ==
LOC: ED 12:45
DX: R42 Dizziness and giddiness (principal); R00.2 Palpitations; M54.9 Dorsalgia, unspecified; Z53.21 Procedure and treatment not carried out due to patient leaving prior to being seen by health care provider
CPT/HCPCS: 93005; 93010

== ENCOUNTER 2017-03-07 12:09 | Emergency (ER) | payer MEDICARE ==
[2017-03-07] MEDS ORDERED: D5NS 0.2% 1,000 ML IV SCH (13:00)
[2017-03-07 21:21] VITALS: BP 120/80
[2017-03-07] MEDS ORDERED: ZOFRAN IV ONE (21:41)
[2017-03-07] MEDS ORDERED: BENADRYL IV ONE (21:41)
[2017-03-07] MEDS ORDERED: TORADOL IV ONE (21:41)
[2017-03-07] MEDS ORDERED: DILAUDID IV ONE ×2 (21:41→23:43)
[2017-03-07] MEDS ORDERED: NACL 0.9% 1000 ML 1,000 ML IV ONE (21:42)
--- NOTE | 2017-03-07 21:54 | Emergency Department Report ---
ED General Adult HPI - General Chief complaint: Sickle Cell Crisis Stated complaint: Sickle Cell Time Seen by Provider: 03/07/17 21:41 Source: patient Mode of arrival: Ambulatory Limitations: No Limitations - History of Present Illness Initial comments: Pt is a 36 yr old male with a history of sickle cell disease who presents to the ED with chest pain and back pain. Pt reports the pain started 2 days ago and has not improved despite dilaudid pills at home. Pt reports this is like his usual sickle cell crisis. Pt has had plasma exchanges and blood transfusions in the past, but does not receive them regularly. Otherwise no fevers, HODGES, dizziness,NVD, SOB, cough, sore throat, congestion, abd pain, diarrhea, travel, or sick contacts. - Related Data Previous Rx's Medication Instructions Recorded Last Taken Type Elviteg/Celia/Emtric/Tenofo Ala 1 each PO QDAY 12/01/16 Unknown Rx [Genvoya Tablet] Folic Acid [Folvite] 0.5 mg PO QDAY tablet 12/01/16 Unknown Rx Warfarin [Coumadin] 5 mg PO DAILY@1700 #30 tablet 12/01/16 Unknown Rx Oxycodone HCl/Acetaminophen 1 each PO Q6HR PRN #30 tablet 01/13/17 Unknown Rx [Percocet 10/325 mg] Allergies Allergy/AdvReac Type Severity Reaction Status Date / Time morphine Allergy Anaphylaxis Verified 11/18/16 08:15 Iodinated Contrast Media - AdvReac Unknown Verified 11/18/16 08:15 IV Dye sulfamethoxazole AdvReac Unknown Verified 11/18/16 08:15 [From Bactrim] trimethoprim [From Bactrim] AdvReac Unknown Verified 11/18/16 08:15 PLASTIC TAPE Allergy Rash Uncoded 11/18/16 08:15 ED Review of Systems ROS: Stated complaint: Sickle Cell Other details as noted in HPI Comment: All other systems reviewed and negative ED Past Medical Hx - Past Medical History Previous Medical History?: Yes Hx CVA: Yes (-2014) Hx Heart Attack/AMI: No Hx Congestive Heart Failure: No Hx Diabetes: No Hx Deep Vein Thrombosis: Yes (right arm and leg 2015) Hx Pulmonary Embolism: Yes (08/2016) Hx Liver Disease: No Hx Renal Disease: No Hx Sickle Cell Disease: Yes Hx Arthritis: No Hx Seizures: No Hx Kidney Stones: No Hx Asthma: No Hx COPD: No Hx Tuberculosis: No Hx Dementia: No Hx HIV: Yes - Surgical History Past Surgical History?: Yes Hx Cholecystectomy: Yes Hx Appendectomy: Yes Additional Surgical History: I AND D ON LEG. PORT RIGHT CHEST, port in right upper arm. Spleenectomy - Social History Smoking Status: Current Every Day Smoker Substance Use Type: Prescribed - Medications Home Medications: Home Medications Medication Instructions Recorded Confirmed Last Taken Type Elviteg/Celia/Emtric/Tenofo Ala 1 each PO QDAY 12/01/16 Unknown Rx [Genvoya Tablet] Folic Acid [Folvite] 0.5 mg PO QDAY tablet 12/01/16 Unknown Rx Warfarin [Coumadin] 5 mg PO DAILY@1700 #30 tablet 12/01/16 Unknown Rx Oxycodone HCl/Acetaminophen 1 each PO Q6HR PRN #30 tablet 01/13/17 Unknown Rx [Percocet 10/325 mg] ED Physical Exam - General Limitations: No Limitations General appearance: alert, in no apparent distress - Head Head exam: Present: atraumatic, normocephalic - Eye Eye exam: Present: normal appearance, PERRL, EOMI. Absent: scleral icterus Pupils: Present: normal accommodation. Absent: miosis - ENT ENT exam: Present: normal exam, mucous membranes moist - Neck Neck exam: Present: normal inspection, full ROM. Absent: tenderness, lymphadenopathy - Respiratory Respiratory exam: Present: normal lung sounds bilaterally. Absent: respiratory distress, wheezes, rales, rhonchi, stridor, chest wall tenderness, accessory muscle use - Cardiovascular Cardiovascular Exam: Present: regular rate, normal rhythm, other (R-upper chest port ). Absent: systolic murmur, diastolic murmur, rubs, gallop - GI/Abdominal GI/Abdominal exam: Present: soft, normal bowel sounds - Rectal Rectal exam: Present: deferred - Extremities Exam Extremities exam: Present: normal inspection - Back Exam Back exam: Present: normal inspection - Neurological Exam Neurological exam: Present: alert, oriented X3 - Psychiatric Psychiatric exam: Present: normal affect, normal mood - Skin Skin exam: Present: warm, dry, intact, normal color. Absent: rash ED Course Vital Signs 03/07/17 03/07/17 03/07/17 12:25 21:11 21:12 Temperature 99 F Pulse Rate 90 85 87 Respiratory 18 13 Rate Blood Pressure 124/77 O2 Sat by Pulse 100 Oximetry 03/07/17 03/07/17 03/07/17 21:13 21:21 22:51 Temperature 97.9 F Pulse Rate 79 Respiratory 12 18 18 Rate Blood Pressure 120/80 O2 Sat by Pulse 98 98 Oximetry 03/07/17 23:21 Temperature Pulse Rate Respiratory 18 Rate Blood Pressure O2 Sat by Pulse Oximetry - Reevaluation(s) Reevaluation #1: 03/07/17 23:43 Pt reports he is still in pain, Ordered second dose of dilaudid 1mg IVP Reevaluation #2: 03/08/17 00:22 Pt re-evaluated, patient reports improvement with pain and reports he feels well enough to go home and 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 Medical Decision Making - Lab Data Result diagrams: 03/07/17 22:00 03/07/17 22:00 - EKG Data -: EKG Interpreted by Me - EKG Data When compared to previous EKG there are: no significant change 03/07/172233 Normal sinus rhythm 79 bpm, QTc 460 ms, normal axis, no LVH, isolated T-wave inversion in III, no ST changes no STEMI, no acute changes compared to EKG from 03/02/2017 - Radiology Data Radiology results: image reviewed CXR: no acute cardiopulmonary findings, patient has R sided port Critical care attestation.: If time is entered above; I have spent that time in minutes in the direct care of this critically ill patient, excluding procedure time. 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
[2017-03-07 22:56] LABS: Basophils % (Auto) 1.2 % (0.0-1.8); Eosinophils % (Auto) 1.1 % (0.0-4.3); Hematocrit 33.1 % (35.5-45.6); Hemoglobin 10.5 gm/dl (11.8-15.2); Mean Corpuscular HGB Conc 32 % (32-34); Mean Corpuscular Hemoglobin 22 pg (28-32); Mean Corpuscular Volume 68 fl (84-94); Platelet Count 207 K/mm3 (140-440); Red Blood Count 4.84 M/mm3 (3.65-5.03); Red Cell Distribution Width 15.6 % (13.2-15.2); White Blood Count 2.4 K/mm3 (4.5-11.0)
[2017-03-07 22:57] LABS: Reticulocyte % 0.3 % (0.78-2.58)
[2017-03-07 23:20] LABS: Alanine Aminotransferase 52 units/L (7-56); Albumin/Globulin Ratio 0.9 %; Alkaline Phosphatase 62 units/L (35-129); Anion Gap 16 mmol/L; BUN/Creatinine Ratio 17.14; Blood Urea Nitrogen 12 mg/dL (9-20); Calcium 8.3 mg/dL (8.4-10.2); Carbon Dioxide 21 mmol/L (22-30); Chloride 100.2 mmol/L (98-107); Glucose 94 mg/dL (75-100); Potassium 3.4 mmol/L (3.6-5.0); Sodium 134 mmol/L (137-145); Total Protein 8.7 g/dL (6.3-8.2)
[2017-03-08] MEDS ORDERED: FLUSH HEPARIN IV ONE ×2 (00:53→00:55)
--- NOTE | 2017-03-08 07:26 | XRay Report ---
Chest 2 views: Compared to 01/11/17. History: Chest pain. Findings: Normal cardiomediastinal silhouette. Trachea is midline. No consolidation, pneumothorax or pleural effusion. Impression: No acute cardiopulmonary findings.
== END 2017-03-08 01:18 | disposition home or self-care (01) ==
LOC: ED 12:09
DX: D57.00 Hb-SS disease with crisis, unspecified (principal); Z86.73 Personal history of transient ischemic attack (TIA), and cerebral infarction without residual deficits; I82.401 Acute embolism and thrombosis of unspecified deep veins of right lower extremity; I82.621 Acute embolism and thrombosis of deep veins of right upper extremity; I26.99 Other pulmonary embolism without acute cor pulmonale; F17.200 Nicotine dependence, unspecified, uncomplicated; Z88.2 Allergy status to sulfonamides; Z91.048 Other nonmedicinal substance allergy status; Z88.8 Allergy status to other drugs, medicaments and biological substances
CPT/HCPCS: 36415; 71020; 80053; 85025; 85045; 93005; 93010; 96361; 96374; 96375; 96376; 99284; J1170; J1200; J1642; J1885; J2405; J7030

== ENCOUNTER 2017-04-18 14:52 | Inpatient (IN) | payer MEDICARE ==
--- NOTE | 2017-04-18 18:08 | Admit Criteria Form ---
Admission Criteria Documentation: SICKLE CELL DISEASE Clinical Indications for Admission to Inpatient Care (Place 'X' for any and all applicable criteria): Admission is indicated for ANY ONE of the following(1)(2)(3)(4)(5): [X ]I. Inpatient admission required rather than observation care because of ANY ONE of the following: [ ]a) Altered mental status [ ]b) High fever or infection requiring inpatient admission as indicated by ANY ONE of the following: [ ]A. Appropriate outpatient observation care antimicrobial treatment unavailable, not effective, or not appropriate for infection [ ]B. Documented bacteremia [ ]C. Temp >104.9F (40.5C) (oral) [ ]D. Temp >103.1F (oral) or <96.8F(rectal) that does not respond to all emergency treatment measures [ ]c) Supplemental O2 or respiratory therapy for over 24 h that are performable only in acute inpatient setting [ ]d) Continuous parenteral narcoticsother major pain intervention for >24 h performable only in acute inpatient setting. [ ]e) Exchange transfusion [ X]f) Other condition, treatment or monitoring requiring inpatient admission [ ]II. Acute chest syndrome indicated by ALL of the following (10): [ ]a) New alveolar infiltrate involving at least one lung segment [ ]b) Associated pulmonary symptoms or findings as indicated by ANY ONE of the following: [ ]i) Chest pain [ ]ii) Hypoxemia [ ]iii) Tachypnea/dyspnea [ ]iv) Wheezing [ ]v) Cough [ ]vi) Sputum production [ ]III. Significant hypoxemia or acidosis (more severe than baseline) [ ]IV. Emergent surgery needed (eg, acute cholecystitis) [ ]V. -related complication(11) [ ]. Splenic or hepatic sequestration(12) [ ]VII. Aplastic crisis [ ]VIII. Priapism or other vascular complication(13) [ ]IX. Traumatic hyphema [A](14) [ ]X. Underlying condition requiring hospitalization (eg, osteomyelitis) [ ]XI. Signs or symptoms of central nervous system injury indicated by ANY ONE of the following: [ ]a) Stroke(9) [ ]b) Seizure [ ]c) Other significant central nervous system symptom or event [ ]XII. Acute renal failure Extended stay beyond goal length of stay may be needed for: [ ]a) Inadequate pain control [ ]b) Acute chest syndrome [ ]c) Sequestration or aplastic crisis (12) [ ]d) Pneumonia and asthma exacerbation [ ]e) Neurologic or vascular complications (25) [ ]f) Infection (eg, osteomyelitis) that requires ongoing treatment) The original [facility] [employer] content created by [facility] has been revised. The portions of the content which have been revised are identified through the use of italic text or in bold, and [facility] has neither reviewed nor approved the modified material. All other unmodified content is copyright [facility]. Please see references footnoted in the original [facility] edition 2016 Admission Criteria Met: Yes
[2017-04-18] MEDS: DILAUDID IV PRN ×2 (18:21→22:47)
[2017-04-18] MEDS: BENADRYL IV PRN ×2 (18:21→22:48)
[2017-04-18 21:32] LABS: Basophils % (Auto) 0.5 % (0.0-1.8); Eosinophils % (Auto) 0.3 % (0.0-4.3); Hematocrit 33.7 % (35.5-45.6); Hemoglobin 10.6 gm/dl (11.8-15.2); Mean Corpuscular HGB Conc 32 % (32-34); Platelet Count 200 K/mm3 (140-440); Red Blood Count 4.97 M/mm3 (3.65-5.03); Red Cell Distribution Width 16.2 % (13.2-15.2); Reticulocyte % 0.37 % (0.78-2.58); White Blood Count 2.9 K/mm3 (4.5-11.0)
[2017-04-18 21:33] LABS: Mean Corpuscular Hemoglobin 21 pg (28-32); Mean Corpuscular Volume 68 fl (84-94)
[2017-04-18] MEDS ORDERED: MILK OF MAGNESIA PO PRN (21:59)
[2017-04-18] MEDS ORDERED: DULCOLAX PR PRN (21:59)
[2017-04-18] MEDS ORDERED: ZOFRAN IV PRN (21:59)
[2017-04-18] MEDS ORDERED: TYLENOL PO PRN (21:59)
[2017-04-18] MEDS ORDERED: PERCOCET 5/325 PO PRN (22:00)
--- NOTE | 2017-04-18 22:09 | History and Physical Report ---
History of Present Illness Date of examination: 04/18/17 Date of admission: 04/18/17 15:37 Chief complaint: Pain all over the body History of present illness: 36-year-old male with a past medical history of HIV and sickle cell disease previous history of DVT PE on Coumadin who presents with pain all over his body he describes the pain has been his chest is back his buttocks and sacrum his lower extremities. After the patient and his pain is consistent with sickle cell crisis pain. 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 Past History Past Medical History: other (sickle cell disease, history of PE on Coumadin, HIV disease CD4 count of 181 in November and HIV viral load of 140,000) Past Surgical History: appendectomy, total hip replacement (hip replacements), Other (port placement) Social history: smoking (3 cigarettes per day) Family history: other (sickle cell) Medications and Allergies Allergies Allergy/AdvReac Type Severity Reaction Status Date / Time morphine Allergy Anaphylaxis Verified 03/09/17 11:18 Iodinated Contrast Media - AdvReac Unknown Verified 03/09/17 11:18 IV Dye sulfamethoxazole AdvReac Unknown Verified 03/09/17 11:18 [From Bactrim] trimethoprim [From Bactrim] AdvReac Unknown Verified 03/09/17 11:18 PLASTIC TAPE Allergy Rash Uncoded 03/09/17 11:18 Home Medications Medication Instructions Recorded Confirmed Last Taken Type Elviteg/Celia/Emtric/Tenofo Ala 1 each PO QDAY 12/01/16 04/18/17 04/18/17 Rx [Genvoya Tablet] Folic Acid [Folvite] 0.5 mg PO QDAY tablet 12/01/16 04/18/17 Unknown Rx Warfarin [Coumadin] 5 mg PO DAILY@1700 #30 tablet 12/01/16 04/18/17 Unknown Rx Oxycodone HCl/Acetaminophen 1 each PO Q6HR PRN #30 tablet 03/10/17 04/18/17 Unknown Rx [Percocet 10/325 mg] Ketoconazole 2% [Nizoral] 1 applic TP BID #1 tube 03/11/17 04/18/17 04/18/17 Rx Active Meds: Active Medications Acetaminophen (Tylenol) 650 mg PO Q4H PRN PRN Reason: Pain MILD(1-3)/Fever >100.5/HODGES Bisacodyl (Dulcolax) 10 mg [place] QDAY PRN PRN Reason: Constipation unrelieved by MOM Diphenhydramine HCl (Benadryl) 12.5 mg IV Q4H PRN PRN Reason: Itching Last Admin: 04/18/17 18:21 Dose: 12.5 mg Folic Acid (Folvite) 0.5 mg PO QDAY RONY Hydromorphone HCl (Dilaudid) 2 mg IV Q4HR PRN PRN Reason: Severe Pain Last Admin: 04/18/17 18:21 Dose: 2 mg Dextrose/Sodium Chloride (D5ns 0.2%) 1,000 mls @ 125 mls/hr IV DIRECT RONY Ketoconazole (Nizoral) 1 applic TP BID RONY Magnesium Hydroxide (Milk Of Magnesia) 30 ml PO Q4H PRN PRN Reason: Constipation Miscellaneous Medication (Elviteg/Celia/Emtric/Tenofo Ala [Genvoya Tablet]) 1 each PO QDAY RONY Miscellaneous Medication (Oxycodone Hcl/Acetaminophen [Percocet 10/325 Mg]) 1 each PO Q6HR PRN PRN Reason: Pain Ondansetron HCl (Zofran) 4 mg IV Q8H PRN PRN Reason: N/V unrelieved by Reglan Warfarin Sodium (Coumadin) 5 mg PO DAILY@1700 RONY PRN Reason: Protocol Review of Systems All systems: negative (except as stated in HPI, 14 system review is otherwise negative) Exam - Constitutional Vitals: Temp Pulse Resp BP Pulse Ox 20 04/18/17 18:51 General appearance: Present: no acute distress, well-nourished - EENT Eyes: Present: PERRL ENT: hearing intact, clear oral mucosa - Neck Neck: Present: supple, normal ROM - Respiratory Respiratory effort: normal Respiratory: bilateral: CTA - Cardiovascular Heart Sounds: Present: S1 & S2. Absent: rub, click - Extremities Extremities: pulses symmetrical, No edema Peripheral Pulses: within normal limits - Abdominal General gastrointestinal: Present: soft, non-tender, non-distended, normal bowel sounds Male genitourinary: Present: normal - Integumentary Integumentary: Present: clear, warm, dry - Musculoskeletal Musculoskeletal: gait normal, strength equal bilaterally - Psychiatric Psychiatric: appropriate mood/affect, intact judgment & insight - Neurologic Neurologic: CNII-XII intact, moves all extremities Results - Labs CBC & Chem 7: 04/18/17 20:25 Labs: Laboratory Last Values WBC 2.9 K/mm3 (4.5-11.0) L 04/18/17 20:25 RBC 4.97 M/mm3 (3.65-5.03) 04/18/17 20:25 Hgb 10.6 gm/dl (11.8-15.2) L 04/18/17 20:25 Hct 33.7 % (35.5-45.6) L 04/18/17 20:25 MCV 68 fl (84-94) L 04/18/17 20:25 MCH 21 pg (28-32) L 04/18/17 20:25 MCHC 32 % (32-34) 04/18/17 20:25 RDW 16.2 % (13.2-15.2) H 04/18/17 20:25 Plt Count 200 K/mm3 (140-440) 04/18/17 20:25 Lymph % (Auto) 27.6 % (13.4-35.0) 04/18/17 20:25 [place] % (Auto) 9.0 % (0.0-7.3) H 04/18/17 20:25 Eos % (Auto) 0.3 % (0.0-4.3) 04/18/17 20:25 Baso % (Auto) 0.5 % (0.0-1.8) 04/18/17 20:25 Lymph # 0.8 K/mm3 (1.2-5.4) L 04/18/17 20:25 [place] # 0.3 K/mm3 (0.0-0.8) 04/18/17 20:25 Eos # 0.0 K/mm3 (0.0-0.4) 04/18/17 20:25 Baso # 0.0 K/mm3 (0.0-0.1) 04/18/17 20:25 Seg Neutrophils % 62.6 % (40.0-70.0) 04/18/17 20:25 Seg Neutrophils # 1.8 K/mm3 (1.8-7.7) 04/18/17 20:25 Percent Retic 0.37 % (0.78-2.58) L 04/18/17 20:25 Assessment and Plan Assessment and plan: 36-year-old male with past medical history of sickle cell disease, history of PE on Coumadin and HIV who presents with sickle cell crisis Sickle cell crisis pain Analgesics, IV fluids, hemoglobin stable, check reticulocyte counts, LDH and inflammatory markers, also obtain chest x-ray to assess for possible acute chest syndrome HIV infection/AIDS Upon reviewing his previous labs his CD4 count was 181 and his viral load is 1 42,000 in November. Patient will need prophylaxis for CD4 is below 200, we'll recheck those levels and obtain ID consult. History of PE/DVT Continue Coumadin VTE prophylaxis?: Chemical Plan of care discussed with patient/family: Yes
[2017-04-18 22:25] LABS: Alanine Aminotransferase 31 units/L (7-56); Albumin 4.2 g/dL (3.9-5); Albumin/Globulin Ratio 1.1 %; Alkaline Phosphatase 55 units/L (35-129); Anion Gap 18 mmol/L; BUN/Creatinine Ratio 15.71; Blood Urea Nitrogen 11 mg/dL (9-20); Calcium 8.6 mg/dL (8.4-10.2); Carbon Dioxide 20 mmol/L (22-30); Chloride 101.7 mmol/L (98-107); Glucose 123 mg/dL (75-100); Potassium 3.3 mmol/L (3.6-5.0); Sodium 136 mmol/L (137-145); Total Protein 8.2 g/dL (6.3-8.2)
[2017-04-18] MEDS ORDERED: ROXICODONE PO PRN (22:36)
[2017-04-18] MEDS: D5NS 0.2% 1,000 ML IV SCH (22:54)
[2017-04-18] MEDS ORDERED: K-DUR PO ONE (23:00)
--- NOTE | 2017-04-18 23:27 | Consultation ---
History of Present Illness - Reason for Consult Consult date: 04/18/17 SCD/Pain Requesting physician: NAVEED GUZMAN - History of Present Illness Thank you for this consult, patient seen, in the office, and then on the floor. Admitted for sxs management from pain crisis. Past History Past Medical History: anemia, HIV/AIDS, other (sickle cell disease, history of PE on Coumadin, HIV disease CD4 count of 181 in November and HIV viral load of 140,000) Past Surgical History: appendectomy, total hip replacement (hip replacements), Other (port placement) Social history: , smoking (3 cigarettes per day) Family history: other (sickle cell) Medications and Allergies Allergies Allergy/AdvReac Type Severity Reaction Status Date / Time morphine Allergy Anaphylaxis Verified 03/09/17 11:18 Iodinated Contrast Media - AdvReac Unknown Verified 03/09/17 11:18 IV Dye sulfamethoxazole AdvReac Unknown Verified 03/09/17 11:18 [From Bactrim] trimethoprim [From Bactrim] AdvReac Unknown Verified 03/09/17 11:18 PLASTIC TAPE Allergy Rash Uncoded 03/09/17 11:18 Home Medications Medication Instructions Recorded Confirmed Last Taken Type Elviteg/Celia/Emtric/Tenofo Ala 1 each PO QDAY 12/01/16 04/18/17 04/18/17 Rx [Genvoya Tablet] Folic Acid [Folvite] 0.5 mg PO QDAY tablet 12/01/16 04/18/17 Unknown Rx Warfarin [Coumadin] 5 mg PO DAILY@1700 #30 tablet 12/01/16 04/18/17 Unknown Rx Oxycodone HCl/Acetaminophen 1 each PO Q6HR PRN #30 tablet 03/10/17 04/18/17 Unknown Rx [Percocet 10/325 mg] Ketoconazole 2% [Nizoral] 1 applic TP BID #1 tube 03/11/17 04/18/17 04/18/17 Rx Active Meds: Active Medications Acetaminophen (Tylenol) 650 mg PO Q4H PRN PRN Reason: Pain MILD(1-3)/Fever >100.5/HODGES Bisacodyl (Dulcolax) 10 mg [place] QDAY PRN PRN Reason: Constipation unrelieved by MOM Diphenhydramine HCl (Benadryl) 12.5 mg IV Q4H PRN PRN Reason: Itching Last Admin: 04/18/17 22:48 Dose: 12.5 mg Folic Acid (Folvite) 0.5 mg PO QDAY RONY Hydromorphone HCl (Dilaudid) 2 mg IV Q4HR PRN PRN Reason: Severe Pain Last Admin: 04/18/17 22:47 Dose: 2 mg Dextrose/Sodium Chloride (D5ns 0.2%) 1,000 mls @ 125 mls/hr IV DIRECT RONY Last Admin: 04/18/17 22:54 Dose: 125 mls/hr Ketoconazole (Nizoral) 1 applic TP BID RONY Magnesium Hydroxide (Milk Of Magnesia) 30 ml PO Q4H PRN PRN Reason: Constipation Miscellaneous Medication (Elviteg/Celia/Emtric/Tenofo Ala [Genvoya Tablet]) 1 each PO QDAY RONY Ondansetron HCl (Zofran) 4 mg IV Q8H PRN PRN Reason: N/V unrelieved by Reglan Oxycodone HCl (Roxicodone) 5 mg PO Q6H PRN PRN Reason: Pain, Moderate (4-6) Oxycodone/Acetaminophen (Percocet 5/325) 1 tab PO Q6H PRN PRN Reason: Pain Warfarin Sodium (Coumadin) 5 mg PO DAILY@1700 RONY PRN Reason: Protocol Review of Systems Constitutional: weight loss, fatigue, weakness, chronic pain Musculoskeletal: low back pain Exam - Constitutional Vitals: Temp Pulse Resp BP Pulse Ox 20 04/18/17 18:51 General appearance: Present: mild distress, well-nourished - EENT Eyes: Present: PERRL ENT: hearing intact, clear oral mucosa - Neck Neck: Present: supple, normal ROM - Respiratory Respiratory effort: normal Respiratory: bilateral: CTA - Cardiovascular Heart Sounds: Present: S1 & S2. Absent: rub, click - Extremities Extremities: pulses symmetrical, No edema Peripheral Pulses: within normal limits - Abdominal General gastrointestinal: Present: soft, non-tender, non-distended, normal bowel sounds Male genitourinary: Present: deferred - Rectal Rectal Exam: deferred - Integumentary Integumentary: Present: clear, warm, dry - Musculoskeletal Musculoskeletal: gait normal, strength equal bilaterally - Psychiatric Psychiatric: appropriate mood/affect, intact judgment & insight - Neurologic Neurologic: CNII-XII intact, moves all extremities Results - Labs CBC & Chem 7: 04/18/17 20:25 04/18/17 17:50 Labs: Abnormal lab results 04/18/17 04/18/17 Range/Units 17:50 20:25 WBC 2.9 L (4.5-11.0) K/mm3 Hgb 10.6 L (11.8-15.2) gm/dl Hct 33.7 L (35.5-45.6) % MCV 68 L (84-94) fl MCH 21 L (28-32) pg RDW 16.2 H (13.2-15.2) % [place] % (Auto) 9.0 H (0.0-7.3) % Lymph # 0.8 L (1.2-5.4) K/mm3 Percent Retic 0.37 L (0.78-2.58) % Sodium 136 L (137-145) mmol/L Potassium 3.3 L (3.6-5.0) mmol/L Carbon Dioxide 20 L (22-30) mmol/L Creatinine 0.7 L (0.8-1.5) mg/dL Glucose 123 H (75-100) mg/dL Assessment and Plan - Patient Problems (1) Anemia Current Visit: No Status: Acute Qualifiers: Anemia type: A Iron deficiency anemia type: I Vitamin B12 deficiency anemia type: V Folate deficiency anemia type: F Bone marrow failure anemia type: B Hemolytic anemia type: H Other causes of anemia: O Chronic kidney disease stage: C Plan to address problem: monitor labs. (2) Dehydration Current Visit: No Status: Acute Plan to address problem: hydration (3) Leukopenia Current Visit: Yes Status: Acute Qualifiers: Leukopenia type: L Neutropenia type: N Plan to address problem: GF when indicated. (4) Sickle cell pain crisis Current Visit: Yes Status: Acute Plan to address problem: Pain control
[2017-04-19 00:39] LABS: Reticulocyte % 0.45 % (0.78-2.58)
[2017-04-19] MEDS: NIZORAL TP SCH ×3 (01:25→22:57)
[2017-04-19] MEDS: BENADRYL IV PRN ×5 (03:32→22:50)
[2017-04-19] MEDS: DILAUDID IV PRN ×5 (03:33→22:51)
[2017-04-19 06:30] LABS: Hematocrit 32.3 % (35.5-45.6); Hemoglobin 10.3 gm/dl (11.8-15.2); Mean Corpuscular HGB Conc 32 % (32-34); Platelet Count 190 K/mm3 (140-440); Red Blood Count 4.78 M/mm3 (3.65-5.03); Red Cell Distribution Width 16.1 % (13.2-15.2)
[2017-04-19 06:33] LABS: Mean Corpuscular Hemoglobin 22 pg (28-32); Mean Corpuscular Volume 68 fl (84-94)
[2017-04-19 06:34] LABS: White Blood Count 1.8 K/mm3 (4.5-11.0)
[2017-04-19 06:51] LABS: Anion Gap 16 mmol/L; BUN/Creatinine Ratio 11.66; Blood Urea Nitrogen 7 mg/dL (9-20); Calcium 8.6 mg/dL (8.4-10.2); Carbon Dioxide 23 mmol/L (22-30); Chloride 101.2 mmol/L (98-107); Glucose 99 mg/dL (75-100); Potassium 3.5 mmol/L (3.6-5.0); Sodium 137 mmol/L (137-145)
--- NOTE | 2017-04-19 07:38 | XRay Report ---
ROUTINE CHEST, TWO VIEWS: HISTORY: chest pain, sickle cell disease. The trachea, heart, mediastinal contour, lung [place] and bony thorax are unremarkable. Right [id number] is unchanged since 03/19/17. IMPRESSION: Unremarkable chest x-ray.
--- NOTE | 2017-04-19 07:57 | Progress Note ---
Assessment and Plan Assessment and plan: 36-year-old male with past medical history of sickle cell disease, history of PE on Coumadin and HIV who presents with sickle cell crisis Sickle cell crisis pain Analgesics, IV fluids, hemoglobin stable, check reticulocyte counts, LDH and inflammatory markers, also obtain chest x-ray to assess for possible acute chest syndrome HIV infection/AIDS Upon reviewing his previous labs his CD4 count was 181 and his viral load is 142 ,000 in November. Patient will need prophylaxis for CD4 is below 200, we'll recheck those levels and obtain ID consult. CRP is 0, Retic % is 0.4 Leukopenia likely 2/2 HIV, highly question compliance with his HAART History of PE/DVT Continue Coumadin, pharmacy to dose non compliant, INR is subtherapeutic Tinea versicolor continue terbinafin, Ketoconazole cream and selenium oitnment History Interval history: body pains have reduced Hospitalist Physical - Physical exam Narrative exam: General appearance: Present: no acute distress, well-nourished - EENT Eyes: Present: PERRL ENT: hearing intact, clear oral mucosa - Neck Neck: Present: supple, normal ROM - Respiratory Respiratory effort: normal Respiratory: bilateral: CTA - Cardiovascular Heart Sounds: Present: S1 & S2. Absent: rub, click - Extremities Extremities: pulses symmetrical, No edema Peripheral Pulses: within normal limits - Abdominal General gastrointestinal: Present: soft, non-tender, non-distended, normal bowel sounds Male genitourinary: Present: normal - Integumentary Integumentary: hypopigmented rash on face - Musculoskeletal Musculoskeletal: gait normal, strength equal bilaterally - Psychiatric Psychiatric: appropriate mood/affect, intact judgment & insight - Neurologic Neurologic: CNII-XII intact, moves all extremities - Constitutional Vitals: Temp Pulse Resp BP Pulse Ox 98.9 F 108 H 20 125/79 100 04/18/17 23:45 04/18/17 23:45 04/18/17 23:45 04/18/17 23:45 04/18/17 23:45 General appearance: Present: mild distress, well-nourished Results - Labs CBC & Chem 7: 04/20/17 Unknown 04/20/17 Unknown Labs: Laboratory Last Values WBC 1.8 K/mm3 (4.5-11.0) L* 04/19/17 04:00 RBC 4.78 M/mm3 (3.65-5.03) 04/19/17 04:00 Hgb 10.3 gm/dl (11.8-15.2) L 04/19/17 04:00 Hct 32.3 % (35.5-45.6) L 04/19/17 04:00 MCV 68 fl (84-94) L 04/19/17 04:00 MCH 22 pg (28-32) L 04/19/17 04:00 MCHC 32 % (32-34) 04/19/17 04:00 RDW 16.1 % (13.2-15.2) H 04/19/17 04:00 Plt Count 190 K/mm3 (140-440) 04/19/17 04:00 Lymph % (Auto) 27.6 % (13.4-35.0) 04/18/17 20:25 [place] % (Auto) 9.0 % (0.0-7.3) H 04/18/17 20:25 Eos % (Auto) 0.3 % (0.0-4.3) 04/18/17 20:25 Baso % (Auto) 0.5 % (0.0-1.8) 04/18/17 20:25 Lymph # 0.8 K/mm3 (1.2-5.4) L 04/18/17 20:25 [place] # 0.3 K/mm3 (0.0-0.8) 04/18/17 20:25 Eos # 0.0 K/mm3 (0.0-0.4) 04/18/17 20:25 Baso # 0.0 K/mm3 (0.0-0.1) 04/18/17 20:25 Seg Neutrophils % 62.6 % (40.0-70.0) 04/18/17 20:25 Seg Neutrophils # 1.8 K/mm3 (1.8-7.7) 04/18/17 20:25 Percent Retic 0.45 % (0.78-2.58) L 04/18/17 21:58 PT 14.5 Sec. (12.2-14.9) 04/18/17 00:00 INR 1.14 (0.87-1.13) H 04/18/17 00:00 Sodium 137 mmol/L (137-145) 04/19/17 04:00 Potassium 3.5 mmol/L (3.6-5.0) L 04/19/17 04:00 Chloride 101.2 mmol/L (98-107) 04/19/17 04:00 Carbon Dioxide 23 mmol/L (22-30) 04/19/17 04:00 Anion Gap 16 mmol/L 04/19/17 04:00 BUN 7 mg/dL (9-20) L 04/19/17 04:00 Creatinine 0.6 mg/dL (0.8-1.5) L 04/19/17 04:00 Estimated GFR > 60 ml/min 04/19/17 04:00 BUN/Creatinine Ratio 11.66 % 04/19/17 04:00 Glucose 99 mg/dL (75-100) 04/19/17 04:00 Calcium 8.6 mg/dL (8.4-10.2) 04/19/17 04:00 Total Bilirubin 0.40 mg/dL (0.1-1.2) 04/18/17 17:50 AST 26 units/L (5-40) 04/18/17 17:50 ALT 31 units/L (7-56) 04/18/17 17:50 Alkaline Phosphatase 55 units/L (35-129) 04/18/17 17:50 C-Reactive Protein 0.00 mg/dL (0.00-1.30) 04/18/17 00:00 Total Protein 8.2 g/dL (6.3-8.2) 04/18/17 17:50 Albumin 4.2 g/dL (3.9-5) 04/18/17 17:50 Albumin/Globulin Ratio 1.1 % 04/18/17 17:50
--- NOTE | 2017-04-19 09:06 | Consultation ---
History of Present Illness - Reason for Consult Consult date: 04/19/17 HIV Mangement Requesting physician: NAVEED GUZMAN - History of Present Illness Mr. Cordova is a 36-year-old man with AIDS. His last CD4 is 141 in November 2016. He is followed by Dr. Aj Bhatia at [facility]. He is on Genvoya. He has not been seen in the office since Jun 2016. At that time his JK5=[id number] with a viral load of 42,206 copies/mL. He says that he was previously prescribed Bactrim for PjP prophylaxis, but had an anaphylactic response. He is currently on an alternative prophylactic regimen. ID consultation is requested for HIV management and appropriate prophylaxis. Past History Past Medical History: anemia, HIV/AIDS, other (sickle cell disease, history of PE on Coumadin; AIDS (CD4 = 141 in Nov 2016 and HIV viral load of 142,801 copies /mL)) Past Surgical History: appendectomy, total hip replacement (hip replacements), Other (port placement) Social history: , smoking (3 cigarettes per day) Family history: other (sickle cell) Medications and Allergies Allergies Allergy/AdvReac Type Severity Reaction Status Date / Time morphine Allergy Anaphylaxis Verified 03/09/17 11:18 Iodinated Contrast Media - AdvReac Unknown Verified 03/09/17 11:18 IV Dye sulfamethoxazole AdvReac Unknown Verified 03/09/17 11:18 [From Bactrim] trimethoprim [From Bactrim] AdvReac Unknown Verified 03/09/17 11:18 PLASTIC TAPE Allergy Rash Uncoded 03/09/17 11:18 Home Medications Medication Instructions Recorded Confirmed Last Taken Type Elviteg/Celia/Emtric/Tenofo Ala 1 each PO QDAY 12/01/16 04/18/17 04/18/17 Rx [Genvoya Tablet] Folic Acid [Folvite] 0.5 mg PO QDAY tablet 12/01/16 04/18/17 Unknown Rx Warfarin [Coumadin] 5 mg PO DAILY@1700 #30 tablet 12/01/16 04/18/17 Unknown Rx Oxycodone HCl/Acetaminophen 1 each PO Q6HR PRN #30 tablet 03/10/17 04/18/17 Unknown Rx [Percocet 10/325 mg] Ketoconazole 2% [Nizoral] 1 applic TP BID #1 tube 03/11/17 04/18/17 04/18/17 Rx Active Meds: Active Medications Acetaminophen (Tylenol) 650 mg PO Q4H PRN PRN Reason: Pain MILD(1-3)/Fever >100.5/HODGES Bisacodyl (Dulcolax) 10 mg [place] QDAY PRN PRN Reason: Constipation unrelieved by MOM Diphenhydramine HCl (Benadryl) 12.5 mg IV Q4H PRN PRN Reason: Itching Last Admin: 04/19/17 08:44 Dose: 12.5 mg Folic Acid (Folvite) 0.5 mg PO QDAY [facility] Hydromorphone HCl (Dilaudid) 2 mg IV Q4HR PRN PRN Reason: Severe Pain Last Admin: 04/19/17 08:44 Dose: 2 mg Dextrose/Sodium Chloride (D5ns 0.2%) 1,000 mls @ 125 mls/hr IV DIRECT RONY Last Admin: 04/18/17 22:54 Dose: 125 mls/hr Ketoconazole (Nizoral) 1 applic TP BID [facility] Last Admin: 04/19/17 01:25 Dose: Not Given Magnesium Hydroxide (Milk Of Magnesia) 30 ml PO Q4H PRN PRN Reason: Constipation Miscellaneous Medication (Elviteg/Celia/Emtric/Tenofo Ala [Genvoya Tablet]) 1 each PO QDAY [facility] Ondansetron HCl (Zofran) 4 mg IV Q8H PRN PRN Reason: N/V unrelieved by Reglan Oxycodone HCl (Roxicodone) 5 mg PO Q6H PRN PRN Reason: Pain, Moderate (4-6) Oxycodone/Acetaminophen (Percocet 5/325) 1 tab PO Q6H PRN PRN Reason: Pain Warfarin Sodium (Coumadin) 7.5 mg PO DAILY@1700 [facility] Warfarin Sodium (Coumadin Pharmacy To Dose) 1 each PO PKCONSULT [facility] Review of Systems All systems: negative Constitutional: no fever, no chills, no sweats Cardiovascular: no palpitations, no lightheadedness, no shortness of breath Respiratory: no cough, no cough with sputum Gastrointestinal: no abdominal pain, no nausea, no vomiting, no diarrhea Genitourinary Male: no dysuria Integumentary: rash, pruritis (severe), no sores Physical Examination - Constitutional Vitals: Vital Signs Temp Pulse Resp BP Pulse Ox 99 F 69 16 109/60 97 04/19/17 08:00 04/19/17 08:00 04/19/17 08:00 04/19/17 08:00 04/19/17 08:00 Temperature -Last 24 Hours Temperature 99 F Temperature 98.9 F General appearance: Present: mild distress (due to pruritis), well-nourished - EENT Eyes: Absent: scleral icterus, conjunctival injection ENT: no thrush - Neck Neck: Present: supple - Respiratory Respiratory effort: normal Respiratory: bilateral: CTA, negative: rales, rhonchi - Cardiovascular Rhythm: regular Heart Sounds: Present: S1 & S2 - Extremities Extremities: No edema - Abdominal General gastrointestinal: Present: soft, non-tender, non-distended (scaly, white macules throughout face and hairline with areas of hypopigmentation on face) - Integumentary Integumentary: Present: rash - Psychiatric Psychiatric: appropriate mood/affect - Neurologic Neurologic: CNII-XII intact, no focal deficits, moves all extremities - Additional findings Additional findings: port at right chest wall Results - Labs CBC & Chem 7: 04/19/17 04:00 04/19/17 04:00 Labs: Abnormal lab results 04/18/17 04/18/17 04/18/17 Range/Units 00:00 00:00 17:50 WBC (4.5-11.0) K/mm3 Hgb (11.8-15.2) gm/dl Hct (35.5-45.6) % MCV (84-94) fl MCH (28-32) pg RDW (13.2-15.2) % [place] % (Auto) (0.0-7.3) % Lymph # (1.2-5.4) K/mm3 Percent Retic (0.78-2.58) % INR 1.14 H (0.87-1.13) Sodium 136 L (137-145) mmol/L Potassium 3.4 L 3.3 L (3.6-5.0) mmol/L Carbon Dioxide 18 L 20 L (22-30) mmol/L BUN (9-20) mg/dL Creatinine 0.6 L 0.7 L (0.8-1.5) mg/dL Glucose 117 H 123 H (75-100) mg/dL Total Protein 8.3 H (6.3-8.2) g/dL 04/18/17 04/18/17 04/19/17 Range/Units 20:25 21:58 04:00 WBC 2.9 L 1.8 L* (4.5-11.0) K/mm3 Hgb 10.6 L 10.3 L (11.8-15.2) gm/dl Hct 33.7 L 32.3 L (35.5-45.6) % MCV 68 L 68 L (84-94) fl MCH 21 L 22 L (28-32) pg RDW 16.2 H 16.1 H (13.2-15.2) % [place] % (Auto) 9.0 H (0.0-7.3) % Lymph # 0.8 L (1.2-5.4) K/mm3 Percent Retic 0.37 L 0.45 L (0.78-2.58) % INR (0.87-1.13) Sodium (137-145) mmol/L Potassium (3.6-5.0) mmol/L Carbon Dioxide (22-30) mmol/L BUN (9-20) mg/dL Creatinine (0.8-1.5) mg/dL Glucose (75-100) mg/dL Total Protein (6.3-8.2) g/dL 04/19/17 Range/Units 04:00 WBC (4.5-11.0) K/mm3 Hgb (11.8-15.2) gm/dl Hct (35.5-45.6) % MCV (84-94) fl MCH (28-32) pg RDW (13.2-15.2) % [place] % (Auto) (0.0-7.3) % Lymph # (1.2-5.4) K/mm3 Percent Retic (0.78-2.58) % INR (0.87-1.13) Sodium (137-145) mmol/L Potassium 3.5 L (3.6-5.0) mmol/L Carbon Dioxide (22-30) mmol/L BUN 7 L (9-20) mg/dL Creatinine 0.6 L (0.8-1.5) mg/dL Glucose (75-100) mg/dL Total Protein (6.3-8.2) g/dL - Imaging and Cardiology Chest x-ray: report reviewed (unremarkable chest xray) Assessment and Plan - Patient Problems (1) AIDS (acquired immunodeficiency syndrome), CD4 <=200 Current Visit: Yes Status: Acute Plan to address problem: 1. Will start Mepron daily for pneumocystis prophylaxis. 2. Check G6PD in case Dapsone is needed for PjP prophylaxis. 3. Repeat CD4/ VL numbers as last results are from 5 months ago. 4. Patient needs to follow-up with Dr. Bhatia after discharge. (2) Tinea versicolor Current Visit: Yes Status: Acute Plan to address problem: 1. Trial of oral Terbinafine and topical selenium sulfide with several weeks of therapy expected before resolution. 2. Ultimately patient needs adherence to HAART and immune reconstitution for ideal resolution of fungal infections. (3) Seborrhea corporis Current Visit: Yes Status: Acute Plan to address problem: 1. Per above.
[2017-04-19 09:24] LABS: Basophils % (Manual) 0 % (0.0-1.8); Blastocytes % (Manual) 0 %
[2017-04-19 09:26] LABS: Hypochromasia 2+; Microcytosis 1+; Platelet Clumps Few
[2017-04-19 09:27] LABS: Diff Status Complete
[2017-04-19] MEDS ORDERED: [UNRECOGNIZED DRUG - OTHER] PO SCH (10:00)
[2017-04-19] MEDS: FOLVITE PO SCH (10:25)
[2017-04-19] MEDS ORDERED: TERBINAFINE 250 MG PO SCH (11:30)
[2017-04-19] MEDS: D5NS 0.2% 1,000 ML IV SCH ×2 (12:26→21:40)
[2017-04-19] MEDS: MEPRON PO SCH (13:27)
[2017-04-19] MEDS ORDERED: SELSUN TP PRN (14:00)
[2017-04-19] MEDS ORDERED: COUMADIN PO SCH (17:00)
[2017-04-19] MEDS: COUMADIN PO SCH (17:37)
[2017-04-19] MEDS: LAMISIL PO SCH (17:47)
--- NOTE | 2017-04-19 18:12 | Consultation ---
History of Present Illness - Reason for Consult Consult date: 04/19/17 - History of Present Illness Patient seen/examined, labs reviewed, notes also reviewed, case d/w patient. Was having lots of body /skin itching, as per patient/ and his nurse, the primary team, increased his benadryl.WBC now 1.8, and may need GF, or it will continue to go down. Past History Past Medical History: anemia, HIV/AIDS, other (sickle cell disease, history of PE on Coumadin; AIDS (CD4 = 141 in Nov 2016 and HIV viral load of 142,801 copies /mL)) Past Surgical History: appendectomy, total hip replacement (hip replacements), Other (port placement) Social history: , smoking (3 cigarettes per day) Family history: other (sickle cell) Medications and Allergies Allergies Allergy/AdvReac Type Severity Reaction Status Date / Time morphine Allergy Anaphylaxis Verified 03/09/17 11:18 Iodinated Contrast Media - AdvReac Unknown Verified 03/09/17 11:18 IV Dye sulfamethoxazole AdvReac Unknown Verified 03/09/17 11:18 [From Bactrim] trimethoprim [From Bactrim] AdvReac Unknown Verified 03/09/17 11:18 PLASTIC TAPE Allergy Rash Uncoded 03/09/17 11:18 Home Medications Medication Instructions Recorded Confirmed Last Taken Type Elviteg/Celia/Emtric/Tenofo Ala 1 each PO QDAY 12/01/16 04/18/17 04/18/17 Rx [Genvoya Tablet] Folic Acid [Folvite] 0.5 mg PO QDAY tablet 12/01/16 04/18/17 Unknown Rx Warfarin [Coumadin] 5 mg PO DAILY@1700 #30 tablet 12/01/16 04/18/17 Unknown Rx Oxycodone HCl/Acetaminophen 1 each PO Q6HR PRN #30 tablet 03/10/17 04/18/17 Unknown Rx [Percocet 10/325 mg] Ketoconazole 2% [Nizoral] 1 applic TP BID #1 tube 03/11/17 04/18/17 04/18/17 Rx Active Meds: Active Medications Acetaminophen (Tylenol) 650 mg PO Q4H PRN PRN Reason: Pain MILD(1-3)/Fever >100.5/HODGES Atovaquone (Mepron) 1,500 mg PO QDAY RON[facility] Last Admin: 04/19/17 13:27 Dose: 1,500 mg Bisacodyl (Dulcolax) 10 mg [place] QDAY PRN PRN Reason: Constipation unrelieved by MOM Diphenhydramine HCl (Benadryl) 12.5 mg IV Q4H PRN PRN Reason: Itching Last Admin: 04/19/17 17:38 Dose: 12.5 mg Diphenhydramine HCl (Benadryl) 25 mg IV Q4H PRN PRN Reason: Itching Folic Acid (Folvite) 0.5 mg PO QDAY [facility] Last Admin: 04/19/17 10:25 Dose: 0.5 mg Hydromorphone HCl (Dilaudid) 2 mg IV Q4HR PRN PRN Reason: Severe Pain Last Admin: 04/19/17 17:38 Dose: 2 mg Dextrose/Sodium Chloride (D5ns 0.2%) 1,000 mls @ 125 mls/hr IV DIRECT [facility] Last Admin: 04/19/17 12:26 Dose: 125 mls/hr Ketoconazole (Nizoral) 1 applic TP BID [facility] Last Admin: 04/19/17 10:26 Dose: 1 applic Magnesium Hydroxide (Milk Of Magnesia) 30 ml PO Q4H PRN PRN Reason: Constipation Miscellaneous Medication (Elviteg/Celia/Emtric/Tenofo Ala [Genvoya Tablet]) 1 each PO QDAY [facility] Ondansetron HCl (Zofran) 4 mg IV Q8H PRN PRN Reason: N/V unrelieved by Reglan Oxycodone HCl (Roxicodone) 5 mg PO Q6H PRN PRN Reason: Pain, Moderate (4-6) Oxycodone/Acetaminophen (Percocet 5/325) 1 tab PO Q6H PRN PRN Reason: Pain Selenium Sulfide (Selsun) 1 applic TP TuSa@1000 PRN PRN Reason: Seborrhea Last Admin: 04/19/17 13:27 Dose: 1 applic Terbinafine HCl (Lamisil (Nf)) 250 mg PO QDAY [facility] Last Admin: 04/19/17 17:47 Dose: 250 mg Warfarin Sodium (Coumadin) 7.5 mg PO DAILY@1700 [facility] Last Admin: 04/19/17 17:37 Dose: 7.5 mg Warfarin Sodium (Coumadin Pharmacy To Dose) 1 each PO PKCONSULT [facility] Review of Systems Constitutional: chronic pain Musculoskeletal: low back pain Integumentary: pruritis Exam - Constitutional Vitals: Temp Pulse Resp BP Pulse Ox 98.8 F 68 18 132/84 97 04/19/17 16:00 04/19/17 16:00 04/19/17 16:00 04/19/17 16:00 04/19/17 08:00 General appearance: Present: mild distress, well-nourished - EENT Eyes: Present: PERRL ENT: hearing intact, clear oral mucosa - Neck Neck: Present: supple, normal ROM - Respiratory Respiratory effort: normal Respiratory: bilateral: CTA - Cardiovascular Heart Sounds: Present: S1 & S2. Absent: rub, click - Extremities Extremities: pulses symmetrical, No edema Peripheral Pulses: within normal limits - Abdominal General gastrointestinal: Present: soft, non-tender, non-distended, normal bowel sounds Male genitourinary: Present: deferred - Rectal Rectal Exam: deferred - Integumentary Integumentary: Present: clear, warm, dry - Musculoskeletal Musculoskeletal: gait normal, strength equal bilaterally - Psychiatric Psychiatric: appropriate mood/affect, intact judgment & insight - Neurologic Neurologic: CNII-XII intact, moves all extremities Results - Labs CBC & Chem 7: 04/19/17 04:00 04/19/17 04:00 Labs: Abnormal lab results 04/18/17 04/18/17 04/18/17 Range/Units 00:00 00:00 17:50 WBC (4.5-11.0) K/mm3 Hgb (11.8-15.2) gm/dl Hct (35.5-45.6) % MCV (84-94) fl MCH (28-32) pg RDW (13.2-15.2) % [place] % (Auto) (0.0-7.3) % Lymph # (1.2-5.4) K/mm3 Seg Neuts % (Manual) (40.0-70.0) % Lymphocytes % (Manual) (13.4-35.0) % Monocytes % (Manual) (0.0-7.3) % Seg Neutrophils # Man (1.8-7.7) K/mm3 Lymphocytes # (Manual) (1.2-5.4) K/mm3 Percent Retic (0.78-2.58) % INR 1.14 H (0.87-1.13) Sodium 136 L (137-145) mmol/L Potassium 3.4 L 3.3 L (3.6-5.0) mmol/L Carbon Dioxide 18 L 20 L (22-30) mmol/L BUN (9-20) mg/dL Creatinine 0.6 L 0.7 L (0.8-1.5) mg/dL Glucose 117 H 123 H (75-100) mg/dL Total Protein 8.3 H (6.3-8.2) g/dL 04/18/17 04/18/17 04/19/17 Range/Units 20:25 21:58 04:00 WBC 2.9 L 1.8 L* (4.5-11.0) K/mm3 Hgb 10.6 L 10.3 L (11.8-15.2) gm/dl Hct 33.7 L 32.3 L (35.5-45.6) % MCV 68 L 68 L (84-94) fl MCH 21 L 22 L (28-32) pg RDW 16.2 H 16.1 H (13.2-15.2) % [place] % (Auto) 9.0 H (0.0-7.3) % Lymph # 0.8 L (1.2-5.4) K/mm3 Seg Neuts % (Manual) 31.0 L (40.0-70.0) % Lymphocytes % (Manual) 57.0 H (13.4-35.0) % Monocytes % (Manual) 11.0 H (0.0-7.3) % Seg Neutrophils # Man 0.6 L (1.8-7.7) K/mm3 Lymphocytes # (Manual) 1.0 L (1.2-5.4) K/mm3 Percent Retic 0.37 L 0.45 L (0.78-2.58) % INR (0.87-1.13) Sodium (137-145) mmol/L Potassium (3.6-5.0) mmol/L Carbon Dioxide (22-30) mmol/L BUN (9-20) mg/dL Creatinine (0.8-1.5) mg/dL Glucose (75-100) mg/dL Total Protein (6.3-8.2) g/dL 04/19/17 Range/Units 04:00 WBC (4.5-11.0) K/mm3 Hgb (11.8-15.2) gm/dl Hct (35.5-45.6) % MCV (84-94) fl MCH (28-32) pg RDW (13.2-15.2) % [place] % (Auto) (0.0-7.3) % Lymph # (1.2-5.4) K/mm3 Seg Neuts % (Manual) (40.0-70.0) % Lymphocytes % (Manual) (13.4-35.0) % Monocytes % (Manual) (0.0-7.3) % Seg Neutrophils # Man (1.8-7.7) K/mm3 Lymphocytes # (Manual) (1.2-5.4) K/mm3 Percent Retic (0.78-2.58) % INR (0.87-1.13) Sodium (137-145) mmol/L Potassium 3.5 L (3.6-5.0) mmol/L Carbon Dioxide (22-30) mmol/L BUN 7 L (9-20) mg/dL Creatinine 0.6 L (0.8-1.5) mg/dL Glucose (75-100) mg/dL Total Protein (6.3-8.2) g/dL Assessment and Plan - Patient Problems (1) Anemia Current Visit: No Status: Acute Qualifiers: Anemia type: A Iron deficiency anemia type: I Vitamin B12 deficiency anemia type: V Folate deficiency anemia type: F Bone marrow failure anemia type: B Hemolytic anemia type: H Other causes of anemia: O Chronic kidney disease stage: C Plan to address problem: monitor labs. (2) Dehydration Current Visit: No Status: Acute Plan to address problem: hydration (3) Leukopenia Current Visit: Yes Status: Acute Qualifiers: Leukopenia type: L Neutropenia type: N Plan to address problem: GF when indicated. will need GF. (4) Sickle cell pain crisis Current Visit: Yes Status: Acute Plan to address problem: Pain control
[2017-04-19] MEDS ORDERED: GRANIX SUB-Q SCH (20:00)
[2017-04-20] MEDS: DILAUDID IV PRN ×6 (02:57→22:59)
[2017-04-20] MEDS: BENADRYL IV PRN ×6 (02:57→22:59)
[2017-04-20 05:42] LABS: INR 1.13 (0.87-1.13)
[2017-04-20] MEDS: D5NS 0.2% 1,000 ML IV SCH ×2 (05:44→20:21)
--- NOTE | 2017-04-20 08:35 | Progress Note ---
Assessment and Plan - Patient Problems (1) AIDS (acquired immunodeficiency syndrome), CD4 <=200 Current Visit: Yes Status: Acute Plan to address problem: 1. Continue Genvoya and daily Mepron for PjP prophylaxis. 2. Await result of repeat CD4/ viral load to determine if additional studies or prophylaxis are needed. (2) Tinea versicolor Current Visit: Yes Status: Acute Plan to address problem: Continue Terbinafine and topical selenium sulfide. (3) Seborrhea corporis Current Visit: Yes Status: Acute Plan to address problem: Per above. Subjective Date of service: 04/20/17 Principal diagnosis: AIDS Interval history: Remains stable. Intense pruritis is improved with Benadryl dose increased and Morphine dose decreased. Objective - Constitutional Vitals: Vital Signs Temp Pulse Resp BP Pulse Ox 99 F 71 18 134/72 98 04/19/17 20:28 04/19/17 20:28 04/19/17 20:28 04/19/17 20:28 04/19/17 20:28 Temperature -Last 24 Hours Temperature 99 F Temperature 98.8 F General appearance: Present: no acute distress - EENT Eyes: no conjunctival injection - Respiratory Respiratory effort: normal Respiratory: bilateral: CTA - Cardiovascular Rhythm: regular Heart Sounds: Present: S1 & S2 Extremities: No edema - Gastrointestinal General gastrointestinal: Present: soft, non-tender, non-distended - Integumentary Integumentary: rash (unchanged facial skin findings) - Neurologic Neurologic: no CNII-XII intact, moves all extremities - Psychiatric Psychiatric: appropriate mood/affect - Labs CBC & Chem 7: 04/20/17 Unknown 04/20/17 Unknown Labs: Abnormal lab results 04/19/17 Range/Units 04:00 Seg Neuts % (Manual) 31.0 L (40.0-70.0) % Lymphocytes % (Manual) 57.0 H (13.4-35.0) % Monocytes % (Manual) 11.0 H (0.0-7.3) % Seg Neutrophils # Man 0.6 L (1.8-7.7) K/mm3 Lymphocytes # (Manual) 1.0 L (1.2-5.4) K/mm3
[2017-04-20] MEDS: MEPRON PO SCH (10:27)
[2017-04-20] MEDS: FOLVITE PO SCH (10:27)
[2017-04-20] MEDS: LAMISIL PO SCH (10:27)
[2017-04-20] MEDS: NIZORAL TP SCH ×2 (10:28→23:07)
[2017-04-20 10:47] LABS: Hematocrit 33.7 % (35.5-45.6); Hemoglobin 10.7 gm/dl (11.8-15.2); Mean Corpuscular HGB Conc 32 % (32-34); Platelet Count 219 K/mm3 (140-440); Red Blood Count 4.89 M/mm3 (3.65-5.03); Red Cell Distribution Width 16.3 % (13.2-15.2); White Blood Count 15.1 K/mm3 (4.5-11.0)
[2017-04-20 10:48] LABS: Mean Corpuscular Hemoglobin 22 pg (28-32); Mean Corpuscular Volume 69 fl (84-94)
[2017-04-20 11:10] LABS: Anion Gap 17 mmol/L; Blood Urea Nitrogen 6 mg/dL (9-20); Carbon Dioxide 23 mmol/L (22-30); Chloride 101.8 mmol/L (98-107); Glucose 115 mg/dL (75-100); Potassium 3.9 mmol/L (3.6-5.0); Sodium 138 mmol/L (137-145)
[2017-04-20 15:37] LABS: Basophils % (Auto) 0.2 % (0.0-1.8); Eosinophils % (Auto) 0.6 % (0.0-4.3); Hematocrit 33.1 % (35.5-45.6); Hemoglobin 10.5 gm/dl (11.8-15.2); Mean Corpuscular HGB Conc 32 % (32-34); Mean Corpuscular Hemoglobin 21 pg (28-32); Mean Corpuscular Volume 67 fl (84-94); Platelet Count 195 K/mm3 (140-440); Red Blood Count 4.91 M/mm3 (3.65-5.03); Red Cell Distribution Width 16.3 % (13.2-15.2); White Blood Count 15.2 K/mm3 (4.5-11.0)
--- NOTE | 2017-04-20 15:55 | Progress Note ---
Assessment and Plan Assessment and plan: 36-year-old male with past medical history of sickle cell disease, history of PE on Coumadin and HIV who presents with sickle cell crisis Sickle cell crisis pain Analgesics, IV fluids, hemoglobin stable, check reticulocyte counts, LDH and inflammatory markers, also obtain chest x-ray to assess for possible acute chest syndrome CRP is 0, Retic % is 0.4 oncology consult appreciated HIV infection/AIDS Upon reviewing his previous labs his CD4 count was 181 and his viral load is 142 ,000 in November. Patient will need prophylaxis for CD4 is below 200, we'll recheck those levels and ID consult appreciated, started on mepron for ppx, was on Bactrim which he did not take due to allergy to it fup with Dr Bhatia upon dc Non compliance has been counseled Leukopenia now resolved was most likely due to crisis History of PE/DVT Continue Coumadin, pharmacy to dose non compliant, INR is subtherapeutic Tinea versicolor continue terbinafin, Ketoconazole cream and selenium oitnment History Interval history: body pains have reduced Hospitalist Physical - Physical exam Narrative exam: General appearance: Present: no acute distress, well-nourished - EENT Eyes: Present: PERRL ENT: hearing intact, clear oral mucosa - Neck Neck: Present: supple, normal ROM - Respiratory Respiratory effort: normal Respiratory: bilateral: CTA - Cardiovascular Heart Sounds: Present: S1 & S2. Absent: rub, click - Extremities Extremities: pulses symmetrical, No edema Peripheral Pulses: within normal limits - Abdominal General gastrointestinal: Present: soft, non-tender, non-distended, normal bowel sounds Male genitourinary: Present: normal - Integumentary Integumentary: hypopigmented rash on face - Musculoskeletal Musculoskeletal: gait normal, strength equal bilaterally - Psychiatric Psychiatric: appropriate mood/affect, intact judgment & insight - Neurologic Neurologic: CNII-XII intact, moves all extremities - Constitutional Vitals: Temp Pulse Resp BP Pulse Ox 99.3 F 84 18 146/72 98 04/20/17 08:00 04/20/17 08:00 04/20/17 08:00 04/20/17 08:00 04/19/17 20:28 General appearance: Present: mild distress, well-nourished Results - Labs CBC & Chem 7: 04/20/17 Unknown 04/20/17 Unknown Labs: Laboratory Last Values WBC 15.1 K/mm3 (4.5-11.0) H 04/20/17 Unknown RBC 4.89 M/mm3 (3.65-5.03) 04/20/17 Unknown Hgb 10.7 gm/dl (11.8-15.2) L 04/20/17 Unknown Hct 33.7 % (35.5-45.6) L 04/20/17 Unknown MCV 69 fl (84-94) L 04/20/17 Unknown MCH 22 pg (28-32) L 04/20/17 Unknown MCHC 32 % (32-34) 04/20/17 Unknown RDW 16.3 % (13.2-15.2) H 04/20/17 Unknown Plt Count 219 K/mm3 (140-440) 04/20/17 Unknown Lymph % (Auto) 6.1 % (13.4-35.0) L 04/20/17 15:15 [place] % (Auto) 4.8 % (0.0-7.3) 04/20/17 15:15 Eos % (Auto) 0.6 % (0.0-4.3) 04/20/17 15:15 Baso % (Auto) 0.2 % (0.0-1.8) 04/20/17 15:15 Lymph # 0.9 K/mm3 (1.2-5.4) L 04/20/17 15:15 [place] # 0.7 K/mm3 (0.0-0.8) 04/20/17 15:15 Eos # 0.1 K/mm3 (0.0-0.4) 04/20/17 15:15 Baso # 0.0 K/mm3 (0.0-0.1) 04/20/17 15:15 Add Manual Diff Complete 04/19/17 04:00 Total Counted 100 04/19/17 04:00 Seg Neutrophils % 88.3 % (40.0-70.0) H 04/20/17 15:15 Seg Neuts % (Manual) 31.0 % (40.0-70.0) L 04/19/17 04:00 Band Neutrophils % 0 % 04/19/17 04:00 Lymphocytes % (Manual) 57.0 % (13.4-35.0) H 04/19/17 04:00 Reactive Lymphs % (Man) 0 % 04/19/17 04:00 Monocytes % (Manual) 11.0 % (0.0-7.3) H 04/19/17 04:00 Eosinophils % (Manual) 1.0 % (0.0-4.3) 04/19/17 04:00 Basophils % (Manual) 0 % (0.0-1.8) 04/19/17 04:00 Metamyelocytes % 0 % 04/19/17 04:00 Myelocytes % 0 % 04/19/17 04:00 Promyelocytes % 0 % 04/19/17 04:00 Blast Cells % 0 % 04/19/17 04:00 Nucleated RBC % Not Reportable 04/19/17 04:00 Seg Neutrophils # 13.5 K/mm3 (1.8-7.7) H 04/20/17 15:15 Seg Neutrophils # Man 0.6 K/mm3 (1.8-7.7) L 04/19/17 04:00 Band Neutrophils # 0.0 K/mm3 04/19/17 04:00 Lymphocytes # (Manual) 1.0 K/mm3 (1.2-5.4) L 04/19/17 04:00 Abs React Lymphs (Man) 0.0 K/mm3 04/19/17 04:00 Monocytes # (Manual) 0.2 K/mm3 (0.0-0.8) 04/19/17 04:00 Eosinophils # (Manual) 0.0 K/mm3 (0.0-0.4) 04/19/17 04:00 Basophils # (Manual) 0.0 K/mm3 (0.0-0.1) 04/19/17 04:00 Metamyelocytes # 0.0 K/mm3 04/19/17 04:00 Myelocytes # 0.0 K/mm3 04/19/17 04:00 Promyelocytes # 0.0 K/mm3 04/19/17 04:00 Blast Cells # 0.0 K/mm3 04/19/17 04:00 WBC Morphology Not Reportable 04/19/17 04:00 Hypersegmented Neuts Not Reportable 04/19/17 04:00 Hyposegmented Neuts Not Reportable 04/19/17 04:00 Hypogranular Neuts Not Reportable 04/19/17 04:00 Smudge Cells Not Reportable 04/19/17 04:00 Toxic Granulation Not Reportable 04/19/17 04:00 Toxic Vacuolation Not Reportable 04/19/17 04:00 Dohle Bodies Not Reportable 04/19/17 04:00 Pelger-Huet Anomaly Not Reportable 04/19/17 04:00 Raheem Rods Not Reportable 04/19/17 04:00 Platelet Estimate Appears normal 04/19/17 04:00 Clumped Platelets Few 04/19/17 04:00 Plt Clumps, EDTA Not Reportable 04/19/17 04:00 Large Platelets Not Reportable 04/19/17 04:00 Giant Platelets Not Reportable 04/19/17 04:00 Platelet Satelliting Not Reportable 04/19/17 04:00 Plt Morphology Comment Not Reportable 04/19/17 04:00 RBC Morphology Not Reportable 04/19/17 04:00 Dimorphic RBCs Not Reportable 04/19/17 04:00 Polychromasia Not Reportable 04/19/17 04:00 Hypochromasia 2+ 04/19/17 04:00 Poikilocytosis Not Reportable 04/19/17 04:00 Anisocytosis Not Reportable 04/19/17 04:00 Microcytosis 1+ 04/19/17 04:00 Macrocytosis Not Reportable 04/19/17 04:00 Spherocytes Not Reportable 04/19/17 04:00 Pappenheimer Bodies Not Reportable 04/19/17 04:00 Sickle Cells Not Reportable 04/19/17 04:00 Target Cells Not Reportable 04/19/17 04:00 Tear Drop Cells Not Reportable 04/19/17 04:00 Ovalocytes Not Reportable 04/19/17 04:00 Helmet Cells Not Reportable 04/19/17 04:00 [place]-Schlusser Bodies Not Reportable 04/19/17 04:00 Sparks Rings Not Reportable 04/19/17 04:00 [place] Cells Not Reportable 04/19/17 04:00 Bite Cells Not Reportable 04/19/17 04:00 Crenated Cell Not Reportable 04/19/17 04:00 Elliptocytes Not Reportable 04/19/17 04:00 Acanthocytes (Spur) Not Reportable 04/19/17 04:00 Rouleaux Not Reportable 04/19/17 04:00 Hemoglobin C Crystals Not Reportable 04/19/17 04:00 Schistocytes Not Reportable 04/19/17 04:00 Malaria parasites Not Reportable 04/19/17 04:00 Percent Retic 0.45 % (0.78-2.58) L 04/18/17 21:58 [place] Bodies Not Reportable 04/19/17 04:00 Hem Pathologist Commnt No 04/19/17 04:00 PT 14.4 Sec. (12.2-14.9) 04/20/17 05:10 INR 1.13 (0.87-1.13) 04/20/17 05:10 Sodium 138 mmol/L (137-145) 04/20/17 Unknown Potassium 3.9 mmol/L (3.6-5.0) 04/20/17 Unknown Chloride 101.8 mmol/L (98-107) 04/20/17 Unknown Carbon Dioxide 23 mmol/L (22-30) 04/20/17 Unknown Anion Gap 17 mmol/L 04/20/17 Unknown BUN 6 mg/dL (9-20) L 04/20/17 Unknown Creatinine 0.8 mg/dL (0.8-1.5) 04/20/17 Unknown Estimated GFR > 60 ml/min 04/20/17 Unknown BUN/Creatinine Ratio 7.50 % 04/20/17 Unknown Glucose 115 mg/dL (75-100) H 04/20/17 Unknown Calcium 9.0 mg/dL (8.4-10.2) 04/20/17 Unknown Total Bilirubin 0.40 mg/dL (0.1-1.2) 04/18/17 17:50 AST 26 units/L (5-40) 04/18/17 17:50 ALT 31 units/L (7-56) 04/18/17 17:50 Alkaline Phosphatase 55 units/L (35-129) 04/18/17 17:50 C-Reactive Protein 0.00 mg/dL (0.00-1.30) 04/18/17 00:00 Total Protein 8.2 g/dL (6.3-8.2) 04/18/17 17:50 Albumin 4.2 g/dL (3.9-5) 04/18/17 17:50 Albumin/Globulin Ratio 1.1 % 04/18/17 17:50
[2017-04-20] MEDS: COUMADIN PO SCH (17:44)
--- NOTE | 2017-04-20 21:24 | Consultation ---
History of Present Illness - Reason for Consult Consult date: 04/20/17 - History of Present Illness Patient seen/examined, labs reviewed, case d/w patient, WBc now too high, and GF will be d/c. He states feels much better. Disposition as per you. Past History Past Medical History: anemia, HIV/AIDS, other (sickle cell disease, history of PE on Coumadin; AIDS (CD4 = 141 in Nov 2016 and HIV viral load of 142,801 copies /mL)) Past Surgical History: appendectomy, total hip replacement (hip replacements), Other (port placement) Social history: , smoking (3 cigarettes per day) Family history: other (sickle cell) Medications and Allergies Allergies Allergy/AdvReac Type Severity Reaction Status Date / Time morphine Allergy Anaphylaxis Verified 03/09/17 11:18 Iodinated Contrast Media - AdvReac Unknown Verified 03/09/17 11:18 IV Dye sulfamethoxazole AdvReac Unknown Verified 03/09/17 11:18 [From Bactrim] trimethoprim [From Bactrim] AdvReac Unknown Verified 03/09/17 11:18 PLASTIC TAPE Allergy Rash Uncoded 03/09/17 11:18 Home Medications Medication Instructions Recorded Confirmed Last Taken Type Elviteg/Celia/Emtric/Tenofo Ala 1 each PO QDAY 12/01/16 04/18/17 04/18/17 Rx [Genvoya Tablet] Folic Acid [Folvite] 0.5 mg PO QDAY tablet 12/01/16 04/18/17 Unknown Rx Warfarin [Coumadin] 5 mg PO DAILY@1700 #30 tablet 12/01/16 04/18/17 Unknown Rx Oxycodone HCl/Acetaminophen 1 each PO Q6HR PRN #30 tablet 03/10/17 04/18/17 Unknown Rx [Percocet 10/325 mg] Ketoconazole 2% [Nizoral] 1 applic TP BID #1 tube 03/11/17 04/18/17 04/18/17 Rx Active Meds: Active Medications Acetaminophen (Tylenol) 650 mg PO Q4H PRN PRN Reason: Pain MILD(1-3)/Fever >100.5/HODGES Atovaquone (Mepron) 1,500 mg PO QDAY RONY Last Admin: 04/20/17 10:27 Dose: 1,500 mg Bisacodyl (Dulcolax) 10 mg [place] QDAY PRN PRN Reason: Constipation unrelieved by MOM Diphenhydramine HCl (Benadryl) 25 mg IV Q4H PRN PRN Reason: Itching Last Admin: 04/20/17 18:55 Dose: 25 mg Folic Acid (Folvite) 0.5 mg PO QDAY [facility] Last Admin: 04/20/17 10:27 Dose: 0.5 mg Hydromorphone HCl (Dilaudid) 2 mg IV Q4HR PRN PRN Reason: Severe Pain Last Admin: 04/20/17 18:55 Dose: 2 mg Dextrose/Sodium Chloride (D5ns 0.2%) 1,000 mls @ 125 mls/hr IV DIRECT [facility] Last Admin: 04/20/17 20:21 Dose: 125 mls/hr Ketoconazole (Nizoral) 1 applic TP BID [facility] Last Admin: 04/20/17 10:28 Dose: 1 applic Magnesium Hydroxide (Milk Of Magnesia) 30 ml PO Q4H PRN PRN Reason: Constipation Miscellaneous Medication (Elviteg/Celia/Emtric/Tenofo Ala [Genvoya Tablet]) 1 each PO QDAY [facility] Ondansetron HCl (Zofran) 4 mg IV Q8H PRN PRN Reason: N/V unrelieved by Reglan Oxycodone HCl (Roxicodone) 5 mg PO Q6H PRN PRN Reason: Pain, Moderate (4-6) Oxycodone/Acetaminophen (Percocet 5/325) 1 tab PO Q6H PRN PRN Reason: Pain Selenium Sulfide (Selsun) 1 applic TP TuSa@1000 PRN PRN Reason: Seborrhea Last Admin: 04/19/17 13:27 Dose: 1 applic Tbo-Filgrastim (Granix) 480 mcg SUB-Q Q24H [facility] Last Admin: 04/19/17 20:34 Dose: 480 mcg Terbinafine HCl (Lamisil (Nf)) 250 mg PO QDAY [facility] Last Admin: 04/20/17 10:27 Dose: 250 mg Warfarin Sodium (Coumadin) 7.5 mg PO DAILY@1700 [facility] Last Admin: 04/20/17 17:44 Dose: 7.5 mg Warfarin Sodium (Coumadin Pharmacy To Dose) 1 each PO PKCONSULT [facility] Review of Systems Constitutional: chronic pain Musculoskeletal: low back pain Exam - Constitutional Vitals: Temp Pulse Resp BP Pulse Ox 99.0 F 87 20 119/82 98 04/20/17 15:00 04/20/17 15:00 04/20/17 19:25 04/20/17 15:00 04/19/17 20:28 General appearance: Present: well-nourished - EENT Eyes: Present: PERRL ENT: hearing intact, clear oral mucosa - Neck Neck: Present: supple, normal ROM - Respiratory Respiratory effort: normal Respiratory: bilateral: CTA - Cardiovascular Heart Sounds: Present: S1 & S2. Absent: rub, click - Extremities Extremities: pulses symmetrical, No edema Peripheral Pulses: within normal limits - Abdominal General gastrointestinal: Present: soft, non-tender, non-distended, normal bowel sounds Male genitourinary: Present: deferred - Rectal Rectal Exam: deferred - Integumentary Integumentary: Present: clear, warm, dry - Musculoskeletal Musculoskeletal: gait normal, strength equal bilaterally - Psychiatric Psychiatric: appropriate mood/affect, intact judgment & insight - Neurologic Neurologic: CNII-XII intact, moves all extremities Results - Labs CBC & Chem 7: 04/20/17 Unknown 04/20/17 Unknown Labs: Abnormal lab results 04/20/17 04/20/17 04/20/17 Range/Units 15:15 Unknown Unknown WBC 15.2 H 15.1 H (4.5-11.0) K/mm3 Hgb 10.5 L 10.7 L (11.8-15.2) gm/dl Hct 33.1 L 33.7 L (35.5-45.6) % MCV 67 L 69 L (84-94) fl MCH 21 L 22 L (28-32) pg RDW 16.3 H 16.3 H (13.2-15.2) % Lymph % (Auto) 6.1 L (13.4-35.0) % Lymph # 0.9 L (1.2-5.4) K/mm3 Seg Neutrophils % 88.3 H (40.0-70.0) % Seg Neutrophils # 13.5 H (1.8-7.7) K/mm3 BUN 6 L (9-20) mg/dL Glucose 115 H (75-100) mg/dL Assessment and Plan - Patient Problems (1) Anemia Current Visit: No Status: Acute Qualifiers: Anemia type: A Iron deficiency anemia type: I Vitamin B12 deficiency anemia type: V Folate deficiency anemia type: F Bone marrow failure anemia type: B Hemolytic anemia type: H Other causes of anemia: O Chronic kidney disease stage: C Plan to address problem: monitor labs. (2) Dehydration Current Visit: No Status: Acute Plan to address problem: hydration (3) Leukopenia Current Visit: Yes Status: Acute Qualifiers: Leukopenia type: L Neutropenia type: N Plan to address problem: GF when indicated. will need GF. Stop GF. (4) Sickle cell pain crisis Current Visit: Yes Status: Acute Plan to address problem: Pain control
[2017-04-21] MEDS: BENADRYL IV PRN ×4 (02:55→14:57)
[2017-04-21] MEDS: DILAUDID IV PRN ×4 (02:55→14:57)
[2017-04-21] MEDS: D5NS 0.2% 1,000 ML IV SCH (04:25)
[2017-04-21 05:34] LABS: Basophils % (Auto) 0.2 % (0.0-1.8); Eosinophils % (Auto) 0.7 % (0.0-4.3); Hematocrit 32.3 % (35.5-45.6); Hemoglobin 10.2 gm/dl (11.8-15.2); Mean Corpuscular HGB Conc 32 % (32-34); Platelet Count 170 K/mm3 (140-440); Red Blood Count 4.72 M/mm3 (3.65-5.03); Red Cell Distribution Width 16.1 % (13.2-15.2); Reticulocyte % 0.69 % (0.78-2.58); White Blood Count 11.4 K/mm3 (4.5-11.0)
[2017-04-21 05:37] LABS: Mean Corpuscular Hemoglobin 22 pg (28-32); Mean Corpuscular Volume 68 fl (84-94)
[2017-04-21 05:41] LABS: INR 1.18 (0.87-1.13)
[2017-04-21 05:49] LABS: Anion Gap 15 mmol/L; BUN/Creatinine Ratio 14.28; Blood Urea Nitrogen 10 mg/dL (9-20); Calcium 9.5 mg/dL (8.4-10.2); Carbon Dioxide 25 mmol/L (22-30); Chloride 98.3 mmol/L (98-107); Glucose 103 mg/dL (75-100); Sodium 134 mmol/L (137-145)
[2017-04-21 09:04] LABS: Lactate Dehydrogenase 250 units/L (91-180)
--- NOTE | 2017-04-21 09:35 | Discharge Summary ---
Providers - Providers Date of Admission: 04/18/17 15:37 Attending physician: NAVEED GUZMAN MD 04/18/17 15:02 Consult to Physician [CONS] Routine Consulting Provider: ÁNGEL CHINCHILLA Reason For Exam: SICKLE CELL CRISIS Place consult to:: DR. CHINCHILLA Notified:: DR. CHINCHILLA Phone number called:: [phone] Was contact made?: Yes If yes, spoke with:: DR. CHINCHILLA Time called:: 15:03 Comment:: DR. GUZMAN SPOKE WITH DR. CHINCHILLA REGARDING CONSULT. 04/18/17 22:03 Consult to Physician [CONS] Routine Consulting Provider: JOSE MIGUEL BELLE Reason For Exam: HIV, needs CD4 ppx Place consult to:: DR. BELLE Notified:: DR. BELLE Phone number called:: IN HOUSE Was contact made?: Yes If yes, spoke with:: DR. BELLE Time called:: 08:52 Comment:: STEVEN NOTIFIED Primary care physician: SOLE TRIMMER Hospitalization Hospital course: 36-year-old male with past medical history of sickle cell disease, history of PE on Coumadin and HIV who presents with sickle cell crisis. He was treated with IV fluids, pain medications, chest x-ray was negative for infiltrate. He was comanaged by Hematology, He was noted to have leukopenia for which she received growth factor after which his white blood cell count normalized. Patient has a history of HIV/AIDS with CD4 count less than 200. He was put on Bactrim by his infectious disease doctor but did not take it due to an allergy. He was seen by infectious disease while in house, started on Mepron for PCP prophylaxis. He had anfungal infection of his skin he was given appropriate antifungal creams, selenium ointments and oral antifungal which she will take for a limited time. He wasn't noncompliant with his medications, he admitted to count, differential he was counseled on increased compliance for which she verbalized understanding he was restarted on warfarin for his history of PE/DVT , and he was advised to follow up with his infectious disease doctor, Dr. melo upon discharge. Diagnosis Sickle cell crisis pain HIV infection/AIDS Non compliance Leukopenia History of PE/DVT Tinea versicolor Disposition: DC-01 TO HOME OR SELFCARE Time spent for discharge: 33 minutes Core Measure Documentation - Palliative Care Palliative Care/ Comfort Measures: Not Applicable - Core Measures Any of the following diagnoses?: none Exam - Physical Exam Narrative exam: General appearance: Present: no acute distress, well-nourished - EENT Eyes: Present: PERRL ENT: hearing intact, clear oral mucosa - Neck Neck: Present: supple, normal ROM - Respiratory Respiratory effort: normal Respiratory: bilateral: CTA - Cardiovascular Heart Sounds: Present: S1 & S2. Absent: rub, click - Extremities Extremities: pulses symmetrical, No edema Peripheral Pulses: within normal limits - Abdominal General gastrointestinal: Present: soft, non-tender, non-distended, normal bowel sounds Male genitourinary: Present: normal - Integumentary Integumentary: hypopigmented rash on face - Musculoskeletal Musculoskeletal: gait normal, strength equal bilaterally - Psychiatric Psychiatric: appropriate mood/affect, intact judgment & insight - Neurologic Neurologic: CNII-XII intact, moves all extremities - Constitutional Vitals: Temp Pulse Resp BP Pulse Ox 100.0 F H 104 H 20 148/89 99 04/20/17 23:20 04/20/17 23:20 04/21/17 07:31 04/20/17 23:20 04/20/17 23:20 Plan Additional Instructions: Please see your PCP and have your INR checked 3-4 days after discharge Follow up with: PRIMARY CAREMD [Primary Care Provider] - 7 Days AISSATOU MELO MD [Staff Physician] - 7 Days NILESH MEJIAS MD [Staff Physician] - 7 Days Forms: Warfarin Discharge Instruction Prescriptions: Atovaquone [Mepron] 1,500 mg PO QDAY #30 packet Elviteg/Celia/Emtric/Tenofo Ala [Genvoya Tablet] 1 each PO QDAY #30 Folic Acid [Folvite] 0.5 mg PO QDAY #30 tablet Ketoconazole 2% [Nizoral] 1 applic TP BID #1 tube Oxycodone HCl/Acetaminophen [Percocet 10/325 mg] 1 each PO Q6HR PRN #30 tablet PRN Reason: Pain Selenium Sulfide [Selsun] 1 applic TP TuSa@1000 PRN #1 bottle PRN Reason: Seborrhea Terbinafine (Nf) [LamiSIL] 250 mg PO QDAY #14 tablet Warfarin [Coumadin] 7.5 mg PO DAILY@1700 #7 tablet
[2017-04-21 09:46] VITALS: BP 121/69
[2017-04-21] MEDS: LAMISIL PO SCH (09:56)
[2017-04-21] MEDS: MEPRON PO SCH (09:56)
[2017-04-21] MEDS: FOLVITE PO SCH (09:57)
[2017-04-21] MEDS: NIZORAL TP SCH (11:06)
[2017-04-21] MEDS ORDERED: FLUSH HEPARIN IV ONE ×2 (12:00→15:00)
[2017-04-21] MEDS ORDERED: TRIPLE ANTIBIOTIC TP ONE ×2 (12:00→15:00)
[2017-04-21 16:34] LABS: HIV-1 RNA QN PCR 4.57 Log cps/mL (<1.30)
== END 2017-04-21 16:15 | disposition home or self-care (01) | DRG 811 ==
LOC: UNDOADMIN 14:52 → 3A 14:52
PROVIDERS: ADMIT Internal Medicine; ATTEND Internal Medicine
DX: D57.00 Hb-SS disease with crisis, unspecified (principal); B20 Human immunodeficiency virus [HIV] disease; E86.0 Dehydration; B36.0 Pityriasis versicolor; L21.9 Seborrheic dermatitis, unspecified; Z96.649 Presence of unspecified artificial hip joint; F17.210 Nicotine dependence, cigarettes, uncomplicated; Z86.718 Personal history of other venous thrombosis and embolism; Z86.711 Personal history of pulmonary embolism; Z90.49 Acquired absence of other specified parts of digestive tract; Z84.89 Family history of other specified conditions; Z88.5 Allergy status to narcotic agent; Z88.2 Allergy status to sulfonamides; Z91.041 Radiographic dye allergy status; Z79.01 Long term (current) use of anticoagulants; Z79.899 Other long term (current) drug therapy
CPT/HCPCS: 36415; 71020; 80048; 80053; 82024; 82955; 83615; 85007; 85025; 85027; 85045; 85610; 86140; 87536; A6250; J1170; J1200; J1447; J1642

== ENCOUNTER 2017-06-17 11:17 | Inpatient (IN) | payer MEDICARE ==
[2017-06-17] MEDS ORDERED: DILAUDID IV PRN ×2 (12:23→12:26)
--- NOTE | 2017-06-17 14:41 | History and Physical Report ---
History of Present Illness Date of admission: 06/17/17 12:24 Chief complaint: Im hurting real bad again History of present illness: 36 YO Male with SSD, HIV, DVT/PE directly admitted at the request of Dr. Steward for SSD with Pain crisis. Pt states that he has been experiencing pain all over his body for the past several days without relief of symptoms. Pt states that the pain is currently 10/10, and not relieved with his current medication. Pt denies fever, chills, CP, Palpitations, NVD, hemoptysis, difficulty breathing, syncope, BRBPR, recent ill contacts. Past History Past Medical History: HIV/AIDS, pulmonary embolism, other (SSD) Past Surgical History: appendectomy, cholecystectomy, Other (Port placement, splenectomy) Social history: single. denies: smoking, alcohol abuse, prescription drug abuse , IV drug use Family history: hypertension Medications and Allergies Allergies Allergy/AdvReac Type Severity Reaction Status Date / Time morphine Allergy Anaphylaxis Verified 03/09/17 11:18 Iodinated Contrast Media - AdvReac Unknown Verified 03/09/17 11:18 IV Dye sulfamethoxazole AdvReac Unknown Verified 03/09/17 11:18 [From Bactrim] trimethoprim [From Bactrim] AdvReac Unknown Verified 03/09/17 11:18 PLASTIC TAPE Allergy Rash Uncoded 03/09/17 11:18 Home Medications Medication Instructions Recorded Confirmed Last Taken Type Atovaquone [Mepron] 1,500 mg PO QDAY #30 packet 04/21/17 Unknown Rx Elviteg/Celia/Emtric/Tenofo Ala 1 each PO QDAY #30 04/21/17 Unknown Rx [Genvoya Tablet] Folic Acid [Folvite] 0.5 mg PO QDAY #30 tablet 04/21/17 Unknown Rx Ketoconazole 2% [Nizoral] 1 applic TP BID #1 tube 04/21/17 Unknown Rx Oxycodone HCl/Acetaminophen 1 each PO Q6HR PRN #30 tablet 04/21/17 Unknown Rx [Percocet 10/325 mg] Selenium Sulfide [Selsun] 1 applic TP TuSa@1000 PRN #1 bottle 04/21/17 Unknown Rx Terbinafine (Nf) [LamiSIL] 250 mg PO QDAY #14 tablet 04/21/17 Unknown Rx Warfarin [Coumadin] 7.5 mg PO DAILY@1700 #7 tablet 04/21/17 Unknown Rx Active Meds: Active Medications Diphenhydramine HCl (Benadryl) 12.5 mg IV Q3H PRN PRN Reason: Itching Stop: 06/18/17 09:29 Diphenhydramine HCl (Benadryl) 12.5 mg IV Q4H PRN PRN Reason: Itching Hydromorphone HCl (Dilaudid) 2 mg IV Q3H PRN PRN Reason: Pain Stop: 06/18/17 09:24 Hydromorphone HCl (Dilaudid) 2 mg IV Q4H PRN PRN Reason: Pain Dextrose/Sodium Chloride (D5ns 0.2%) 1,000 mls @ 150 mls/hr IV DIRECT RONY Ketoconazole (Nizoral) 1 applic TP BID RONY Review of Systems Constitutional: chronic pain, no weight loss, no weight gain, no fever, no chills Ears, nose, mouth and throat: no ear pain, no ear discharge, no tinnitis, no decreased hearing, no nose pain, no nasal congestion Cardiovascular: no chest pain, no orthopnea, no palpitations, no rapid/ irregular heart beat, no edema Respiratory: no cough, no cough with sputum, no excessive sputum, no hemoptysis , no shortness of breath, no dyspnea on exertion Gastrointestinal: no abdominal pain, no nausea, no vomiting, no diarrhea Genitourinary Male: no dysuria, no hematuria, no flank pain, no discharge Rectal: no pain, no incontinence, no bleeding Musculoskeletal: no neck stiffness, no neck pain, no shooting arm pain, no arm numbness/tingling, no low back pain Integumentary: no rash, no pruritis, no redness, no sores Neurological: no head injury, no transient paralysis, no paralysis, no weakness , no parathesias, no numbness, no tingling, no seizures Psychiatric: no anxiety, no memory loss, no change in sleep habits, no sleep disturbances, no insomnia, no hypersomnia Endocrine: no cold intolerance, no heat intolerance, no polyphagia, no excessive thirst, no polydipsia, no polyuria, no nocturia Hematologic/Lymphatic: no easy bruising, no easy bleeding Allergic/Immunologic: no urticaria, no allergic rhinitis, no wheezing Exam - Constitutional General appearance: Present: mild distress - EENT Eyes: Present: PERRL ENT: hearing intact, clear oral mucosa - Neck Neck: Present: supple, normal ROM - Respiratory Respiratory effort: normal Respiratory: bilateral: CTA - Cardiovascular Heart Sounds: Present: S1 & S2. Absent: rub, click - Extremities Extremities: pulses symmetrical, No edema Peripheral Pulses: within normal limits - Abdominal General gastrointestinal: Present: soft, non-tender, non-distended, normal bowel sounds Male genitourinary: Present: normal - Integumentary Integumentary: Present: clear, warm, dry - Musculoskeletal Musculoskeletal: gait normal, strength equal bilaterally - Psychiatric Psychiatric: appropriate mood/affect, intact judgment & insight - Neurologic Neurologic: CNII-XII intact, moves all extremities Results - Labs CBC & Chem 7: 06/17/17 14:51 06/17/17 14:51 Assessment and Plan - Patient Problems (1) Sickle-cell crisis Current Visit: No Status: Acute Plan to address problem: IVF resuscitation, Hematology consulted, pain control, supportive care (2) AIDS (acquired immunodeficiency syndrome), CD4 <=200 Current Visit: No Status: Acute Plan to address problem: Resume home medication, outpatient ID f/u care (3) Hx of pulmonary embolus Current Visit: No Status: Chronic Plan to address problem: Hematology consulted, hold anticoagulation for now due to elevated INR (4) Dehydration Current Visit: No Status: Acute (5) Hypokalemia Current Visit: No Status: Acute (6) Allergy to Coumadin Current Visit: Yes Status: Acute (7) Coumadin toxicity Current Visit: Yes Status: Acute Qualifiers: Encounter type: E Injury intent: I Plan to address problem: Hold coumadin, no active bleeding at this time, Vitamin K, repeat inr
[2017-06-17 15:20] LABS: Basophils % (Auto) 0.6 % (0.0-1.8); Eosinophils % (Auto) 0.8 % (0.0-4.3); Hemoglobin 10.2 gm/dl (11.8-15.2); Mean Corpuscular HGB Conc 32 % (32-34); Mean Corpuscular Hemoglobin 22 pg (28-32); Mean Corpuscular Volume 69 fl (84-94); Platelet Count 202 K/mm3 (140-440); Red Blood Count 4.66 M/mm3 (3.65-5.03); Red Cell Distribution Width 17.7 % (13.2-15.2); Reticulocyte % 0.39 % (0.78-2.58); White Blood Count 2.4 K/mm3 (4.5-11.0)
[2017-06-17] MEDS: DILAUDID IV PRN ×3 (15:31→22:51)
[2017-06-17 15:34] LABS: Alanine Aminotransferase 26 units/L (7-56); Albumin 4.2 g/dL (3.9-5); Alkaline Phosphatase 54 units/L (35-129); Chloride 99.9 mmol/L (98-107); Potassium 3.6 mmol/L (3.6-5.0); Sodium 137 mmol/L (137-145)
[2017-06-17 15:35] LABS: Iron 46 ug/dL (49-181); Total Iron Binding Capacity 323 mcg/dL (250-450)
[2017-06-17 16:01] LABS: INR 12.2 (0.87-1.13)
[2017-06-17 16:25] LABS: Albumin/Globulin Ratio 1.1 %
[2017-06-17 16:42] LABS: Anion Gap 17 mmol/L; BUN/Creatinine Ratio 12.85; Blood Urea Nitrogen 9 mg/dL (9-20); Calcium 8.7 mg/dL (8.4-10.2); Carbon Dioxide 24 mmol/L (22-30)
[2017-06-17 16:53] LABS: Glucose 84 mg/dL (75-100)
[2017-06-17 17:06] LABS: INR 11.95 (0.87-1.13)
[2017-06-17] MEDS: BENADRYL IV PRN ×2 (18:51→22:55)
[2017-06-17] MEDS ORDERED: VITAMIN K (ADULT ONLY) SUB-Q ONE (19:00)
[2017-06-17] MEDS: NIZORAL TP SCH (22:56)
[2017-06-17 23:56] LABS: INR 12.35 (0.87-1.13)
[2017-06-18] MEDS: D5NS 0.2% 1,000 ML IV SCH ×3 (00:58→21:30)
[2017-06-18] MEDS: BENADRYL IV PRN ×5 (02:42→22:49)
[2017-06-18] MEDS: DILAUDID IV PRN ×6 (02:43→23:45)
[2017-06-18] MEDS ORDERED: VITAMIN K (ADULT ONLY) SUB-Q ONE (03:00)
[2017-06-18 09:00] LABS: INR 4.44 (0.87-1.13)
[2017-06-18] MEDS: NIZORAL TP SCH ×2 (11:13→21:34)
[2017-06-18] MEDS: ZOFRAN IV PRN (16:01)
--- NOTE | 2017-06-18 18:40 | Progress Note ---
Assessment and Plan Assessment and plan: 1. Sickle cell pain crisis IV pain control medication and IV fluids 2. History of PE Anticoagulated with Coumadin 3. Coagulopathy Due to interaction of Coumadin with ciprofloxacin INR 12 on admission Status post vitamin K Today INR 4.4 f Continue to hold Coumadin and recheck INR in a.m. 4. HIV/AIDS 5. Leukopenia Due to #4 6. Anemia Due to #4 + iron deficiency Start supplementation 7. DVT prophylaxis On Coumadin History Interval history: c/o generalized pain Hospitalist Physical - Constitutional Vitals: Temp Pulse Resp BP Pulse Ox 98.9 F 78 18 119/86 95 06/18/17 17:51 06/18/17 17:51 06/18/17 17:51 06/18/17 17:51 06/18/17 17:51 General appearance: Present: mild distress - EENT Eyes: Present: PERRL, EOM intact - Neck Neck: Present: supple, normal ROM. Absent: enlarged thyroid, carotid bruits - Respiratory Respiratory effort: normal Respiratory: bilateral: CTA, negative: rhonchi, wheezing - Cardiovascular Rhythm: other (tachycardic) Heart Sounds: Present: S1 & S2. Absent: systolic murmur - Extremities Extremities: no ischemia - Abdominal General gastrointestinal: soft, non-tender, non-distended, normal bowel sounds - Neurologic Neurologic: no focal deficits Results - Labs CBC & Chem 7: 06/17/17 14:51 06/17/17 14:51 Labs: Laboratory Last Values WBC 2.4 K/mm3 (4.5-11.0) L 06/17/17 14:51 RBC 4.66 M/mm3 (3.65-5.03) 06/17/17 14:51 Hgb 10.2 gm/dl (11.8-15.2) L 06/17/17 14:51 Hct 32.0 % (35.5-45.6) L 06/17/17 14:51 MCV 69 fl (84-94) L 06/17/17 14:51 MCH 22 pg (28-32) L 06/17/17 14:51 MCHC 32 % (32-34) 06/17/17 14:51 RDW 17.7 % (13.2-15.2) H 06/17/17 14:51 Plt Count 202 K/mm3 (140-440) 06/17/17 14:51 Lymph % (Auto) 43.6 % (13.4-35.0) H 06/17/17 14:51 [place] % (Auto) 13.2 % (0.0-7.3) H 06/17/17 14:51 Eos % (Auto) 0.8 % (0.0-4.3) 06/17/17 14:51 Baso % (Auto) 0.6 % (0.0-1.8) 06/17/17 14:51 Lymph # 1.1 K/mm3 (1.2-5.4) L 06/17/17 14:51 [place] # 0.3 K/mm3 (0.0-0.8) 06/17/17 14:51 Eos # 0.0 K/mm3 (0.0-0.4) 06/17/17 14:51 Baso # 0.0 K/mm3 (0.0-0.1) 06/17/17 14:51 Seg Neutrophils % 41.8 % (40.0-70.0) 06/17/17 14:51 Seg Neutrophils # 1.0 K/mm3 (1.8-7.7) L 06/17/17 14:51 Percent Retic 0.39 % (0.78-2.58) L 06/17/17 14:51 PT 44.7 Sec. (12.2-14.9) H 06/18/17 08:45 INR 4.44 (0.87-1.13) H 06/18/17 08:45 Sodium 137 mmol/L (137-145) 06/17/17 14:51 Potassium 3.6 mmol/L (3.6-5.0) 06/17/17 14:51 Chloride 99.9 mmol/L (98-107) 06/17/17 14:51 Carbon Dioxide 24 mmol/L (22-30) 06/17/17 14:51 Anion Gap 17 mmol/L 06/17/17 14:51 BUN 9 mg/dL (9-20) 06/17/17 14:51 Creatinine 0.7 mg/dL (0.8-1.5) L 06/17/17 14:51 Estimated GFR > 60 ml/min 06/17/17 14:51 BUN/Creatinine Ratio 12.85 % 06/17/17 14:51 Glucose 84 mg/dL (75-100) 06/17/17 14:51 Calcium 8.7 mg/dL (8.4-10.2) 06/17/17 14:51 Iron 45 ug/dL (49-181) L 06/17/17 14:51 TIBC 320 mcg/dL (250-450) 06/17/17 14:51 % Saturation 14.06 % 06/17/17 14:51 Transferrin 267 mg/dl (180-329) 06/17/17 14:51 Total Bilirubin 0.30 mg/dL (0.1-1.2) 06/17/17 14:51 AST 20 units/L (5-40) 06/17/17 14:51 ALT 26 units/L (7-56) 06/17/17 14:51 Alkaline Phosphatase 54 units/L (35-129) 06/17/17 14:51 Total Protein 8.0 g/dL (6.3-8.2) 06/17/17 14:51 Albumin 4.2 g/dL (3.9-5) 06/17/17 14:51 Albumin/Globulin Ratio 1.1 % 06/17/17 14:51
--- NOTE | 2017-06-18 19:24 | Consultation ---
History of Present Illness - Reason for Consult Consult date: 06/18/17 ANEMIA/SCD/Coumadin toxcicity. Requesting physician: LUIS GIVENS - History of Present Illness Thank you for this consult, patient seen/examined, record reviewed, case d/w him. Admitted from the office for the above reasons. C/o felt N/V earlier, better with anti emetics. Past History Past Medical History: HIV/AIDS, pulmonary embolism, other (SSD) Past Surgical History: appendectomy, cholecystectomy, Other (Port placement, splenectomy) Social history: . denies: smoking, alcohol abuse, prescription drug abuse, IV drug use Family history: no significant family history, hypertension Medications and Allergies Allergies Allergy/AdvReac Type Severity Reaction Status Date / Time morphine Allergy Anaphylaxis Verified 03/09/17 11:18 Iodinated Contrast Media - AdvReac Unknown Verified 03/09/17 11:18 IV Dye sulfamethoxazole AdvReac Unknown Verified 03/09/17 11:18 [From Bactrim] trimethoprim [From Bactrim] AdvReac Unknown Verified 03/09/17 11:18 PLASTIC TAPE Allergy Rash Uncoded 03/09/17 11:18 Home Medications Medication Instructions Recorded Confirmed Last Taken Type Atovaquone [Mepron] 1,500 mg PO QDAY #30 packet 04/21/17 Unknown Rx Elviteg/Celia/Emtric/Tenofo Ala 1 each PO QDAY #30 04/21/17 Unknown Rx [Genvoya Tablet] Folic Acid [Folvite] 0.5 mg PO QDAY #30 tablet 04/21/17 Unknown Rx Ketoconazole 2% [Nizoral] 1 applic TP BID #1 tube 04/21/17 Unknown Rx Oxycodone HCl/Acetaminophen 1 each PO Q6HR PRN #30 tablet 04/21/17 Unknown Rx [Percocet 10/325 mg] Selenium Sulfide [Selsun] 1 applic TP TuSa@1000 PRN #1 bottle 04/21/17 Unknown Rx Terbinafine (Nf) [LamiSIL] 250 mg PO QDAY #14 tablet 04/21/17 Unknown Rx Warfarin [Coumadin] 7.5 mg PO DAILY@1700 #7 tablet 04/21/17 Unknown Rx Active Meds: Active Medications Diphenhydramine HCl (Benadryl) 12.5 mg IV Q4H PRN PRN Reason: Itching Last Admin: 06/18/17 15:10 Dose: 12.5 mg Hydromorphone HCl (Dilaudid) 2 mg IV Q4H PRN PRN Reason: Pain Last Admin: 06/18/17 19:03 Dose: 2 mg Dextrose/Sodium Chloride (D5ns 0.2%) 1,000 mls @ 150 mls/hr IV DIRECT RONY Last Admin: 06/18/17 12:11 Dose: 150 mls/hr Ketoconazole (Nizoral) 1 applic TP BID RONY Last Admin: 06/18/17 11:13 Dose: 1 applic Ondansetron HCl (Zofran) 4 mg IV Q6H PRN PRN Reason: Nausea And Vomiting Last Admin: 06/18/17 16:01 Dose: 4 mg Review of Systems Constitutional: chronic pain Gastrointestinal: nausea, vomiting Musculoskeletal: low back pain Exam - Constitutional Vitals: Temp Pulse Resp BP Pulse Ox 98.9 F 78 18 119/86 95 06/18/17 17:51 06/18/17 17:51 06/18/17 17:51 06/18/17 17:51 06/18/17 17:51 General appearance: Present: mild distress, well-nourished - EENT Eyes: Present: PERRL ENT: hearing intact, clear oral mucosa - Neck Neck: Present: supple, normal ROM - Respiratory Respiratory effort: normal Respiratory: bilateral: CTA - Cardiovascular Heart Sounds: Present: S1 & S2. Absent: rub, click - Extremities Extremities: pulses symmetrical, No edema Peripheral Pulses: within normal limits - Abdominal General gastrointestinal: Present: soft, non-tender, non-distended, normal bowel sounds Localized gastrointestinal: guarding: epigastric periumbilical Male genitourinary: Present: deferred - Rectal Rectal Exam: deferred - Integumentary Integumentary: Present: clear, warm, dry - Musculoskeletal Musculoskeletal: gait normal, strength equal bilaterally - Psychiatric Psychiatric: appropriate mood/affect, intact judgment & insight - Neurologic Neurologic: CNII-XII intact, moves all extremities Results - Labs CBC & Chem 7: 06/17/17 14:51 06/17/17 14:51 Labs: Abnormal lab results 06/17/17 06/18/17 Range/Units 23:10 08:45 PT 100.7 H 44.7 H (12.2-14.9) Sec. INR 12.35 H* 4.44 H (0.87-1.13) Assessment and Plan - Patient Problems (1) Coumadin toxicity Current Visit: Yes Status: Acute Qualifiers: Encounter type: E Injury intent: I Plan to address problem: better with Vit K., continue to hold coumadin. (2) Anemia Current Visit: No Status: Acute Qualifiers: Anemia type: A Iron deficiency anemia type: I Vitamin B12 deficiency anemia type: V Folate deficiency anemia type: F Bone marrow failure anemia type: B Hemolytic anemia type: H Other causes of anemia: O Chronic kidney disease stage: C Plan to address problem: monitor labs, and replace as needed. (3) AIDS (acquired immunodeficiency syndrome), CD4 <=200 Current Visit: No Status: Acute (4) Dehydration Current Visit: No Status: Acute Plan to address problem: hydration
[2017-06-19] MEDS: BENADRYL IV PRN ×5 (05:36→22:47)
[2017-06-19 06:10] LABS: Anion Gap 16 mmol/L; BUN/Creatinine Ratio 6.25; Blood Urea Nitrogen 5 mg/dL (9-20); Calcium 8.5 mg/dL (8.4-10.2); Carbon Dioxide 27 mmol/L (22-30); Chloride 98.3 mmol/L (98-107); Glucose 97 mg/dL (75-100); Potassium 3.8 mmol/L (3.6-5.0); Sodium 137 mmol/L (137-145)
[2017-06-19 06:19] LABS: INR 2.07 (0.87-1.13)
[2017-06-19] MEDS: DILAUDID IV PRN ×4 (06:22→22:48)
[2017-06-19 06:29] LABS: Hematocrit 30.5 % (35.5-45.6); Hemoglobin 9.7 gm/dl (11.8-15.2); Mean Corpuscular HGB Conc 32 % (32-34); Platelet Count 201 K/mm3 (140-440); Red Blood Count 4.37 M/mm3 (3.65-5.03); Reticulocyte % 0.44 % (0.78-2.58)
[2017-06-19 06:34] LABS: Mean Corpuscular Hemoglobin 22 pg (28-32); Mean Corpuscular Volume 70 fl (84-94)
[2017-06-19 07:27] LABS: Anisocytosis 1+; Basophils % (Manual) 0 % (0.0-1.8); Blastocytes % (Manual) 0 %; Elliptocytes 1+; Hypochromasia 1+
[2017-06-19 07:28] LABS: Microcytosis 1+; Schistocytes Rare; Target Cells Few
[2017-06-19 07:31] LABS: Diff Status Complete; Giant Platelets Few
[2017-06-19] MEDS: D5NS 0.2% 1,000 ML IV SCH ×2 (09:01→18:42)
[2017-06-19] MEDS: ZOFRAN IV PRN (09:27)
[2017-06-19] MEDS: NIZORAL TP SCH ×2 (11:33→21:25)
--- NOTE | 2017-06-19 18:40 | Progress Note ---
Assessment and Plan Assessment and plan: 1. Sickle cell pain crisis Continue IV pain control medication and IV fluids; trying to taper and switch to po 2. History of PE Anticoagulated with Coumadin 3. Coagulopathy Due to interaction of Coumadin with ciprofloxacin INR 12 on admission Status post vitamin K Today INR down to 2 His goal INR 2-3, so resume Coumadin 4. HIV/AIDS 5. Leukopenia Due to #4 6. Anemia Due to #4 + iron deficiency Start supplementation 7. DVT prophylaxis On Coumadin History Interval history: c/o generalized pain, slightly better than yesterday Hospitalist Physical - Constitutional Vitals: Temp Pulse Resp BP Pulse Ox 100.7 F H 91 H 18 121/77 99 06/19/17 17:04 06/19/17 17:04 06/19/17 17:04 06/19/17 17:04 06/19/17 17:04 General appearance: Present: no acute distress - EENT Eyes: Present: PERRL, EOM intact - Neck Neck: Present: supple. Absent: enlarged thyroid, masses or JVD - Respiratory Respiratory effort: normal Respiratory: bilateral: CTA, negative: rhonchi, wheezing - Cardiovascular Rhythm: regular Heart Sounds: Present: S1 & S2. Absent: systolic murmur - Extremities Extremities: no ischemia - Abdominal General gastrointestinal: soft, non-tender, non-distended, normal bowel sounds - Neurologic Neurologic: no focal deficits Results - Labs CBC & Chem 7: 06/20/17 07:15 06/20/17 07:15 Labs: Laboratory Last Values WBC 2.0 K/mm3 (4.5-11.0) L 06/19/17 05:00 RBC 4.37 M/mm3 (3.65-5.03) 06/19/17 05:00 Hgb 9.7 gm/dl (11.8-15.2) L 06/19/17 05:00 Hct 30.5 % (35.5-45.6) L 06/19/17 05:00 MCV 70 fl (84-94) L 06/19/17 05:00 MCH 22 pg (28-32) L 06/19/17 05:00 MCHC 32 % (32-34) 06/19/17 05:00 RDW 17.0 % (13.2-15.2) H 06/19/17 05:00 Plt Count 201 K/mm3 (140-440) 06/19/17 05:00 Lymph % (Auto) Telephone Answerer 06/19/17 05:00 [place] % (Auto) Telephone Answerer 06/19/17 05:00 Eos % (Auto) Telephone Answerer 06/19/17 05:00 Baso % (Auto) Telephone Answerer 06/19/17 05:00 Lymph # Telephone Answerer 06/19/17 05:00 [place] # Telephone Answerer 06/19/17 05:00 Eos # Telephone Answerer 06/19/17 05:00 Baso # Telephone Answerer 06/19/17 05:00 Add Manual Diff Complete 06/19/17 05:00 Total Counted 100 06/19/17 05:00 Seg Neutrophils % Telephone Answerer 06/19/17 05:00 Seg Neuts % (Manual) 64.0 % (40.0-70.0) 06/19/17 05:00 Band Neutrophils % 2.0 % 06/19/17 05:00 Lymphocytes % (Manual) 20.0 % (13.4-35.0) 06/19/17 05:00 Reactive Lymphs % (Man) 0 % 06/19/17 05:00 Monocytes % (Manual) 13.0 % (0.0-7.3) H 06/19/17 05:00 Eosinophils % (Manual) 1.0 % (0.0-4.3) 06/19/17 05:00 Basophils % (Manual) 0 % (0.0-1.8) 06/19/17 05:00 Metamyelocytes % 0 % 06/19/17 05:00 Myelocytes % 0 % 06/19/17 05:00 Promyelocytes % 0 % 06/19/17 05:00 Blast Cells % 0 % 06/19/17 05:00 Nucleated RBC % Not Reportable 06/19/17 05:00 Seg Neutrophils # Telephone Answerer 06/19/17 05:00 Seg Neutrophils # Man 1.3 K/mm3 (1.8-7.7) L 06/19/17 05:00 Band Neutrophils # 0.0 K/mm3 06/19/17 05:00 Lymphocytes # (Manual) 0.4 K/mm3 (1.2-5.4) L 06/19/17 05:00 Abs React Lymphs (Man) 0.0 K/mm3 06/19/17 05:00 Monocytes # (Manual) 0.3 K/mm3 (0.0-0.8) 06/19/17 05:00 Eosinophils # (Manual) 0.0 K/mm3 (0.0-0.4) 06/19/17 05:00 Basophils # (Manual) 0.0 K/mm3 (0.0-0.1) 06/19/17 05:00 Metamyelocytes # 0.0 K/mm3 06/19/17 05:00 Myelocytes # 0.0 K/mm3 06/19/17 05:00 Promyelocytes # 0.0 K/mm3 06/19/17 05:00 Blast Cells # 0.0 K/mm3 06/19/17 05:00 WBC Morphology Not Reportable 06/19/17 05:00 Hypersegmented Neuts Not Reportable 06/19/17 05:00 Hyposegmented Neuts Not Reportable 06/19/17 05:00 Hypogranular Neuts Not Reportable 06/19/17 05:00 Smudge Cells Not Reportable 06/19/17 05:00 Toxic Granulation Not Reportable 06/19/17 05:00 Toxic Vacuolation Not Reportable 06/19/17 05:00 Dohle Bodies Not Reportable 06/19/17 05:00 Pelger-Huet Anomaly Not Reportable 06/19/17 05:00 Raheem Rods Not Reportable 06/19/17 05:00 Platelet Estimate Appears normal 06/19/17 05:00 Clumped Platelets Not Reportable 06/19/17 05:00 Plt Clumps, EDTA Not Reportable 06/19/17 05:00 Large Platelets Not Reportable 06/19/17 05:00 Giant Platelets Few 06/19/17 05:00 Platelet Satelliting Not Reportable 06/19/17 05:00 Plt Morphology Comment Not Reportable 06/19/17 05:00 RBC Morphology Not Reportable 06/19/17 05:00 Dimorphic RBCs Not Reportable 06/19/17 05:00 Polychromasia Not Reportable 06/19/17 05:00 Hypochromasia 1+ 06/19/17 05:00 Poikilocytosis Not Reportable 06/19/17 05:00 Anisocytosis 1+ 06/19/17 05:00 Microcytosis 1+ 06/19/17 05:00 Macrocytosis Not Reportable 06/19/17 05:00 Spherocytes Not Reportable 06/19/17 05:00 Pappenheimer Bodies Not Reportable 06/19/17 05:00 Sickle Cells Not Reportable 06/19/17 05:00 Target Cells Few 06/19/17 05:00 Tear Drop Cells Not Reportable 06/19/17 05:00 Ovalocytes Not Reportable 06/19/17 05:00 Helmet Cells Not Reportable 06/19/17 05:[address] [place] Bodies Not Reportable 06/19/17 05:00 [place] Rings Not Reportable 06/19/17 05:00 [place] Cells Not Reportable 06/19/17 05:00 Bite Cells Not Reportable 06/19/17 05:00 Crenated Cell Not Reportable 06/19/17 05:00 Elliptocytes 1+ 06/19/17 05:00 Acanthocytes (Spur) Not Reportable 06/19/17 05:00 Rouleaux Not Reportable 06/19/17 05:00 Hemoglobin C Crystals Not Reportable 06/19/17 05:00 Schistocytes Rare 06/19/17 05:00 Malaria parasites Not Reportable 06/19/17 05:00 Percent Retic 0.44 % (0.78-2.58) L 06/19/17 05:00 [place]ando Bodies Not Reportable 06/19/17 05:00 Hem Pathologist Commnt No 06/19/17 05:00 PT 24.4 Sec. (12.2-14.9) H 06/19/17 04:00 INR 2.07 (0.87-1.13) H 06/19/17 04:00 Sodium 137 mmol/L (137-145) 06/19/17 05:00 Potassium 3.8 mmol/L (3.6-5.0) 06/19/17 05:00 Chloride 98.3 mmol/L (98-107) 06/19/17 05:00 Carbon Dioxide 27 mmol/L (22-30) 06/19/17 05:00 Anion Gap 16 mmol/L 06/19/17 05:00 BUN 5 mg/dL (9-20) L 06/19/17 05:00 Creatinine 0.8 mg/dL (0.8-1.5) 06/19/17 05:00 Estimated GFR > 60 ml/min 06/19/17 05:00 BUN/Creatinine Ratio 6.25 % 06/19/17 05:00 Glucose 97 mg/dL (75-100) 06/19/17 05:00 Calcium 8.5 mg/dL (8.4-10.2) 06/19/17 05:00 Iron 45 ug/dL (49-181) L 06/17/17 14:51 TIBC 320 mcg/dL (250-450) 06/17/17 14:51 % Saturation 14.06 % 06/17/17 14:51 Transferrin 267 mg/dl (180-329) 06/17/17 14:51 Total Bilirubin 0.30 mg/dL (0.1-1.2) 06/17/17 14:51 AST 20 units/L (5-40) 06/17/17 14:51 ALT 26 units/L (7-56) 06/17/17 14:51 Alkaline Phosphatase 54 units/L (35-129) 06/17/17 14:51 Total Protein 8.0 g/dL (6.3-8.2) 06/17/17 14:51 Albumin 4.2 g/dL (3.9-5) 06/17/17 14:51 Albumin/Globulin Ratio 1.1 % 06/17/17 14:51
[2017-06-19] MEDS: COUMADIN PO SCH (18:42)
--- NOTE | 2017-06-19 23:41 | Consultation ---
History of Present Illness - Reason for Consult Consult date: 06/19/17 - History of Present Illness Patient seen/examined, labs reviewed, case d/w patient. WBc down to 2.0, and is expected to continue to drop.Once below 2.0, will give Growth factor. Past History Past Medical History: HIV/AIDS, pulmonary embolism, other (SSD) Past Surgical History: appendectomy, cholecystectomy, Other (Port placement, splenectomy) Social history: . denies: smoking, alcohol abuse, prescription drug abuse, IV drug use Family history: no significant family history, hypertension Medications and Allergies Allergies Allergy/AdvReac Type Severity Reaction Status Date / Time morphine Allergy Anaphylaxis Verified 03/09/17 11:18 Iodinated Contrast Media - AdvReac Unknown Verified 03/09/17 11:18 IV Dye sulfamethoxazole AdvReac Unknown Verified 03/09/17 11:18 [From Bactrim] trimethoprim [From Bactrim] AdvReac Unknown Verified 03/09/17 11:18 PLASTIC TAPE Allergy Rash Uncoded 03/09/17 11:18 Home Medications Medication Instructions Recorded Confirmed Last Taken Type Atovaquone [Mepron] 1,500 mg PO QDAY #30 packet 04/21/17 Unknown Rx Elviteg/Celia/Emtric/Tenofo Ala 1 each PO QDAY #30 04/21/17 Unknown Rx [Genvoya Tablet] Folic Acid [Folvite] 0.5 mg PO QDAY #30 tablet 04/21/17 Unknown Rx Ketoconazole 2% [Nizoral] 1 applic TP BID #1 tube 04/21/17 Unknown Rx Oxycodone HCl/Acetaminophen 1 each PO Q6HR PRN #30 tablet 04/21/17 Unknown Rx [Percocet 10/325 mg] Selenium Sulfide [Selsun] 1 applic TP TuSa@1000 PRN #1 bottle 04/21/17 Unknown Rx Terbinafine (Nf) [LamiSIL] 250 mg PO QDAY #14 tablet 04/21/17 Unknown Rx Warfarin [Coumadin] 7.5 mg PO DAILY@1700 #7 tablet 04/21/17 Unknown Rx Active Meds: Active Medications Diphenhydramine HCl (Benadryl) 25 mg IV Q4H PRN PRN Reason: Itching Last Admin: 06/19/17 22:47 Dose: 25 mg Hydromorphone HCl (Dilaudid) 2 mg IV Q4H PRN PRN Reason: Pain Last Admin: 06/19/17 22:48 Dose: 2 mg Dextrose/Sodium Chloride (D5ns 0.2%) 1,000 mls @ 150 mls/hr IV DIRECT [facility] Last Admin: 06/19/17 18:42 Dose: 150 mls/hr Ketoconazole (Nizoral) 1 applic TP BID [facility] Last Admin: 06/19/17 21:25 Dose: 1 applic Ondansetron HCl (Zofran) 4 mg IV Q6H PRN PRN Reason: Nausea And Vomiting Last Admin: 06/19/17 09:27 Dose: 4 mg Warfarin Sodium (Coumadin Pharmacy To Dose) 1 each PO PKCONSULT [facility] PRN Reason: Protocol Warfarin Sodium (Coumadin) 5 mg PO DAILY@1700 [facility] Last Admin: 06/19/17 18:42 Dose: 5 mg Review of Systems Constitutional: chronic pain Exam - Constitutional Vitals: Temp Pulse Resp BP Pulse Ox 100.7 F H 91 H 18 121/77 99 06/19/17 17:04 06/19/17 17:04 06/19/17 22:48 06/19/17 17:04 06/19/17 17:04 General appearance: Present: mild distress, well-nourished - EENT Eyes: Present: PERRL ENT: hearing intact, clear oral mucosa - Neck Neck: Present: supple, normal ROM - Respiratory Respiratory effort: normal Respiratory: bilateral: CTA - Cardiovascular Heart Sounds: Present: S1 & S2. Absent: rub, click - Extremities Extremities: pulses symmetrical, No edema Peripheral Pulses: within normal limits - Abdominal General gastrointestinal: Present: soft, non-tender, non-distended, normal bowel sounds Male genitourinary: Present: deferred - Rectal Rectal Exam: deferred - Integumentary Integumentary: Present: clear, warm, dry - Musculoskeletal Musculoskeletal: gait normal, strength equal bilaterally - Psychiatric Psychiatric: appropriate mood/affect, intact judgment & insight - Neurologic Neurologic: CNII-XII intact, moves all extremities Results - Labs CBC & Chem 7: 06/19/17 05:00 06/19/17 05:00 Labs: Abnormal lab results 06/19/17 06/19/17 06/19/17 Range/Units 04:00 05:00 05:00 WBC 2.0 L (4.5-11.0) K/mm3 Hgb 9.7 L (11.8-15.2) gm/dl Hct 30.5 L (35.5-45.6) % MCV 70 L (84-94) fl MCH 22 L (28-32) pg RDW 17.0 H (13.2-15.2) % Monocytes % (Manual) 13.0 H (0.0-7.3) % Seg Neutrophils # Man 1.3 L (1.8-7.7) K/mm3 Lymphocytes # (Manual) 0.4 L (1.2-5.4) K/mm3 Percent Retic 0.44 L (0.78-2.58) % PT 24.4 H (12.2-14.9) Sec. INR 2.07 H (0.87-1.13) BUN 5 L (9-20) mg/dL Assessment and Plan - Patient Problems (1) Coumadin toxicity Current Visit: Yes Status: Acute Qualifiers: Encounter type: E Injury intent: I Plan to address problem: better with Vit K., continue to hold coumadin. normalized. (2) Anemia Current Visit: No Status: Acute Qualifiers: Anemia type: A Iron deficiency anemia type: I Vitamin B12 deficiency anemia type: V Folate deficiency anemia type: F Bone marrow failure anemia type: B Hemolytic anemia type: H Other causes of anemia: O Chronic kidney disease stage: C Plan to address problem: monitor labs, and replace as needed. (3) AIDS (acquired immunodeficiency syndrome), CD4 <=200 Current Visit: No Status: Acute (4) Dehydration Current Visit: No Status: Acute Plan to address problem: hydration
[2017-06-20] MEDS: D5NS 0.2% 1,000 ML IV SCH ×3 (01:01→13:56)
[2017-06-20] MEDS: BENADRYL IV PRN ×3 (03:15→14:50)
[2017-06-20] MEDS: DILAUDID IV PRN ×4 (03:16→14:50)
[2017-06-20 07:57] LABS: Hematocrit 29.7 % (35.5-45.6); Hemoglobin 9.5 gm/dl (11.8-15.2); Mean Corpuscular HGB Conc 32 % (32-34); Platelet Count 189 K/mm3 (140-440); Red Cell Distribution Width 17.1 % (13.2-15.2)
[2017-06-20 08:00] LABS: Mean Corpuscular Hemoglobin 22 pg (28-32); Mean Corpuscular Volume 69 fl (84-94)
--- NOTE | 2017-06-20 08:00 | Discharge Summary ---
Providers - Providers Date of Admission: 06/17/17 12:24 Date of discharge: 06/20/17 Attending physician: DENNIS PARKER 06/17/17 11:43 Consult to Physician [CONS] Routine Consulting Provider: ÁNGEL CHINCHILLA Reason For Exam: SICKLE CELL ANEMIA CRISIS Place consult to:: DR. Tiara CHINCHILLA Notified:: . Phone number called:: [phone] Was contact made?: Yes If yes, spoke with:: DR. CHINCHILLA Time called:: 11:30 Primary care physician: [employer]SULTANT Hospitalization Reason for admission: SSD Hospital course: Patient is a 36 years old male with past medical history of SSD, HIV, DVT/PE on Coumadin directly admitted at the request of Dr. Chinchilla for Coagulopathy Patient states that he has been experiencing pain all over his body for the past several days without relief of symptoms. Pt states that the pain is currently 10/10, and not relieved with his current medication. Patient was diagnosed Sickle cell pain crisis, Coagulopathy, HIV/AIDS, Leukopenia secondary to HIV/AIDS, History of PE, and anemia. Patient Coagulopathy was due to interaction of Coumadin with ciprofloxacin. We hold Coumadin until INR become normal. Currently his INR is improved. He was treated with vitamin K, IV fluids , and IV pain medications. Patient clinically improved and optimized. Patient was advised to follow up with engineer second assistant for INR monitoring. Patient was advised to follow up with Dr Chinchilla. Discharge Diagnosed Sickle cell pain crisis History of PE Coagulopathy HIV/AIDS Leukopenia Anemia Disposition: DC-30 STILL A PATIENT Time spent for discharge: 33 minutes Core Measure Documentation - Palliative Care Palliative Care/ Comfort Measures: Not Applicable - Core Measures Any of the following diagnoses?: none Exam - Constitutional Vitals: Temp Pulse Resp BP Pulse Ox 100.1 F H 85 18 133/72 97 06/20/17 00:12 06/20/17 00:12 06/20/17 07:01 06/20/17 00:12 06/20/17 00:12 General appearance: Present: no acute distress - EENT Eyes: Present: PERRL ENT: hearing intact - Neck Neck: Present: supple - Respiratory Respiratory effort: normal Respiratory: bilateral: CTA - Cardiovascular Heart rate: 80 Rhythm: regular Heart Sounds: Present: S1 & S2 - Extremities Extremities: no ischemia Peripheral Pulses: within normal limits - Abdominal General gastrointestinal: Present: soft, non-tender Male genitourinary: Present: deferred - Rectal Rectal Exam: deferred - Integumentary Integumentary: Present: clear, warm, dry - Musculoskeletal Musculoskeletal: strength equal bilaterally - Psychiatric Psychiatric: appropriate mood/affect - Neurologic Neurologic: CNII-XII intact - Allied Health Allied health notes reviewed: nursing Plan Activity: no restrictions Weight Bearing Status: Weight Bear as Tolerated Diet: low fat Follow up with: PRIMARY CAREMD [Primary Care Provider] - 7 Days Forms: Warfarin Discharge Instruction
[2017-06-20 08:01] LABS: Anion Gap 14 mmol/L; BUN/Creatinine Ratio 5.71; Blood Urea Nitrogen 4 mg/dL (9-20); Calcium 8.1 mg/dL (8.4-10.2); Carbon Dioxide 27 mmol/L (22-30); Chloride 97.4 mmol/L (98-107); Glucose 97 mg/dL (75-100); Potassium 3.2 mmol/L (3.6-5.0); Sodium 135 mmol/L (137-145)
[2017-06-20 08:02] LABS: White Blood Count 1.5 K/mm3 (4.5-11.0)
[2017-06-20 08:11] LABS: INR 1.4 (0.87-1.13)
[2017-06-20] MEDS ORDERED: K-DUR PO ONE (09:00)
[2017-06-20] MEDS: NIZORAL TP SCH (09:49)
[2017-06-20 10:23] LABS: Basophils % (Manual) 0 % (0.0-1.8); Blastocytes % (Manual) 0 %; Eosinophils % (Manual) 0 % (0.0-4.3)
[2017-06-20 10:24] LABS: Anisocytosis 1+; Diff Status Complete; Elliptocytes 1+; Hypochromasia 1+; Microcytosis 1+; Ovalocytes Few; Polychromasia Few; Tear Drop Cells Few
[2017-06-20] MEDS ORDERED: POTASSIUM CHLORIDE PO ONE (11:00)
[2017-06-20] MEDS ORDERED: TRIPLE ANTIBIOTIC TP ONE (16:21)
[2017-06-20] MEDS ORDERED: FLUSH HEPARIN IV ONE (16:53)
[2017-06-20 16:55] VITALS: BP 117/78
[2017-06-20] MEDS: COUMADIN PO SCH (16:59)
== END 2017-06-20 18:00 | disposition home or self-care (01) | DRG 811 ==
LOC: 3A 11:17 → UNDOADMIN 11:17 → 3A 12:24
PROVIDERS: ADMIT Internal Medicine; ATTEND Internal Medicine
DX: D57.00 Hb-SS disease with crisis, unspecified (principal); B20 Human immunodeficiency virus [HIV] disease; D68.9 Coagulation defect, unspecified; E86.0 Dehydration; E87.6 Hypokalemia; D72.819 Decreased white blood cell count, unspecified; T36.8X5A Adverse effect of other systemic antibiotics, initial encounter; T45.515A Adverse effect of anticoagulants, initial encounter; D50.9 Iron deficiency anemia, unspecified; Z86.718 Personal history of other venous thrombosis and embolism; Z86.711 Personal history of pulmonary embolism; Z90.49 Acquired absence of other specified parts of digestive tract; Z82.49 Family history of ischemic heart disease and other diseases of the circulatory system; Z88.5 Allergy status to narcotic agent; Z91.041 Radiographic dye allergy status; Y92.89 Other specified places as the place of occurrence of the external cause
CPT/HCPCS: 36415; 80048; 80053; 83550; 85007; 85025; 85045; 85610; 87040; A6250; J1170; J1200; J1642; J2405; J3430

== ENCOUNTER 2017-10-08 09:53 | Emergency (ER) | payer MEDICARE ==
[2017-10-08] MEDS ORDERED: D5NS 0.2% 1,000 ML IV SCH (11:00)
[2017-10-08 11:25] LABS: Basophils % (Auto) 0.6 % (0.0-1.8); Eosinophils % (Auto) 0.6 % (0.0-4.3); Hematocrit 33.3 % (35.5-45.6); Hemoglobin 10.7 gm/dl (11.8-15.2); Lymphocytes # (Auto) 0.9 K/mm3 (1.2-5.4); Lymphocytes % (Auto) 25.3 % (13.4-35.0); Mean Corpuscular HGB Conc 32 % (32-34); Mean Corpuscular Hemoglobin 24 pg (28-32); Mean Corpuscular Volume 74 fl (84-94); Monocytes # (Auto) 0.4 K/mm3 (0.0-0.8); Monocytes % (Auto) 12.7 % (0.0-7.3); Platelet Count 260 K/mm3 (140-440); Red Blood Count 4.53 M/mm3 (3.65-5.03); Red Cell Distribution Width 19.7 % (13.2-15.2)
--- NOTE | 2017-10-08 11:37 | Emergency Department Report ---
ED General Adult HPI - General Chief complaint: Sickle Cell Crisis Stated complaint: SICKLE CELL PAIN Source: patient Mode of arrival: Ambulatory Limitations: No Limitations - History of Present Illness Initial comments: Patient was sent to [place] for blood transfusion yesterday, as instructed by his PCP. He states his numbers were really low and, thus, 3 units of PRBCs were transfused. Then, late last night he started having pain in his lower back , groin and both legs. -: Sudden Location: back, genitals, lower extremity Radiation: non-radiation Quality: sharp Consistency: constant Improves with: none Worsens with: none Associated Symptoms: denies other symptoms Treatments Prior to Arrival: none - Related Data Home Medications Medication Instructions Recorded Confirmed Last Taken Hydroxyurea [Hydrea] 500 mg PO DAILY 08/06/17 08/06/17 Unknown Previous Rx's Medication Instructions Recorded Last Taken Type Folic Acid [Folvite] 0.5 mg PO QDAY #30 tablet 04/21/17 Unknown Rx Oxycodone HCl/Acetaminophen 1 each PO Q6HR PRN #30 tablet 04/21/17 Unknown Rx [Percocet 10/325 mg] Selenium Sulfide(Nf) [Selsun (Nf)] 1 applic TP TuSa@1000 PRN #1 bottle 04/21/17 Unknown Rx Terbinafine (Nf) [LamiSIL] 250 mg PO QDAY #14 tablet 04/21/17 Unknown Rx Warfarin [Coumadin] 7.5 mg PO DAILY@1700 #7 tablet 04/21/17 Unknown Rx Ketoconazole 2% [Nizoral] 1 applic TP BID tube 06/20/17 Unknown Rx Warfarin [Coumadin] 5 mg PO DAILY@1700 tablet 06/20/17 Unknown Rx Atovaquone [Mepron] 1,500 mg PO QDAY #30 packet 08/09/17 Unknown Rx Elviteg/Cob/Emtri/Tenof Alafen 1 tab PO QDAY #30 tablet 08/09/17 Unknown Rx [Genvoya Tablet] Allergies Allergy/AdvReac Type Severity Reaction Status Date / Time morphine Allergy Anaphylaxis Verified 03/09/17 11:18 Iodinated Contrast- Oral and AdvReac Unknown Verified 03/09/17 11:18 IV Dye [Iodinated Contrast Media - IV Dye] sulfamethoxazole AdvReac Unknown Verified 03/09/17 11:18 [From Bactrim] trimethoprim [From Bactrim] AdvReac Unknown Verified 03/09/17 11:18 PLASTIC TAPE Allergy Rash Uncoded 03/09/17 11:18 ED Review of Systems ROS: Stated complaint: SICKLE CELL PAIN Other details as noted in HPI Comment: All other systems reviewed and negative Constitutional: denies: chills, fever Eyes: denies: eye pain, eye discharge, vision change ENT: denies: ear pain, throat pain Respiratory: denies: cough, shortness of breath, wheezing Cardiovascular: denies: chest pain, palpitations Endocrine: no symptoms reported Gastrointestinal: denies: abdominal pain, nausea, diarrhea Genitourinary: denies: urgency, dysuria Musculoskeletal: as per HPI. denies: joint swelling, arthralgia Skin: denies: rash, lesions Neurological: denies: headache, weakness, paresthesias Psychiatric: denies: anxiety, depression Hematological/Lymphatic: denies: easy bleeding, easy bruising ED Past Medical Hx - Past Medical History Previous Medical History?: Yes Hx CVA: Yes (-2014) Hx Heart Attack/AMI: No Hx Congestive Heart Failure: No Hx Diabetes: No Hx Deep Vein Thrombosis: Yes (right arm and leg 2015) Hx Pulmonary Embolism: Yes (08/2016) Hx Liver Disease: No Hx Renal Disease: No Hx Sickle Cell Disease: Yes Hx Arthritis: No Hx Seizures: No Hx Kidney Stones: No Hx Asthma: No Hx COPD: No Hx Tuberculosis: No Hx Dementia: No Hx HIV: Yes - Surgical History Past Surgical History?: Yes Hx Cholecystectomy: Yes (2013) Hx Appendectomy: Yes (2013) Additional Surgical History: I&D ON LEG. PORT RIGHT CHEST, port in right upper arm, right arm port. Spleenectomy - Social History Smoking Status: Current Every Day Smoker Substance Use Type: Prescribed - Medications Home Medications: Home Medications Medication Instructions Recorded Confirmed Last Taken Type Folic Acid [Folvite] 0.5 mg PO QDAY #30 tablet 04/21/17 07/29/17 Unknown Rx Oxycodone HCl/Acetaminophen 1 each PO Q6HR PRN #30 tablet 04/21/17 07/29/17 Unknown Rx [Percocet 10/325 mg] Selenium Sulfide(Nf) [Selsun (Nf)] 1 applic TP TuSa@1000 PRN #1 bottle 04/21/17 07/29/17 Unknown Rx Terbinafine (Nf) [LamiSIL] 250 mg PO QDAY #14 tablet 04/21/17 07/29/17 Unknown Rx Warfarin [Coumadin] 7.5 mg PO DAILY@1700 #7 tablet 04/21/17 07/29/17 Unknown Rx Ketoconazole 2% [Nizoral] 1 applic TP BID tube 06/20/17 07/29/17 Unknown Rx Warfarin [Coumadin] 5 mg PO DAILY@1700 tablet 06/20/17 07/29/17 Unknown Rx Hydroxyurea [Hydrea] 500 mg PO DAILY 08/06/17 08/06/17 Unknown History Atovaquone [Mepron] 1,500 mg PO QDAY #30 packet 08/09/17 Unknown Rx Elviteg/Cob/Emtri/Tenof Alafen 1 tab PO QDAY #30 tablet 08/09/17 Unknown Rx [Genvoya Tablet] ED Physical Exam - General Limitations: No Limitations General appearance: alert, in no apparent distress - Head Head exam: Present: atraumatic, normocephalic - Eye Eye exam: Present: normal appearance - ENT ENT exam: Present: mucous membranes moist - Neck Neck exam: Present: normal inspection - Respiratory Respiratory exam: Present: normal lung sounds bilaterally. Absent: respiratory distress - Cardiovascular Cardiovascular Exam: Present: regular rate, normal rhythm. Absent: systolic murmur, diastolic murmur, rubs, gallop - GI/Abdominal GI/Abdominal exam: Present: soft, normal bowel sounds - Rectal Rectal exam: Present: deferred - Extremities Exam Extremities exam: Present: normal inspection - Back Exam Back exam: Present: normal inspection - Neurological Exam Neurological exam: Present: alert, oriented X3 - Psychiatric Psychiatric exam: Present: normal affect, normal mood - Skin Skin exam: Present: warm, dry, intact, normal color. Absent: rash ED Course Vital Signs 10/08/17 10/08/17 10/08/17 10:03 12:56 12:58 Temperature 98.6 F 98.7 F Pulse Rate 98 H 97 H Respiratory 20 13 13 Rate Blood Pressure 144/86 Blood Pressure 110/76 [Right] O2 Sat by Pulse 100 99 100 Oximetry - Reevaluation(s) Reevaluation #1: 10/08/17 14:54 Patient's pain is fully relieved with second dose of Dilaudid. He says he is ready to go home. ED Medical Decision Making - Lab Data Result diagrams: 10/08/17 11:20 10/08/17 11:20 - Medical Decision Making Sickle Cell Crisis. Critical Care Time: No Critical care attestation.: If time is entered above; I have spent that time in minutes in the direct care of this critically ill patient, excluding procedure time. ED Disposition Clinical Impression: Sickle cell anemia, Sickle-cell crisis Disposition: DC-01 TO HOME OR SELFCARE Is pt being admited?: No Does the pt Need Aspirin: No Condition: Stable Referrals: PRIMARY CARE, [Primary Care Provider] - 3-5 Days Time of Disposition: 14:56
[2017-10-08 11:40] LABS: BUN/Creatinine Ratio 22; Blood Urea Nitrogen 13 mg/dL (9-20); Calcium 8.7 mg/dL (8.4-10.2); Hemolysis Index 3
[2017-10-08] MEDS ORDERED: DILAUDID IV ONE ×2 (12:07→13:32)
[2017-10-08] MEDS ORDERED: BENADRYL IV ONE (12:07)
[2017-10-08] MEDS ORDERED: ZOFRAN IV ONE (12:08)
[2017-10-08] MEDS ORDERED: DILAUDID ONE ×2 (12:09→13:46)
[2017-10-08] MEDS ORDERED: BENADRYL ONE (12:09)
[2017-10-08] MEDS ORDERED: ZOFRAN ONE (12:09)
[2017-10-08 12:13] LABS: Bilirubin,Urine NEG (Negative); Blood,Urine MOD (Negative); Color,Urine Straw (Yellow); Mucus,Urine FEW /HPF; Nitrite,Urine NEG (Negative); Protein,Urine <15 mg/dL mg/dL (Negative); Urobilinogen,Urine < 2.0 mg/dL (<2.0)
[2017-10-08] MEDS ORDERED: NACL 0.9% 1000 ML 1,000 ML IV ONE (12:47)
[2017-10-08 12:58] VITALS: BP 110/76
== END 2017-10-08 14:59 | disposition home or self-care (01) ==
LOC: ED 09:53
DX: D57.00 Hb-SS disease with crisis, unspecified (principal); Z86.73 Personal history of transient ischemic attack (TIA), and cerebral infarction without residual deficits; I82.401 Acute embolism and thrombosis of unspecified deep veins of right lower extremity; Z21 Asymptomatic human immunodeficiency virus [HIV] infection status; F17.200 Nicotine dependence, unspecified, uncomplicated; Z90.49 Acquired absence of other specified parts of digestive tract; Z79.01 Long term (current) use of anticoagulants; Z88.2 Allergy status to sulfonamides; Z88.5 Allergy status to narcotic agent; Z88.8 Allergy status to other drugs, medicaments and biological substances
CPT/HCPCS: 36415; 80048; 81001; 85025; 85045; 96361; 96374; 96375; 96376; 99283; J1170; J1200; J2405; J7030

== ENCOUNTER 2017-10-12 11:52 | Inpatient (IN) | payer MEDICARE ==
[2017-10-12] MEDS ORDERED: DILAUDID IV PRN (12:54)
[2017-10-12] MEDS ORDERED: D5NS 0.2% 1,000 ML IV SCH (13:00)
[2017-10-12] MEDS: BENADRYL IV PRN ×3 (14:53→21:47)
[2017-10-12] MEDS: DILAUDID IV PRN ×3 (14:53→21:47)
[2017-10-12 15:51] LABS: Mean Corpuscular HGB Conc 31 % (32-34); Mean Corpuscular Volume 77 fl (84-94); Platelet Count 133 K/mm3 (140-440); Red Blood Count 2.57 M/mm3 (3.65-5.03)
[2017-10-12 15:58] LABS: Mean Corpuscular Hemoglobin 24 pg (28-32); Red Cell Distribution Width 20.1 % (13.2-15.2)
[2017-10-12 16:00] LABS: INR 3.09 (0.87-1.13)
[2017-10-12 16:01] LABS: Hematocrit 19.7 % (35.5-45.6)
[2017-10-12 16:25] LABS: Alanine Aminotransferase 26 units/L (7-56); Albumin 3.8 g/dL (3.9-5); BUN/Creatinine Ratio 18; Blood Urea Nitrogen 11 mg/dL (9-20); Calcium 8.5 mg/dL (8.4-10.2); Hemolysis Index 4
[2017-10-12 17:24] LABS: Basophils % (Manual) 0 % (0.0-1.8); Eosinophils % (Manual) 0 % (0.0-4.3); Total Cells Counted 100
[2017-10-12 17:25] LABS: Anisocytosis 2+; Hypochromasia 1+; Poikilocytosis 1+
[2017-10-12 17:26] LABS: Ovalocytes Few
[2017-10-12] MEDS ORDERED: MILK OF MAGNESIA PO PRN (19:33)
[2017-10-12] MEDS ORDERED: DULCOLAX PR PRN (19:33)
[2017-10-12] MEDS ORDERED: ZOFRAN IV PRN (19:33)
[2017-10-12] MEDS ORDERED: MORPHINE IV PRN (19:33)
[2017-10-12] MEDS ORDERED: TYLENOL PO PRN (19:33)
--- NOTE | 2017-10-12 19:33 | History and Physical Report ---
History of Present Illness Date of examination: 10/12/17 Date of admission: 10/12/17 12:55 Chief complaint: Chief complaint:Severe pain all over for 3 days. History of present illness: 37-year-old -[place] male with history of HIV recurrent DVTs sickle cell crisis and sickle cell anemia comes in for severe pain all over. Pain is especially in the chest both hips and lower back. Pain is very sharp 8/10. It is been going on for the last last 2-3 days. No nausea or vomiting. No fever or chills. No exacerbating or relieving factors. No shortness of breath. Patient is on Coumadin for recurrent DVTs and pulmonary embolism.patient also has a HIV and is on antiretrovirals. Past medical history: Sickle cell anemia/crisis HIV recurrent DVTs and pulmonary embolism Past surgical history: none Family history Hypertension Social history Doesn't smoke or alcohol Review of System: Constitutional: no fever, no chills, no weight loss Ears, eyes, nose, mouth and throat: no nasal congestion, no nasal discharge, no sinus pressure, no vision change, no red eye. Neck: No neck pain or rigidity. Cardiovascular: chest pain, no orthopnea, no palpitations, no leg swelling Respiratory: No shortness of breath, no cough, no congestion, no wheezing Gastrointestinal: no abdominal pain, no nausea, no vomiting Genitourinary : no dysuria, no hematuria Musculoskeletal:pain all over especially both hips and lower back Integumentary: no rash, no pruritis Neurological: no parathesias, no numbness, no tingling Endocrine: no cold or heat intolerance, no polyuria or polydipsia Hematologic/Lymphatic: no easy bruising, no easy bleeding, no gland swelling Allergic/Immunologic: no urticaria, no angioedema. Medications and Allergies Allergies Allergy/AdvReac Type Severity Reaction Status Date / Time morphine Allergy Anaphylaxis Verified 03/09/17 11:18 Iodinated Contrast- Oral and AdvReac Unknown Verified 03/09/17 11:18 IV Dye [Iodinated Contrast Media - IV Dye] sulfamethoxazole AdvReac Unknown Verified 03/09/17 11:18 [From Bactrim] trimethoprim [From Bactrim] AdvReac Unknown Verified 03/09/17 11:18 PLASTIC TAPE Allergy Rash Uncoded 03/09/17 11:18 Home Medications Medication Instructions Recorded Confirmed Last Taken Type Folic Acid [Folvite] 0.5 mg PO QDAY #30 tablet 04/21/17 07/29/17 Unknown Rx Oxycodone HCl/Acetaminophen 1 each PO Q6HR PRN #30 tablet 04/21/17 07/29/17 Unknown Rx [Percocet 10/325 mg] Selenium Sulfide(Nf) [Selsun (Nf)] 1 applic TP TuSa@1000 PRN #1 bottle 04/21/17 07/29/17 Unknown Rx Terbinafine (Nf) [LamiSIL] 250 mg PO QDAY #14 tablet 04/21/17 07/29/17 Unknown Rx Warfarin [Coumadin] 7.5 mg PO DAILY@1700 #7 tablet 04/21/17 07/29/17 Unknown Rx Ketoconazole 2% [Nizoral] 1 applic TP BID tube 06/20/17 07/29/17 Unknown Rx Warfarin [Coumadin] 5 mg PO DAILY@1700 tablet 06/20/17 07/29/17 Unknown Rx Hydroxyurea [Hydrea] 500 mg PO DAILY 08/06/17 08/06/17 Unknown History Atovaquone [Mepron] 1,500 mg PO QDAY #30 packet 08/09/17 Unknown Rx Elviteg/Cob/Emtri/Tenof Alafen 1 tab PO QDAY #30 tablet 08/09/17 Unknown Rx [Genvoya Tablet] Active Meds: Active Medications Diphenhydramine HCl (Benadryl) 12.5 mg IV Q3H PRN PRN Reason: Itching Last Admin: 10/12/17 18:21 Dose: 12.5 mg Hydromorphone HCl (Dilaudid) 2 mg IV Q3H PRN PRN Reason: Pain , Severe (7-10) Stop: 10/13/17 13:04 Last Admin: 10/12/17 18:20 Dose: 2 mg Hydromorphone HCl (Dilaudid) 2 mg IV Q4H PRN PRN Reason: Pain , Severe (7-10) Dextrose/Sodium Chloride (D5ns 0.2%) 1,000 mls @ 175 mls/hr IV DIRECT RONY Last Admin: 10/12/17 16:40 Dose: 175 mls/hr Oxycodone/Acetaminophen (Percocet 5/325) 1 tab PO Q6H PRN PRN Reason: BREAKTHRU PAIN Exam - Physical Exam Narrative exam: lying in bed in pain - Constitutional Vitals: Temp Pulse Resp BP Pulse Ox 99.2 F 107 H 20 118/79 99 10/12/17 13:53 10/12/17 13:53 10/12/17 13:53 10/12/17 13:53 10/12/17 13:53 General appearance: Present: mild distress, well-nourished - EENT Eyes: Present: PERRL ENT: hearing intact, clear oral mucosa - Neck Neck: Present: supple, normal ROM - Respiratory Respiratory effort: normal Respiratory: bilateral: CTA - Cardiovascular Heart rate: 76 Rhythm: regular Heart Sounds: Present: S1 & S2. Absent: rub, click - Extremities Extremities: no ischemia, pulses intact, pulses symmetrical, No edema Peripheral Pulses: within normal limits - Abdominal General gastrointestinal: Present: soft, non-tender, non-distended, normal bowel sounds Male genitourinary: Present: normal - Rectal Rectal Exam: deferred - Integumentary Integumentary: Present: clear, warm, dry - Musculoskeletal Musculoskeletal: gait normal, strength equal bilaterally - Psychiatric Psychiatric: appropriate mood/affect, intact judgment & insight - Neurologic Neurologic: CNII-XII intact, moves all extremities - Allied Health Allied health notes reviewed: nursing Results - Labs CBC & Chem 7: 10/12/17 15:31 10/12/17 15:31 Labs: Laboratory Last Values WBC 1.8 K/mm3 (4.5-11.0) L* 10/12/17 15:31 RBC 2.57 M/mm3 (3.65-5.03) L 10/12/17 15:31 Hgb 6.0 gm/dl (11.8-15.2) L 10/12/17 15:31 Hct 19.7 % (35.5-45.6) L* 10/12/17 15:31 MCV 77 fl (84-94) L 10/12/17 15:31 MCH 24 pg (28-32) L 10/12/17 15:31 MCHC 31 % (32-34) L 10/12/17 15:31 RDW 20.1 % (13.2-15.2) H 10/12/17 15:31 Plt Count 133 K/mm3 (140-440) L 10/12/17 15:31 Add Manual Diff Complete 10/12/17 15: Total Counted 100 10/12/17 15: Seg Neuts % (Manual) 60.0 % (40.0-70.0) 10/12/17 15:31 Band Neutrophils % 0 % 10/12/17 15:31 Lymphocytes % (Manual) 29.0 % (13.4-35.0) 10/12/17 15:31 Reactive Lymphs % (Man) 0 % 10/12/17 15:31 Monocytes % (Manual) 11.0 % (0.0-7.3) H 10/12/17 15: Eosinophils % (Manual) 0 % (0.0-4.3) 10/12/17 15:31 Basophils % (Manual) 0 % (0.0-1.8) 10/12/17 15:31 Metamyelocytes % 0 % 10/12/17 15: Myelocytes % 0 % 10/12/17 15: Promyelocytes % 0 % 10/12/17 15:31 Blast Cells % 0 % 10/12/17 15:31 Nucleated RBC % Not Reportable 10/12/17 15: Seg Neutrophils # Man 1.1 K/mm3 (1.8-7.7) L 10/12/17 15:31 Band Neutrophils # 0.0 K/mm3 10/12/17 15:31 Lymphocytes # (Manual) 0.5 K/mm3 (1.2-5.4) L 10/12/17 15: Abs React Lymphs (Man) 0.0 K/mm3 10/12/17 15:31 Monocytes # (Manual) 0.2 K/mm3 (0.0-0.8) 10/12/17 15:31 Eosinophils # (Manual) 0.0 K/mm3 (0.0-0.4) 10/12/17 15: Basophils # (Manual) 0.0 K/mm3 (0.0-0.1) 10/12/17 15:31 Metamyelocytes # 0.0 K/mm3 10/12/17 15:31 Myelocytes # 0.0 K/mm3 10/12/17 15: Promyelocytes # 0.0 K/mm3 10/12/17 15:31 Blast Cells # 0.0 K/mm3 10/12/17 15:31 WBC Morphology Not Reportable 10/12/17 15:31 Hypersegmented Neuts Not Reportable 10/12/17 15:31 Hyposegmented Neuts Not Reportable 10/12/17 15:31 Hypogranular Neuts Not Reportable 10/12/17 15:31 Smudge Cells Not Reportable 10/12/17 15:31 Toxic Granulation Not Reportable 10/12/17 15:31 Toxic Vacuolation Not Reportable 10/12/17 15:31 Dohle Bodies Not Reportable 10/12/17 15:31 Pelger-Huet Anomaly Not Reportable 10/12/17 15:31 Raheem Rods Not Reportable 10/12/17 15:31 Platelet Estimate Not Reportable 10/12/17 15:31 Clumped Platelets Not Reportable 10/12/17 15:31 Plt Clumps, EDTA Not Reportable 10/12/17 15:31 Large Platelets Not Reportable 10/12/17 15:31 Giant Platelets Not Reportable 10/12/17 15:31 Platelet Satelliting Not Reportable 10/12/17 15:31 Plt Morphology Comment Not Reportable 10/12/17 15:31 RBC Morphology Not Reportable 10/12/17 15:31 Dimorphic RBCs Not Reportable 10/12/17 15:31 Polychromasia Not Reportable 10/12/17 15:31 Hypochromasia 1+ 10/12/17 15:31 Poikilocytosis 1+ 10/12/17 15:31 Anisocytosis 2+ 10/12/17 15:31 Microcytosis 1+ 10/12/17 15:31 Macrocytosis Not Reportable 10/12/17 15:31 Spherocytes Not Reportable 10/12/17 15:31 Pappenheimer Bodies Not Reportable 10/12/17 15:31 Sickle Cells Not Reportable 10/12/17 15:31 Target Cells Not Reportable 10/12/17 15:31 Tear Drop Cells Not Reportable 10/12/17 15:31 Ovalocytes Few 10/12/17 15:31 Helmet Cells Not Reportable 10/12/17 15:31 [place] Bodies Not Reportable 10/12/17 15:31 [place] Rings Not Reportable 10/12/17 15:31 [place] Cells Not Reportable 10/12/17 15:31 Bite Cells Not Reportable 10/12/17 15:31 Crenated Cell Not Reportable 10/12/17 15:31 Elliptocytes Not Reportable 10/12/17 15:31 Acanthocytes (Spur) Not Reportable 10/12/17 15:31 Rouleaux Not Reportable 10/12/17 15:31 Hemoglobin C Crystals Not Reportable 10/12/17 15:31 Schistocytes Not Reportable 10/12/17 15:31 Malaria parasites Not Reportable 10/12/17 15:31 Percent Retic 0.49 % (0.78-2.58) L 10/12/17 15: [place] Bodies Not Reportable 10/12/17 15: Hem Pathologist Commnt No 10/12/17 15: PT 33.8 Sec. (12.2-14.9) H 10/12/17 15: INR 3.09 (0.87-1.13) H 10/12/17 15: Sodium 138 mmol/L (137-145) 10/12/17 15: Potassium 4.0 mmol/L (3.6-5.0) 10/12/17 15: Chloride 101.8 mmol/L (98-107) 10/12/17 15: Carbon Dioxide 21 mmol/L (22-30) L 10/12/17 15: Anion Gap 19 mmol/L 10/12/17 15: BUN 11 mg/dL (9-20) 10/12/17 15: Creatinine 0.6 mg/dL (0.8-1.5) L 10/12/17 15: Estimated GFR > 60 ml/min 10/12/17 15: BUN/Creatinine Ratio 18 % 10/12/17 15: Glucose 91 mg/dL (75-100) 10/12/17 15: Calcium 8.5 mg/dL (8.4-10.2) 10/12/17 15: Total Bilirubin 0.50 mg/dL (0.1-1.2) 10/12/17 15:31 AST 17 units/L (5-40) 10/12/17 15: ALT 26 units/L (7-56) 10/12/17 15:31 Alkaline Phosphatase 67 units/L (35-129) 10/12/17 15:31 Lactate Dehydrogenase 191 units/L (91-180) H 10/12/17 15:31 Total Protein 8.5 g/dL (6.3-8.2) H 10/12/17 15:31 Albumin 3.8 g/dL (3.9-5) L 10/12/17 15:31 Albumin/Globulin Ratio 0.8 % 10/12/17 15:31 Assessment and Plan Advance Directives: Yes (Full code) VTE prophylaxis?: Chemical Plan of care discussed with patient/family: Yes - Patient Problems (1) Anemia, sickle cell with crisis Current Visit: No Status: Acute Plan to address problem: we will transfuse 2 units of packed . Also IV fluids. Pain management. 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 Will involve ID as consultation for their recommendations. (3) Anticoagulation goal of INR 2 to 3 Current Visit: Yes Status: Chronic Plan to address problem: patient needs to be on Coumadin.patient has recurrent DVT and pulmonary embolism. His dosage alternates between 5 mg and 7.5 mg alternate days. Which is confusing. We'll change his Coumadin dosage 6 mg every day and adjust from there on. (4) HIV (human immunodeficiency virus infection) Current Visit: Yes Status: Chronic Plan to address problem: patient on antiretrovirals. Continue same (5) Pain management Current Visit: Yes Status: Acute Plan to address problem: IV morphine 4 mg every 3 when necessary and IV fluids. Will defer to hem onc reg further pain management. (6) DVT prophylaxis Current Visit: No Status: Acute Plan to address problem: patient on Coumadin. Will check INR
[2017-10-12] MEDS ORDERED: NACL 0.9% 500 ML 500 ML IV SCH (19:57)
[2017-10-12] MEDS ORDERED: NON-FORMULARY (Oxycodone Hcl/Acetaminophen [Percocet 10/325 Mg] 1 EACH) PO PRN (20:03)
[2017-10-12] MEDS ORDERED: [UNRECOGNIZED DRUG - OTHER] PO SCH (20:15)
[2017-10-12] MEDS ORDERED: LOVENOX SUB-Q SCH (21:00)
[2017-10-12] MEDS: PEPCID PO SCH (21:47)
[2017-10-12] MEDS: FOLVITE PO SCH (21:49)
[2017-10-12] MEDS: MEPRON PO SCH (21:49)
[2017-10-12] MEDS: HYDREA PO SCH (23:31)
[2017-10-12] MEDS: NACL 0.9% 1000 ML 1,000 ML IV SCH (23:34)
[2017-10-13] MEDS: DILAUDID IV PRN ×7 (00:48→21:40)
[2017-10-13] MEDS: BENADRYL IV PRN ×7 (00:48→21:40)
[2017-10-13] MEDS: NIZORAL TP SCH ×3 (03:33→22:17)
--- NOTE | 2017-10-13 09:06 | Consultation ---
History of Present Illness - Reason for Consult Consult date: 10/13/17 neutropenia Requesting physician: DEANNA CHANG - History of Present Illness 37 year old male with history old Sickle cell disease, HIV was on genvoya ( restarted 2 months ago, VL 92K in 08/2017 last CD4= 123 in 04/2017), known to ID service since he was seen back in August 2017. During that time patient was seen due to fever and neutropenia. AFB blood cultures neg. CMV PCR <200. Regular blood cx neg. Crypto serum ag neg. Patient was found to have the left axillary lymph node. Patient underwent lymph node biopsy which showed +HIV- associated lymphadenitis, negative for lymphoma a small abnormal B-cell population of uncertain significance. No granulomas seen. Patient was discharged to be seen by HIV office however he has seen anyone. He is taking his genvoya without missing any doses since last discharge. He was readmitted on 10/12/2017 due to CVA or sickle cell disease pain. His typical pain in his bilateral heaps lower back and legs. He denies any recent fever more than 100.5. Denies any sick contacts. In the emergency room, initial temperature was 98.7, heart rate 86, blood pressure 116/59. His temperature went up to 100.4 during the last 3 days. Initial white count was 2.1, hemoglobin 9.9. INR 7.8. CXR neg. UA neg. Current Antimicrobials: atovaquone genvoya Previous Antimicrobials: Microbiology: none Past History Past Medical History: other (HIV, chronic anemia, leukopenia) Past Surgical History: Other (LN biopsy ) Social history: single Family history: no significant family history Medications and Allergies Allergies Allergy/AdvReac Type Severity Reaction Status Date / Time morphine Allergy Anaphylaxis Verified 03/09/17 11:18 Iodinated Contrast- Oral and AdvReac Unknown Verified 03/09/17 11:18 IV Dye [Iodinated Contrast Media - IV Dye] sulfamethoxazole AdvReac Unknown Verified 03/09/17 11:18 [From Bactrim] trimethoprim [From Bactrim] AdvReac Unknown Verified 03/09/17 11:18 PLASTIC TAPE Allergy Rash Uncoded 03/09/17 11:18 Home Medications Medication Instructions Recorded Confirmed Last Taken Type Folic Acid [Folvite] 0.5 mg PO QDAY #30 tablet 07/10/12/17 10/11/17 Rx Oxycodone HCl/Acetaminophen 1 each PO Q6HR PRN #30 tablet 04/21/17 10/12/1706/20 Rx [Percocet 10/325 mg] Selenium Sulfide(Nf) [Selsun (Nf)] 1 applic TP TuSa@1000 PRN #1 bottle 04/21/17 10/12/17 10/11/17 Rx Warfarin [Coumadin] 7.5 mg PO DAILY@1700 #7 tablet 04/21/17 10/12/17 10/11/17 Rx Warfarin [Coumadin] 5 mg PO DAILY@1700 tablet 06/20/17 10/12/17 10/11/17 Rx Hydroxyurea [Hydrea] 500 mg PO DAILY 08/06/17 10/12/17 10/11/17 History HYDROmorphone [Dilaudid] 2 mg PO Q4-6H PRN 10/12/17 10/12/17 10/11/17 History Ketoconazole 2% [Nizoral] 1 applic TP TID 10/12/17 10/12/17 10/11/17 History Megestrol 180 mg PO TID 10/13/17 10/13/17 10/11/17 History Active Meds: Active Medications Acetaminophen (Tylenol) 650 mg PO Q4H PRN PRN Reason: Pain MILD(1-3)/Fever >100.5/HODGES Atovaquone (Mepron) 1,500 mg PO QDAY [facility] Last Admin: 10/12/17 21:49 Dose: Not Given Bisacodyl (Dulcolax) 10 mg HI QDAY PRN PRN Reason: Constipation unrelieved by MOM Diphenhydramine HCl (Benadryl) 12.5 mg IV Q3H PRN PRN Reason: Itching Last Admin: 10/13/17 07:12 Dose: 12.5 mg Enoxaparin Sodium (Lovenox) 40 mg SUB-Q QDAY [facility] Famotidine (Pepcid) 20 mg PO BID [facility] Last Admin: 10/12/17 21:47 Dose: 20 mg Folic Acid (Folvite) 0.5 mg PO QDAY [facility] Last Admin: 10/12/17 21:49 Dose: 0.5 mg Hydromorphone HCl (Dilaudid) 2 mg IV Q3H PRN PRN Reason: Pain , Severe (7-10) Stop: 10/13/17 13:04 Last Admin: 10/13/17 07:13 Dose: 2 mg Hydromorphone HCl (Dilaudid) 2 mg IV Q4H PRN PRN Reason: Pain , Severe (7-10) Hydroxyurea (Hydrea) 500 mg PO DAILY [facility] Last Admin: 10/12/17 23:31 Dose: 500 mg Sodium Chloride (Nacl 0.9% 1000 Ml) 1,000 mls @ 125 mls/hr IV DIRECT [facility] Last Admin: 10/12/17 23:34 Dose: 125 mls/hr Sodium Chloride (Nacl 0.9% 500 Ml) 500 mls @ 0 mls/hr IV ONCE [facility] PRN Reason: As Directed Ketoconazole (Nizoral) 1 applic TP BID [facility] Last Admin: 10/13/17 03:33 Dose: 1 applic Magnesium Hydroxide (Milk Of Magnesia) 30 ml PO Q4H PRN PRN Reason: Constipation Miscellaneous Medication (Elviteg/Cob/Emtri/Tenof Alafen [Genvoya Tablet]) 1 tab PO QDAY [facility] Miscellaneous Medication (Terbinafine (Nf)) 250 mg PO QDAY [facility] Morphine Sulfate (Morphine) 2 mg IV Q4H PRN PRN Reason: Pain, Moderate (4-6) Morphine Sulfate (Morphine) 4 mg IV Q3H PRN PRN Reason: Pain , Severe (7-10) Ondansetron HCl (Zofran) 4 mg IV Q3H PRN PRN Reason: N/V unrelieved by Reglan Oxycodone/Acetaminophen (Percocet 5/325) 1 tab PO Q6H PRN PRN Reason: BREAKTHRU PAIN Warfarin Sodium (Coumadin No Dose Today) 1 each PO 1700 ONE Stop: 10/13/17 17:01 Physical Examination - Physical Exam Narrative exam: General appearance: Alert in NAD, conversant Eyes: anicteric sclerae, moist conjunctivae; no lid-lag; PERRLA HENT: Atraumatic; oropharynx clear with moist mucous membranes and no mucosal ulcerations/no oral thrush; normal hard and soft palate. Normal external ears. Neck: Trachea midline; supple, no thyromegaly or lymphadenopathy Lungs: CTA, with normal respiratory effort and no intercostal retractions CV: RRR, no murmurs Abdomen: Soft, non-tender; no masses or hepatosplenomegaly Extremities: No peripheral edema +left axillary LN Skin: facial rash Psych: Appropriate affect, alert and oriented to person, place and time. Neuro: alert and oriented x 3. Moving all extermities Lines: No CVL / PICC - Constitutional Vitals: Vital Signs Temp Pulse Resp BP Pulse Ox 99.4 F 92 H 20 123/77 96 10/13/17 03:15 10/13/17 03:15 10/13/17 07:13 10/13/17 03:15 10/13/17 03:15 Temperature -Last 24 Hours Temperature 99.4 F Temperature 99.2 F Temperature 98.9 F Temperature 98.7 F Temperature 99.5 F Temperature 99.2 F Results - Labs CBC & Chem 7: 10/13/17 11:01 10/13/17 11:01 Labs: Abnormal lab results 10/12/17 10/12/17 10/12/17 Range/Units 15:31 15:31 15:31 WBC 1.8 L* (4.5-11.0) K/mm3 RBC 2.57 L (3.65-5.03) M/mm3 Hgb 6.0 L (11.8-15.2) gm/dl Hct 19.7 L* (35.5-45.6) % MCV 77 L (84-94) fl MCH 24 L (28-32) pg MCHC 31 L (32-34) % RDW 20.1 H (13.2-15.2) % Plt Count 133 L (140-440) K/mm3 Monocytes % (Manual) 11.0 H (0.0-7.3) % Seg Neutrophils # Man 1.1 L (1.8-7.7) K/mm3 Lymphocytes # (Manual) 0.5 L (1.2-5.4) K/mm3 Percent Retic 0.49 L (0.78-2.58) % PT 33.8 H (12.2-14.9) Sec. INR 3.09 H (0.87-1.13) Carbon Dioxide 21 L (22-30) mmol/L Creatinine 0.6 L (0.8-1.5) mg/dL Lactate Dehydrogenase (91-180) units/L Total Protein 8.5 H (6.3-8.2) g/dL Albumin 3.8 L (3.9-5) g/dL Crossmatch 10/12/17 10/12/17 Range/Units 15:31 21:55 WBC (4.5-11.0) K/mm3 RBC (3.65-5.03) M/mm3 Hgb (11.8-15.2) gm/dl Hct (35.5-45.6) % MCV (84-94) fl MCH (28-32) pg MCHC (32-34) % RDW (13.2-15.2) % Plt Count (140-440) K/mm3 Monocytes % (Manual) (0.0-7.3) % Seg Neutrophils # Man (1.8-7.7) K/mm3 Lymphocytes # (Manual) (1.2-5.4) K/mm3 Percent Retic (0.78-2.58) % PT (12.2-14.9) Sec. INR (0.87-1.13) Carbon Dioxide (22-30) mmol/L Creatinine (0.8-1.5) mg/dL Lactate Dehydrogenase 191 H (91-180) units/L Total Protein (6.3-8.2) g/dL Albumin (3.9-5) g/dL Crossmatch See Detail Assessment and Plan Assessment: 1) Recurrent Leukopenia/anemia ? from hydroxyuria 3) HIV: on genvoya restarted 2 months ago, VL 92K in 08/2017 last CD4= 123 in . Genotype NNRTI resistances 4) DVT/PE he was on coumadin with toxicity. 5) Left axillary lymph node enlarged for several months. Patient underwent lymph node biopsy which showed +HIV-associated lymphadenitis, negative for lymphoma a small abnormal B-cell population of uncertain significance. No granulomas seen. 6) Sickle cell disease crisis Plan: -Hem consult due to recurrent neutropenia ? hydroxyurea -recheck CD4, HIV-viral load -continue ART, please given him a Genvoya Rx 1 tab q day 1 month no refills. -He is to f/u with Dr Bhatia in 2-[address] Chang for your consultation, will follow up with you. Lelia Dean MD Infectious Diseases Specialist [facility] ([facility] M [phone] O [phone]
[2017-10-13] MEDS: FOLVITE PO SCH (09:29)
[2017-10-13] MEDS: PEPCID PO SCH ×2 (09:29→21:39)
[2017-10-13] MEDS: MEPRON PO SCH (09:31)
[2017-10-13] MEDS ORDERED: TERBINAFINE 250 MG PO SCH (10:00)
[2017-10-13] MEDS: HYDREA PO SCH (10:26)
[2017-10-13 11:15] LABS: Basophils % (Auto) 0.2 % (0.0-1.8); Eosinophils % (Auto) 0.6 % (0.0-4.3); Hematocrit 36.5 % (35.5-45.6); Hemoglobin 11.8 gm/dl (11.8-15.2); Lymphocytes # (Auto) 0.8 K/mm3 (1.2-5.4); Lymphocytes % (Auto) 24.4 % (13.4-35.0); Mean Corpuscular HGB Conc 32 % (32-34); Mean Corpuscular Volume 76 fl (84-94); Monocytes # (Auto) 0.4 K/mm3 (0.0-0.8); Monocytes % (Auto) 11.6 % (0.0-7.3); Platelet Count 201 K/mm3 (140-440); Red Blood Count 4.79 M/mm3 (3.65-5.03); Red Cell Distribution Width 19.9 % (13.2-15.2)
[2017-10-13 11:18] LABS: Mean Corpuscular Hemoglobin 25 pg (28-32)
[2017-10-13 11:26] LABS: INR 1.83 (0.87-1.13)
[2017-10-13 11:32] LABS: Alanine Aminotransferase 24 units/L (7-56); Albumin 3.2 g/dL (3.9-5); BUN/Creatinine Ratio 18; Blood Urea Nitrogen 9 mg/dL (9-20); Calcium 7.1 mg/dL (8.4-10.2); Hemolysis Index 12
[2017-10-13] MEDS ORDERED: DILAUDID IV PRN (12:58)
[2017-10-13] MEDS: NACL 0.9% 1000 ML 1,000 ML IV SCH ×2 (13:45→21:49)
[2017-10-13] MEDS ORDERED: LOVENOX SUB-Q SCH (14:00)
[2017-10-13] MEDS ORDERED: COUMADIN PO SCH ×2 (17:00)
[2017-10-13] MEDS ORDERED: COUMADIN NO DOSE TODAY PO ONE (17:00)
--- NOTE | 2017-10-13 17:43 | Progress Note ---
Assessment and Plan Assessment and plan: 37-year-old -Turkmen male with history of HIV recurrent DVTs sickle cell crisis and sickle cell anemia comes in for severe pain all over. Pain is especially in the chest both hips and lower back. Pain is very sharp 8/10. It is been going on for the last last 2-3 days. No nausea or vomiting. No fever or chills. No exacerbating or relieving factors. No shortness of breath. Patient is on Coumadin for recurrent DVTs and pulmonary embolism. P 1 atient also has a HIV and is on antiretrovirals. Patient was found to have the left axillary lymph node. Patient underwent lymph node biopsy which showed +HIV-associated lymphadenitis, negative for lymphoma a small abnormal B-cell population of uncertain significance in Aug 2017 He has since then has been taken his genvoya without missing any doses since last discharge. He was readmitted on 10/12/2017 due to CVA or sickle cell disease pain. His typical pain in his bilateral heaps lower back and legs. He denies any recent fever more than 100.5. Denies any sick contacts. Sickle Cell Crisis HIV Secondary coagulopathy Pain Management Neutropenia Possible Secondary to HIV vs Hydroxurea DVT/PE-Recurrent Anemia Plan * Follow H/H POST TRANSFUSION * D/W ID and [employer] about Neutropenia and driving forces * Continue Coumadin * Continue Antiretroviral * Pain Control * Anticipate discharge in AM if clinically improved. * Plan discussed with the patient in detail * Counselling provided on the importance of follow up with ID and PCP. History Interval history: Patient seen and examined, in no acute distress. Hospitalist Physical - Physical exam Narrative exam: VITAL SIGNS: Reviewed. GENERAL: The patient appeared well nourished and normally developed. Vital signs as documented. HEAD: No signs of head trauma. EYES: Pupils are equal. Extraocular motions intact. EARS: Hearing grossly intact. MOUTH: Oropharynx is normal. NECK: No adenopathy, no JVD. CHEST: Chest with clear breath sounds bilaterally. No wheezes, rales, or rhonchi. CARDIAC: Regular rate and rhythm. S1 and S2, without murmurs, gallops, or rubs. VASCULAR: No Edema. Peripheral pulses normal and equal in all extremities. ABDOMEN: Soft, without detectable tenderness. No sign of distention. No rebound or guarding, and no masses palpated. Bowel Sounds normal. MUSCULOSKELETAL: Good range of motion of all major joints. Extremities without clubbing, cyanosis or edema. NEUROLOGIC EXAM: Alert and oriented x 3. No focal sensory or strength deficits. Speech normal. Follows commands. PSYCHIATRIC: Mood normal. SKIN: chest port. - Constitutional Vitals: Temp Pulse Resp BP Pulse Ox 98.4 F 84 18 133/96 98 10/13/17 07:48 10/13/17 07:49 10/13/17 07:48 10/13/17 07:48 10/13/17 10:00 General appearance: Present: mild distress, well-nourished Results - Labs CBC & Chem 7: 10/13/17 11:01 10/13/17 11:01 Labs: Laboratory Last Values WBC 3.1 K/mm3 (4.5-11.0) L 10/13/17 11: RBC 4.79 M/mm3 (3.65-5.03) 10/13/17 11:01 Hgb 11.8 gm/dl (11.8-15.2) D 10/13/17 11:01 Hct 36.5 % (35.5-45.6) D 10/13/17 11:01 MCV 76 fl (84-94) L 10/13/17 11:01 MCH 25 pg (28-32) L 10/13/17 11:01 MCHC 32 % (32-34) 10/13/17 11:01 RDW 19.9 % (13.2-15.2) H 10/13/17 11:01 Plt Count 201 K/mm3 (140-440) 10/13/17 11:01 Lymph % (Auto) 24.4 % (13.4-35.0) 10/13/17 11:01 [place] % (Auto) 11.6 % (0.0-7.3) H 10/13/17 11:01 Eos % (Auto) 0.6 % (0.0-4.3) 10/13/17 11:01 Baso % (Auto) 0.2 % (0.0-1.8) 10/13/17 11:01 Lymph # 0.8 K/mm3 (1.2-5.4) L 10/13/17 11:01 [place] # 0.4 K/mm3 (0.0-0.8) 10/13/17 11:01 Eos # 0.0 K/mm3 (0.0-0.4) 10/13/17 11:01 Baso # 0.0 K/mm3 (0.0-0.1) 10/13/17 11:01 Add Manual Diff Complete 10/12/17 15:31 Total Counted 100 10/12/17 15:31 Seg Neutrophils % 63.2 % (40.0-70.0) 10/13/17 11:01 Seg Neuts % (Manual) 60.0 % (40.0-70.0) 10/12/17 15:31 Band Neutrophils % 0 % 10/12/17 15:31 Lymphocytes % (Manual) 29.0 % (13.4-35.0) 10/12/17 15:31 Reactive Lymphs % (Man) 0 % 10/12/17 15:31 Monocytes % (Manual) 11.0 % (0.0-7.3) H 10/12/17 15:31 Eosinophils % (Manual) 0 % (0.0-4.3) 10/12/17 15:31 Basophils % (Manual) 0 % (0.0-1.8) 10/12/17 15:31 Metamyelocytes % 0 % 10/12/17 15:31 Myelocytes % 0 % 10/12/17 15:31 Promyelocytes % 0 % 10/12/17 15:31 Blast Cells % 0 % 10/12/17 15:31 Nucleated RBC % Not Reportable 10/12/17 15:31 Seg Neutrophils # 2.0 K/mm3 (1.8-7.7) 10/13/17 11:01 Seg Neutrophils # Man 1.1 K/mm3 (1.8-7.7) L 10/12/17 15:31 Band Neutrophils # 0.0 K/mm3 10/12/17 15:31 Lymphocytes # (Manual) 0.5 K/mm3 (1.2-5.4) L 10/12/17 15:31 Abs React Lymphs (Man) 0.0 K/mm3 10/12/17 15:31 Monocytes # (Manual) 0.2 K/mm3 (0.0-0.8) 10/12/17 15:31 Eosinophils # (Manual) 0.0 K/mm3 (0.0-0.4) 10/12/17 15:31 Basophils # (Manual) 0.0 K/mm3 (0.0-0.1) 10/12/17 15:31 Metamyelocytes # 0.0 K/mm3 10/12/17 15:31 Myelocytes # 0.0 K/mm3 10/12/17 15:31 Promyelocytes # 0.0 K/mm3 10/12/17 15:31 Blast Cells # 0.0 K/mm3 10/12/17 15:31 WBC Morphology Not Reportable 10/12/17 15:31 Hypersegmented Neuts Not Reportable 10/12/17 15:31 Hyposegmented Neuts Not Reportable 10/12/17 15:31 Hypogranular Neuts Not Reportable 10/12/17 15:31 Smudge Cells Not Reportable 10/12/17 15:31 Toxic Granulation Not Reportable 10/12/17 15:31 Toxic Vacuolation Not Reportable 10/12/17 15:31 Dohle Bodies Not Reportable 10/12/17 15:31 Pelger-Huet Anomaly Not Reportable 10/12/17 15:31 Raheem Rods Not Reportable 10/12/17 15:31 Platelet Estimate Not Reportable 10/12/17 15:31 Clumped Platelets Not Reportable 10/12/17 15:31 Plt Clumps, EDTA Not Reportable 10/12/17 15:31 Large Platelets Not Reportable 10/12/17 15:31 Giant Platelets Not Reportable 10/12/17 15:31 Platelet Satelliting Not Reportable 10/12/17 15:31 Plt Morphology Comment Not Reportable 10/12/17 15:31 RBC Morphology Not Reportable 10/12/17 15:31 Dimorphic RBCs Not Reportable 10/12/17 15:31 Polychromasia Not Reportable 10/12/17 15:31 Hypochromasia 1+ 10/12/17 15:31 Poikilocytosis 1+ 10/12/17 15:31 Anisocytosis 2+ 10/12/17 15:31 Microcytosis 1+ 10/12/17 15:31 Macrocytosis Not Reportable 10/12/17 15:31 Spherocytes Not Reportable 10/12/17 15:31 Pappenheimer Bodies Not Reportable 10/12/17 15:31 Sickle Cells Not Reportable 10/12/17 15:31 Target Cells Not Reportable 10/12/17 15:31 Tear Drop Cells Not Reportable 10/12/17 15:31 Ovalocytes Few 10/12/17 15:31 Helmet Cells Not Reportable 10/12/17 15:31 [place] Bodies Not Reportable 10/12/17 15:31 [place] Rings Not Reportable 10/12/17 15:31 Luis Miguel Cells Not Reportable 10/12/17 15:31 Bite Cells Not Reportable 10/12/17 15:31 Crenated Cell Not Reportable 10/12/17 15:31 Elliptocytes Not Reportable 10/12/17 15:31 Acanthocytes (Spur) Not Reportable 10/12/17 15:31 Rouleaux Not Reportable 10/12/17 15:31 Hemoglobin C Crystals Not Reportable 10/12/17 15:31 Schistocytes Not Reportable 10/12/17 15:31 Malaria parasites Not Reportable 10/12/17 15:31 Percent Retic 0.49 % (0.78-2.58) L 10/12/17 15:31 Brando Bodies Not Reportable 10/12/17 15:31 Hem Pathologist Commnt No 10/12/17 15:31 PT 22.2 Sec. (12.2-14.9) H 10/13/17 11:01 INR 1.83 (0.87-1.13) H 10/13/17 11:01 Sodium 140 mmol/L (137-145) 10/13/17 11:01 Potassium 3.2 mmol/L (3.6-5.0) L 10/13/17 11:01 Chloride 107.7 mmol/L (98-107) H 10/13/17 11:01 Carbon Dioxide 17 mmol/L (22-30) L 10/13/17 11:01 Anion Gap 19 mmol/L 10/13/17 11:01 BUN 9 mg/dL (9-20) 10/13/17 11:01 Creatinine 0.5 mg/dL (0.8-1.5) L 10/13/17 11:01 Estimated GFR > 60 ml/min 10/13/17 11:01 BUN/Creatinine Ratio 18 % 10/13/17 11:01 Glucose 90 mg/dL (75-100) 10/13/17 11:01 Calcium 7.1 mg/dL (8.4-10.2) L D 10/13/17 11:01 Total Bilirubin 0.60 mg/dL (0.1-1.2) 10/13/17 11:01 AST 20 units/L (5-40) 10/13/17 11:01 ALT 24 units/L (7-56) 10/13/17 11:01 Alkaline Phosphatase 57 units/L (35-129) 10/13/17 11:01 Lactate Dehydrogenase 191 units/L (91-180) H 10/12/17 15:31 Total Protein 7.1 g/dL (6.3-8.2) 10/13/17 11:01 Albumin 3.2 g/dL (3.9-5) L 10/13/17 11:01 Albumin/Globulin Ratio 0.8 % 10/13/17 11:01 Blood Type A POSITIVE 10/12/17 21:55 Antibody Screen Negative 10/12/17 21:55 Crossmatch See Detail 10/12/17 21:55
--- NOTE | 2017-10-13 19:25 | Consultation ---
History of Present Illness - Reason for Consult Consult date: 10/13/17 scd/anemia. Requesting physician: DEANNA CHANG - History of Present Illness Thank you for this consult, patient seen/examined, record reviewed, case d/w patient, and the primary team. Direct admit from the office for crisis related issues, and for sxs control.He cytopenias has since improved. He has reported some nose bleed, with NL PLT count, and non toxic INR.i have recommended that he gets saline nasal flushes.hydrea still on hold. He probably has NL PLT count but poor function from his HIV/aids dz. Past History Past Medical History: anemia, HIV/AIDS, other (HIV, chronic anemia, leukopenia) Past Surgical History: Other (LN biopsy ) Social history: single Family history: no significant family history Medications and Allergies Allergies Allergy/AdvReac Type Severity Reaction Status Date / Time morphine Allergy Anaphylaxis Verified 03/09/17 11:18 Iodinated Contrast- Oral and AdvReac Unknown Verified 03/09/17 11:18 IV Dye [Iodinated Contrast Media - IV Dye] sulfamethoxazole AdvReac Unknown Verified 03/09/17 11:18 [From Bactrim] trimethoprim [From Bactrim] AdvReac Unknown Verified 03/09/17 11:18 PLASTIC TAPE Allergy Rash Uncoded 03/09/17 11:18 Home Medications Medication Instructions Recorded Confirmed Last Taken Type Folic Acid [Folvite] 0.5 mg PO QDAY #30 tablet 04/21/17 10/12/17 10/11/17 Rx Oxycodone HCl/Acetaminophen 1 each PO Q6HR PRN #30 tablet 04/21/17 10/12/1706/20 Rx [Percocet 10/325 mg] Selenium Sulfide(Nf) [Selsun (Nf)] 1 applic TP TuSa@1000 PRN #1 bottle 04/21/17 10/12/17 10/11/17 Rx Warfarin [Coumadin] 7.5 mg PO DAILY@1700 #7 tablet 04/21/17 10/12/17 10/11/17 Rx Warfarin [Coumadin] 5 mg PO DAILY@1700 tablet 06/20/17 10/12/17 10/11/17 Rx Hydroxyurea [Hydrea] 500 mg PO DAILY 08/06/17 10/12/17 10/11/17 History HYDROmorphone [Dilaudid] 2 mg PO Q4-6H PRN 10/12/17 10/12/17 10/11/17 History Ketoconazole 2% [Nizoral] 1 applic TP TID 10/12/17 10/12/17 10/11/17 History Megestrol 180 mg PO TID 10/13/17 10/13/17 10/11/17 History Active Meds: Active Medications Acetaminophen (Tylenol) 650 mg PO Q4H PRN PRN Reason: Pain MILD(1-3)/Fever >100.5/HODGES Atovaquone (Mepron) 1,500 mg PO QDAY [facility] Last Admin: 10/13/17 09:31 Dose: Not Given Bisacodyl (Dulcolax) 10 mg [place] QDAY PRN PRN Reason: Constipation unrelieved by MOM Diphenhydramine HCl (Benadryl) 12.5 mg IV Q3H PRN PRN Reason: Itching Last Admin: 10/13/17 17:06 Dose: 12.5 mg Famotidine (Pepcid) 20 mg PO BID [facility] Last Admin: 10/13/17 09:29 Dose: 20 mg Folic Acid (Folvite) 0.5 mg PO QDAY [facility] Last Admin: 10/13/17 09:29 Dose: 0.5 mg Hydromorphone HCl (Dilaudid) 2 mg IV Q4H PRN PRN Reason: Pain , Severe (7-10) Last Admin: 10/13/17 17:07 Dose: 2 mg Hydroxyurea (Hydrea) 500 mg PO DAILY [facility] Last Admin: 10/13/17 10:26 Dose: Not Given Sodium Chloride (Nacl 0.9% 1000 Ml) 1,000 mls @ 125 mls/hr IV DIRECT [facility] Last Admin: 10/13/17 13:45 Dose: 125 mls/hr Sodium Chloride (Nacl 0.9% 500 Ml) 500 mls @ 0 mls/hr IV ONCE [facility] PRN Reason: As Directed Ketoconazole (Nizoral) 1 applic TP BID [facility] Last Admin: 10/13/17 10:15 Dose: 1 applic Magnesium Hydroxide (Milk Of Magnesia) 30 ml PO Q4H PRN PRN Reason: Constipation Megestrol Acetate (Megace) 180 mg PO TID [facility] Miscellaneous Medication (Elviteg/Cob/Emtri/Tenof Alafen [Genvoya Tablet]) 1 tab PO QDAY [facility] Miscellaneous Medication (Terbinafine (Nf)) 250 mg PO QDAY [facility] Morphine Sulfate (Morphine) 2 mg IV Q4H PRN PRN Reason: Pain, Moderate (4-6) Morphine Sulfate (Morphine) 4 mg IV Q3H PRN PRN Reason: Pain , Severe (7-10) Ondansetron HCl (Zofran) 4 mg IV Q3H PRN PRN Reason: N/V unrelieved by Reglan Oxycodone/Acetaminophen (Percocet 5/325) 1 tab PO Q6H PRN PRN Reason: BREAKTHRU PAIN Warfarin Sodium (Coumadin) 5 mg PO DAILY@1700 [facility] Last Admin: 10/13/17 17:07 Dose: 5 mg Review of Systems Constitutional: fatigue Ears, nose, mouth and throat: epistaxis Exam - Constitutional Vitals: Temp Pulse Resp BP Pulse Ox 99.0 F 91 H 20 124/90 98 10/13/17 17:30 10/13/17 17:30 10/13/17 17:30 10/13/17 17:30 10/13/17 17:30 General appearance: Present: mild distress, well-nourished - EENT Eyes: Present: PERRL ENT: hearing intact, clear oral mucosa - Neck Neck: Present: supple, normal ROM - Respiratory Respiratory effort: normal Respiratory: bilateral: CTA - Cardiovascular Heart Sounds: Present: S1 & S2. Absent: rub, click - Extremities Extremities: pulses symmetrical, No edema Peripheral Pulses: within normal limits - Abdominal General gastrointestinal: Present: soft, non-tender, non-distended, normal bowel sounds Male genitourinary: Present: deferred - Rectal Rectal Exam: deferred - Integumentary Integumentary: Present: clear, warm, dry - Musculoskeletal Musculoskeletal: gait normal, strength equal bilaterally - Psychiatric Psychiatric: appropriate mood/affect, intact judgment & insight - Neurologic Neurologic: CNII-XII intact, moves all extremities Results - Labs CBC & Chem 7: 10/13/17 11:01 10/13/17 11:01 Labs: Abnormal lab results 10/12/17 10/13/17 10/13/17 Range/Units 21:55 11:01 11:01 WBC 3.1 L (4.5-11.0) K/mm3 MCV 76 L (84-94) fl MCH 25 L (28-32) pg RDW 19.9 H (13.2-15.2) % [place] % (Auto) 11.6 H (0.0-7.3) % Lymph # 0.8 L (1.2-5.4) K/mm3 PT (12.2-14.9) Sec. INR (0.87-1.13) Potassium 3.2 L (3.6-5.0) mmol/L Chloride 107.7 H (98-107) mmol/L Carbon Dioxide 17 L (22-30) mmol/L Creatinine 0.5 L (0.8-1.5) mg/dL Calcium 7.1 L D (8.4-10.2) mg/dL Albumin 3.2 L (3.9-5) g/dL Crossmatch See Detail 10/13/17 Range/Units 11:01 WBC (4.5-11.0) K/mm3 MCV (84-94) fl MCH (28-32) pg RDW (13.2-15.2) % [place] % (Auto) (0.0-7.3) % Lymph # (1.2-5.4) K/mm3 PT 22.2 H (12.2-14.9) Sec. INR 1.83 H (0.87-1.13) Potassium (3.6-5.0) mmol/L Chloride (98-107) mmol/L Carbon Dioxide (22-30) mmol/L Creatinine (0.8-1.5) mg/dL Calcium (8.4-10.2) mg/dL Albumin (3.9-5) g/dL Crossmatch Assessment and Plan - Patient Problems (1) Neutropenia Current Visit: Yes Status: Acute Plan to address problem: improving (2) Anticoagulation goal of INR 2 to 3 Current Visit: Yes Status: Chronic Plan to address problem: PK to manage. (3) HIV (human immunodeficiency virus infection) Current Visit: Yes Status: Chronic Plan to address problem: supportive.
[2017-10-13] MEDS: MEGACE PO SCH (22:13)
[2017-10-14] MEDS: BENADRYL IV PRN ×6 (00:36→23:41)
[2017-10-14] MEDS: DILAUDID IV PRN ×7 (00:38→23:42)
[2017-10-14 08:19] LABS: Hematocrit 36.8 % (35.5-45.6); Hemoglobin 12.2 gm/dl (11.8-15.2); Mean Corpuscular HGB Conc 33 % (32-34); Mean Corpuscular Volume 75 fl (84-94); Platelet Count 206 K/mm3 (140-440); Red Blood Count 4.88 M/mm3 (3.65-5.03)
[2017-10-14 08:26] LABS: Mean Corpuscular Hemoglobin 25 pg (28-32); Red Cell Distribution Width 20.1 % (13.2-15.2)
[2017-10-14 08:32] LABS: INR 1.42 (0.87-1.13)
[2017-10-14 08:38] LABS: BUN/Creatinine Ratio 20; Blood Urea Nitrogen 10 mg/dL (9-20); Calcium 7.1 mg/dL (8.4-10.2); Hemolysis Index 5
--- NOTE | 2017-10-14 10:16 | Progress Note ---
Assessment and Plan Assessment: 1) Recurrent Leukopenia/anemia ? from hydroxyuria. Improving WBC 3.6 3) HIV: on genvoya restarted 2 months ago, VL 92K in 08/2017 last CD4= 123 in . Genotype NNRTI resistances 4) DVT/PE he was on coumadin with toxicity. 5) Left axillary lymph node enlarged for several months. Patient underwent lymph node biopsy which showed +HIV-associated lymphadenitis, negative for lymphoma a small abnormal B-cell population of uncertain significance. No granulomas seen. Decreasing in size today 6) Sickle cell disease crisis Plan: -Follow up Hem consult due to recurrent neutropenia ? hydroxyurea -Follow up CD4, HIV-viral load -continue ART, please given him a Genvoya Rx 1 tab q day 1 month no refills. -continue mepron -He is to f/u with Dr Bhatia in 2-3 weeks -ok to discharge from ID standpoint, f/u with Dr. Bhatia Thank you Dr Urban for your consultation, will follow up with you. Keshav Tian NP-C for Lelia Dean MD Infectious Diseases Specialist [facility] M [phone] O [phone] Subjective Date of service: 10/14/17 Principal diagnosis: SCC Interval history: I feel better today and I don't have a fever though I was not able to sleep last night Microbiology: None Current Antimicrobials: atovaquone genvoya Previous Antimicrobials: Objective - Exam Narrative Exam: General appearance: Alert in NAD, conversant Eyes: anicteric sclerae, moist conjunctivae; no lid-lag; PERRLA HENT: Atraumatic; oropharynx clear with moist mucous membranes and no mucosal ulcerations/no oral thrush; normal hard and soft palate. Normal external ears. + nose bleed Neck: Trachea midline; supple, no thyromegaly or lymphadenopathy Lungs: CTA, with normal respiratory effort and no intercostal retractions CV: RRR, no murmurs Abdomen: Soft, non-tender; positive BS x 4 Extremities: No peripheral edema +left axillary LN Skin: facial rash Psych: Calm and cooperative Neuro: alert and oriented x 3. Moving all extermities Lines: Right chest wall port - Constitutional Vitals: Vital Signs Temp Pulse Resp BP Pulse Ox 98.6 F 86 20 129/80 95 10/14/17 08:31 10/14/17 08:31 10/14/17 08:31 10/14/17 08:31 10/14/17 08:31 Temperature -Last 24 Hours Temperature 98.6 F Temperature 98.9 F Temperature 98.9 F Temperature 99.0 F - Labs CBC & Chem 7: 10/14/17 Unknown 10/14/17 Unknown Labs: Abnormal lab results 10/13/17 10/13/17 10/13/17 Range/Units 11:01 11:01 11:01 WBC 3.1 L (4.5-11.0) K/mm3 MCV 76 L (84-94) fl MCH 25 L (28-32) pg RDW 19.9 H (13.2-15.2) % Wallace % (Auto) 11.6 H (0.0-7.3) % Lymph # 0.8 L (1.2-5.4) K/mm3 PT 22.2 H (12.2-14.9) Sec. INR 1.83 H (0.87-1.13) Potassium 3.2 L (3.6-5.0) mmol/L Chloride 107.7 H (98-107) mmol/L Carbon Dioxide 17 L (22-30) mmol/L Creatinine 0.5 L (0.8-1.5) mg/dL Calcium 7.1 L D (8.4-10.2) mg/dL Albumin 3.2 L (3.9-5) g/dL 10/14/17 10/14/17 10/14/17 Range/Units Unknown Unknown Unknown WBC 3.6 L (4.5-11.0) K/mm3 MCV 75 L (84-94) fl MCH 25 L (28-32) pg RDW 20.1 H (13.2-15.2) % [place] % (Auto) (0.0-7.3) % Lymph # (1.2-5.4) K/mm3 PT 18.1 H (12.2-14.9) Sec. INR 1.42 H (0.87-1.13) Potassium 3.3 L (3.6-5.0) mmol/L Chloride 108.6 H (98-107) mmol/L Carbon Dioxide 20 L (22-30) mmol/L Creatinine 0.5 L (0.8-1.5) mg/dL Calcium 7.1 L (8.4-10.2) mg/dL Albumin (3.9-5) g/dL
[2017-10-14] MEDS: FOLVITE PO SCH (10:24)
[2017-10-14] MEDS: MEGACE PO SCH ×3 (10:25→19:30)
[2017-10-14] MEDS: PEPCID PO SCH ×2 (10:25→23:38)
[2017-10-14] MEDS: NIZORAL TP SCH ×2 (10:26→23:40)
[2017-10-14] MEDS: MEPRON PO SCH (10:27)
[2017-10-14] MEDS: HYDREA PO SCH (10:32)
[2017-10-14] MEDS: KCL 20 MEQ in LACTATED RINGERS 1,000 ML IV SCH (14:34)
[2017-10-14] MEDS ORDERED: COUMADIN PO SCH ×2 (17:00)
[2017-10-14] MEDS: PERCOCET 5/325 PO PRN (17:02)
--- NOTE | 2017-10-14 18:52 | Progress Note ---
Assessment and Plan Assessment and plan: 37-year-old -[place] male with history of HIV recurrent DVTs sickle cell crisis and sickle cell anemia comes in for severe pain all over. Pain is especially in the chest both hips and lower back. Pain is very sharp 8/10. It is been going on for the last last 2-3 days. No nausea or vomiting. No fever or chills. No exacerbating or relieving factors. No shortness of breath. Patient is on Coumadin for recurrent DVTs and pulmonary embolism. P 1 atient also has a HIV and is on antiretrovirals. Patient was found to have the left axillary lymph node. Patient underwent lymph node biopsy which showed +HIV-associated lymphadenitis, negative for lymphoma a small abnormal B-cell population of uncertain significance in Aug 2017 He has since then has been taken his genvoya without missing any doses since last discharge. He was readmitted on 10/12/2017 due to CVA or sickle cell disease pain. His typical pain in his bilateral heaps lower back and legs. He denies any recent fever more than 100.5. Denies any sick contacts. Sickle Cell Crisis HIV Secondary coagulopathy Subtherapeutic drug dose of Recurrent Leukopenia/anemia was DVT/PE he was on coumadin with toxicity. Left axillary lymph node enlarged for several months. Patient underwent lymph node biopsy which showed +HIV-associated lymphadenitis, negative for lymphoma a small abnormal B-cell population of uncertain significance. No granulomas seen. Decreasing in size today Pain Management Neutropenia Possible Secondary to HIV vs Hydroxurea-improving DVT/PE-Recurrent Anemia Plan * Follow H/H POST TRANSFUSION * D/W ID and Tassel Clipper about Neutropenia and driving forces * Continue Coumadin * Change fluids to LR * Continue Antiretroviral * Pain Control * Anticipate discharge in AM if clinically improved. * Plan discussed with the patient in detail * Counselling provided on the importance of follow up with ID and PCP. The * Anticipate discharge in a.m. discussed case detail with edi consultant from infectious disease. History Interval history: Patient seen and examined, in no acute distress. Still with some type pain but reports improvement in chest discomfort. Hospitalist Physical - Physical exam Narrative exam: VITAL SIGNS: Reviewed. GENERAL: The patient appeared well nourished and normally developed. Vital signs as documented. HEAD: No signs of head trauma. EYES: Pupils are equal. Extraocular motions intact. EARS: Hearing grossly intact. MOUTH: Oropharynx is normal. NECK: No adenopathy, no JVD. CHEST: Chest with clear breath sounds bilaterally. No wheezes, rales, or rhonchi. CARDIAC: Regular rate and rhythm. S1 and S2, without murmurs, gallops, or rubs. VASCULAR: No Edema. Peripheral pulses normal and equal in all extremities. ABDOMEN: Soft, without detectable tenderness. No sign of distention. No rebound or guarding, and no masses palpated. Bowel Sounds normal. MUSCULOSKELETAL: Good range of motion of all major joints. Extremities without clubbing, cyanosis or edema. NEUROLOGIC EXAM: Alert and oriented x 3. No focal sensory or strength deficits. Speech normal. Follows commands. PSYCHIATRIC: Mood normal. SKIN: chest port. - Constitutional Vitals: Temp Pulse Resp BP Pulse Ox 99.3 F 90 20 135/88 99 10/14/17 15:11 10/14/17 15:11 10/14/17 15:11 10/14/17 15:11 10/14/17 15:11 General appearance: Present: mild distress, well-nourished Results - Labs CBC & Chem 7: 10/14/17 Unknown 10/14/17 Unknown Labs: Laboratory Last Values WBC 3.6 K/mm3 (4.5-11.0) L 10/14/17 Unknown RBC 4.88 M/mm3 (3.65-5.03) 10/14/17 Unknown Hgb 12.2 gm/dl (11.8-15.2) 10/14/17 Unknown Hct 36.8 % (35.5-45.6) 10/14/17 Unknown MCV 75 fl (84-94) L 10/14/17 Unknown MCH 25 pg (28-32) L 10/14/17 Unknown MCHC 33 % (32-34) 10/14/17 Unknown RDW 20.1 % (13.2-15.2) H 10/14/17 Unknown Plt Count 206 K/mm3 (140-440) 10/14/17 Unknown Lymph % (Auto) 24.4 % (13.4-35.0) 10/13/17 11:01 Stark % (Auto) 11.6 % (0.0-7.3) H 10/13/17 11:01 Eos % (Auto) 0.6 % (0.0-4.3) 10/13/17 11:01 Baso % (Auto) 0.2 % (0.0-1.8) 10/13/17 11:01 Lymph # 0.8 K/mm3 (1.2-5.4) L 10/13/17 11:01 Stark # 0.4 K/mm3 (0.0-0.8) 10/13/17 11:01 Eos # 0.0 K/mm3 (0.0-0.4) 10/13/17 11:01 Baso # 0.0 K/mm3 (0.0-0.1) 10/13/17 11:01 Add Manual Diff Complete 10/12/17 15:31 Total Counted 100 10/12/17 15:31 Seg Neutrophils % 63.2 % (40.0-70.0) 10/13/17 11:01 Seg Neuts % (Manual) 60.0 % (40.0-70.0) 10/12/17 15:31 Band Neutrophils % 0 % 10/12/17 15:31 Lymphocytes % (Manual) 29.0 % (13.4-35.0) 10/12/17 15:31 Reactive Lymphs % (Man) 0 % 10/12/17 15:31 Monocytes % (Manual) 11.0 % (0.0-7.3) H 10/12/17 15:31 Eosinophils % (Manual) 0 % (0.0-4.3) 10/12/17 15:31 Basophils % (Manual) 0 % (0.0-1.8) 10/12/17 15:31 Metamyelocytes % 0 % 10/12/17 15:31 Myelocytes % 0 % 10/12/17 15:31 Promyelocytes % 0 % 10/12/17 15:31 Blast Cells % 0 % 10/12/17 15:31 Nucleated RBC % Not Reportable 10/12/17 15:31 Seg Neutrophils # 2.0 K/mm3 (1.8-7.7) 10/13/17 11:01 Seg Neutrophils # Man 1.1 K/mm3 (1.8-7.7) L 10/12/17 15:31 Band Neutrophils # 0.0 K/mm3 10/12/17 15:31 Lymphocytes # (Manual) 0.5 K/mm3 (1.2-5.4) L 10/12/17 15:31 Abs React Lymphs (Man) 0.0 K/mm3 10/12/17 15:31 Monocytes # (Manual) 0.2 K/mm3 (0.0-0.8) 10/12/17 15:31 Eosinophils # (Manual) 0.0 K/mm3 (0.0-0.4) 10/12/17 15:31 Basophils # (Manual) 0.0 K/mm3 (0.0-0.1) 10/12/17 15:31 Metamyelocytes # 0.0 K/mm3 10/12/17 15:31 Myelocytes # 0.0 K/mm3 10/12/17 15:31 Promyelocytes # 0.0 K/mm3 10/12/17 15:31 Blast Cells # 0.0 K/mm3 10/12/17 15:31 WBC Morphology Not Reportable 10/12/17 15:31 Hypersegmented Neuts Not Reportable 10/12/17 15:31 Hyposegmented Neuts Not Reportable 10/12/17 15:31 Hypogranular Neuts Not Reportable 10/12/17 15:31 Smudge Cells Not Reportable 10/12/17 15:31 Toxic Granulation Not Reportable 10/12/17 15:31 Toxic Vacuolation Not Reportable 10/12/17 15:31 Dohle Bodies Not Reportable 10/12/17 15:31 Pelger-Huet Anomaly Not Reportable 10/12/17 15:31 Raheem Rods Not Reportable 10/12/17 15:31 Platelet Estimate Not Reportable 10/12/17 15:31 Clumped Platelets Not Reportable 10/12/17 15:31 Plt Clumps, EDTA Not Reportable 10/12/17 15:31 Large Platelets Not Reportable 10/12/17 15:31 Giant Platelets Not Reportable 10/12/17 15:31 Platelet Satelliting Not Reportable 10/12/17 15:31 Plt Morphology Comment Not Reportable 10/12/17 15:31 RBC Morphology Not Reportable 10/12/17 15:31 Dimorphic RBCs Not Reportable 10/12/17 15:31 Polychromasia Not Reportable 10/12/17 15:31 Hypochromasia 1+ 10/12/17 15:31 Poikilocytosis 1+ 10/12/17 15:31 Anisocytosis 2+ 10/12/17 15:31 Microcytosis 1+ 10/12/17 15:31 Macrocytosis Not Reportable 10/12/17 15:31 Spherocytes Not Reportable 10/12/17 15:31 Pappenheimer Bodies Not Reportable 10/12/17 15:31 Sickle Cells Not Reportable 10/12/17 15:31 Target Cells Not Reportable 10/12/17 15:31 Tear Drop Cells Not Reportable 10/12/17 15:31 Ovalocytes Few 10/12/17 15:31 Helmet Cells Not Reportable 10/12/17 15:31 [place] Bodies Not Reportable 10/12/17 15:31 [place] Rings Not Reportable 10/12/17 15:31 [place] Cells Not Reportable 10/12/17 15:31 Bite Cells Not Reportable 10/12/17 15:31 Crenated Cell Not Reportable 10/12/17 15:31 Elliptocytes Not Reportable 10/12/17 15:31 Acanthocytes (Spur) Not Reportable 10/12/17 15:31 Rouleaux Not Reportable 10/12/17 15:31 Hemoglobin C Crystals Not Reportable 10/12/17 15:31 Schistocytes Not Reportable 10/12/17 15:31 Malaria parasites Not Reportable 10/12/17 15:31 Percent Retic 0.49 % (0.78-2.58) L 10/12/17 15:31 Brando Bodies Not Reportable 10/12/17 15:31 Hem Pathologist Commnt No 10/12/17 15:31 PT 18.1 Sec. (12.2-14.9) H 10/14/17 Unknown INR 1.42 (0.87-1.13) H 10/14/17 Unknown Sodium 141 mmol/L (137-145) 10/14/17 Unknown Potassium 3.3 mmol/L (3.6-5.0) L 10/14/17 Unknown Chloride 108.6 mmol/L (98-107) H 10/14/17 Unknown Carbon Dioxide 20 mmol/L (22-30) L 10/14/17 Unknown Anion Gap 16 mmol/L 10/14/17 Unknown BUN 10 mg/dL (9-20) 10/14/17 Unknown Creatinine 0.5 mg/dL (0.8-1.5) L 10/14/17 Unknown Estimated GFR > 60 ml/min 10/14/17 Unknown BUN/Creatinine Ratio 20 % 10/14/17 Unknown Glucose 78 mg/dL (75-100) 10/14/17 Unknown Calcium 7.1 mg/dL (8.4-10.2) L 10/14/17 Unknown Total Bilirubin 0.60 mg/dL (0.1-1.2) 10/13/17 11:01 AST 20 units/L (5-40) 10/13/17 11:01 ALT 24 units/L (7-56) 10/13/17 11:01 Alkaline Phosphatase 57 units/L (35-129) 10/13/17 11:01 Lactate Dehydrogenase 191 units/L (91-180) H 10/12/17 15:31 Total Protein 7.1 g/dL (6.3-8.2) 10/13/17 11:01 Albumin 3.2 g/dL (3.9-5) L 10/13/17 11:01 Albumin/Globulin Ratio 0.8 % 10/13/17 11:01 Blood Type A POSITIVE 10/12/17 21:55 Antibody Screen Negative 10/12/17 21:55 Crossmatch See Detail 10/12/17 21:55
--- NOTE | 2017-10-14 22:30 | Progress Note ---
Assessment and Plan - Patient Problems (1) Neutropenia Current Visit: Yes Status: Acute Plan to address problem: improving (2) Anticoagulation goal of INR 2 to 3 Current Visit: Yes Status: Chronic Plan to address problem: PK to manage. (3) HIV (human immunodeficiency virus infection) Current Visit: Yes Status: Chronic Plan to address problem: supportive. (4) Hip pain, right Current Visit: Yes Status: Acute Plan to address problem: See notes. Subjective Date of service: 10/14/17 Principal diagnosis: SCC Interval history: Patient seen/examined, labs/record reviewed, case d/w patient, and his nurse.He is reporting more pain in right hip area as 04/11. Will do plain film to see if avascular lesions. Objective - Constitutional Vitals: Vital Signs - 12hr 10/14/17 15:11 Temperature 99.3 F Pulse Rate 90 Respiratory 20 Rate Blood Pressure 135/88 O2 Sat by Pulse 99 Oximetry General appearance: Present: mild distress, well-nourished - EENT Eyes: PERRL, EOM intact ENT: hearing intact, clear oral mucosa Ears: bilateral: normal - Neck Neck: supple, normal ROM - Respiratory Respiratory effort: normal Respiratory: bilateral: CTA - Breasts Breasts: deferred - Cardiovascular Rhythm: regular Heart Sounds: Present: S1 & S2. Absent: gallop, rub Extremities: pulses intact, No edema, normal color, Full ROM - Gastrointestinal General gastrointestinal: Present: soft, non-tender, non-distended, normal bowel sounds Rectal Exam: deferred - Genitourinary Male genitourinary: deferred - Integumentary Integumentary: clear, warm, dry - Musculoskeletal Musculoskeletal: 1, strength equal bilaterally - Neurologic Neurologic: moves all extremities - Psychiatric Psychiatric: memory intact, appropriate mood/affect, intact judgment & insight - Labs CBC & Chem 7: 10/14/17 Unknown 10/14/17 Unknown Labs: Abnormal lab results 10/14/17 10/14/17 10/14/17 Range/Units Unknown Unknown Unknown WBC 3.6 L (4.5-11.0) K/mm3 MCV 75 L (84-94) fl MCH 25 L (28-32) pg RDW 20.1 H (13.2-15.2) % PT 18.1 H (12.2-14.9) Sec. INR 1.42 H (0.87-1.13) Potassium 3.3 L (3.6-5.0) mmol/L Chloride 108.6 H (98-107) mmol/L Carbon Dioxide 20 L (22-30) mmol/L Creatinine 0.5 L (0.8-1.5) mg/dL Calcium 7.1 L (8.4-10.2) mg/dL
[2017-10-15] MEDS: KCL 20 MEQ in LACTATED RINGERS 1,000 ML IV SCH ×2 (03:43→19:54)
[2017-10-15] MEDS: BENADRYL IV PRN ×6 (03:43→23:51)
[2017-10-15] MEDS: DILAUDID IV PRN ×6 (03:44→23:52)
--- NOTE | 2017-10-15 05:23 | XRay Report ---
FINAL REPORT EXAM: XR PELVIS 1-2V HISTORY: right hip pain. History of sickle cell disease COMPARISONS: 07/29/2017 FINDINGS: Single AP view of the pelvis The hip joints appear intact with symmetric joint spaces in the significant degenerative findings. No displaced fractures are appreciated. No pathologic calcification. IMPRESSION: Unremarkable radiograph of the pelvis/hips. Consider MRI for more sensitive evaluation of avascular necrosis as warranted.
[2017-10-15] MEDS: MEGACE PO SCH ×3 (08:00→19:53)
[2017-10-15 08:33] LABS: INR 1.36 (0.87-1.13)
[2017-10-15] MEDS: MEPRON PO SCH (10:59)
[2017-10-15] MEDS: FOLVITE PO SCH (11:00)
[2017-10-15] MEDS: HYDREA PO SCH (11:00)
[2017-10-15] MEDS: PERCOCET 5/325 PO PRN (11:00)
[2017-10-15] MEDS: PEPCID PO SCH ×2 (11:01→23:50)
[2017-10-15] MEDS: NIZORAL TP SCH ×2 (12:48→23:51)
--- NOTE | 2017-10-15 12:51 | Discharge Summary ---
Providers - Providers Date of Admission: 10/12/17 12:55 Attending physician: ALFREDO RUBIN MD 10/12/17 19:45 Consult to Physician [CONS] Routine Consulting Provider: ÁNGEL CHINCHILLA Reason For Exam: SC crisis Place consult to:: DR. CHINCHILLA Notified:: Phone number called:: [phone] Was contact made?: Yes If yes, spoke with:: DR. Diego Time called:: 11:23 10/12/17 21:19 Consult to Physician [CONS] Routine Consulting Provider: DOMENICA CONCEPCION Reason For Exam: neutropenia Place consult to:: DR. TURNER Notified:: DR. TURNER Phone number called:: IN HOUSE Was contact made?: Yes If yes, spoke with:: DR. TURNER Time called:: 09:32 Primary care physician: ÁNGEL CHINCHILLA Hospitalization Reason for admission: sickle cell crisis Hospital course: 37-year-old -[place] male with history of HIV recurrent DVTs sickle cell crisis and sickle cell anemia comes in for severe pain all over. Pain is especially in the chest both hips and lower back. Pain is very sharp 8/10. It is been going on for the last last 2-3 days. No nausea or vomiting. No fever or chills. No exacerbating or relieving factors. No shortness of breath. Patient is on Coumadin for recurrent DVTs and pulmonary embolism. P 1 atient also has a HIV and is on antiretrovirals. Patient was found to have the left axillary lymph node. Patient underwent lymph node biopsy which showed +HIV-associated lymphadenitis, negative for lymphoma a small abnormal B-cell population of uncertain significance in Aug 2017 He has since then has been taken his genvoya without missing any doses since last discharge. He was readmitted on 10/12/2017 due to CVA or sickle cell disease pain. His typical pain in his bilateral heaps lower back and legs. He denies any recent fever more than 100.5. Denies any sick contacts. Patient has been transfused, complains of generalized body pain, non at the joints, just thighs, upper ext. Reports that the chest pain has resolved. Patient is ambulatory and requesting his dialudid IV and also Benedryl with it. I have advised the patient on the high risk of exposure to influnzea considering the increase in incidence in the hospital, I have taken all neccessary measure to prevent patient acquiring such condition. At this Point patient can be discharged or transfered to the [facility] Att[facility] service for further management as he request. Sickle Cell Crisis HIV Secondary coagulopathy Subtherapeutic drug dose of Recurrent Leukopenia/anemia was DVT/PE he was on coumadin with toxicity. Left axillary lymph node enlarged for several months. Patient underwent lymph node biopsy which showed +HIV-associated lymphadenitis, negative for lymphoma a small abnormal B-cell population of uncertain significance. No granulomas seen. Decreasing in size today Pain Management Neutropenia Possible Secondary to HIV vs Hydroxurea-improving DVT/PE-Recurrent Anemia Disposition: DC-01 TO HOME OR SELFCARE Time spent for discharge: 35 mins Core Measure Documentation - Palliative Care Palliative Care/ Comfort Measures: Not Applicable - Core Measures Any of the following diagnoses?: none - VTE Discharge Requirements Deep Vein Thrombosis/Pulmonary Embolism Present on Admission: No Exam - Physical Exam Narrative exam: VITAL SIGNS: Reviewed. GENERAL: The patient appeared well nourished and normally developed. Vital signs as documented. HEAD: No signs of head trauma. EYES: Pupils are equal. Extraocular motions intact. EARS: Hearing grossly intact. MOUTH: Oropharynx is normal. NECK: No adenopathy, no JVD. CHEST: Chest with clear breath sounds bilaterally. No wheezes, rales, or rhonchi. CARDIAC: Regular rate and rhythm. S1 and S2, without murmurs, gallops, or rubs. VASCULAR: No Edema. Peripheral pulses normal and equal in all extremities. ABDOMEN: Soft, without detectable tenderness. No sign of distention. No rebound or guarding, and no masses palpated. Bowel Sounds normal. MUSCULOSKELETAL: Good range of motion of all major joints. Extremities without clubbing, cyanosis or edema. NEUROLOGIC EXAM: Alert and oriented x 3. No focal sensory or strength deficits. Speech normal. Follows commands. PSYCHIATRIC: Mood normal. SKIN: chest port. - Constitutional Vitals: Temp Pulse Resp BP Pulse Ox 99.4 F 96 H 18 120/78 95 10/15/17 08:24 10/15/17 08:24 10/15/17 08:24 10/15/17 08:24 10/15/17 08:24 Plan Activity: advance as tolerated, fall precautions Diet: regular Special Instructions: record daily BP diary Follow up with: ONYEGBULA,ÁNGEL C, DO [Primary Care Provider] - 7 Days Forms: Warfarin Discharge Instruction
[2017-10-15] MEDS ORDERED: CATHFLO IV ONE (13:37)
--- NOTE | 2017-10-15 14:48 | Progress Note ---
Assessment and Plan Assessment: 1) Recurrent Leukopenia/anemia ? from hydroxyuria 3) HIV: on genvoya restarted 2 months ago, VL 92K in 08/2017 last CD4= 123 in . Genotype NNRTI resistances 4) DVT/PE he was on coumadin with toxicity. 5) Left axillary lymph node enlarged for several months. Patient underwent lymph node biopsy which showed +HIV-associated lymphadenitis, negative for lymphoma a small abnormal B-cell population of uncertain significance. No granulomas seen. 6) Sickle cell disease crisis Plan: -Follow up Hem consult due to recurrent neutropenia ? hydroxyurea -Follow up CD4, HIV-viral load -continue ART, please given him a Genvoya Rx 1 tab q day 1 month no refills. -continue mepron -He is to f/u with Dr Bhatia in 2-3 weeks -ok to discharge from ID standpoint, f/u with Dr. Bhatia I am signing off Lelia Dean MD Infectious Diseases Specialist [facility] M [phone] O [phone] Subjective Date of service: 10/15/17 Principal diagnosis: SCC Interval history: Feels the same still c/o 06/12 luis hip, legs and back pain. No fever. Microbiology: None Current Antimicrobials: atovaquone genvoya Previous Antimicrobials: Objective - Exam Narrative Exam: General appearance: Alert in NAD, conversant Eyes: anicteric sclerae, moist conjunctivae; no lid-lag; PERRLA HENT: Atraumatic; oropharynx clear with moist mucous membranes and no mucosal ulcerations/no oral thrush; normal hard and soft palate. Normal external ears. Neck: Trachea midline; supple, no thyromegaly or lymphadenopathy Lungs: CTA, with normal respiratory effort and no intercostal retractions CV: RRR, no murmurs Abdomen: Soft, non-tender; no masses or hepatosplenomegaly Extremities: No peripheral edema +left axillary LN Skin: facial rash Psych: Appropriate affect, alert and oriented to person, place and time. Neuro: alert and oriented x 3. Moving all extermities Lines: No CVL / PICC - Constitutional Vitals: Vital Signs Temp Pulse Resp BP Pulse Ox 99.4 F 96 H 18 120/78 95 10/15/17 08:24 10/15/17 08:24 10/15/17 08:24 10/15/17 08:24 10/15/17 08:24 Temperature -Last 24 Hours Temperature 99.4 F Temperature 99.5 F Temperature 98.1 F Temperature 99.3 F - Labs CBC & Chem 7: 10/14/17 Unknown 10/14/17 Unknown Labs: Abnormal lab results 10/15/17 Range/Units 06:30 PT 17.5 H (12.2-14.9) Sec. INR 1.36 H (0.87-1.13)
[2017-10-15 15:30] LABS: CD19, Absolute TNR (()); CD3, Absolute TNR (()); CD3, Percentage TNR (()); CD4, Absolute TNR (()); CD4, Percentage TNR (()); CD4/CD8 Ratio TNR (()); CD8, Absolute TNR (()); CD8, Percentage TNR (()); Lymphocytes, Absolute TNR (())
[2017-10-15] MEDS: COUMADIN PO SCH (16:44)
[2017-10-15] MEDS ORDERED: DILAUDID IV PRN (23:01)
--- NOTE | 2017-10-15 23:01 | Progress Note ---
Assessment and Plan - Patient Problems (1) Neutropenia Current Visit: Yes Status: Acute Plan to address problem: improving (2) Anticoagulation goal of INR 2 to 3 Current Visit: Yes Status: Chronic Plan to address problem: PK to manage. (3) HIV (human immunodeficiency virus infection) Current Visit: Yes Status: Chronic Plan to address problem: supportive. (4) Hip pain, right Current Visit: Yes Status: Acute Plan to address problem: See notes. Subjective Date of service: 10/15/17 Principal diagnosis: SCC Interval history: Patient seen/examined, labs/record reviewed, case d/w patient, and his nurse.He is reporting more pain in right hip area as 04/11. Will do plain film to see if avascular lesions. Patient seen/examined, resting in bed, c/o pain still not controlled. Xrays reviewed, MRI recommended by the Radiology.May need to adjust pain med for just a few doses, to better get control of his pain, then go back to the current dosage. Objective - Constitutional Vitals: Vital Signs - 12hr 10/15/17 15:45 Temperature 98.7 F Pulse Rate 89 Respiratory 18 Rate Blood Pressure 135/81 O2 Sat by Pulse 97 Oximetry General appearance: Present: mild distress, well-nourished - EENT Eyes: PERRL, EOM intact ENT: hearing intact, clear oral mucosa Ears: bilateral: normal - Neck Neck: supple, normal ROM - Respiratory Respiratory effort: normal Respiratory: bilateral: CTA - Breasts Breasts: deferred - Cardiovascular Rhythm: regular Heart Sounds: Present: S1 & S2. Absent: gallop, rub Extremities: pulses intact, No edema, normal color, Full ROM - Gastrointestinal General gastrointestinal: Present: soft, non-tender, non-distended, normal bowel sounds Rectal Exam: deferred - Genitourinary Male genitourinary: deferred - Integumentary Integumentary: clear, warm, dry - Musculoskeletal Musculoskeletal: 1, strength equal bilaterally - Neurologic Neurologic: moves all extremities - Psychiatric Psychiatric: memory intact, appropriate mood/affect, intact judgment & insight - Labs CBC & Chem 7: 10/14/17 Unknown 10/14/17 Unknown Labs: Abnormal lab results 10/15/17 Range/Units 06:30 PT 17.5 H (12.2-14.9) Sec. INR 1.36 H (0.87-1.13)
[2017-10-16] MEDS: BENADRYL IV PRN ×5 (04:21→22:00)
[2017-10-16] MEDS: DILAUDID IV PRN ×3 (04:21→13:00)
[2017-10-16 08:55] LABS: INR 1.69 (0.87-1.13)
[2017-10-16] MEDS: MEGACE PO SCH ×3 (09:01→22:01)
[2017-10-16] MEDS: FOLVITE PO SCH (09:02)
[2017-10-16] MEDS: PEPCID PO SCH ×2 (09:03→21:59)
[2017-10-16] MEDS: HYDREA PO SCH (09:03)
[2017-10-16] MEDS: MORPHINE IV PRN ×2 (09:04→22:00)
[2017-10-16] MEDS: NIZORAL TP SCH ×2 (09:05→22:01)
[2017-10-16] MEDS: KCL 20 MEQ in LACTATED RINGERS 1,000 ML IV SCH (09:10)
[2017-10-16] MEDS: MEPRON PO SCH (09:47)
[2017-10-16] MEDS ORDERED: DILAUDID PO PRN (14:26)
--- NOTE | 2017-10-16 14:30 | Progress Note ---
Assessment and Plan Assessment and plan: 37-year-old -[place] male with history of HIV recurrent DVTs sickle cell crisis and sickle cell anemia comes in for severe pain all over. Pain is especially in the chest both hips and lower back. Pain is very sharp 8/10. It is been going on for the last last 2-3 days. No nausea or vomiting. No fever or chills. No exacerbating or relieving factors. No shortness of breath. Patient is on Coumadin for recurrent DVTs and pulmonary embolism. P 1 atient also has a HIV and is on antiretrovirals. Patient was found to have the left axillary lymph node. Patient underwent lymph node biopsy which showed +HIV-associated lymphadenitis, negative for lymphoma a small abnormal B-cell population of uncertain significance in Aug 2017 He has since then has been taken his genvoya without missing any doses since last discharge. He was readmitted on 10/12/2017 due to CVA or sickle cell disease pain. His typical pain in his bilateral heaps lower back and legs. He denies any recent fever more than 100.5. Denies any sick contacts. Sickle Cell Crisis- no elevated retic count HIV Secondary coagulopathy Subtherapeutic drug dose of Recurrent Leukopenia/anemia was DVT/PE he was on coumadin with toxicity. Left axillary lymph node enlarged for several months. Patient underwent lymph node biopsy which showed +HIV-associated lymphadenitis, negative for lymphoma a small abnormal B-cell population of uncertain significance. No granulomas seen. Decreasing in size today Pain Management Neutropenia Possible Secondary to HIV vs Hydroxurea-improving DVT/PE-Recurrent Anemia Plan * stable H/H post transfusion * Change to PO pain control of dialudid in anticipation for discharge * Continue fluids as LR * Await appeal. * D/W ID and Graduate Research Assistant about Neutropenia and driving forces * Continue Coumadin * Continue Antiretroviral * Pain Control * Anticipate discharge in AM if clinically improved. * Plan discussed with the patient in detail * Counselling provided on the importance of follow up with ID and PCP. History Interval history: Patient seen and examined, in no acute distress. improved chest pain but thigh pain. appealed discharge from yesterday Hospitalist Physical - Physical exam Narrative exam: VITAL SIGNS: Reviewed. GENERAL: The patient appeared well nourished and normally developed. Vital signs as documented. HEAD: No signs of head trauma. EYES: Pupils are equal. Extraocular motions intact. EARS: Hearing grossly intact. MOUTH: Oropharynx is normal. NECK: No adenopathy, no JVD. CHEST: Chest with clear breath sounds bilaterally. No wheezes, rales, or rhonchi. CARDIAC: Regular rate and rhythm. S1 and S2, without murmurs, gallops, or rubs. VASCULAR: No Edema. Peripheral pulses normal and equal in all extremities. ABDOMEN: Soft, without detectable tenderness. No sign of distention. No rebound or guarding, and no masses palpated. Bowel Sounds normal. MUSCULOSKELETAL: Good range of motion of all major joints. Extremities without clubbing, cyanosis or edema. NEUROLOGIC EXAM: Alert and oriented x 3. No focal sensory or strength deficits. Speech normal. Follows commands. PSYCHIATRIC: Mood normal. SKIN: chest port. - Constitutional Vitals: Temp Pulse Resp BP Pulse Ox 98.6 F 83 20 127/85 100 10/16/17 07:48 10/16/17 07:48 10/16/17 13:00 10/16/17 07:48 10/16/17 07:48 General appearance: Present: mild distress, well-nourished Results - Labs CBC & Chem 7: 10/14/17 Unknown 10/14/17 Unknown Labs: Laboratory Last Values WBC 3.6 K/mm3 (4.5-11.0) L 10/14/17 Unknown RBC 4.88 M/mm3 (3.65-5.03) 10/14/17 Unknown Hgb 12.2 gm/dl (11.8-15.2) 10/14/17 Unknown Hct 36.8 % (35.5-45.6) 10/14/17 Unknown MCV 75 fl (84-94) L 10/14/17 Unknown MCH 25 pg (28-32) L 10/14/17 Unknown MCHC 33 % (32-34) 10/14/17 Unknown RDW 20.1 % (13.2-15.2) H 10/14/17 Unknown Plt Count 206 K/mm3 (140-440) 10/14/17 Unknown Lymph % (Auto) 24.4 % (13.4-35.0) 10/13/17 11:01 [place] % (Auto) 11.6 % (0.0-7.3) H 10/13/17 11:01 Eos % (Auto) 0.6 % (0.0-4.3) 10/13/17 11:01 Baso % (Auto) 0.2 % (0.0-1.8) 10/13/17 11:01 Lymph # 0.8 K/mm3 (1.2-5.4) L 10/13/17 11:01 [place] # 0.4 K/mm3 (0.0-0.8) 10/13/17 11:01 Eos # 0.0 K/mm3 (0.0-0.4) 10/13/17 11:01 Baso # 0.0 K/mm3 (0.0-0.1) 10/13/17 11:01 Add Manual Diff Complete 10/12/17 15:31 Total Counted 100 10/12/17 15:31 Seg Neutrophils % 63.2 % (40.0-70.0) 10/13/17 11:01 Seg Neuts % (Manual) 60.0 % (40.0-70.0) 10/12/17 15:31 Band Neutrophils % 0 % 10/12/17 15:31 Lymphocytes % (Manual) 29.0 % (13.4-35.0) 10/12/17 15:31 Reactive Lymphs % (Man) 0 % 10/12/17 15:31 Monocytes % (Manual) 11.0 % (0.0-7.3) H 10/12/17 15:31 Eosinophils % (Manual) 0 % (0.0-4.3) 10/12/17 15:31 Basophils % (Manual) 0 % (0.0-1.8) 10/12/17 15:31 Metamyelocytes % 0 % 10/12/17 15:31 Myelocytes % 0 % 10/12/17 15:31 Promyelocytes % 0 % 10/12/17 15:31 Blast Cells % 0 % 10/12/17 15:31 Nucleated RBC % Not Reportable 10/12/17 15:31 Seg Neutrophils # 2.0 K/mm3 (1.8-7.7) 10/13/17 11:01 Seg Neutrophils # Man 1.1 K/mm3 (1.8-7.7) L 10/12/17 15:31 Band Neutrophils # 0.0 K/mm3 10/12/17 15:31 Abs Lymphs (Manual) TNR 10/13/17 Unknown Lymphocytes # (Manual) 0.5 K/mm3 (1.2-5.4) L 10/12/17 15:31 Abs React Lymphs (Man) 0.0 K/mm3 10/12/17 15:31 Monocytes # (Manual) 0.2 K/mm3 (0.0-0.8) 10/12/17 15:31 Eosinophils # (Manual) 0.0 K/mm3 (0.0-0.4) 10/12/17 15:31 Basophils # (Manual) 0.0 K/mm3 (0.0-0.1) 10/12/17 15:31 Metamyelocytes # 0.0 K/mm3 10/12/17 15:31 Myelocytes # 0.0 K/mm3 10/12/17 15:31 Promyelocytes # 0.0 K/mm3 10/12/17 15:31 Blast Cells # 0.0 K/mm3 10/12/17 15:31 WBC Morphology Not Reportable 10/12/17 15:31 Hypersegmented Neuts Not Reportable 10/12/17 15:31 Hyposegmented Neuts Not Reportable 10/12/17 15:31 Hypogranular Neuts Not Reportable 10/12/17 15:31 Smudge Cells Not Reportable 10/12/17 15:31 Toxic Granulation Not Reportable 10/12/17 15:31 Toxic Vacuolation Not Reportable 10/12/17 15:31 Dohle Bodies Not Reportable 10/12/17 15:31 Pelger-Huet Anomaly Not Reportable 10/12/17 15:31 Raheem Rods Not Reportable 10/12/17 15:31 Platelet Estimate Not Reportable 10/12/17 15:31 Clumped Platelets Not Reportable 10/12/17 15:31 Plt Clumps, EDTA Not Reportable 10/12/17 15:31 Large Platelets Not Reportable 10/12/17 15:31 Giant Platelets Not Reportable 10/12/17 15:31 Platelet Satelliting Not Reportable 10/12/17 15:31 Plt Morphology Comment Not Reportable 10/12/17 15:31 RBC Morphology Not Reportable 10/12/17 15:31 Dimorphic RBCs Not Reportable 10/12/17 15:31 Polychromasia Not Reportable 10/12/17 15:31 Hypochromasia 1+ 10/12/17 15:31 Poikilocytosis 1+ 10/12/17 15:31 Anisocytosis 2+ 10/12/17 15:31 Microcytosis 1+ 10/12/17 15:31 Macrocytosis Not Reportable 10/12/17 15:31 Spherocytes Not Reportable 10/12/17 15:31 Pappenheimer Bodies Not Reportable 10/12/17 15:31 Sickle Cells Not Reportable 10/12/17 15:31 Target Cells Not Reportable 10/12/17 15:31 Tear Drop Cells Not Reportable 10/12/17 15:31 Ovalocytes Few 10/12/17 15:31 Helmet Cells Not Reportable 10/12/17 15:31 [place] Bodies Not Reportable 10/12/17 15:31 [place] Rings Not Reportable 10/12/17 15:31 [place] Cells Not Reportable 10/12/17 15:31 Bite Cells Not Reportable 10/12/17 15:31 Crenated Cell Not Reportable 10/12/17 15:31 Elliptocytes Not Reportable 10/12/17 15:31 Acanthocytes (Spur) Not Reportable 10/12/17 15:31 Rouleaux Not Reportable 10/12/17 15:31 Hemoglobin C Crystals Not Reportable 10/12/17 15:31 Schistocytes Not Reportable 10/12/17 15:31 Malaria parasites Not Reportable 10/12/17 15:31 Percent Retic 0.49 % (0.78-2.58) L 10/12/17 15:31 [place] Bodies Not Reportable 10/12/17 15:31 Hem Pathologist Commnt No 10/12/17 15:31 PT 20.8 Sec. (12.2-14.9) H 10/16/17 06:30 INR 1.69 (0.87-1.13) H 10/16/17 06:30 Sodium 141 mmol/L (137-145) 10/14/17 Unknown Potassium 3.3 mmol/L (3.6-5.0) L 10/14/17 Unknown Chloride 108.6 mmol/L (98-107) H 10/14/17 Unknown Carbon Dioxide 20 mmol/L (22-30) L 10/14/17 Unknown Anion Gap 16 mmol/L 10/14/17 Unknown BUN 10 mg/dL (9-20) 10/14/17 Unknown Creatinine 0.5 mg/dL (0.8-1.5) L 10/14/17 Unknown Estimated GFR > 60 ml/min 10/14/17 Unknown BUN/Creatinine Ratio 20 % 10/14/17 Unknown Glucose 78 mg/dL (75-100) 10/14/17 Unknown Calcium 7.1 mg/dL (8.4-10.2) L 10/14/17 Unknown Total Bilirubin 0.60 mg/dL (0.1-1.2) 10/13/17 11:01 AST 20 units/L (5-40) 10/13/17 11:01 ALT 24 units/L (7-56) 10/13/17 11:01 Alkaline Phosphatase 57 units/L (35-129) 10/13/17 11:01 Lactate Dehydrogenase 191 units/L (91-180) H 10/12/17 15:31 Total Protein 7.1 g/dL (6.3-8.2) 10/13/17 11:01 Albumin 3.2 g/dL (3.9-5) L 10/13/17 11:01 Albumin/Globulin Ratio 0.8 % 10/13/17 11:01 Lymph Enumerat CD4/CD8 TNR 10/13/17 Unknown % CD3 Cells TNR 10/13/17 Unknown Absolute CD3 Count TNR 10/13/17 Unknown % CD4 Cells TNR 10/13/17 Unknown Absolute CD4 Count TNR 10/13/17 Unknown % CD8 Cells TNR 10/13/17 Unknown Absolute CD8 Count TNR 10/13/17 Unknown % CD19 Cells TNR 10/13/17 Unknown Absolute CD19 Count TNR 10/13/17 Unknown Blood Type A POSITIVE 10/12/17 21:55 Antibody Screen Negative 10/12/17 21:55 Crossmatch See Detail 10/12/17 21:55
[2017-10-16] MEDS: COUMADIN PO SCH (17:15)
--- NOTE | 2017-10-16 22:12 | Progress Note ---
Assessment and Plan - Patient Problems (1) Neutropenia Current Visit: Yes Status: Acute Plan to address problem: improving (2) Anticoagulation goal of INR 2 to 3 Current Visit: Yes Status: Chronic Plan to address problem: PK to manage. (3) HIV (human immunodeficiency virus infection) Current Visit: Yes Status: Chronic Plan to address problem: supportive. (4) Hip pain, right Current Visit: Yes Status: Acute Plan to address problem: See notes. will complete out patient. Subjective Date of service: 10/16/17 Principal diagnosis: SCC Interval history: Patient seen/examined, labs/record reviewed, case d/w patient, and his nurse.He is reporting more pain in right hip area as 04/11. Will do plain film to see if avascular lesions. Patient seen/examined, resting in bed, c/o pain still not controlled. Xrays reviewed, MRI recommended by the Radiology.May need to adjust pain med for just a few doses, to better get control of his pain, then go back to the current dosage. Patient seen/examined, labs reviewed, and case d/w him. he will proceed with his current meds, and d/c home early in am, so he can follow up in the office tomorrow. Objective - Constitutional Vitals: Vital Signs - 12hr 10/16/17 10/16/17 10/16/17 12:40 13:00 15:50 Temperature 99.1 F Pulse Rate 85 Respiratory 20 20 20 Rate Blood Pressure 130/87 O2 Sat by Pulse 96 Oximetry 10/16/17 10/16/17 17:15 22:00 Temperature Pulse Rate Respiratory 20 18 Rate Blood Pressure O2 Sat by Pulse Oximetry General appearance: Present: mild distress, well-nourished - EENT Eyes: PERRL, EOM intact ENT: hearing intact, clear oral mucosa Ears: bilateral: normal - Neck Neck: supple, normal ROM - Respiratory Respiratory effort: normal Respiratory: bilateral: CTA - Breasts Breasts: deferred - Cardiovascular Rhythm: regular Heart Sounds: Present: S1 & S2. Absent: gallop, rub Extremities: pulses intact, No edema, normal color, Full ROM - Gastrointestinal General gastrointestinal: Present: soft, non-tender, non-distended, normal bowel sounds Rectal Exam: deferred - Genitourinary Male genitourinary: deferred - Integumentary Integumentary: clear, warm, dry - Musculoskeletal Musculoskeletal: 1, strength equal bilaterally - Neurologic Neurologic: moves all extremities - Psychiatric Psychiatric: memory intact, appropriate mood/affect, intact judgment & insight - Labs CBC & Chem 7: 10/14/17 Unknown 10/14/17 Unknown Labs: Abnormal lab results 10/16/17 Range/Units 06:30 PT 20.8 H (12.2-14.9) Sec. INR 1.69 H (0.87-1.13)
[2017-10-16] MEDS ORDERED: D5NS 0.2% 1,000 ML IV SCH (23:00)
[2017-10-17] MEDS: BENADRYL IV PRN ×2 (02:08→06:05)
[2017-10-17] MEDS: MORPHINE IV PRN ×2 (02:08→06:05)
[2017-10-17 07:48] LABS: INR 1.92 (0.87-1.13)
--- NOTE | 2017-10-17 07:58 | Magnetic Resonance Report ---
MR PELVIS WITH AND WITHOUT CONTRAST History: Pain, evaluate for avascular necrosis. Technique: Multisequence, multiplanar MRI before and after IV gadolinium. Comparison: Pelvic x-ray dated 10/14/17. CT abdomen pelvis without contrast dated 08/06/17. Findings: There is normal bone marrow signal throughout the pelvis and proximal femurs, including both femoral heads. There is no evidence for bone marrow edema, fracture, avascular necrosis, bone lesion or other joint pathology. No hip effusion is identified. Surrounding musculotendinous structures demonstrate normal signal on all sequences. The bladder, prostate gland and visualized bowel loops in the pelvis are within normal limits. No mass or inflammation. No pelvic fluid. 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 The clinical significance of this is doubtful. No abnormal enhancement following IV gadolinium. Impression: Unremarkable MR of the pelvis with and without contrast. No evidence for avascular necrosis.
[2017-10-17 08:32] VITALS: BP 115/74
[2017-10-17] MEDS: HYDREA PO SCH (09:30)
[2017-10-17] MEDS: PEPCID PO SCH (09:30)
[2017-10-17] MEDS: MEGACE PO SCH (09:30)
[2017-10-17] MEDS: FOLVITE PO SCH (09:31)
[2017-10-17] MEDS: NIZORAL TP SCH (09:32)
--- NOTE | 2017-10-17 15:07 | Discharge Summary ---
Providers - Providers Date of Admission: 10/12/17 12:55 Attending physician: ALFREDO RUBIN MD 10/12/17 19:45 Consult to Physician [CONS] Routine Consulting Provider: ÁNGEL CHINCHILLA Reason For Exam: SC crisis Place consult to:: DR. CHINCHILLA Notified:: Phone number called:: [phone] Was contact made?: Yes If yes, spoke with:: DR. Diego Time called:: 11:23 10/12/17 21:19 Consult to Physician [CONS] Routine Consulting Provider: DOMENICA CONCEPCION Reason For Exam: neutropenia Place consult to:: DR. TURNER Notified:: DR. TURNER Phone number called:: IN HOUSE Was contact made?: Yes If yes, spoke with:: DR. TURNER Time called:: 09:32 Primary care physician: ÁNGEL CHINCHILLA Hospitalization Reason for admission: SICKLE CELL CRISIS Hospital course: 37-year-old -[place] male with history of HIV recurrent DVTs sickle cell crisis and sickle cell anemia comes in for severe pain all over. Pain is especially in the chest both hips and lower back. Pain is very sharp 8/10. It is been going on for the last last 2-3 days. No nausea or vomiting. No fever or chills. No exacerbating or relieving factors. No shortness of breath. Patient is on Coumadin for recurrent DVTs and pulmonary embolism. P 1 atient also has a HIV and is on antiretrovirals. Patient was found to have the left axillary lymph node. Patient underwent lymph node biopsy which showed +HIV-associated lymphadenitis, negative for lymphoma a small abnormal B-cell population of uncertain significance in Aug 2017 He has since then has been taken his genvoya without missing any doses since last discharge. He was readmitted on 10/12/2017 due to CVA or sickle cell disease pain. His typical pain in his bilateral heaps lower back and legs. He denies any recent fever more than 100.5. Denies any sick contacts. Patient has been transfused, complains of generalized body pain, non at the joints, just thighs, upper ext. Reports that the chest pain has resolved. Patient is ambulatory and requesting his dialudid IV and also Benedryl with it. I have advised the patient on the high risk of exposure to influenza considering the increase in incidence in the hospital, I have taken all necessary measure to prevent patient acquiring such condition. At this Point patient can be discharged or transferred to the [employer] service for further management as he request. Patient spent an additional day in the hospital after contrast of his discharge which He unfortunately lost. In the Mean test was done to ensure no Avascular necrosis. Sickle Cell Crisis HIV Secondary coagulopathy Subtherapeutic drug dose of Recurrent Leukopenia/anemia was DVT/PE he was on coumadin with toxicity. Left axillary lymph node enlarged for several months. Patient underwent lymph node biopsy which showed +HIV-associated lymphadenitis, negative for lymphoma a small abnormal B-cell population of uncertain significance. No granulomas seen. Decreasing in size today Pain Management Neutropenia Possible Secondary to HIV vs Hydroxurea-improving DVT/PE-Recurrent Anemia Disposition: DC-01 TO HOME OR SELFCARE Time spent for discharge: 35 MINS Core Measure Documentation - Palliative Care Palliative Care/ Comfort Measures: Not Applicable - Core Measures Any of the following diagnoses?: none - VTE Discharge Requirements Deep Vein Thrombosis/Pulmonary Embolism Present on Admission: No Exam - Physical Exam Narrative exam: VITAL SIGNS: Reviewed. GENERAL: The patient appeared well nourished and normally developed. Vital signs as documented. HEAD: No signs of head trauma. EYES: Pupils are equal. Extraocular motions intact. EARS: Hearing grossly intact. MOUTH: Oropharynx is normal. NECK: No adenopathy, no JVD. CHEST: Chest with clear breath sounds bilaterally. No wheezes, rales, or rhonchi. CARDIAC: Regular rate and rhythm. S1 and S2, without murmurs, gallops, or rubs. VASCULAR: No Edema. Peripheral pulses normal and equal in all extremities. ABDOMEN: Soft, without detectable tenderness. No sign of distention. No rebound or guarding, and no masses palpated. Bowel Sounds normal. MUSCULOSKELETAL: Good range of motion of all major joints. Extremities without clubbing, cyanosis or edema. NEUROLOGIC EXAM: Alert and oriented x 3. No focal sensory or strength deficits. Speech normal. Follows commands. PSYCHIATRIC: Mood normal. SKIN: chest port. - Constitutional Vitals: Temp Pulse Resp BP Pulse Ox 99.0 F 86 14 115/74 98 10/17/17 07:42 10/17/17 07:42 10/17/17 07:42 10/17/17 07:42 10/17/17 07:42 Plan Activity: advance as tolerated, fall precautions Diet: low fat Follow up with: ÁNGEL CHINCHILLA DO [Primary Care Provider] - 7 Days Forms: Warfarin Discharge Instruction
[2017-10-17 15:33] LABS: HIV-1 RNA QN PCR TNR (())
== END 2017-10-17 11:00 | disposition home or self-care (01) | DRG 811 ==
LOC: UNDOADMIN 11:52 → 3A 11:52
PROVIDERS: ADMIT Internal Medicine; ATTEND Internal Medicine
PROC: 30253N1 (ICD-10-PCS; principal; 2017-10-13)
DX: D57.00 Hb-SS disease with crisis, unspecified (principal); B20 Human immunodeficiency virus [HIV] disease; D68.9 Coagulation defect, unspecified; E86.0 Dehydration; D70.2 Other drug-induced agranulocytosis; T45.1X5A Adverse effect of antineoplastic and immunosuppressive drugs, initial encounter; T45.515A Adverse effect of anticoagulants, initial encounter; Z82.49 Family history of ischemic heart disease and other diseases of the circulatory system; Z88.5 Allergy status to narcotic agent; Z91.041 Radiographic dye allergy status; Z88.8 Allergy status to other drugs, medicaments and biological substances; Z91.048 Other nonmedicinal substance allergy status; Z79.01 Long term (current) use of anticoagulants; Z79.899 Other long term (current) drug therapy; Z86.718 Personal history of other venous thrombosis and embolism; Y92.9 Unspecified place or not applicable; Y92.89 Other specified places as the place of occurrence of the external cause
CPT/HCPCS: 36415; 72170; 72197; 80048; 80053; 82024; 83615; 85007; 85025; 85027; 85045; 85610; 86850; 86900; 86901; 86920; 87536; J1170; J1200; J1650; J2270; J3480; J7030; J7120; P9016

== ENCOUNTER 2017-11-14 10:58 | Emergency (ER) | payer MEDICARE ==
[2017-11-14 11:18] VITALS: BP 132/83
== END 2017-11-14 13:11 | disposition left against medical advice (07) ==
LOC: ED 10:58
DX: D57.1 Sickle-cell disease without crisis (principal); Z53.21 Procedure and treatment not carried out due to patient leaving prior to being seen by health care provider

== ENCOUNTER 2017-12-26 11:07 | Inpatient (IN) | payer MEDICARE ==
[2017-12-26] MEDS ORDERED: DILAUDID IV PRN (12:08)
--- NOTE | 2017-12-26 13:43 | History and Physical Report ---
History of Present Illness Date of admission: 12/26/17 12:12 Chief complaint: Im hurting all over History of present illness: 37 YO Male with SSD, HIV, DVT/PE directly admitted at the request of Dr. Steward for SSD with Pain crisis. Pt seen and evaluated upon arrival. Pt states that he has been experiencing pain all over his body for the past several days without relief of symptoms on current home medications. Pt was seen and evaluated by DR. Steward and referred for direct admission for the aforementioned findings. Pt denies fever, chills, CP, Palpitations, NVD, hemoptysis, hematuria, difficulty breathing, syncope, BRBPR, recent ill contacts, hip pain, inability to bear weight on BLE, or productive cough. Pt seen and evaluated upon arrival and found to he hemodynamically stable, but complained of generalized body pain. Pt states that he does not know how long he can go on living with pain. Pt denies SI/HI, and declines mental health evaluation at this time. Past History Past Medical History: HIV/AIDS, pulmonary embolism, other (SSD) Past Surgical History: appendectomy, cholecystectomy, Other (spleen,port placement) Social history: single. denies: smoking, alcohol abuse, prescription drug abuse Family history: hypertension, other (SSD) Medications and Allergies Allergies Allergy/AdvReac Type Severity Reaction Status Date / Time atovaquone [From Mepron] Allergy Rash Verified 11/14/17 11:19 morphine Allergy Anaphylaxis Verified 11/14/17 11:19 Iodinated Contrast- Oral and AdvReac Unknown Verified 11/14/17 11:19 IV Dye [Iodinated Contrast Media - IV Dye] sulfamethoxazole AdvReac Unknown Verified 11/14/17 11:19 [From Bactrim] trimethoprim [From Bactrim] AdvReac Unknown Verified 11/14/17 11:19 PLASTIC TAPE Allergy Rash Uncoded 11/14/17 11:19 Home Medications Medication Instructions Recorded Confirmed Last Taken Type Folic Acid [Folvite] 0.5 mg PO QDAY #30 tablet 04/21/17 10/12/17 10/11/17 Rx Oxycodone HCl/Acetaminophen 1 each PO Q6HR PRN #30 tablet 04/21/17 10/12/1706/20 Rx [Percocet 10/325 mg] Selenium Sulfide(Nf) [Selsun (Nf)] 1 applic TP TuSa@1000 PRN #1 bottle 04/21/17 10/12/17 10/11/17 Rx Warfarin [Coumadin] 7.5 mg PO DAILY@1700 #7 tablet 04/21/17 10/12/17 10/11/17 Rx Warfarin [Coumadin] 5 mg PO DAILY@1700 tablet 06/20/17 10/12/17 10/11/17 Rx Hydroxyurea [Hydrea] 500 mg PO DAILY 08/06/17 10/12/17 10/11/17 History HYDROmorphone [Dilaudid] 2 mg PO Q4-6H PRN 10/12/17 10/12/17 10/11/17 History Ketoconazole 2% [Nizoral] 1 applic TP TID 10/12/17 10/12/17 10/11/17 History Megestrol 180 mg PO TID 10/13/17 10/13/17 10/11/17 History Atovaquone [Mepron] 1,500 mg PO QDAY oralsyr 10/15/17 Unknown Rx Elviteg/Cob/Emtri/Tenof Alafen 1 tab PO QDAY 10/15/17 Unknown Rx [Genvoya Tablet] Active Meds: Active Medications Diphenhydramine HCl (Benadryl) 12.5 mg IV Q3H PRN PRN Reason: Itching Stop: 12/27/17 13:59 Diphenhydramine HCl (Benadryl) 12.5 mg IV Q4H PRN PRN Reason: Itching Hydromorphone HCl (Dilaudid) 2 mg IV Q3H PRN PRN Reason: Pain , Severe (7-10) Stop: 12/27/17 13:59 Hydromorphone HCl (Dilaudid) 2 mg IV Q4H PRN PRN Reason: Pain , Severe (7-10) Dextrose/Sodium Chloride (D5ns 0.2%) 1,000 mls @ 175 mls/hr IV DIRECT RONY Review of Systems Constitutional: chronic pain, no weight loss, no weight gain, no fever, no chills Ears, nose, mouth and throat: no ear pain, no ear discharge, no tinnitis, no decreased hearing, no nose pain, no nasal congestion, no nasal discharge Cardiovascular: no chest pain, no orthopnea, no palpitations, no rapid/ irregular heart beat, no edema Respiratory: no cough with sputum, no excessive sputum, no hemoptysis, no shortness of breath Gastrointestinal: no nausea, no vomiting, no diarrhea, no constipation Genitourinary Male: no hematuria, no flank pain, no discharge Rectal: no pain, no incontinence, no bleeding Musculoskeletal: no neck stiffness, no neck pain, no shooting arm pain, no arm numbness/tingling, no low back pain, no shooting leg pain Integumentary: no rash, no pruritis, no redness, no sores, no wounds, no jaundice Neurological: no paralysis, no weakness, no parathesias, no numbness, no tingling, no seizures, no syncope Psychiatric: no anxiety, no memory loss, no change in sleep habits, no sleep disturbances, no insomnia, no hypersomnia, no change in appetite Endocrine: no cold intolerance, no heat intolerance, no polyphagia, no excessive thirst, no polydipsia, no polyuria, no nocturia Hematologic/Lymphatic: no easy bruising, no easy bleeding, no lymphadenopathy Allergic/Immunologic: no urticaria, no allergic rhinitis, no wheezing, no anaphylaxis Exam - Constitutional General appearance: Present: mild distress - EENT Eyes: Present: PERRL ENT: hearing intact, clear oral mucosa - Neck Neck: Present: supple, normal ROM - Respiratory Respiratory effort: normal Respiratory: bilateral: CTA - Cardiovascular Heart Sounds: Present: S1 & S2. Absent: rub, click - Extremities Extremities: pulses symmetrical, No edema Peripheral Pulses: within normal limits - Abdominal General gastrointestinal: Present: soft, non-tender, non-distended, normal bowel sounds Male genitourinary: Present: normal - Integumentary Integumentary: Present: clear, warm, dry - Musculoskeletal Musculoskeletal: gait normal, strength equal bilaterally - Psychiatric Psychiatric: appropriate mood/affect, intact judgment & insight - Neurologic Neurologic: CNII-XII intact, moves all extremities Results - Labs CBC & Chem 7: 12/26/17 Unknown 12/26/17 Unknown Assessment and Plan - Patient Problems (1) Sickle cell pain crisis Current Visit: No Status: Acute Plan to address problem: IVf Resuscitation, Hematology consulted, Pain control, CBC, retic count, folic acid, hydroxyurea (2) AIDS (acquired immunodeficiency syndrome), CD4 <=200 Current Visit: No Status: Acute Plan to address problem: Continue antiretroviral therapy, outpatient ID F/U (3) Hypokalemia Current Visit: No Status: Acute Plan to address problem: oral repletion with diet. (4) DVT prophylaxis Current Visit: No Status: Acute Plan to address problem: scd to ble while in bed./
[2017-12-26] MEDS: BENADRYL IV PRN ×4 (14:24→23:40)
[2017-12-26] MEDS: DILAUDID IV PRN ×4 (14:25→23:39)
[2017-12-26 15:30] LABS: Basophils % (Auto) 0.4 % (0.0-1.8); Eosinophils % (Auto) 0.8 % (0.0-4.3); Hematocrit 32.8 % (35.5-45.6); Hemoglobin 10.9 gm/dl (11.8-15.2); Lymphocytes # (Auto) 1.7 K/mm3 (1.2-5.4); Lymphocytes % (Auto) 30.6 % (13.4-35.0); Mean Corpuscular HGB Conc 33 % (32-34); Mean Corpuscular Hemoglobin 26 pg (28-32); Mean Corpuscular Volume 78 fl (84-94); Monocytes # (Auto) 0.5 K/mm3 (0.0-0.8); Monocytes % (Auto) 8.2 % (0.0-7.3); Platelet Count 335 K/mm3 (140-440)
[2017-12-26 15:39] LABS: Alanine Aminotransferase 22 units/L (7-56); Albumin 3.5 g/dL (3.9-5); BUN/Creatinine Ratio 14; Blood Urea Nitrogen 13 mg/dL (9-20); Calcium 8.8 mg/dL (8.4-10.2); Hemolysis Index 8; INR 3.79 (0.87-1.13)
[2017-12-26 15:40] LABS: Iron 35 ug/dL (49-181); Partial Thromboplastin Time 57.8 Sec. (24.2-36.6); Total Iron Binding Capacity 319 mcg/dL (250-450)
[2017-12-26] MEDS: D5NS 0.2% 1,000 ML IV SCH ×2 (16:47→22:57)
[2017-12-26] MEDS ORDERED: COUMADIN NO DOSE TODAY PO ONE (21:00)
[2017-12-26] MEDS: NIZORAL TP SCH (22:56)
--- NOTE | 2017-12-27 01:12 | Consultation ---
History of Present Illness - Reason for Consult Consult date: 12/27/17 anemia/scd Requesting physician: LUIS GIVENS - History of Present Illness Thank you for this consult, patient seen earlier today in the office, and admitted direct for multiple medical problems, and sxs management.see office notes/orders.K+ low and will replace with a one dose of 40Meq x1 for + of 3.2.He had n/V/D.Follow you with current management. Past History Past Medical History: HIV/AIDS, pulmonary embolism, other (SSD) Past Surgical History: appendectomy, cholecystectomy, Other (spleen,port placement) Social history: single. denies: smoking, alcohol abuse, prescription drug abuse Family history: hypertension, other (SSD) Medications and Allergies Allergies Allergy/AdvReac Type Severity Reaction Status Date / Time atovaquone [From Mepron] Allergy Rash Verified 11/14/17 11:19 morphine Allergy Anaphylaxis Verified 11/14/17 11:19 Iodinated Contrast- Oral and AdvReac Unknown Verified 11/14/17 11:19 IV Dye [Iodinated Contrast Media - IV Dye] sulfamethoxazole AdvReac Unknown Verified 11/14/17 11:19 [From Bactrim] trimethoprim [From Bactrim] AdvReac Unknown Verified 11/14/17 11:19 PLASTIC TAPE Allergy Rash Uncoded 11/14/17 11:19 Home Medications Medication Instructions Recorded Confirmed Last Taken Type Folic Acid [Folvite] 0.5 mg PO QDAY #30 tablet 04/21/17 10/12/17 10/11/17 Rx Oxycodone HCl/Acetaminophen 1 each PO Q6HR PRN #30 tablet 04/21/17 10/12/1706/20 Rx [Percocet 10/325 mg] Selenium Sulfide(Nf) [Selsun (Nf)] 1 applic TP TuSa@1000 PRN #1 bottle 04/21/17 10/12/17 10/11/17 Rx Warfarin [Coumadin] 7.5 mg PO DAILY@1700 #7 tablet 04/21/17 10/12/17 10/11/17 Rx Warfarin [Coumadin] 5 mg PO DAILY@1700 tablet 06/20/17 10/12/17 10/11/17 Rx Hydroxyurea [Hydrea] 500 mg PO DAILY 08/06/17 10/12/17 10/11/17 History HYDROmorphone [Dilaudid] 2 mg PO Q4-6H PRN 10/12/17 10/12/17 10/11/17 History Ketoconazole 2% [Nizoral] 1 applic TP TID 10/12/17 10/12/17 10/11/17 History Megestrol 180 mg PO TID 10/13/17 10/13/17 10/11/17 History Atovaquone [Mepron] 1,500 mg PO QDAY oralsyr 10/15/17 Unknown Rx Elviteg/Cob/Emtri/Tenof Alafen 1 tab PO QDAY 10/15/17 Unknown Rx [Genvoya Tablet] Active Meds: Active Medications Atovaquone (Mepron) 1,500 mg PO QDAY [facility] Diphenhydramine HCl (Benadryl) 12.5 mg IV Q3H PRN PRN Reason: Itching Stop: 12/27/17 13:59 Last Admin: 12/26/17 23:40 Dose: 12.5 mg Diphenhydramine HCl (Benadryl) 12.5 mg IV Q4H PRN PRN Reason: Itching Folic Acid (Folvite) 0.5 mg PO QDAY [facility] Hydromorphone HCl (Dilaudid) 2 mg IV Q3H PRN PRN Reason: Pain , Severe (7-10) Stop: 12/27/17 13:59 Last Admin: 12/26/17 23:39 Dose: 2 mg Hydromorphone HCl (Dilaudid) 2 mg IV Q4H PRN PRN Reason: Pain , Severe (7-10) Hydroxyurea (Hydrea) 500 mg PO DAILY [facility] Dextrose/Sodium Chloride (D5ns 0.2%) 1,000 mls @ 175 mls/hr IV DIRECT [facility] Last Admin: 12/26/17 22:57 Dose: 175 mls/hr Ketoconazole (Nizoral) 1 applic TP TID [facility] Last Admin: 12/26/17 22:56 Dose: 1 applic Miscellaneous Medication (Elviteg/Cob/Emtri/Tenof Alafen [Genvoya Tablet]) 1 tab PO QDAY [facility] Warfarin Sodium (Coumadin Pharmacy To Dose) 1 each PO PKCONSULT [facility] Review of Systems Constitutional: chronic pain Gastrointestinal: nausea, vomiting, diarrhea Exam - Constitutional Vitals: Temp Pulse Resp BP Pulse Ox 98.8 F 80 16 136/95 97 12/27/17 00:41 12/27/17 00:41 12/27/17 00:41 12/27/17 00:41 12/27/17 00:41 General appearance: Present: mild distress, well-nourished - EENT Eyes: Present: PERRL ENT: hearing intact, clear oral mucosa - Neck Neck: Present: supple, normal ROM - Respiratory Respiratory effort: normal Respiratory: bilateral: CTA - Cardiovascular Heart Sounds: Present: S1 & S2. Absent: rub, click - Extremities Extremities: pulses symmetrical, No edema Peripheral Pulses: within normal limits - Abdominal General gastrointestinal: Present: soft, non-tender, non-distended, normal bowel sounds Male genitourinary: Present: deferred - Rectal Rectal Exam: deferred - Integumentary Integumentary: Present: clear, warm, dry - Musculoskeletal Musculoskeletal: gait normal, strength equal bilaterally - Psychiatric Psychiatric: appropriate mood/affect, intact judgment & insight - Neurologic Neurologic: CNII-XII intact, moves all extremities Results - Labs CBC & Chem 7: 12/26/17 Unknown 12/26/17 Unknown Labs: Abnormal lab results 12/26/17 12/26/17 12/26/17 Range/Units Unknown Unknown Unknown Hgb 10.9 L (11.8-15.2) gm/dl Hct 32.8 L (35.5-45.6) % MCV 78 L (84-94) fl MCH 26 L (28-32) pg RDW 16.0 H (13.2-15.2) % [place] % (Auto) 8.2 H (0.0-7.3) % PT (12.2-14.9) Sec. INR (0.87-1.13) APTT (24.2-36.6) Sec. Sodium 135 L (137-145) mmol/L Potassium 3.2 L (3.6-5.0) mmol/L Carbon Dioxide 20 L (22-30) mmol/L Iron (49-181) ug/dL Lactate Dehydrogenase 192 H (91-180) units/L Albumin 3.5 L (3.9-5) g/dL 03/26/18 03/26/18 Range/Units Unknown Unknown Hgb (11.8-15.2) gm/dl Hct (35.5-45.6) % MCV (84-94) fl MCH (28-32) pg RDW (13.2-15.2) % [place] % (Auto) (0.0-7.3) % PT 40.1 H (12.2-14.9) Sec. INR 3.79 H (0.87-1.13) APTT 57.8 H (24.2-36.6) Sec. Sodium (137-145) mmol/L Potassium (3.6-5.0) mmol/L Carbon Dioxide (22-30) mmol/L Iron 35 L (49-181) ug/dL Lactate Dehydrogenase (91-180) units/L Albumin (3.9-5) g/dL Assessment and Plan - Patient Problems (1) AIDS (acquired immunodeficiency syndrome), CD4 <=200 Current Visit: No Status: Acute Plan to address problem: supportive care. (2) Dehydration Current Visit: No Status: Acute Plan to address problem: hydration. (3) Bilateral hip pain Current Visit: No Status: Acute Plan to address problem: pain control. (4) Acute sickle cell crisis Current Visit: Yes Status: Acute Plan to address problem: jovana n control/hydration. (5) Hypokalemia Current Visit: Yes Status: Acute Plan to address problem: replace K+
[2017-12-27] MEDS ORDERED: K-DUR PO ONE (01:39)
[2017-12-27] MEDS: DILAUDID IV PRN ×5 (03:45→20:34)
[2017-12-27] MEDS: BENADRYL IV PRN ×5 (03:46→20:33)
[2017-12-27] MEDS: D5NS 0.2% 1,000 ML IV SCH ×3 (05:40→18:27)
[2017-12-27] MEDS: NIZORAL TP SCH ×3 (07:58→19:47)
--- NOTE | 2017-12-27 08:21 | Progress Note ---
Assessment and Plan Assessment and plan: Sickle cell vaso-occlusive crisis. Patient admitted to med/surg floor as direct admit from Dr. Steward. Continue Dilaudid iv prn. Continue iv fluids, hydroxyurea. He feels better HIV infection. continue HAART DVT/PE. He is on Coumadin. INR 3.72. Hold Coumadin until INR<3 Hypokalemia. Potassium 3.2. Replace Potassium and recheck. History Interval history: Feels better, less gen body pain, insomnia Hospitalist Physical - Physical exam Narrative exam: Gen appearance: Not in acute distress, lying in bed, HEENT:Normocephalic, atraumatic Neck:supple, no JVD Lungs: Clear to auscultation bilaterally, no crackles , no wheeze Heart: S1 and S2 regular, no murmurs, rubs or gallop Abdomen: soft, non tender, non distended, normal bowel sounds Ext: No edema, no clubbing, no cyanosis Neuro: Awake,alert,oriented x 3, moves all extremities, non focal Psych: Normal mood - Constitutional Vitals: Temp Pulse Resp BP Pulse Ox 99.1 F 89 14 128/86 98 12/27/17 07:39 12/27/17 07:39 12/27/17 07:39 12/27/17 07:39 12/27/17 07:39 Results - Labs CBC & Chem 7: 12/26/17 Unknown 12/26/17 Unknown Labs: Laboratory Last Values WBC 5.6 K/mm3 (4.5-11.0) 12/26/17 Unknown RBC 4.20 M/mm3 (3.65-5.03) 12/26/17 Unknown Hgb 10.9 gm/dl (11.8-15.2) L 12/26/17 Unknown Hct 32.8 % (35.5-45.6) L 12/26/17 Unknown MCV 78 fl (84-94) L 12/26/17 Unknown MCH 26 pg (28-32) L 12/26/17 Unknown MCHC 33 % (32-34) 12/26/17 Unknown RDW 16.0 % (13.2-15.2) H 12/26/17 Unknown Plt Count 335 K/mm3 (140-440) 12/26/17 Unknown Lymph % (Auto) 30.6 % (13.4-35.0) 12/26/17 Unknown [place] % (Auto) 8.2 % (0.0-7.3) H 12/26/17 Unknown Eos % (Auto) 0.8 % (0.0-4.3) 12/26/17 Unknown Baso % (Auto) 0.4 % (0.0-1.8) 12/26/17 Unknown Lymph # 1.7 K/mm3 (1.2-5.4) 12/26/17 Unknown [place] # 0.5 K/mm3 (0.0-0.8) 12/26/17 Unknown Eos # 0.0 K/mm3 (0.0-0.4) 12/26/17 Unknown Baso # 0.0 K/mm3 (0.0-0.1) 12/26/17 Unknown Seg Neutrophils % 60.0 % (40.0-70.0) 12/26/17 Unknown Seg Neutrophils # 3.4 K/mm3 (1.8-7.7) 12/26/17 Unknown Percent Retic 1.28 % (0.78-2.58) 12/26/17 Unknown PT 40.1 Sec. (12.2-14.9) H 12/26/17 Unknown INR 3.79 (0.87-1.13) H 12/26/17 Unknown APTT 57.8 Sec. (24.2-36.6) H 12/26/17 Unknown Sodium 135 mmol/L (137-145) L 12/26/17 Unknown Potassium 3.2 mmol/L (3.6-5.0) L 12/26/17 Unknown Chloride 99.9 mmol/L (98-107) 12/26/17 Unknown Carbon Dioxide 20 mmol/L (22-30) L 12/26/17 Unknown Anion Gap 18 mmol/L 12/26/17 Unknown BUN 13 mg/dL (9-20) 12/26/17 Unknown Creatinine 0.9 mg/dL (0.8-1.5) 12/26/17 Unknown Estimated GFR > 60 ml/min 12/26/17 Unknown BUN/Creatinine Ratio 14 % 12/26/17 Unknown Glucose 96 mg/dL (75-100) 12/26/17 Unknown Calcium 8.8 mg/dL (8.4-10.2) 12/26/17 Unknown Iron 35 ug/dL (49-181) L 12/26/17 Unknown TIBC 319 mcg/dL (250-450) 12/26/17 Unknown Ferritin 76.4 ng/mL (13.0-400.0) 12/26/17 Unknown Total Bilirubin 0.30 mg/dL (0.1-1.2) 12/26/17 Unknown AST 14 units/L (5-40) 12/26/17 Unknown ALT 22 units/L (7-56) 12/26/17 Unknown Alkaline Phosphatase 52 units/L (35-129) 12/26/17 Unknown Lactate Dehydrogenase 192 units/L (91-180) H 12/26/17 Unknown Total Protein 7.9 g/dL (6.3-8.2) 12/26/17 Unknown Albumin 3.5 g/dL (3.9-5) L 12/26/17 Unknown Albumin/Globulin Ratio 0.8 % 12/26/17 Unknown
[2017-12-27 09:51] LABS: INR 3.65 (0.87-1.13)
[2017-12-27] MEDS ORDERED: [UNRECOGNIZED DRUG - OTHER] PO SCH (10:00)
[2017-12-27] MEDS: FOLVITE PO SCH (10:37)
[2017-12-27] MEDS: HYDREA PO SCH (10:37)
[2017-12-27] MEDS: MEPRON PO SCH (10:37)
[2017-12-27] MEDS ORDERED: DILAUDID IV PRN (12:12)
[2017-12-27] MEDS ORDERED: BENADRYL IV PRN (12:17)
[2017-12-27] MEDS ORDERED: COUMADIN PO SCH ×2 (17:00)
[2017-12-27] MEDS ORDERED: COUMADIN NO DOSE TODAY PO ONE (17:00)
--- NOTE | 2017-12-27 22:22 | Progress Note ---
Assessment and Plan - Patient Problems (1) AIDS (acquired immunodeficiency syndrome), CD4 <=200 Current Visit: No Status: Acute Plan to address problem: supportive care. (2) Dehydration Current Visit: No Status: Acute Plan to address problem: hydration. (3) Bilateral hip pain Current Visit: No Status: Acute Plan to address problem: pain control. (4) Acute sickle cell crisis Current Visit: Yes Status: Acute Plan to address problem: jovana n control/hydration. (5) Hypokalemia Current Visit: Yes Status: Acute Plan to address problem: replace K+ Subjective Date of service: 12/27/17 Interval history: Patient seen/examined, labs reviewed, case d/w patient. He complained of worsening skin itch with Dilaudid.will adjust his benadryl. Objective - Constitutional Vitals: Vital Signs - 12hr 12/27/17 12/27/17 12/27/17 15:57 20:03 20:34 Temperature 99.2 F 98.8 F Pulse Rate 100 H Respiratory 16 20 20 Rate Blood Pressure 125/80 134/87 O2 Sat by Pulse 99 Oximetry General appearance: Present: mild distress, well-nourished - EENT Eyes: PERRL, EOM intact ENT: hearing intact, clear oral mucosa Ears: bilateral: normal - Neck Neck: supple, normal ROM - Respiratory Respiratory: bilateral: CTA - Breasts Breasts: deferred - Cardiovascular Rhythm: regular Heart Sounds: Present: S1 & S2. Absent: gallop, rub Extremities: pulses intact, No edema, normal color, Full ROM - Gastrointestinal General gastrointestinal: Present: soft, non-tender, non-distended, normal bowel sounds - Genitourinary Male genitourinary: deferred - Integumentary Integumentary: clear, warm, dry - Musculoskeletal Musculoskeletal: 1, strength equal bilaterally - Neurologic Neurologic: moves all extremities - Psychiatric Psychiatric: memory intact, appropriate mood/affect, intact judgment & insight - Labs CBC & Chem 7: 12/26/17 Unknown 12/26/17 Unknown Labs: Abnormal lab results 12/27/17 Range/Units Unknown PT 38.9 H (12.2-14.9) Sec. INR 3.65 H (0.87-1.13)
[2017-12-28] MEDS: MORPHINE IV PRN ×3 (01:59→10:20)
[2017-12-28] MEDS: BENADRYL IV PRN ×3 (01:59→10:20)
[2017-12-28] MEDS: D5NS 0.2% 1,000 ML IV SCH (02:35)
--- NOTE | 2017-12-28 10:08 | Discharge Summary ---
Providers - Providers Date of Admission: 12/26/17 12:12 Date of discharge: 12/28/17 Attending physician: LYUDMILA DANIELSON Primary care physician: ÁNGEL CHINCHILLA Hospitalization Condition: Fair Disposition: DC-01 TO HOME OR SELFCARE Core Measure Documentation - Palliative Care Palliative Care/ Comfort Measures: Not Applicable - Core Measures Any of the following diagnoses?: none Exam - Constitutional Vitals: Temp Pulse Resp BP Pulse Ox 100.1 F H 113 H 20 155/107 99 12/28/17 08:58 12/28/17 08:58 12/28/17 08:58 12/28/17 08:58 12/28/17 08:58 Plan Activity: no restrictions Diet: low fat, low cholesterol, low salt Additional Instructions: 1.Follow with Dr. Chinchilla in 1 week. 2.Percocet and Dilaudid prn as prescruibed by Dr. Chinchilla. 3.Check INR in [address] Chinchilla's office Follow up with: ÁNGEL CHINCHILLA DO [Primary Care Provider] - 7 Days Forms: Warfarin Discharge Instruction Prescriptions: Warfarin [Coumadin] 7.5 mg PO QDAY #30 tablet
[2017-12-28] MEDS: NIZORAL TP SCH (10:18)
[2017-12-28 10:19] LABS: Hematocrit 32.2 % (35.5-45.6); Hemoglobin 10.6 gm/dl (11.8-15.2); Mean Corpuscular HGB Conc 33 % (32-34); Mean Corpuscular Volume 77 fl (84-94); Platelet Count 308 K/mm3 (140-440); Red Blood Count 4.16 M/mm3 (3.65-5.03); Red Cell Distribution Width 15.7 % (13.2-15.2)
[2017-12-28] MEDS: MEPRON PO SCH (10:19)
[2017-12-28] MEDS: FOLVITE PO SCH (10:19)
[2017-12-28] MEDS: HYDREA PO SCH (10:19)
[2017-12-28 10:24] LABS: Mean Corpuscular Hemoglobin 26 pg (28-32)
[2017-12-28 10:27] LABS: BUN/Creatinine Ratio 7; Blood Urea Nitrogen 7 mg/dL (9-20); Calcium 8.4 mg/dL (8.4-10.2); Hemolysis Index 2
[2017-12-28 10:40] LABS: INR 2.51 (0.87-1.13)
[2017-12-28] MEDS ORDERED: K-DUR PO ONE (12:00)
[2017-12-28] MEDS ORDERED: FLUSH HEPARIN IV ONE (12:16)
[2017-12-28 12:52] VITALS: BP 130/92
[2017-12-28] MEDS ORDERED: TRIPLE ANTIBIOTIC TP ONE (13:00)
[2017-12-28] MEDS ORDERED: CORTISPORIN TP SCH (14:00)
== END 2017-12-28 13:30 | disposition home or self-care (01) | DRG 811 ==
LOC: UNDOADMIN 11:07 → 3A 11:07
PROVIDERS: ADMIT Internal Medicine; ATTEND Internal Medicine
DX: D57.00 Hb-SS disease with crisis, unspecified (principal); B20 Human immunodeficiency virus [HIV] disease; E86.0 Dehydration; E87.6 Hypokalemia; M25.552 Pain in left hip; M25.551 Pain in right hip; Z90.49 Acquired absence of other specified parts of digestive tract; Z86.711 Personal history of pulmonary embolism; Z82.49 Family history of ischemic heart disease and other diseases of the circulatory system; Z88.5 Allergy status to narcotic agent; Z88.2 Allergy status to sulfonamides; Z91.041 Radiographic dye allergy status; Z79.01 Long term (current) use of anticoagulants; Z79.899 Other long term (current) drug therapy; Z86.718 Personal history of other venous thrombosis and embolism
CPT/HCPCS: 36415; 80048; 80053; 82728; 83550; 83615; 85025; 85027; 85045; 85610; 85730; A6250; J1170; J1200; J1642; J2270

== ENCOUNTER 2018-01-24 11:17 | Emergency (ER) | payer MEDICARE ==
[2018-01-24 11:26] VITALS: BP 129/87
== END 2018-01-24 16:52 | disposition left against medical advice (07) ==
LOC: ED 11:17
DX: D57.00 Hb-SS disease with crisis, unspecified (principal); Z53.21 Procedure and treatment not carried out due to patient leaving prior to being seen by health care provider

== ENCOUNTER 2018-01-27 23:44 | Emergency (ER) | payer MEDICARE ==
[2018-01-28] MEDS ORDERED: D5NS 0.2% 1,000 ML IV SCH (02:00)
[2018-01-28 02:25] LABS: Bilirubin,Urine NEG (Negative); Blood,Urine LG (Negative); Color,Urine Yellow (Yellow); Mucus,Urine FEW /HPF; Urobilinogen,Urine < 2.0 mg/dL (<2.0)
[2018-01-28] MEDS ORDERED: DILAUDID IV ONE ×3 (02:54→05:43)
[2018-01-28] MEDS ORDERED: ZOFRAN IV ONE (02:54)
[2018-01-28] MEDS ORDERED: BENADRYL IV ONE ×2 (02:54→04:52)
[2018-01-28 03:23] LABS: Basophils % (Auto) 0.9 % (0.0-1.8); Eosinophils % (Auto) 0.9 % (0.0-4.3); Hematocrit 30.5 % (35.5-45.6); Hemoglobin 10.1 gm/dl (11.8-15.2); Lymphocytes # (Auto) 1.4 K/mm3 (1.2-5.4); Lymphocytes % (Auto) 31.7 % (13.4-35.0); Mean Corpuscular HGB Conc 33 % (32-34); Mean Corpuscular Volume 75 fl (84-94); Monocytes # (Auto) 0.4 K/mm3 (0.0-0.8); Monocytes % (Auto) 8.3 % (0.0-7.3); Platelet Count 266 K/mm3 (140-440); Red Blood Count 4.06 M/mm3 (3.65-5.03); Red Cell Distribution Width 14.4 % (13.2-15.2)
[2018-01-28 03:28] LABS: Mean Corpuscular Hemoglobin 25 pg (28-32)
[2018-01-28] MEDS ORDERED: DILAUDID ONE ×3 (03:31→06:08)
[2018-01-28 03:39] LABS: INR 2.93 (0.87-1.13)
[2018-01-28 03:40] LABS: Partial Thromboplastin Time 44.5 Sec. (24.2-36.6)
[2018-01-28] MEDS ORDERED: ROCEPHIN/NS 1 GM/50 ML 1 GM/50 ML BAG IV ONE (04:16)
[2018-01-28] MEDS ORDERED: cefTRIAXone 1 GM in NACL 0.9% 20 ML IV ONE (04:20)
--- NOTE | 2018-01-28 04:43 | Emergency Department Report ---
ED General Adult HPI - General Chief complaint: Sickle Cell Crisis Stated complaint: SICKLE CELL CRISIS Time Seen by Provider: 01/28/18 02:40 Source: patient Mode of arrival: Ambulatory Limitations: No Limitations - History of Present Illness Initial comments: 37-year-old male with a past medical history sickle cell disease, HIV with undetectable viral load, pulmonary embolus currently on Coumadin, right arm DVT , and TIA presents with complaints of back and leg pain 4 days. Pain is constant, rated 10/10 intensity, worse with movement and palpation. Pt complains of a "low-grade fever." No weakness, numbness, abdominal pain, dysuria, hematuria, nausea, or vomiting reported. Patient taking by mouth Dilaudid 2 mg at home without improvement. 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 Severity scale (0 -10): 8 - Related Data Home Medications Medication Instructions Recorded Confirmed Last Taken Hydroxyurea [Hydrea] 500 mg PO DAILY 08/06/17 10/12/17 10/11/17 HYDROmorphone [Dilaudid] 2 mg PO Q4-6H PRN 10/12/17 10/12/17 10/11/17 Ketoconazole 2% [Nizoral] 1 applic TP TID 10/12/17 10/12/17 10/11/17 Megestrol 180 mg PO TID 10/13/17 10/13/17 10/11/17 Previous Rx's Medication Instructions Recorded Last Taken Type Folic Acid [Folvite] 0.5 mg PO QDAY #30 tablet 04/21/17 10/11/17 Rx Oxycodone HCl/Acetaminophen 1 each PO Q6HR PRN #30 tablet 04/21/17 10/11/17 Rx [Percocet 10/325 mg] Selenium Sulfide(Nf) [Selsun (Nf)] 1 applic TP TuSa@1000 PRN #1 bottle 04/21/17 10/11/17 Rx Atovaquone [Mepron] 1,500 mg PO QDAY oralsyr 10/15/17 Unknown Rx Elviteg/Cob/Emtri/Tenof Alafen 1 tab PO QDAY 10/15/17 Unknown Rx [Genvoya Tablet] Warfarin [Coumadin] 7.5 mg PO QDAY #30 tablet 12/28/17 Unknown Rx Nitrofurantoin Monohyd/M-Cryst 100 mg PO BID #10 capsule 01/28/18 Unknown Rx [Macrobid 100 mg Capsule] Allergies Allergy/AdvReac Type Severity Reaction Status Date / Time atovaquone [From Mepron] Allergy Rash Verified 11/14/17 11:19 morphine Allergy Anaphylaxis Verified 11/14/17 11:19 Iodinated Contrast- Oral and AdvReac Unknown Verified 11/14/17 11:19 IV Dye [Iodinated Contrast Media - IV Dye] sulfamethoxazole AdvReac Unknown Verified 11/14/17 11:19 [From Bactrim] trimethoprim [From Bactrim] AdvReac Unknown Verified 11/14/17 11:19 PLASTIC TAPE Allergy Rash Uncoded 11/14/17 11:19 ED Review of Systems ROS: Stated complaint: SICKLE CELL CRISIS Other details as noted in HPI Comment: All other systems reviewed and negative ED Past Medical Hx - Past Medical History Previous Medical History?: Yes Hx CVA: (-2014) Hx Heart Attack/AMI: No Hx Congestive Heart Failure: No Hx Diabetes: No Hx Deep Vein Thrombosis: Yes (right arm and leg 2015) Hx Pulmonary Embolism: Yes (08/2016) Hx Liver Disease: No Hx Renal Disease: No Hx Sickle Cell Disease: Yes Hx Arthritis: No Hx Seizures: No Hx Kidney Stones: No Hx Asthma: No Hx COPD: No Hx Tuberculosis: No Hx Dementia: No Hx HIV: Yes - Surgical History Past Surgical History?: Yes Hx Cholecystectomy: Yes (2013) Hx Appendectomy: Yes (2013) Additional Surgical History: I&D ON LEG. PORT RIGHT CHEST, port in right upper arm, right arm port. Spleenectomy - Social History Smoking Status: Never Smoker Substance Use Type: None - Medications Home Medications: Home Medications Medication Instructions Recorded Confirmed Last Taken Type Folic Acid [Folvite] 0.5 mg PO QDAY #30 tablet 04/21/17 10/12/17 10/11/17 Rx Oxycodone HCl/Acetaminophen 1 each PO Q6HR PRN #30 tablet 04/21/17 10/12/1706/20 Rx [Percocet 10/325 mg] Selenium Sulfide(Nf) [Selsun (Nf)] 1 applic TP TuSa@1000 PRN #1 bottle 04/21/17 10/12/17 10/11/17 Rx Hydroxyurea [Hydrea] 500 mg PO DAILY 08/06/17 10/12/17 10/11/17 History HYDROmorphone [Dilaudid] 2 mg PO Q4-6H PRN 10/12/17 10/12/17 10/11/17 History Ketoconazole 2% [Nizoral] 1 applic TP TID 10/12/17 10/12/17 10/11/17 History Megestrol 180 mg PO TID 10/13/17 10/13/17 10/11/17 History Atovaquone [Mepron] 1,500 mg PO QDAY oralsyr 10/15/17 Unknown Rx Elviteg/Cob/Emtri/Tenof Alafen 1 tab PO QDAY 10/15/17 Unknown Rx [Genvoya Tablet] Warfarin [Coumadin] 7.5 mg PO QDAY #30 tablet 12/28/17 Unknown Rx Nitrofurantoin Monohyd/M-Cryst 100 mg PO BID #10 capsule 01/28/18 Unknown Rx [Macrobid 100 mg Capsule] ED Physical Exam - General Limitations: No Limitations - Other Other exam information: General: No limitations, patient is alert in no acute distress Head exam: Atraumatic, normocephalic Eyes exam: Normal appearance ENT: Moist mucous membrane, normal oropharynx Neck exam: Normal inspection, full range of motion, no meningismus nontender Respiratory exam: Clear to auscultation bilateral, no wheezes, rales, crackles Cardiovascular: Normal rate and rhythm, normal heart sounds Abdomen: Soft, nondistended, and nontender, with normal bowel sounds, no rebound, or guarding Extremity: Full range of motion normal inspection no deformity Back: Normal Inspection, full range of motion, generalized back tenderness including midline Neurologic: Alert, oriented x3, cranial nerves intact, no motor or sensory deficit Psychiatric: normal affect, normal mood Skin: Warm, dry, intact ED Course Vital Signs 01/28/18 00:44 Temperature 98.7 F Pulse Rate 95 H Respiratory 16 Rate Blood Pressure 140/99 O2 Sat by Pulse 100 Oximetry ED Medical Decision Making - Lab Data Result diagrams: 01/28/18 03:07 Lab Results 01/28/18 01/28/18 01/28/18 Range/Units 02:05 03:07 03:07 WBC 4.6 (4.5-11.0) K/mm3 RBC 4.06 (3.65-5.03) M/mm3 Hgb 10.1 L (11.8-15.2) gm/dl Hct 30.5 L (35.5-45.6) % MCV 75 L (84-94) fl MCH 25 L (28-32) pg MCHC 33 (32-34) % RDW 14.4 (13.2-15.2) % Plt Count 266 (140-440) K/mm3 Lymph % (Auto) 31.7 (13.4-35.0) % [place] % (Auto) 8.3 H (0.0-7.3) % Eos % (Auto) 0.9 (0.0-4.3) % Baso % (Auto) 0.9 (0.0-1.8) % Lymph # 1.4 (1.2-5.4) K/mm3 [place] # 0.4 (0.0-0.8) K/mm3 Eos # 0.0 (0.0-0.4) K/mm3 Baso # 0.0 (0.0-0.1) K/mm3 Seg Neutrophils % 58.2 (40.0-70.0) % Seg Neutrophils # 2.7 (1.8-7.7) K/mm3 Percent Retic 1.12 (0.78-2.58) % PT 32.6 H (12.2-14.9) Sec. INR 2.93 H (0.87-1.13) APTT 44.5 H (24.2-36.6) Sec. Urine Color Yellow (Yellow) Urine Turbidity Hazy (Clear) Urine pH 6.0 (5.0-7.0) Ur Specific [place] 1.020 (1.003-1.030) Urine Protein 100 mg/dl (Negative) mg/dL Urine Glucose (UA) Neg (Negative) mg/dL Urine Ketones Neg (Negative) mg/dL Urine Blood Lg (Negative) Urine Nitrite Neg (Negative) Urine Bilirubin Neg (Negative) Urine Urobilinogen < 2.0 (<2.0) mg/dL Ur Leukocyte Esterase Tr (Negative) Urine WBC (Auto) 21.0 H (0.0-6.0) /HPF Urine RBC (Auto) 167.0 (0.0-6.0) /HPF Urine Mucus Few /HPF - Medical Decision Making Sickle cell crisis Patient received multiple doses of Dilaudid and reports feeling well enough to go home H&H and sickle cell count normal UTI IV Rocephin Culture pending macrobid will be prescribed PE/DVT No symptoms currently No hypoxia, tachypnea, or tachycardia Therapeutic INR on on Coumadin will be d/eldon to f/u with hematologsit - Differential Diagnosis sickle cell crisis, narcotic dependence, infection Critical Care Time: No Critical care attestation.: If time is entered above; I have spent that time in minutes in the direct care of this critically ill patient, excluding procedure time. ED Disposition Clinical Impression: UTI (urinary tract infection), Sickle cell crisis, Anticoagulation goal of INR 2 to 3, HIV (human immunodeficiency virus infection) Disposition: - TO HOME OR SELFCARE Is pt being admited?: No Does the pt Need Aspirin: No Condition: Stable Instructions: Sickle Cell Crisis (ED), Urinary Tract Infection in Men (ED) Additional Instructions: Take the medication as prescribed. Follow-up with your order processing manager. Return is symptoms worsen as indicated by your discharge instructions. Prescriptions: Nitrofurantoin Monohyd/M-Cryst [Macrobid 100 mg Capsule] 100 mg PO BID #10 capsule Referrals: ÁNGEL CHINCHILLA DO [Staff Physician] - 3-5 Days Time of Disposition: 06:00
[2018-01-28] MEDS ORDERED: FLUSH HEPARIN IV ONE (06:14)
[2018-01-28 06:33] VITALS: BP 141/89
== END 2018-01-28 06:00 | disposition home or self-care (01) ==
LOC: ED 23:44
DX: N39.0 Urinary tract infection, site not specified (principal); D57.219 Sickle-cell/Hb-C disease with crisis, unspecified; Z86.711 Personal history of pulmonary embolism; Z79.02 Long term (current) use of antithrombotics/antiplatelets; Z86.718 Personal history of other venous thrombosis and embolism; Z88.5 Allergy status to narcotic agent; Z88.2 Allergy status to sulfonamides; Z90.49 Acquired absence of other specified parts of digestive tract
CPT/HCPCS: 36415; 81001; 85025; 85045; 85610; 85730; 96365; 96375; 96376; 99283; J0696; J1170; J1200; J1642; J2405

== ENCOUNTER 2018-02-28 07:09 | Emergency (ER) | payer MEDICARE ==
[2018-02-28] MEDS ORDERED: D5NS 0.2% 1,000 ML IV SCH (08:00)
[2018-02-28] MEDS ORDERED: ZOFRAN IV ONE (12:29)
[2018-02-28] MEDS ORDERED: DILAUDID IV ONE ×3 (12:29→15:15)
[2018-02-28] MEDS ORDERED: BANOPHEN PO ONE (12:29)
[2018-02-28] MEDS ORDERED: DILAUDID ONE ×3 (12:55→15:38)
[2018-02-28 13:36] LABS: Basophils % (Auto) 0.5 % (0.0-1.8); Eosinophils % (Auto) 0.8 % (0.0-4.3); Hematocrit 34.5 % (35.5-45.6); Hemoglobin 11.3 gm/dl (11.8-15.2); Lymphocytes # (Auto) 1.7 K/mm3 (1.2-5.4); Lymphocytes % (Auto) 33.5 % (13.4-35.0); Mean Corpuscular HGB Conc 33 % (32-34); Mean Corpuscular Volume 73 fl (84-94); Monocytes # (Auto) 0.5 K/mm3 (0.0-0.8); Platelet Count 308 K/mm3 (140-440); Red Blood Count 4.71 M/mm3 (3.65-5.03); Red Cell Distribution Width 15.2 % (13.2-15.2)
[2018-02-28 13:42] LABS: Mean Corpuscular Hemoglobin 24 pg (28-32)
[2018-02-28 13:43] LABS: INR 0.93 (0.87-1.13)
[2018-02-28 13:44] LABS: Partial Thromboplastin Time 47.2 Sec. (24.2-36.6)
[2018-02-28 13:48] LABS: BUN/Creatinine Ratio 12; Blood Urea Nitrogen 11 mg/dL (9-20); Calcium 9.2 mg/dL (8.4-10.2); Hemolysis Index 0
[2018-02-28] MEDS ORDERED: LOVENOX SUB-Q ONE (14:07)
--- NOTE | 2018-02-28 14:10 | Emergency Department Report ---
ED General Adult HPI - General Chief complaint: Sickle Cell Crisis Stated complaint: SICKLE CELL PAIN Time Seen by Provider: 02/28/18 12:18 Source: patient, RN notes reviewed, old records reviewed Mode of arrival: Ambulatory Limitations: No Limitations - History of Present Illness Initial comments: Hematology: Dr. Chinchilla This is a 37-year-old male, unknown to this patient, past medical history of sickle cell disease, HIV with undetectable viral load, pulmonary embolus on Coumadin, right arm DVT, TIA. Presents to the ER complaining of his typical sickle cell crisis. Triggers include cold weather. She complains of chest wall pain, back pain, lower extremity pain. He endorses nausea but no vomiting , has no urinary symptoms, denies a fever, denies diaphoresis. He denies a sore throat. He indicates his chest wall pain today does not feel like his prior pulmonary embolus, which felt "stabbing in nature." He further indicates that hydromorphone typically improves his pain. -: Gradual, hour(s) Location: chest, back, left, right, upper extremity, lower extremity Quality: aching Consistency: constant Improves with: medication Worsens with: movement Associated Symptoms: chest pain, cough, weakness. denies: shortness of breath, syncope - Related Data Home Medications Medication Instructions Recorded Confirmed Last Taken Hydroxyurea [Hydrea] 500 mg PO DAILY 08/06/17 10/12/17 10/11/17 HYDROmorphone [Dilaudid] 2 mg PO Q4-6H PRN 10/12/17 10/12/17 10/11/17 Ketoconazole 2% [Nizoral] 1 applic TP TID 10/12/17 10/12/17 10/11/17 Megestrol 180 mg PO TID 10/13/17 10/13/17 10/11/17 Previous Rx's Medication Instructions Recorded Last Taken Type Folic Acid [Folvite] 0.5 mg PO QDAY #30 tablet 04/21/17 10/11/17 Rx Oxycodone HCl/Acetaminophen 1 each PO Q6HR PRN #30 tablet 04/21/17 10/11/17 Rx [Percocet 10/325 mg] Selenium Sulfide(Nf) [Selsun (Nf)] 1 applic TP TuSa@1000 PRN #1 bottle 04/21/17 10/11/17 Rx Atovaquone [Mepron] 1,500 mg PO QDAY oralsyr 10/15/17 Unknown Rx Elviteg/Cob/Emtri/Tenof Alafen 1 tab PO QDAY 10/15/17 Unknown Rx [Genvoya Tablet] Warfarin [Coumadin] 7.5 mg PO QDAY #30 tablet 12/28/17 Unknown Rx Nitrofurantoin Monohyd/M-Cryst 100 mg PO BID #10 capsule 01/28/18 Unknown Rx [Macrobid 100 mg Capsule] Enoxaparin Sodium [Lovenox] 100 mg SQ BID #30 syringe 02/28/18 Unknown Rx Allergies Allergy/AdvReac Type Severity Reaction Status Date / Time atovaquone [From Mepron] Allergy Rash Verified 02/28/18 07:11 morphine Allergy Anaphylaxis Verified 02/28/18 07:11 Iodinated Contrast- Oral and AdvReac Unknown Verified 02/28/18 07:11 IV Dye [Iodinated Contrast Media - IV Dye] sulfamethoxazole AdvReac Unknown Verified 02/28/18 07:11 [From Bactrim] trimethoprim [From Bactrim] AdvReac Unknown Verified 02/28/18 07:11 PLASTIC TAPE Allergy Rash Uncoded 11/14/17 11:19 ED Review of Systems ROS: Stated complaint: SICKLE CELL PAIN Other details as noted in HPI Constitutional: denies: fever Eyes: denies: eye discharge ENT: denies: epistaxis Respiratory: cough Cardiovascular: chest pain Gastrointestinal: nausea Genitourinary: denies: urgency, dysuria Musculoskeletal: back pain, arthralgia, myalgia Skin: denies: lesions Neurological: weakness Psychiatric: anxiety ED Past Medical Hx - Past Medical History Hx CVA: (TIA-2014) Hx Heart Attack/AMI: No Hx Congestive Heart Failure: No Hx Diabetes: No Hx Deep Vein Thrombosis: Yes (right arm and leg 2015) Hx Pulmonary Embolism: Yes (08/2016) Hx Liver Disease: No Hx Renal Disease: No Hx Sickle Cell Disease: Yes Hx Arthritis: No Hx Seizures: No Hx Kidney Stones: No Hx Asthma: No Hx COPD: No Hx Tuberculosis: No Hx Dementia: No Hx HIV: Yes - Surgical History Hx Cholecystectomy: Yes (2013) Hx Appendectomy: Yes (2013) Additional Surgical History: I&D ON LEG. PORT RIGHT CHEST, port in right upper arm, right arm port. Spleenectomy - Social History Smoking Status: Never Smoker Substance Use Type: None - Medications Home Medications: Home Medications Medication Instructions Recorded Confirmed Last Taken Type Folic Acid [Folvite] 0.5 mg PO QDAY #30 tablet 04/21/17 10/12/17 10/11/17 Rx Oxycodone HCl/Acetaminophen 1 each PO Q6HR PRN #30 tablet 04/21/17 10/12/1706/20 Rx [Percocet 10/325 mg] Selenium Sulfide(Nf) [Selsun (Nf)] 1 applic TP TuSa@1000 PRN #1 bottle 04/21/17 10/12/17 10/11/17 Rx Hydroxyurea [Hydrea] 500 mg PO DAILY 08/06/17 10/12/17 10/11/17 History HYDROmorphone [Dilaudid] 2 mg PO Q4-6H PRN 10/12/17 10/12/17 10/11/17 History Ketoconazole 2% [Nizoral] 1 applic TP TID 10/12/17 10/12/17 10/11/17 History Megestrol 180 mg PO TID 10/13/17 10/13/17 10/11/17 History Atovaquone [Mepron] 1,500 mg PO QDAY oralsyr 10/15/17 Unknown Rx Elviteg/Cob/Emtri/Tenof Alafen 1 tab PO QDAY 10/15/17 Unknown Rx [Genvoya Tablet] Warfarin [Coumadin] 7.5 mg PO QDAY #30 tablet 12/28/17 Unknown Rx Nitrofurantoin Monohyd/M-Cryst 100 mg PO BID #10 capsule 01/28/18 Unknown Rx [Macrobid 100 mg Capsule] Enoxaparin Sodium [Lovenox] 100 mg SQ BID #30 syringe 02/28/18 Unknown Rx ED Physical Exam - General Limitations: No Limitations General appearance: alert, in no apparent distress - Head Head exam: Present: atraumatic, normocephalic - Eye Eye exam: Present: normal appearance, EOMI. Absent: nystagmus - ENT ENT exam: Present: normal orophraynx, mucous membranes moist, normal external ear exam - Neck Neck exam: Present: normal inspection, full ROM - Respiratory Respiratory exam: Present: normal lung sounds bilaterally, chest wall tenderness. Absent: respiratory distress - Cardiovascular Cardiovascular Exam: Present: regular rate, normal rhythm, normal heart sounds. Absent: bradycardia, tachycardia, irregular rhythm, systolic murmur, diastolic murmur, rubs, gallop - GI/Abdominal GI/Abdominal exam: Present: soft, normal bowel sounds. Absent: distended, tenderness, guarding, rebound, rigid, pulsatile mass - Rectal Rectal exam: Present: deferred - Extremities Exam Extremities exam: Present: normal inspection, full ROM, tenderness, normal capillary refill, other (there is long bony tenderness in the bilateral upper and lower extremities. There are no step-offs. There is no palpable cord.). Absent: pedal edema, joint swelling, calf tenderness - Back Exam Back exam: Present: normal inspection, full ROM, paraspinal tenderness, vertebral tenderness. Absent: tenderness, CVA tenderness (R) - Neurological Exam Neurological exam: Present: alert, oriented X3, CN II-XII intact, normal gait, other (Extraocular movements intact. Tongue midline. No facial droop. Facial sensation intact to light touch in the V1, V2, V3 distribution bilaterally. 5 and 5 strength in 4 extremities.. Sensation is intact to light touch in 4 extremities.). Absent: motor sensory deficit - Psychiatric Psychiatric exam: Present: normal affect, normal mood - Skin Skin exam: Present: warm, dry, intact, normal color. Absent: rash ED Course Vital Signs 02/28/18 02/28/18 02/28/18 07:11 12:30 13:00 Temperature 99.1 F Pulse Rate 104 H 85 86 Respiratory 20 13 9 L Rate Blood Pressure 146/90 139/98 149/104 O2 Sat by Pulse 98 100 Oximetry 02/28/18 02/28/18 02/28/18 13:11 13:31 13:41 Temperature Pulse Rate 74 Respiratory 16 9 L 16 Rate Blood Pressure 139/98 O2 Sat by Pulse 98 Oximetry 02/28/18 02/28/18 14:00 14:15 Temperature Pulse Rate 70 Respiratory 13 16 Rate Blood Pressure 137/93 O2 Sat by Pulse 98 Oximetry - Reevaluation(s) Reevaluation #1: 02/28/18 14:24 Differential diagnosis, including not limited to: Narcotic dependence, pulmonary embolus, sickle cell crisis, myocarditis, pericarditis, acute coronary syndrome, sickle cell crisis Plan: 37-year-old male, sickle cell patient, with chest wall pain, and extremity pain. INR is subtherapeutic. He is loaded with Lovenox. A nuclear medicine studiy is pending at this time. Clinically doubt a PE at this time. Chest wall pain is reproducible. He is not hypoxic. His tachycardia has resolved. Laboratory studies reviewed and are appreciated. Low risk by Heart's score, ANALY score. Chest wall pain has been present for over 24 hours, therefore as per the [employer] clinical policy, myocardial infarction May BE ruled out with one set of troponins. Reevaluation #2: 02/28/18 15:08 Nuclear medicine study is low probability. Troponin is negative. Vital signs stable. Patient appears very comfortable, having a full conversation with his [employer] ticket [employer]. He does not meet criteria for inpatient hospitalization at this time , he will need to follow-up with his outpatient oncologist for additional refills on his narcotic medicines, he will get his Lovenox refill. ED Medical Decision Making - Lab Data Result diagrams: 02/28/18 13:26 02/28/18 13:26 Vital Signs 02/28/18 02/28/18 07:11 13:11 Temperature 99.1 F Pulse Rate 104 H Respiratory 20 16 Rate Blood Pressure 146/90 O2 Sat by Pulse 98 Oximetry Lab Results 02/28/18 02/28/18 02/28/18 Range/Units 13:26 13:26 13:26 WBC 5.1 (4.5-11.0) K/mm3 RBC 4.71 (3.65-5.03) M/mm3 Hgb 11.3 L (11.8-15.2) gm/dl Hct 34.5 L (35.5-45.6) % MCV 73 L (84-94) fl MCH 24 L (28-32) pg MCHC 33 (32-34) % RDW 15.2 (13.2-15.2) % Plt Count 308 (140-440) K/mm3 Lymph % (Auto) 33.5 (13.4-35.0) % [place] % (Auto) 10.0 H (0.0-7.3) % Eos % (Auto) 0.8 (0.0-4.3) % Baso % (Auto) 0.5 (0.0-1.8) % Lymph # 1.7 (1.2-5.4) K/mm3 [place] # 0.5 (0.0-0.8) K/mm3 Eos # 0.0 (0.0-0.4) K/mm3 Baso # 0.0 (0.0-0.1) K/mm3 Seg Neutrophils % 55.2 (40.0-70.0) % Seg Neutrophils # 2.8 (1.8-7.7) K/mm3 Percent Retic 1.61 (0.78-2.58) % PT 12.9 (12.2-14.9) Sec. INR 0.93 (0.87-1.13) APTT 47.2 H (24.2-36.6) Sec. Sodium 137 (137-145) mmol/L Potassium 3.7 (3.6-5.0) mmol/L Chloride 102.3 (98-107) mmol/L Carbon Dioxide 25 (22-30) mmol/L Anion Gap 13 mmol/L BUN 11 (9-20) mg/dL Creatinine 0.9 (0.8-1.5) mg/dL Estimated GFR > 60 ml/min BUN/Creatinine Ratio 12 % Glucose 96 (75-100) mg/dL Calcium 9.2 (8.4-10.2) mg/dL Lactate Dehydrogenase (91-180) units/L Total Creatine Kinase (55-170) units/L 05/29/18 Range/Units 13:26 WBC (4.5-11.0) K/mm3 RBC (3.65-5.03) M/mm3 Hgb (11.8-15.2) gm/dl Hct (35.5-45.6) % MCV (84-94) fl MCH (28-32) pg MCHC (32-34) % RDW (13.2-15.2) % Plt Count (140-440) K/mm3 Lymph % (Auto) (13.4-35.0) % [place] % (Auto) (0.0-7.3) % Eos % (Auto) (0.0-4.3) % Baso % (Auto) (0.0-1.8) % Lymph # (1.2-5.4) K/mm3 [place] # (0.0-0.8) K/mm3 Eos # (0.0-0.4) K/mm3 Baso # (0.0-0.1) K/mm3 Seg Neutrophils % (40.0-70.0) % Seg Neutrophils # (1.8-7.7) K/mm3 Percent Retic (0.78-2.58) % PT (12.2-14.9) Sec. INR (0.87-1.13) APTT (24.2-36.6) Sec. Sodium (137-145) mmol/L Potassium (3.6-5.0) mmol/L Chloride (98-107) mmol/L Carbon Dioxide (22-30) mmol/L Anion Gap mmol/L BUN (9-20) mg/dL Creatinine (0.8-1.5) mg/dL Estimated GFR ml/min BUN/Creatinine Ratio % Glucose (75-100) mg/dL Calcium (8.4-10.2) mg/dL Lactate Dehydrogenase 129 (91-180) units/L Total Creatine Kinase 199 H (55-170) units/L - EKG Data -: EKG Interpreted by Me - EKG Data 02/28/18 14:23 Sinus, 81 beats minute, borderline left axis, high left ventricular voltage, T- wave inversions lateral leads, appears unchanged when compared to prior from . - Radiology Data Radiology results: image reviewed interpreted by me: X-ray the chest, interpreted by me, no acute disease, right-sided port is noted. Nuclear medicine study is low probability as per radiology, Dr. Gaming. Critical care attestation.: If time is entered above; I have spent that time in minutes in the direct care of this critically ill patient, excluding procedure time. ED Disposition Clinical Impression: Subtherapeutic international normalized ratio (INR), Sickle cell pain crisis Disposition: DC-01 TO HOME OR SELFCARE Is pt being admited?: No Does the pt Need Aspirin: No Condition: Stable Additional Instructions: Use Lovenox injections as directed. Continue current outpatient medications. Follow-up with your hematology oncology radiation physician within the next 5-7 days for a recheck. Return to the ER right away with new pain, worsened pain, migration of pain, fevers, chills, lethargy, irritability, projectile vomiting, change in mental status, confusion, inability to tolerate liquid feeds. Referrals: PRIMARY CARE, [Primary Care Provider] - 3-5 Days ÁNGEL CHINCHILLA DO [Staff Physician] - 3-5 Days
[2018-02-28 15:08] VITALS: BP 137/93
[2018-02-28] MEDS ORDERED: TRIPLE ANTIBIOTIC TP ONE (16:18)
--- NOTE | 2018-03-01 12:51 | XRay Report ---
Chest 2 views: History: Chest pain. Findings: Normal cardiomediastinal silhouette. Trachea is midline. No consolidation, pneumothorax or pleural effusion. Impression: No acute cardiopulmonary findings.
--- NOTE | 2018-03-02 13:00 | Nuclear Medicine Report ---
LUNG SCAN, VENTILATION AND PERFUSION: History: Chest pain. Rule out PE. Findings: Inhalation of Xenon gas demonstrates a normal distribution of the activity throughout both lungs. The wash out phases show no focal retention of activity. After injection of Technetium 99m macroaggregated albumin gamma camera imaging of the lungs in multiple projections demonstrates normal pulmonary contours with a homogeneous distribution of activity. No focal areas of perfusion deficiency are identified. IMPRESSION: Normal study.
== END 2018-02-28 16:24 | disposition home or self-care (01) ==
LOC: ED 07:09
DX: D57.00 Hb-SS disease with crisis, unspecified (principal); R79.1 Abnormal coagulation profile
CPT/HCPCS: 36415; 71046; 78582; 80048; 82550; 83615; 84484; 85025; 85045; 85610; 85730; 93005; 93010; 96361; 96372; 96374; 96375; 96376; 99284; A9540; A9558; J1170; J1650; J2405; A6250; Q0163